=== PATIENT | male | born 1960 | race Caucasian/White ===

== ENCOUNTER → 2017-12-15 07:39 | Outpatient (CLI) | payer OTHER, SELFPAY ==
[2017-12-15 10:27] LABS: Hemoglobin A1c 8.3 % (4.2-6.3)
[2017-12-15 10:28] LABS: Microalbumin,Random Urine 15.4 mg/L (NO RANGE EST.)
[2017-12-15 10:31] LABS: Anion Gap 7 (5-15); BUN 14 mg/dL (7-18); BUN/Creat Ratio 18.7 RATIO (10-20); Calcium,Total 8.8 mg/dL (8.5-10.1); Chloride 103 mmol/L (98-107); Cholesterol 155 mg/dL (200); Creatinine, Serum 0.75 mg/dL (0.70-1.30); EST Glomerular Filtration Rate 114 mL/min (>60); Est Glom Filt Rate - Afr Amer 137 mL/min (>60); Glucose 150 mg/dL (74-106); High Density Lipoprotein 44 mg/dL; PSA,Total - Annual Screen 1.59 ng/mL (0.00-4.00); Potassium 4.3 mmol/L (3.5-5.1); Sodium Level 141 mmol/L (136-145); Triglycerides 145 mg/dL; Very Low Density Lipoprotein 29 mg/dL (5-40)
== END ==
PROVIDERS: Family Provider Family Medicine; PCP Family Medicine; Referring Provider Family Medicine; Visit Provider Family Medicine
DX: I10 Essential (primary) hypertension (principal); E78.00 Pure hypercholesterolemia, unspecified; E11.9 Type 2 diabetes mellitus without complications; Z12.5 Encounter for screening for malignant neoplasm of prostate
CPT/HCPCS: 36415; 80048; 80061; 82043; 82570; 83036; 84153; G0103

== ENCOUNTER → 2018-09-14 | Outpatient (CLI) | payer OTHER, SELFPAY ==
[2018-09-14 10:20] LABS: Hemoglobin A1c 7.9 % (4.2-6.3)
== END | disposition home or self-care (01) ==
LOC: MTLAB 07:26
PROVIDERS: Family Provider Family Medicine; PCP Family Medicine; Referring Provider Family Medicine; Visit Provider Family Medicine
DX: E11.9 Type 2 diabetes mellitus without complications (principal)
CPT/HCPCS: 36415; 83036

== ENCOUNTER → 2018-12-03 08:20 | Outpatient (CLI) | payer OTHER, SELFPAY ==
[2018-12-03 10:56] LABS: Hemoglobin A1c 7.4 % (4.2-6.3)
[2018-12-03 11:15] LABS: Anion Gap 2 (5-15); BUN 14 mg/dL (7-18); Calcium,Total 8.9 mg/dL (8.5-10.1); Chloride 108 mmol/L (98-107); Cholesterol 172 mg/dL (200); Creatinine, Serum 0.78 mg/dL (0.70-1.30); EST Glomerular Filtration Rate 108 mL/min (>60); Est Glom Filt Rate - Afr Amer 131 mL/min (>60); Glucose 163 mg/dL (74-106); High Density Lipoprotein 47 mg/dL; Potassium 4.2 mmol/L (3.5-5.1); Sodium Level 141 mmol/L (136-145); Triglycerides 101 mg/dL; Very Low Density Lipoprotein 20 mg/dL (5-40)
== END ==
PROVIDERS: Family Provider Family Medicine; PCP Family Medicine; Referring Provider Family Medicine; Visit Provider Family Medicine
DX: I10 Essential (primary) hypertension (principal); E78.00 Pure hypercholesterolemia, unspecified; E11.9 Type 2 diabetes mellitus without complications; Z12.5 Encounter for screening for malignant neoplasm of prostate
CPT/HCPCS: 36415; 80048; 80061; 83036

== ENCOUNTER 2019-05-24 09:58 | Observation (INO) | payer OTHER, SELFPAY ==
[2019-05-24] VITALS (12 sets, daily range): BP systolic 124–165; BP diastolic 77–97; PULSE 76–96; RESP 16–19; TEMP 36.2–36.8; O2SAT 5–98; BMI 25.7
--- NOTE | 2019-05-24 10:09 | EKG12_ITS ---
Test Reason : CP Blood Pressure : / mmHG Vent. Rate : 086 BPM Atrial Rate : 086 BPM P-R Int : 148 ms QRS Dur : 090 ms QT Int : 376 ms P-R-T Axes : 051 020 096 degrees QTc Int : 449 ms Normal sinus rhythm Nonspecific ST and T wave abnormality Abnormal ECG Confirmed by PALMA BARAHONA ([id number]), editor producer PK GARIBAY ([id number]) on 05/25/2019 2:30:57 PM Referred By: ES/UG Confirmed By:PALMA BARAHONA
--- NOTE | 2019-05-24 10:10 | RAD_ITS ---
STUDY: X-RAY CHEST REASON FOR EXAM: Male, 59 years old. LEFT CHEST PAIN X1 WEEK INTERMITTENT. LAST COUPLE DAYS PERSISTENT. STATES PAIN WORSE WITH EXERTION TECHNIQUE: Single AP portable view of the chest. COMPARISON: None. FINDINGS: EKG electrodes are seen. Minimal increased markings in the right middle lobe. There is no demonstrated pleural abnormality. Normal size heart. Normal mediastinum and marybeth. Normal visualized pulmonary arteries. Normal visualized aortic arch and descending thoracic aorta. Normal visualized thoracic spine. Normal visualized ribs, clavicles, and shoulders. There is no demonstrated abnormality of the visualized soft tissue structures of the upper abdomen. RAD/Chest 1 View (Portable) IMPRESSION: Minimal increased markings in the right middle lobe. Electronically Signed: Jonatan De Leon, at 10:23 EST , Service support ,
[2019-05-24 10:32] LABS: Absolute Lymphocyte Count 2.54 X10^3/uL (0.83-4.51); Absolute Neutrophil Count 7.3 X10^3/uL (2.0-7.7); Basophil# 0.09 X10^3/uL; Basophil% 0.8 % (0-1); Eosinophil# 0.31 X10^3/uL; Eosinophils% 2.9 % (0-5); Hematocrit 48.6 % (40-54); Hemoglobin 16.5 g/dL (13.0-16.5); Lymphocyte # 2.54 X10^3/ul (4.0); Lymphocyte % 23.4 % (19-41); Mean Corpuscular Hgb 29.4 pg (27.0-32.0); Mean Corpuscular Volume 86.6 fL (80-94); Mean Platelet Vol. 9.9 fl (6.2-12.0); Monocyte% 5.5 % (0-10); NRBC Flagged by Analyzer 0 % (0-5); Neutrophil # 7.26 X10^3/uL (2.7-7.7); Neutrophil % 66.9 % (47-70); Platelet Count 425 K/mm3 (150-450); RBC Distribution Width CV 12.4 % (11.6-14.6); RBC Distribution Width SD 38.7 fl (35.1-43.9); Red Blood Count 5.61 M/mm3 (4.6-6.2); White Blood Count 10.9 K/mm3 (4.4-11.0)
[2019-05-24 10:46] LABS: Anion Gap 3 (5-15); BUN 16 mg/dL (7-18); BUN/Creat Ratio 16.5 RATIO (10-20); Calcium,Total 9.5 mg/dL (8.5-10.1); Chloride 105 mmol/L (98-107); Creatinine, Serum 0.97 mg/dL (0.70-1.30); EST Glomerular Filtration Rate 83 mL/min (>60); Est Glom Filt Rate - Afr Amer 101 mL/min (>60); Estimated Creatinine Clearance 85.18 ml/min; Glucose 320 mg/dL (74-106); Potassium 4.5 mmol/L (3.5-5.1); Sodium Level 137 mmol/L (136-145)
--- NOTE | 2019-05-24 13:52 | HP.PCM_ITS ---
Problem List (1) HTN (hypertension) Status: Chronic (2) Type 2 diabetes mellitus Status: Chronic (3) HLD (hyperlipidemia) Status: Chronic History of Present Illness Date of Admission: 05/24/19 Chief Complaint: Chest pain. The patient is a 59 year old M who presents to the emergency room due to chest pain. Patient reports over the past week he has had chest pain with exertion. Patient reports this has worsened since starting a week ago and this morning had chest pain just while ambulating to the kitchen. He describes the pain as a heavy/pressure which radiates down both arms. He denies shortness of breath, lightheadedness or other associated symptoms. He states if he rests, pain goes away within a few minutes. 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 This resolved with rest. He has no smoking history. He has a history of hypertension, hyperlipidemia and type 2 diabetes mellitus. He reports his mom and dad both had significant heart disease requiring intervention. Past Medical History Past Medical History (Chronic Problems): Chronic Problems HTN (hypertension) (Chronic) Type 2 diabetes mellitus (Chronic) HLD (hyperlipidemia) (Chronic) Allergies No Known Allergies Allergy (Verified 05/24/19 10:05) Home Medications: Ambulatory Orders Medication Instructions Recorded Aspirin 325 mg PO DAILY PRN PRN 05/24/19 Aspirin [Aspirin, Baby] 81 mg PO DAILY@0800 05/24/19 Atorvastatin Calcium [Lipitor] 20 mg PO QODAY 05/24/19 Canagliflozin [Invokana] 300 mg PO DAILY 05/24/19 Liraglutide [Victoza 3-Isaac] 1.8 mg SQ DAILY@1400 05/24/19 Quinapril HCl [Accupril] 10 mg PO BID 05/24/19 Sitagliptin Phos/Metformin HCl 1 tab PO BIDCM 05/24/19 [Janumet 50-1,000 MG Tablet] Surgical History: no surgical history Psychiatric History: No pertinent psych hx Lives: Spouse/ Significant Other Smoking Status: Never smoker Alcohol: Occasional Drugs: None - *Family History Maternal History Items: Heart Disease Paternal History Items: Heart Disease Review of Systems Constitutional: Denies: Chills, Fever, Weight Change HEENT: Denies: Head Aches, Sinus Congestion, Sinus Drainage Cardiovascular: Reports: Chest Pain Respiratory: Denies: Cough, Shortness of breath at rest, Sputum production Gastrointestinal: Denies: Abdominal Pain, Nausea, Vomiting Genitourinary: Denies: Dysuria Musculoskeletal: Denies: Joint Pain, Joint Tenderness Skin: Denies: Rash, Wounds Neurological: Denies: Numbness, Tingling, Focal weakness Psychiatric: Denies: Anxiety, Depression, Homicidal Ideations, Suicidal Ideations Hematologic/ Lymphatic: Denies: Easy Bruising, Easy Bleeding VTE Information - Inpt Only VTE Present on Admission: No VTE Mechan Device Prophylaxis: None VTE Pharm Prophylaxis ordered?: No Reason prophylaxis not ordered:: Treatment Not Indicated - Physical Exam Vitals/I&O's: Vital Signs Temp Pulse Resp BP Pulse Ox 97.1 F L 90 16 130/92 H 94 05/24/19 13:48 05/24/19 13:48 05/24/19 13:48 05/24/19 13:48 05/24/19 13:48 Oxygen Delivery Method Room Air Weight: 184 lb Body Mass Index (BMI) 25.7 General: Alert, Oriented x3, Cooperative HEENT: Atraumatic, PERRLA, EOMI, Normocephalic Neck: Supple, No JVD, Negative Carotid Bruits Lungs: Clear to auscultation, Normal air movement Cardiovascular: Regular rate, Regular Rhythm, Normal S1, Normal S2, No murmurs Abdomen: Bowel Sounds Present, Soft, Non Tender, Non-Distended Extremities: No clubbing, No cyanosis, No edema, Capillary Refill Less than 3 Seconds Skin: No rashes, No breakdown Musculoskeletal: No Tenderness to Palpation of Joints or Extremities Neurological: Cranial nerves II-XII grossly intact, Neuro grossly intact Psych/Mental Status: Normal Affect, Appropriate Laboratory Results 05/24/19 10:05: WBC 10.9, RBC 5.61, Hgb 16.5, Hct 48.6, MCV 86.6, MCH 29.4, MCHC 34.0, RDW Std Deviation 38.7, RDW Coeff of Nicholas 12.4, Plt Count 425, MPV 9.9, Immature Gran % (Auto) 0.500, Neut % (Auto) 66.9, Lymph % (Auto) 23.4, [place] % (Auto) 5.5, Eos % (Auto) 2.9, Baso % (Auto) 0.8, Absolute Neuts (auto) 7.3, Absolute Lymphs (auto) 2.54, Nucleated RBC % 0 05/24/19 10:05: Sodium 137, Potassium 4.5, Chloride 105, Carbon Dioxide 29.0, Anion Gap 3 L, BUN 16, Creatinine 0.97, Estim Creat Clear Calc 85.18, Est GFR (MDRD) Af Amer 101, Est GFR (MDRD) Non-Af 83, BUN/Creatinine Ratio 16.5, Glucose 320 H, Calcium 9.5, Troponin I 0.019 Current Medications Acetaminophen (Tylenol) 650 mg PO Q6H PRN PRN PRN Reason: Pain Score 1-10/Temp > 100.7 F Aspirin (Aspirin, Baby) 81 mg PO DAILY@0800 [facility] Atorvastatin Calcium (Lipitor) 20 mg PO QODAY [facility] Dextrose (D50w Syringe) 0 gm IV X1 PRN; Protocol PRN Reason: Hypoglycemia Glucagon () 1 mg IM .X1 PRN PRN Reason: Hypoglycemia Insulin Human Lispro (Humalog Kwikpen (Bkc)) 0 unit SC ACHS S[facility]; Protocol Non-Formulary Medication (Quinapril Hcl [Accupril]) 10 mg PO BID [facility] Sitagliptin Phosphate/Metformin HCl (Janumet 50-1,000 Mg Tablet) tablet PO BIDCM [facility] Assessment/Plan 1. Chest pain-trend enzymes. EKG without acute ischemia. Obtain stress test in a.m. Patient's story with exertional chest pain concerning for underlying CAD. Patient also has significant family history and risk factors including diabetes, hypertension/hyperlipidemia. 2. Hypertension-stable, continue lisinopril regimen. 3. Hyperlipidemia-fasting lipid panel in a.m. Continue statin regimen. 4. Type 2 diabetes mellitus-hold oral regimen. Accu-Cheks with sliding scale insulin. Check hemoglobin A1c. DVT prophylaxis- not indicated, low risk This patient was seen by DIANA Berman under the supervision of Dr. Munguia.
--- NOTE | 2019-05-24 14:29 | EKG12_ITS ---
Test Reason : CP ADMIT Blood Pressure : / mmHG Vent. Rate : 085 BPM Atrial Rate : 085 BPM P-R Int : 148 ms QRS Dur : 088 ms QT Int : 378 ms P-R-T Axes : 036 006 059 degrees QTc Int : 449 ms Normal sinus rhythm Normal ECG When compared with ECG of 15-JUN-1999 17:56, Nonspecific T wave abnormality, improved in Inferior leads Confirmed by NASEEM CARDENAS, MARY ([id number]), desk editor CLARY REY ([id number]) on 05/30/2019 4:06:50 PM Referred By: MARIELY Confirmed By:MARY GUSMAN MD
--- NOTE | 2019-05-24 14:48 | ECHOD_ITS ---
Reason For Study: CHEST PAIN Procedure This was a 2D Doppler, Color Flow transthoracic echocardiogram. The study was technically difficult. Exam performed portable in patient room. Left Ventricle Normal LV size. Left ventricular systolic function is normal. The estimated ejection fraction is 60 %. Transmitral doppler flow suggestive of impaired relaxation of left ventricle. No regional wall motion abnormalities noted. Right Ventricle Normal RV size. Normal systolic function. Atria Normal left atrium. Normal right atrium. No doppler evidence for ASD. Mitral Valve There is no mitral annular calcification. Anterior leaflet diffuse mitral valve thickening. Mild mitral valve prolapse, anterior leaflet. Trivial mitral valve insufficiency. Tricuspid Valve Normal tricuspid valve. Trivial tricuspid valve insufficiency. Unable to estimate RV systolic pressure/pulmonary artery pressure due to technically difficult study. Aortic Valve Trisinus/trileaflet aortic valve. Moderate focal aortic valve calcification. Pulmonic Valve The pulmonic valve is not well visualized. Great Vessels The aortic root is not well visualized. Pericardium/Pleural No pericardial effusion. MMode/2D Measurements & Calculations LVIDd: 4.2 cm IVSd: 1.0 cm LVOT diam: 2.3 cm LVIDs: 3.0 cm LVPWd: 1.00 cm LVOT area: 4.1 cm2 RVDd: 3.3 cm FS: 28.1 % LAV(MOD-bp): 32.3 ml LVAd ap4: 31.2 cm2 SV(MOD-sp4): 56.1 ml LAV(MOD-bp) Indexed: 16.2 ml/m2 EDV(MOD-sp4): 96.5 ml LAV(MOD-sp2): 37.1 ml EDV(sp4-el): 100.8 ml LAV(MOD-sp4): 27.4 ml LVAs ap4: 17.9 cm2 ESV(MOD-sp4): 40.3 ml ESV(sp4-el): 40.4 ml EF(MOD-sp4): 58.2 % EF(sp4-el): 59.9 % SV(sp4-el): 60.4 ml LA A4 area: 12.5 cm2 LA dimension(2D): 3.6 cm RA A4 area: 9.5 cm2 Time Measurements MV dec time: 0.40 sec Doppler Measurements & Calculations MV E max jerome: 54.5 cm/sec Lat Peak E' Jerome: 5.8 cm/sec Med Peak E' Jerome: 4.0 cm/sec MV A max jerome: 62.3 cm/sec E/E' lat: 9.4 E/E' med: 13.6 MV E/A: 0.87 Ao V2 max: 143.9 cm/sec LV V1 max: 85.4 cm/sec PA V2 max: 89.7 cm/sec Ao max P.3 mmHg LV V1 max P.9 mmHg VALENTINA(V,D): 2.4 cm2 Interpretation Summary The study was technically difficult. Left ventricular systolic function is normal. The estimated ejection fraction is 60 %. Anterior leaflet diffuse mitral valve thickening. Mild mitral valve prolapse, anterior leaflet Trivial mitral valve insufficiency. Trivial tricuspid valve insufficiency. Moderate focal aortic valve calcification. Unable to estimate RV systolic pressure/pulmonary artery pressure due to technically difficult study. Transmitral doppler flow suggestive of impaired relaxation of left ventricle Ordering Physician: Sarah Poole Referring Physician: SHERRI REEVES Performed By: Kelly Mendez RDCS, RVT
[2019-05-24 15:07] LABS: Hemoglobin A1c 9.7 % (4.2-6.3)
--- NOTE | 2019-05-24 15:28 | CASEMGMT ---
According to the [facility] website, the following are in-network tertiary facilities: [facility], [facility], [facility], [facility], [facility], [facility], [facility], [facility], [facility], and . Lexi BATISTA CM
--- NOTE | 2019-05-24 16:38 | ED.DCSUM_ITS ---
- ER Visit Summary Date of Service: 05/24/19 Chief Complaint: Chest pain History of Present Illness: The patient is a 59 M who presents with chest pain that has been waxing and waning over the past week. Patient states his pain is worse with any exertion. Patient states his pain is resolved with rest. Oj dumont states that while he was at work he had to stop and take a break because of the chest pain. Patient describes the pain as burning. Patient states the pain is over the entire chest area. Patient does admit to some shortness of breath and palpitations with the pain. Patient denies any nausea or vomiting. Patient denies any diaphoresis. Physical Examination: Vital signs are stable. Patient is afebrile. Patient is in no acute distress. Oral mucosa is pink and moist. Neck is supple. Trachea is midline. There is no JVD noted. Heart was regular rate and rhythm. Lungs are clear and equal bilaterally. Abdomen is soft. Bowel sounds are normal. There is no tenderness. There is no rebound or guarding noted. Skin is warm dry. Cranial nerves II through XII are intact. There are no focal motor or sensory deficits noted. Extremities are intact. There is no calf tenderness or edema. Test Results: EKG showed normal sinus rhythm with a rate of 86. There are nonspecific ST-T wave changes. CBC and basic metabolic profile were obtained. Glucose was elevated at 320 but was otherwise within normal limits. Troponin was 0.019. Portable chest x-ray was obtained. There is no acute cardiopulmonary process. This was interpreted by myself and the radiologist. Emergency Department Course and Treatment: Patient was given aspirin here. Patient remained pain-free during emergency department stay. Patient has a HEART score of 4. Patient has a KAYCEE risk score of 0. I recommended admission to the hospital for the patient. He is agreeable with this. Case was discussed with the hospitalist. He will admit the patient to his service. Patient understands and is agreeable with the plan. All questions were answered. Disposition: Admit for observation Impression: Chest pain This note was generated with [employer] dictation software. It may contain incorrect words, spelling, and punctuation that were not noted in review of the chart prior to signing ED Disposition - Plan for ED Patient: Disposition: Acute Care [facility]
[2019-05-24 17:01] LABS: Bedside Glucose 225 mg/dL (70-110)
[2019-05-24] MEDS: Insulin Lispro 100 UNIT/ML INSULN.PEN SC ×2 (17:03→21:03)
[2019-05-24] MEDS: Clopidogrel Bisulfate 300 MG Tablet PO (17:04)
[2019-05-24] MEDS: Metoprolol Tartrate 25 MG Tablet PO (17:09)
--- NOTE | 2019-05-24 17:13 | CON.PCM_ITS ---
Problem List (1) NSTEMI (non-ST elevated myocardial infarction) Status: Acute (2) HLD (hyperlipidemia) Status: Chronic (3) HTN (hypertension) Status: Chronic (4) Type 2 diabetes mellitus Status: Chronic Reason for Consult Date of Consultation: 05/24/19 History of Present Illness: The patient is a 59 year oldxpy-oqix-yca white male who presents for evaluation of symptoms concerning for accelerating angina pectoris and objective findings compatible with a non-ST segment elevation WA. He states for the last week he has been having symptoms of chest discomfort and bilateral upper extremity burning as well as feeling more short of breath and dyspneic with activity. He notes this is become more more prominent with even less activity such as walking from one room to the other room. He did have to stop and rest for his symptoms to franc. He denied orthopnea or PND or peripheral pitting edema. He has had no nausea, emesis, or diaphoresis. There is been no near syncope or syncope. Based upon his ongoing symptoms he presented to the emergency department for further evaluation. In the emergency [place] he had a negative troponin I level. He had an ECG that demonstrated sinus rhythm with subtle nonspecific ST/T wave abnormality. Upon repeat his troponin I level was positive and his previous ECG changes were res olving to baseline. He was placed in the PCU for further evaluation and care. He states he does have a history of diabetes mellitus. He believes it is been under reasonably good control. He does not recall any history of cardiovascular disease evaluation or care for himself. He states both parents had CAD requiring PCI and he believes his father underwent CABG. [] Past Medical History Allergies/Adverse Reactions: Allergies No Known Allergies Allergy (Verified 05/24/19 10:05) Home Medications: Ambulatory Orders Medication Instructions Recorded Aspirin 325 mg PO DAILY PRN PRN 05/24/19 Aspirin [Aspirin, Baby] 81 mg PO DAILY@0800 05/24/19 Atorvastatin Calcium [Lipitor] 20 mg PO QODAY 05/24/19 Canagliflozin [Invokana] 300 mg PO DAILY 05/24/19 Liraglutide [Victoza 3-Isaac] 1.8 mg SQ DAILY@1400 05/24/19 Quinapril HCl [Accupril] 10 mg PO BID 05/24/19 Sitagliptin Phos/Metformin HCl 1 tab PO BIDCM 05/24/19 [Janumet 50-1,000 MG Tablet] Past Medical History (Chronic Problems): Chronic Problems HTN (hypertension) (Chronic) Type 2 diabetes mellitus (Chronic) HLD (hyperlipidemia) (Chronic) Surgical History: no surgical history Psychiatric History: No pertinent psych hx - *Family History Maternal History Items: Heart Disease Paternal History Items: Heart Disease Lives: Spouse/ Significant Other Smoking Status: Never smoker Alcohol: Occasional Drugs: None Review of Systems - Review of Systems General: Denies: Fever, Night Sweats, Fatigue Cardiovascular: Reports: Chest Discomfort, Chest Discomfort with Exertion, Shortness of Breath, Shortness of Breath with Exertion. Denies: Orthopnea, PND, Peripheral Edema, Palpitations, Lightheadedness, Dizziness, Near Syncope, Syncope Respiratory: Denies: Cough, Sputum Production, Hemoptysis Gastrointestinal: Denies: Hematemesis, Hematochezia, Melena Genitourinary: Denies: Dysuria, Hematuria Skin: Denies: Rash Subjectve: This is a 59-year-old white male who appears resting comfortably at the moment in no acute distress. Objective: Vital Signs Temp Pulse Resp BP Pulse Ox 97.1 F L 80 16 147/77 H 96 05/24/19 16:24 05/24/19 17:09 05/24/19 16:24 05/24/19 16:24 05/24/19 16:24 Oxygen Delivery Method Room Air Weight: 179 lb 7.3 oz Body Mass Index (BMI) 25.7 General: Awake, Alert, Oriented x 3, Cooperative, No Acute Distress HEENT: Atraumatic, Normocephalic, PERRL, EOMI, Sclera Non Icteric Oral: Moist Mucosa Neck: Supple, Good ROM, No JVD Lungs: Clear to auscultation Cardiovascular: Regular Rhythm, Normal S1, Normal S2 Vascular: No Carotid Bruits, Normal Femoral Pulses, Normal Radial Pulses Abdomen: Bowel Sounds Present, Soft, Non Tender Extremities: No Cyanosis, No Clubbing, No edema Neurological: No Focal Motor or Sensory Deficit Psych/Mental Status: Appropriate 05/24/19 10:05: WBC 10.9, RBC 5.61, Hgb 16.5, Hct 48.6, MCV 86.6, MCH 29.4, MCHC 34.0, Plt Count 425, MPV 9.9, Immature Gran % (Auto) 0.500, Neut % (Auto) 66.9, Lymph % (Auto) 23.4, [place] % (Auto) 5.5, Eos % (Auto) 2.9, Baso % (Auto) 0.8, Absolute Neuts (auto) 7.3, Nucleated RBC % 0 05/24/19 10:05: Sodium 137, Potassium 4.5, Chloride 105, Carbon Dioxide 29.0, Anion Gap 3 L, BUN 16, Creatinine 0.97, Est GFR (MDRD) Af Amer 101, Est GFR (MDRD) Non-Af 83, BUN/Creatinine Ratio 16.5, Glucose 320 H, Calcium 9.5, Troponin I 0.019 05/24/19 14:04: Troponin I 0.656 H* 05/24/19 14:11: Hemoglobin A1c 9.7 H Rhythm: Sinus rhythm EKG: As noted above CXR: Preliminary evaluation: No acute cardiopulmonary disease process appreciated Assessment/Plan 1. Non-ST segment elevation my The patient presents with symptoms compatible with accelerating angina pectoris. He has been found to have abnormal troponin I levels and an abnormal ECG. The present time he appears to be resting comfortably. He will continue to be monitored. He will continue medical therapy with a combination of aspirin, antiplatelets, nitrates as needed, beta-blockers, lipid-lowering agents, and anticoagulants all as deemed appropriate. He will be considered for further evaluation of his left ventricular wall motion systolic function with a transthoracic echocardiogram. He also be considered for further evaluation of his coronary anatomy with a diagnostic cardiac catheterization. The procedure and risks were discussed with him. He was agreeable to this approach. 2. Hyperlipidemia His lipid labs can be evaluated. He should be treated medically as deemed appropriate. 3. Hypertension He does note his systolic blood pressure tends to run approximately 140 mmHg. He may need further adjustment of his medications to help bring his blood pressure under better control. 4. Diabetes mellitus He will continue evaluation care per internal medicine. Comment: The patient's case was discussed and reviewed the patient and Dr. Munguia. This note was generated using a voice recognition system and there may be incorrect words, spelling or punctuation that were not noted when reviewing the office note prior to saving.
[2019-05-24] MEDS: Enoxaparin 100 MG/ML Syringe 80 MG SC (18:03)
--- NOTE | 2019-05-24 19:50 | NURSING ---
Verbal report given to Libertad Li RN
[2019-05-24] MEDS: Lisinopril 10 MG Tablet PO (21:00)
[2019-05-24] MEDS: Atorvastatin Calcium 20 MG Tablet PO (21:00)
[2019-05-24 21:16] LABS: Bedside Glucose 217 mg/dL (70-110)
[2019-05-25] VITALS (16 sets, daily range): BP systolic 105–136; BP diastolic 67–86; PULSE 74–89; RESP 16–18; TEMP 36.6–36.9; O2SAT 93–99
[2019-05-25 05:54] LABS: AST(SGOT) 18 U/L (15-37); Alanine Aminotransfer ALT/SGPT 22 U/L (16-61); Albumin, Serum 3.5 g/dL (3.2-5.0); Alkaline Phosphatase 72 U/L (45-117); Bilirubin, Direct 0.12 mg/dL (0.00-0.30); Cholesterol 153 mg/dL (200); High Density Lipoprotein 37 mg/dL; Protein, Total 7.5 g/dL (6.4-8.2); Triglycerides 137 mg/dL; Very Low Density Lipoprotein 27 mg/dL (5-40)
--- NOTE | 2019-05-25 05:55 | EKG12_ITS ---
Test Reason : AM EKG Blood Pressure : / mmHG Vent. Rate : 080 BPM Atrial Rate : 080 BPM P-R Int : 160 ms QRS Dur : 094 ms QT Int : 404 ms P-R-T Axes : 057 032 065 degrees QTc Int : 465 ms Normal sinus rhythm Normal ECG When compared with ECG of 24-MAY-2019 13:59, MANUAL COMPARISON REQUIRED, DATA IS UNCONFIRMED Confirmed by NASEEM CARDENAS, MARY ([id number]), story editor CLARY REY ([id number]) on 05/30/2019 4:05:17 PM Referred By: BRITNEY Confirmed By:MARY GUSMAN MD
[2019-05-25] MEDS: Clopidogrel Bisulfate 75 MG Tablet PO (06:21)
[2019-05-25] MEDS: Lisinopril 10 MG Tablet PO (06:22)
[2019-05-25] MEDS: Metoprolol Tartrate 25 MG Tablet PO (06:22)
[2019-05-25] MEDS: 0.9% Normal Saline 1,000 ML 15 ML IV ×2 (06:22→15:23)
[2019-05-25] MEDS: Aspirin 81 MG TAB.CHEW PO (06:22)
[2019-05-25 06:46] LABS: Bedside Glucose 179 mg/dL (70-110)
--- NOTE | 2019-05-25 07:49 | PCM.PN.CARD ---
Subjectve: The patient is awake and alert. He states since starting medical therapy in the hospital his symptoms have been calm at rest as well as with minimal ambulation to the bathroom and back. Objective: Vital Signs Temp Pulse Resp BP Pulse Ox 98.0 F 84 16 136/79 H 98 05/25/19 06:22 05/25/19 06:49 05/25/19 06:22 05/25/19 06:22 05/25/19 06:22 Oxygen Delivery Method Room Air Weight: 179 lb 7.3 oz Body Mass Index (BMI) 25.7 Intake and Output for Last 24 Hours 05/23/19 05/24/19 05/25/19 23:59 23:59 23:59 Intake Total 760 / 760 100 / 100 Balance 760 / 760 100 / 100 General: Awake, Alert, Oriented x 3, Cooperative, No Acute Distress HEENT: Atraumatic, Normocephalic, PERRL, EOMI, Sclera Non Icteric Oral: Moist Mucosa Neck: Supple, Good ROM, No JVD Lungs: Clear to auscultation Cardiovascular: Regular Rhythm, Normal S1, Normal S2 Abdomen: Bowel Sounds Present, Soft, Non Tender Extremities: No edema Neurological: No Focal Motor or Sensory Deficit Psych/Mental Status: Appropriate 05/24/19 10:05: WBC 10.9, RBC 5.61, Hgb 16.5, Hct 48.6, MCV 86.6, MCH 29.4, MCHC 34.0, Plt Count 425, MPV 9.9, Immature Gran % (Auto) 0.500, Neut % (Auto) 66.9, Lymph % (Auto) 23.4, [place] % (Auto) 5.5, Eos % (Auto) 2.9, Baso % (Auto) 0.8, Absolute Neuts (auto) 7.3, Nucleated RBC % 0 05/24/19 10:05: Sodium 137, Potassium 4.5, Chloride 105, Carbon Dioxide 29.0, Anion Gap 3 L, BUN 16, Creatinine 0.97, Est GFR (MDRD) Af Amer 101, Est GFR (MDRD) Non-Af 83, BUN/Creatinine Ratio 16.5, Glucose 320 H, Calcium 9.5, Troponin I 0.019 05/24/19 14:04: Troponin I 0.656 H* 03/03/20 14:11: Hemoglobin A1c 9.7 H 05/24/19 16:54: Troponin I 0.593 H 05/24/19 19:30: Troponin I 1.120 H* 05/25/19 04:55: Total Bilirubin 0.70, Direct Bilirubin 0.12, Triglycerides 137, Cholesterol 153, LDL Cholesterol 89, VLDL Cholesterol 27, HDL Cholesterol 37 L Rhythm: Sinus rhythm EKG: Sinus rhythm; no acute ECG changes Medical Necessity - Tobacco Use Smoking Status: Never smoker Assessment/Plan 1. Non-ST segment elevation my The patient presents with symptoms compatible with accelerating angina pectoris. He has been found to have abnormal troponin I levels-which have increased-and an abnormal ECG. The present time he appears to be resting comfortably. He will continue to be monitored. He will continue medical therapy with a combination of aspirin, antiplatelets, nitrates as needed, beta-blockers, lipid-lowering agents, and anticoagulants all as deemed appropriate. He will be considered for further evaluation of his left ventricular wall motion systolic function with a transthoracic echocardiogram. He also be considered for further evaluation of his coronary anatomy with a diagnostic cardiac catheterization. The procedure and risks were discussed with him. He was agreeable to this approach. 2. Hyperlipidemia He should be treated medically as deemed appropriate. 3. Hypertension He does note his systolic blood pressure tends to run approximately 140 mmHg. He may need further adjustment of his medications to help bring his blood pressure under better control. 4. Diabetes mellitus He will continue evaluation care per internal medicine. Comment: The patient's case has been discussed and reviewed the patient and Dr. Munguia. This note was generated using a voice recognition system and there may be incorrect words, spelling or punctuation that were not noted when reviewing the office note prior to saving.
--- NOTE | 2019-05-25 09:20 | CL.D_ITS ---
Patient Name: KATHRIN WISE Study Date: 05/25/2019 Performing: Mayank Allan MD Ht: 70 inches 178 cm : 1960 Wt: 178.8 lbs 81 kg Age: 59 Gender: male BSA: 1.99 PROCEDURE(S) PERFORMED UI97-TET/COR/LV CLINICAL PROFILE AND INDICATIONS Indications: ACS <= 24 hrs, Suspected CAD Heart Failure: None Stress/Imaging Stress/Image Study Performed: No Angina Classification Anginal Classification w/in 2 Weeks: CCS III CAD Presentations: Non-STEMI. CONCLUSIONS Normal Left Ventricular End Diastolic Pressure Normal LV size, wall motion,and systolic function LVEF: by LV gram 55 % [place] Multivessel CAD RECOMMENDATIONS Risk factor modification Medical therapy Surgery consult for coronary revascularization DESCRIPTION OF PROCEDURE The patient arrived to the procedure lab. The risks and benefits of the procedure as well as a full d escription of our services here and current unavailability of surgical backup were fully explained to the patient and/or their significant other prior to the catheterization. The Timeout was completed, verifying the correct patient and procedure. The patient's procedural site was prepped and draped in the usual fashion. Local anesthetic was given subcutaneously to right groin region with Lidocaine 2%. Using a modified Seldinger technique, arterial access was obtained via the right femoral artery, a 4 Fr sheath was inserted Left Coronary Artery selective angiography was performed in multiple views us ing a 4 Fr. JL5 catheter. Right Coronary Artery selective angiography was then performed in multiple views using a 4 Fr. 3DRC catheter. Left Ventriculography was performed in RITTER projection using a 4 Fr . Pigtail catheter. LV to AO pullback pressures were then recorded.The arterial sheath was pulled and manual compression applied until hemostasis is achieved. CORONARY ANGIOGRAPHY DOMINANCE: Right Dominant LEFT HEART ASSESSMENT Left Ventricular Ejection Fraction: by LV Gram 55 % Normal LV wall motion Elevated Left Ventricular End Diastolic Pressure LVEDP: 7 mmHg LEFT MAIN: mid to distal: 75 % Stenosis LEFT ANTERIOR DESCENDING ARTERY: OSTIAL LAD: 75 % Stenosis PROX LAD: Mild calcification, diffuse: 25 % Stenosis MID LAD: 50 % Stenosis DISTAL LAD: diffuse: 25 % Stenosis CIRCUMFLEX ARTERY: Mild luminal irregularities MID CIRC: 50 % Stenosis DISTAL CIRC: 85 % Stenosis OM 1: Proximal - Mild luminal irregularities OM 2: Proximal - 25 - 50 % Stenosis RIGHT CORONARY ARTERY: Mild luminal irregularities MID RCA: diffuse: 50 % Stenosis AORTIC ROOT: Angiographically normal COMPLICATIONS No Complications PROCEDURE MEDICATIONS Versed 1 mg IV Oxygen: 2 L/min via nasal cannula IV Bolus: .9 NaCl 200 ml total 05/25/2019 08:50:06 SUMMARY OF HEMODYNAMIC DATA Time AIR REST ECG 08:25:02 AO 103/68 (83) SA 08:38:07 LV 120/-10, 14 08:43:59 LV 118/-16, 7 08:44:06 LV 124/-14, 10 08:45:03 LVp 125/-13, 10 08:45:07 AOp 117/60 (83) 08:45:13 AO 116/60 (82) 08:45:14 Signed By Mayank Allan MD On 05/25/2019 09:19:50 Mayank Allan MD
[2019-05-25] MEDS: 0.9% Normal Saline 1,000 ML 75 ML IV (10:05)
--- NOTE | 2019-05-25 11:01 | DS.PCM_ITS ---
Discharge Date and Diagnosis Date of Admission: 05/24/19 Date of Discharge: 05/25/19 - Primary Discharge Diagnosis Active and Suspected Problems 1. NSTEMI 2. Multivessel CAD 3. Hypertension 4. Hyperlipidemia 5. Type 2 diabetes mellitus - Secondary Discharge Diagnosis Chronic Problems HTN (hypertension) (Chronic) Type 2 diabetes mellitus (Chronic) HLD (hyperlipidemia) (Chronic) Hospital Course and Treatment Imaging Results: Diagnostic Data Chest X-Ray 05/24/19 10:10 IMPRESSION: Minimal increased markings in the right middle lobe. Electronically Signed: Jonatan De Leon, at 10:23 EST , Service support , Dr. Allan- Cardiology Operations: None Procedures: 2-D Echocardiogram, Cardiac catheterization Summary of Care Provided: The patient is a 59 year old M admitted 05/24/2019 due to chest pain. 1. NSTEMI-initial troponin normal, repeat troponin 0.656, 1.120. Cardiology consulted. On aspirin, statin, beta-bakari, lisinopril. Cardiac cath as noted below. 2. Multivessel CAD-patient underwent heart cath which demonstrated [place] multivessel CAD. LVEF 55%. Left main mid to distal 75% stenosis, ostial LAD 75% stenosis, proximal LAD mid calcification, diffuse 25% stenosis, mid LAD 50% stenosis, distal LAD 25% stenosis, mid circumflex 50% stenosis, distal circumflex 85% stenosis, OM1 proximal mild luminal irregularities, OM 2 proximal 25 to 50% stenosis, mid RCA diffuse 50% stenosis. Patient was referred to tertiary facility for coronary revascularization. Patient chose [facility] and was transferred in stable condition. 3. Hypertension-on lisinopril, metoprolol. 4. Hyperlipidemia-continue statin. 5. Type 2 diabetes mellitus-hemoglobin A1c 9.7%. On Invokana and Victoza as well as Janumet. General: Alert, Oriented x3, Cooperative HEENT: Atraumatic, PERRLA, EOMI, Normocephalic Neck: Supple, No JVD, Negative Carotid Bruits Lungs: Clear to auscultation, Normal air movement Cardiovascular: Regular rate, Regular Rhythm, Normal S1, Normal S2, No murmurs Abdomen: Bowel Sounds Present, Soft, Non Tender, Non-Distended Extremities: No clubbing, No cyanosis, No edema, Capillary Refill Less than 3 Seconds Skin: No rashes, No breakdown Musculoskeletal: No Tenderness to Palpation of Joints or Extremities Neurological: Cranial nerves II-XII grossly intact, Neuro grossly intact Psych/Mental Status: Normal Affect, Appropriate Patient seen and examined prior to discharge. Physical assessment as noted above. Patient is stable for discharge with follow up recommendations as noted above. This patient was seen by DIANA Berman under the supervision of Dr. Munguia. - Physical Exam Vitals/I&O's: Vital Signs Temp Pulse Resp BP Pulse Ox 98.5 F 77 16 119/80 93 05/25/19 09:20 05/25/19 10:50 05/25/19 10:50 05/25/19 10:50 05/25/19 10:50 Oxygen Delivery Method Room Air Weight: 179 lb 7.3 oz Body Mass Index (BMI) 25.7 Intake and Output for Last 24 Hours 05/23/19 05/24/19 05/25/19 23:59 23:59 23:59 Intake Total 760 / 760 155.75 / 155.75 Balance 760 / 760 155.75 / 155.75 Laboratory Results 05/24/19 14:04: Troponin I 0.656 H* 05/24/19 14:11: Hemoglobin A1c 9.7 H 05/24/19 16:54: Troponin I 0.593 H 05/24/19 16:55: POC Glucose 225 H 05/24/19 19:30: Troponin I 1.120 H* 05/24/19 21:02: POC Glucose 217 H 05/25/19 04:55: Total Bilirubin 0.70, Direct Bilirubin 0.12, AST 18, ALT 22, Alkaline Phosphatase 72, Total Protein 7.5, Albumin 3.5, Globulin 4.0, Triglycerides 137, Cholesterol 153, LDL Cholesterol 89, VLDL Cholesterol 27, HDL Cholesterol 37 L 05/25/19 06:25: POC Glucose 179 H Current Medications Acetaminophen (Tylenol) 650 mg PO Q6H PRN PRN PRN Reason: Pain Score 1-10/Temp > 100.7 F Aspirin (Aspirin, Baby) 81 mg PO DAILY@0800 [facility] Last Admin: 05/25/19 06:22 Dose: 81 mg Documented by: Atorvastatin Calcium (Lipitor) 20 mg PO QODAY@2200 [facility] Last Admin: 05/24/19 21:00 Dose: 20 mg Documented by: Glucagon () 1 mg IM .X1 PRN PRN Reason: Hypoglycemia Heparin Sodium (Beef Lung) (Heparin 500 Unit/5 Ml (100/Ml)) 500 unit IV UD PRN PRN Reason: HEPARIN FLUSH Dextrose (Dextrose 10%-Water) 250 mls @ 999 mls/hr IV .Q16M PRN; Protocol PRN Reason: HYPOGLYCEMIA Sodium Chloride () 500 mls @ 15 mls/hr IV PRN PRN PRN Reason: Blood Transfusion Sodium Chloride () 250 mls @ 15 mls/hr IV .[id number] PRN PRN Reason: Saline Flush Sodium Chloride () 250 mls @ 15 mls/hr IV .[id number] PRN PRN Reason: Additional IVPB Infusion Sodium Chloride () 1,000 mls @ 75 mls/hr IV .[id number] [facility] Stop: 05/25/19 12:59 Last Admin: 05/25/19 10:05 Dose: 75 mls/hr Documented by: Sodium Chloride () 1,000 mls @ 15 mls/hr IV .Q48H [facility] Insulin Human Lispro (Humalog Kwikpen (Bkc)) 0 unit SC [facility]; Protocol Last Admin: 05/25/19 06:52 Dose: Not Given Documented by: Labetalol HCl (Trandate) 5 mg IV X1 PRN PRN Reason: SBP > 160 prior to sheath pull Stop: 05/27/19 08:59 Lisinopril (Zestril) 10 mg PO BID [facility] Last Admin: 05/25/19 06:22 Dose: 10 mg Documented by: Metoprolol Tartrate (Lopressor (Beta Bakari)) 25 mg PO BID [facility] Last Admin: 05/25/19 06:22 Dose: 25 mg Documented by: Ondansetron HCl (Zofran) 4 mg IV Q8H PRN PRN PRN Reason: NAUSEA/VOMITING Sodium Chloride () 10 - 40 ml IV UD PRN PRN Reason: SALINE FLUSH Temazepam (Restoril) 15 mg PO QHS PRN PRN PRN Reason: INSOMNIA Home Medications: Medications to take at Discharge Aspirin 325 mg PO DAILY PRN PRN 05/24/19 Aspirin [Aspirin, Baby] 81 mg PO DAILY@0800 05/24/19 Atorvastatin Calcium [Lipitor] 20 mg PO QODAY 05/24/19 Canagliflozin [Invokana] 300 mg PO DAILY 05/24/19 Liraglutide [Victoza 3-Isaac] 1.8 mg SQ DAILY@1400 05/24/19 Quinapril HCl [Accupril] 10 mg PO BID 05/24/19 Sitagliptin Phos/Metformin HCl [Janumet 50-1,000 MG Tablet] 1 tab PO BIDCM 05/24/19 Primary Care Physician: Shane Mckinney MD [Primary Care Provider] - Disposition: Acute care Hospital Minutes spent on discharge:: 35 Patient Condition:: Stable Medical Necessity - Tobacco Use Smoking Status: Never smoker Meaningful Use Info Meaningful Use Diagnoses (Choose all that apply): AMI - AMI/Post PCI/Angioplasty Aspirin given w/in 24hrs of arrival?: Yes ASA at discharge?: Yes Statins at discharge?: Yes [place]o/ARB at discharge?: Yes Beta Bakari at discharge?: Yes Done w/ Acute [place] measure.: Yes
[2019-05-25 11:30] LABS: Bedside Glucose 126 mg/dL (70-110)
--- NOTE | 2019-05-25 13:27 | NURSING ---
Bedrest post R femoral cath complete at 1320. Patient ambulated in hallway without issue. R femoral puncture site, c/d/i.
--- NOTE | 2019-05-25 16:36 | NURSING ---
Report called to LYNNE Zarco at [facility]
[2019-05-25] MEDS: Insulin Lispro 100 UNIT/ML INSULN.PEN SC (16:40)
[2019-05-25 16:46] LABS: Bedside Glucose 156 mg/dL (70-110)
== END 2019-05-25 11:40 | disposition short-term general hospital (02) ==
LOC: ED 11:09 → PCU 12:49
PROVIDERS: Nurse Practitioner Family; Admitting Provider Internal Medicine; Emergency Provider Emergency Medicine; PCP Family Medicine; Visit Provider Internal Medicine
DX: I21.4 Non-ST elevation (NSTEMI) myocardial infarction (principal); I25.10 Atherosclerotic heart disease of native coronary artery without angina pectoris; I10 Essential (primary) hypertension; R94.31 Abnormal electrocardiogram [ECG] [EKG]; I08.3 Combined rheumatic disorders of mitral, aortic and tricuspid valves; E11.9 Type 2 diabetes mellitus without complications; E78.5 Hyperlipidemia, unspecified; Z79.899 Other long term (current) drug therapy; Z79.82 Long term (current) use of aspirin; Z79.84 Long term (current) use of oral hypoglycemic drugs
CPT/HCPCS: 36415; 71045; 80048; 80061; 80076; 82962; 83036; 84484; 85025; 93005; 93306; 93458; 96360; 96361; 96372; 99152; 99153; 99218; 99285; J7030; Q9967; A4216; C1769; C1894; G0378

== ENCOUNTER → 2019-08-03 10:27 | Outpatient (CLI) | payer OTHER, SELFPAY ==
[2019-07-21 15:56] VITALS: BMI 26.4
--- NOTE | 2019-08-03 10:39 | CR.HP_ITS ---
CR - History & Physical - General Arrival date:: 08/03/19 Arrival time:: 10:42 Date of Referral:: 07/21/19 Date of CR Evaluation:: 08/03/19 - Postponed evaluation due to COVID-19 program closure from 06/23/2019 through July 25, 2019. Referring Physician: DR. 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 DEVELOPED NUMBNESS AND TINGLING IN ARMS. Interventions with present event:: WENT TO EMERGENCY ROOM UNDER PCP DIRECTION, SENT TO [facility] FOR HEART CATH. Were there any complications?: NONE - Medications Home Medications: Ambulatory Orders Medication Instructions Recorded Aspirin [Aspirin, Baby] 81 mg PO DAILY@0800 05/24/19 acetaminophen 500 mg tablet 1,000 mg PO Q6H PRN tab 07/20/19 atorvastatin 80 mg tablet 80 mg PO QHS 07/20/19 clopidogrel 75 mg tablet 75 mg PO DAILY 07/20/19 glimepiride 4 mg tablet 4 mg PO DAILY 07/20/19 metformin 1,000 mg tablet 1,000 mg PO BID 07/20/19 metoprolol tartrate 50 mg tablet 50 mg PO BID 07/20/19 sitagliptin 100 mg tablet 100 mg PO DAILY 07/20/19 lisinopril 10 mg tablet 5 mg PO DAILY #90 tab 07/21/19 - Allergies Allergies/Adverse Reactions: Allergies rosuvastatin [From Crestor] Adverse Reaction (Severe, Verified 07/21/19 16:01) Aches simvastatin Adverse Reaction (Severe, Verified 07/21/19 16:01) Stiff Joints - Sleep Disorder Evaluation Hx of Sleep Apnea: No Do you snore loudly (louder than talking or can be heard through closed doors)?: Yes Do you often feel tired/ fatigued/ sleepy during daytime?: Yes Has anyone observed you stop breathing during sleep?: No History of Hypertension (for STOP score): Yes STOP Results: Positive Advanced Directives - Advanced Directives Power of Vice President Investor Relations: No Living Will: No Advance Directives Information Provided: Yes Advance Directives on File: No DNR Order?:: No - MOLST See MOLST form: No Past Medical History - Past Medical Illness Medical History: Past Medical History (Last Updated 07/20/19 @ 17:22 by Roselyn Siddiqui) Lung nodule (Acute) R91.1 Atherosclerotic heart disease of [place] coronary artery without angina pectoris (Chronic) I25.10 Essential hypertension (Chronic) I10 Type 2 diabetes mellitus (Chronic) E11.9 HLD (hyperlipidemia) (Chronic) E78.5 NSTEMI (non-ST elevated myocardial infarction) (Acute) I21.4 HTN (hypertension) (Inactive) I10 - Past Surgical History Surgical History: Past Surgical History (Last Updated 07/20/19 @ 17:22 by Roselyn Siddiqui) History of coronary artery bypass surgery (Chronic) Onset Date: ~06/02/19 Z95.1 CABG x4- FLORES-LAD, SHARYN -OM1; Radial - OM3, SVG -PDA 06/02/19 @ [facility] History of left heart catheterization (LHC) Onset Date: ~05/25/19 Z98.890 LEFT MAIN: mid to distal: 75 % Stenosis; LEFT ANTERIOR DESCENDING ARTERY:OSTIAL LAD: 75 % Stenosis PROX LAD: Mild calcification, diffuse: 25 % Stenosis, MID LAD: 50 % Stenosis, DISTAL LAD: diffuse: 25 % Stenosis;CIRCUMFLEX ARTERY: Mild luminal irregularities, MID CIRC: 50 % Stenosis, DISTAL CIRC: 85 % Stenosis; OM 1: Proximal - Mild luminal irregularities, OM 2: Proximal - 25 - 50 % Stenosis; RIGHT CORONARY ARTERY: Mild luminal irregularities; MID RCA: diffuse: 50 % Stenosis ; Surgery consult for coronary revascularization per Cath 05/25/19 Surgical History: no surgical history - Family History Summary Family History: Family History (Last Updated 07/20/19 @ 17:24 by Roselyn Siddiqui) Mother CAD (coronary artery disease) Father CAD (coronary artery disease) History of coronary artery bypass surgery Social History - Smoking History Smoking Status: Never smoker Hx Tobacco Use: No Hx Smoking Exposure: No - Alcohol Use Alcohol Usage: Yes - CURRENT - Substance Abuse Hx Substance Use: No - Occupation Occupation (List type of work in comments):: Employed Hours worked per day:: 12 - Hobbies, Recreation, Social Activities Hobbies: Exercise - TWICE WEEKLY GO TO GYM, TAKING CARE OF WHO HAS M.S., WORKING OUT IN THE YARD., Other Recreational Activities: I am able to engage in most, but not all activities Social Environment - Status Marital Status: - Current Living Arrangements Living Environment:: Spouse - Children How many children do you have?: 2 - 5 GRANDCHILDREN Do any of your children live nearby?: Yes - Safety Do you feel safe in your surroundings?: Yes - Assistance Do you need any assistance at home?: NO Review of Systems - Review of Systems Hints: Right click = Denies (Slash). Left click = Reports (Chitina) Review of Present Symptoms: Reports: Shortness of Breath with Exertion - JUST SLIGHTLY STILL, STARTED WALKING RIGHT AFTER SURGERY STIL NOTICED SLIGHT SHORTNESS OF BREATH., Wound Healing, Fatigue, Appetite - Normal, Appetite - Special Diet - LOW FAT, NO ADDED SUGAR, Sleep - Normal. Denies: Shortness of Breath at Rest, Angina, Dizziness/Lightheadedness, Heart Arrhythmia/Irregularities, Sexual Changes - Pain Is Patient Pain Free?: No Pain Location: other - THOUGHOUT THE SHOUDERS AND NECK, BELIEVES PAIN TO BE A RESULT OF THE STAITN MEDICATIONS. ENCOURAGED PATIENT TO CALL DR. NICOLAS OFFICE TO REPORT THIS. Pain Level: 05/02 Risk Factor Assessment - Chief Complaint Chief Complaint: THIS IS A 59 YR OLD MALE WHO PRESENTS TO CARDIAC REHAB TODAY FOLLWOING RECENT CABG ADN NSTEMI IN MAY 2019. - Vital Signs Temperature: 97.8 F Respiratory Rate: 16 Pulse Ox: 94 Blood Pressure: 148/82 - Pulse Pulse Rate: 72 Pulse Rhythm: Regular - Hypertension How long have you been treated?: 10 On medication(s)?: YES Blood Pressure Sitting - Left Arm: 148/82 - Stress Stress: Recent - Blood Cholesterol/Lipids Total Cholesterol (mg/dL) Goal = less than 200 mg/dL: 150 HDL Cholesterol (mg/dL) Goal = less than 40 mg/dL: 37 LDL Cholesterol (mg/dL) Goal = less than 70 mg/dL: 89 Triglycerides (mg/dL) Goal = less than 150 mg/dL: 137 - Diabetes Diabetic History: Type II, Medication Dependent Nutrition Referral for Diabetes: Yes - Obesity Height: 5 ft 10 in Weight:: 184 lb 14.4 oz Weight in Pounds: 184.9 lbs Weight Source: Stated by Patient Body Mass Index (BMI): 26.5 Nutritional Referral for Obesity: No - Physical Inactivity Physical Inactivity: None - Risk Stratification Risk Guidelines: Lowest Risk: Risk Factor for Smoking, Risk Factor for Obesity, Risk Factor for Sedentary Lifestyle, Risk Factor for Depression, Moderate Risk: Risk Factor for Dyslipidemia, Risk Factor for Diabetes - gLUCOSE 320, a1c 9.7, Risk Factor for Hypertension - For Smoking Smoking Risk Guidelines: Smoking Low Risk: None or quit greater than 6 months ago. Smoking Moderate Risk: Smoker or quit 6 months or less ago. Smoking High Risk: Smoker - For Dyslipidemia Dyslipidemia Risk Guidelines: Low Risk: Moderate Risk: High Risk: 15-25% fat 25.1-29% fat >/= 30% fat. <7% sat fat 7-9% sat fat >9% sat fat. <150 mg chol 150-299 mg chol >/= 300 mg chol. LDL <100 LDL 100-129 LDL >/= 130. Chol/HDL ratio <5.0 Chol/HDL ratio 5.0-6.0 Chol/HDL ratio >6.0. Triglycerides <100 Triglycerides 100-149 Triglycerides >/= 150 - For Diabetes Mellitus Diabetes Risk Guidelines: Diabetes Low Risk: HgA1c <6.5% and/or FBG <120. Diabetes Moderate Risk: HgA1c 6.6-7.9% and/or FBG 120-180. Diabetes High Risk: HgA1c >/= 8% and/or FBG >180 - For Obesity/Overweight Obesity/Overweight Risk Guidelines: Obesity Low Risk: BMI <25.0. Obesity Moderate Risk: BMI 25-29.9. Obesity High Risk: BMI >/= 30.0 - For Hypertension Hypertension Risk Guidelines: Hypertension Low Risk: Systolic <120 and Diastolic <80. Hypertension Moderate Risk: Systolic 120-139 and Diastolic 80-89. Hypertension High Risk: Systolic >/= 140 and Diastolic >/= 90 - For Sedentary Lifestyle Sedentary Lifestyle Risk Guidelines: Sedentary Lifestyle Low Risk: >/= 1,500 kcal/week. Sedentary Lifestyle Moderate Risk: 700-1,499 kcal/week. Sedentary Lifestyle High Risk: < 700 kcal/week - For Depression Depression Risk Guidelines: Depression Low Risk: Not clinically depressed. Depression Moderate Risk: Mildly depressed. Depression High Risk: Clinically depressed - Family History Family History: Family History (Last Updated 07/20/19 @ 17:24 by Roselyn Siddiqui) Mother CAD (coronary artery disease) Father CAD (coronary artery disease) History of coronary artery bypass surgery Motivation - Motivation to Participate On a scale of 1 to 10, how prepared are you to commit to attending program?: 10 What do you see as barriers to successfully being able to complete the program?: BACK TO WORK THE FIRST OF AUGUST BUT DECLINED. What do you see as the benefits of succesfully completing the program? In other words, what do you hope to get out of participating in the program?: HEALTHIER, BETTER SHAPE Are there issues you are dealing with that will interfere with completing the program?: NONE Do you have a spouse or signficant other, family or friends who will help support you to complete the program?: YES.
--- NOTE | 2019-08-03 10:50 | CR.ITP_ITS ---
Diagnosis - General Information Admitting Diagnosis: S/P CABG Secondary Diagnosis: NSTEMI Personal Learning Style:: Audio/Visual, Written Barriers to Learning: Vision Impairment Gave educational material for:: Treating Heart Disease, Emotions & Heart Disease, Stress Management & Relaxation, Sleep Disorders & Heart Disease, How The Heart Works, What it means to have Heart Disease, How Coronary Artery Disease is Diagnosed, Heart Procedures, What Heart Medications Do, Risk Factors & Modifications, Living an Active Life, Nutrition - Education/Goals Individual Counseling: Initial Assessment: Abnormal Cholesterol Levels, High Blood Pressure, Diabetes Cardiac Rehabilitation Goals: 1. Maintain the individual as the primary focus of care. 2. To improve the patient's quality of life. 3. Identification of cardiac risk factors and provide cardiac risk factor management. 4. Enhance the psychosocial status of the patient. 5. Reconditioning enough to allow the patient to resume customary activities. 6. Control symptoms of cardiac disease Personal Goals: Initial Assessment: Improve management of stress and emotions, Improve energy level, Get back to work, or to resume activities faster, Improve muscle strength and endurance, Control risk factors (learn risk factor modification) Scale for measuring improvement of personal goals: Enter appropriate number in Comments. 2 = Unchanged. 3 = Slightly Better. 4 = Moderate Improvement. 5 = Met my Goal - Diagnosis & Disease Process Outcomes/Goals: Pt IDs own risk factors & lifestyle modifications by Session 10, Verbalizes symptoms of angina & response by session 3., Pt independently manages Plan/Interventions: Assist Pt to ID & engage in lifestyle modification to reduce CVD risk, Instruct on individual risk factors, Review symptoms of angina & emergency actions, Review secondary diagnosis & identify educational needs. - Safety Referral to Physical Therapy: No Referral to [facility] Case Management: No Fall Risk Assessed:: Yes Assistive Devices:: None Exercise - Initial Assessment - Visit Date of Eval: 08/03/19 - SCHEDULED TO START CR AFTER STRESS TEST Session #:: 0 - INITIAL EVALUATION Mets: Pre-: >7 METS for 30 minutes by discharge - Physician Prescribed Exercise Modalities: Treadmill, Airdyne, NuStep Frequency: 3x/week for 12 weeks [36 sessions] Intensity: 60-80% of age predicted maximum heart rate reserve Current METSs:: 3.5 Target Heart Rate:: 103-135 Resting Blood Pressure: 148/82 EKG Type: SINUS RHYTHM - Outcomes & Goals Goals:: Verbalizes understanding of THR, RPE & goal METS by session 6, Documents in home exercise log/reports 30 min aerobic 5 day/wk by DC, Demonstrates accurate pulse taking by DC - Intervention & Plan Exercise Program Goals: Instruct on personal THR & RPE, Instruct on MET level & personal MET goal, Instruct on home exercise - Physical Activity Home Exercise Physical Activity - Home Exercise: Safe Exercise, Warm-up, Self-monitoring, Cool-Down, Home Exercise > 30 min Daily, Sitting Time <3 hours/daily - Outcomes & Goals Outcomes/Goals: Demonstrates correct Warm-up/exercise Cool-Down (S3) if = 2.5 METs, Verbalizes symptoms of exercise intolerance by Session 3 (S3), Demonstrate safe equipment use (S3) & follows exercise prescrition (6) - Intervention & Plan Plan/Intervention: Instruct warm-up & cool-down if exercising at > 2 METs, Instruct on symptoms of exercise intolerance & actions to take, Assess intial functional capacity & safety risk Nutrition - Initial Assessment - Program Goals Nutrition Program Goals: LDL <100 optimal. 100 - 129 Near optimal. 130 - 159 Borderline High. 160 - 189 High. Total Cholesterol <200 desirable. 200 - 239 Borderline High. >/= 240 High. HDL < 40 Low >/=60 High. Triglycerides <150 desirable. <199 optimal. VlDL 5 - 40. HgbA1C <7%. BMI <25 Patient has diagnosis of Hyperlipidemia (ICD E78)?: Yes - Visit Date of Assessment:: 08/03/19 - SCHEDULED TO START CR AFTER HIS STRESS TEST IS DONE Session #:: 0 - INITIAL EVALUATION - Cholesterol/Lipids Triglycerides (mg/dL): 137 Total Cholesterol (mg/dL): 150 LDL Cholesterol (mg/dL): 89 HDL Cholesterol (mg/dL): 37 Determine presence & major risk factors that modify LDL goal: Hypertension or hypertensive medication, Low HDL cholesterol <40 mg/dL*, Age men > 45 years; women >/= 55 years Outcomes/Goals: Pt IDs own risk factors & lifestyle modifications by Session 10, Verbalizes symptoms of angina & response by session 3., Pt independently manages Intervention/Plan: Instruct on personal lipid levels & lipid goals/NCEP guidelines, Instruct on cholesterol Referral to dietitian:: Yes - Diabetes (Other Core Measures) Diabetes Type: Diagnosis Type II ICD-10 E11 Fasting blood glucose:: 320 Hgb A1C (4.2 - 6.3): 9.7 Insulin dependent injection/pump?: No Non-Insulin Dependent?: Yes - METFORMIN Do you monitor your blood sugar at home?: Yes Referral to Diabetic Clinic:: No Outcomes/Goals:: Able to state symptoms of, Able to state, Able to state Intervention/Plan:: Instruct on, Refer to, Instruct on - Weight Mgt (Other Care) Not Applicable: Yes Height: 5 ft 10 in Weight:: 184 lb 14.4 oz BMI: 26.5 Diagnosis Overweight/Obesity BMI> 30% ICD-10 E66: No Diagnosis High BMI/Morbid Obesity BMI> 35% ICD-10 Z68: No Outcomes/Goals: Pt sets, maintains & shows weight loss goal & trend during rehab Intervention/Plan: Instruct on ideal BMI & set weight loss goal w/patient, Assist pt to ID & incorporate diet changes for weight loss by S9, Encourage goal of using 250-300dcal per session for weight loss - Healthy Eating Habits Will attend diet classes:: Yes Outcomes/Goals:: Consume diet rich in vegs,fruits,whole grain/high fiber,fish,lean meat, Limit sat/trans fats,cholesterol & added salts & sugars Intervention/Plan:: Assess current eating habits - Education Gave educational materials for:: Signs & symptoms of hypoglycemia, Signs & symptoms of hyperglycemia, Relate diabetes to coronary artery disease, Healthy eating Medical - Initial Assessment - Visit Date of Eval: 08/03/19 - SCHEDULED TO START CR AFTER HIS STRESS TEST Session #:: 0 - INITIAL EVALUATION - Medication Compliance Preventative Medication(s):: Aspirin, Clopidogrel/P2Y12 inhibit, Statin/lipid, Beta shawn H/O mental health issues: depression, anxiety, or addiction?: No Doesn?t believe in the benefits of treatment?: No Believes medications are unnecessary or harmful?: No Has a concern about medication side effects?: Yes - STATINS AND MUSCLE PAINS; encouraged patient to discuss with his PCP. Expresses concern over the cost of medications?: No Outcomes/Goals: Verbalizes medications,desired effect & common side effects @ DC, Pt self-reports following medication regimen, Keeps card in wallet w/medications listed by DC Interventions/plans: Instruct on medication effects & side effects, Review m edication list w/patient every two weeks, Instruct importance of taking meds as ordered & assist problem solving - Tobacco Use Tobacco Use: Non-smoker - Hypertension Hypertension Diagnosis:: Hypertension ICD-10 I10 Resting Blood Pressure:: 148/82 [place] [employer] Hypertension Guidelines: [place] [employer] Hypertension Guidelines. Normal BP Less than 120/80. Elevated BP 120/80. Hypertension Stage 1: BP 130-139/80-89. Hypertesnion Stage 2: BP 140 or higher/90 or higher. Hypertension Crisis: BP higher than 180/120 Outcomes/Goals: Able to verbalize/achieve optimal blood pressure <130/80, Incorporates diet changes & exercise for blood pressure control by DC Interventions/plan: Instruct on optimal blood pressure, hypertension & medications, Instruct on effects of sodium, alcohol, stress, exercise &hypertension - Tobacco Cessation Referral Smoking Cessation Referral:: No Individual Education/Counseling:: No Education Schedule Given:: Yes Psychosocial - Initial Assess - VIsit Date of Eval: 08/03/19 Session #:: 0 - INITIAL EVALUATION Not Applicable: Yes History of previous Mental disease:: No - Target Goals Target Goals: Assess presence or absence of depression. Using a valid screening tool, maximizes coping skills. Positive support system - Psychosocial Test Tool Used:: [employer] QOL Cardiac, PHQ-9 Questionnaire phq-9 Severity: Severity. 1-4 Minimal Depression. 5-9 Mild Depression. 10-14 Moderate Depression. 15-19 Moderately Sever Depression. 20-27 Severe Depression. Rule: - Referral to Behavioral Health PS - Interventions: Yes Attend Stress Management Classes - Outcomes/Goals: See list Psychosocial Outcomes/Goals:: ID's personal stressors & 2 strategies to manage stress by discharge - Intervention/Plan: See List Interventions/Plan:: Assess stressors,coping strategies & signs of derpression on admission, Instruct/assist pt to develop coping & personal stress Mgt strategies, Instruct patient to recognize signs & symptoms of depression, Instruct patient to recog Patient Health Questionnaire Initial Assessment 1. Little interest or pleasure in doing things: Several days 2. Feeling down, depressed, or hopeless: Not at all 3. Trouble falling or staying asleep, or sleeping too much: Several days 4. Feeling tired or having little energy: Several days 5. Poor appetite or overeating: Not at all 6. Feeling bad about yourself -- or that you are a failure or have let yourself or your family down: Not at all 7. Trouble concentrating on things, such as reading the newspaper or watching television: Several days 8. Moving or speaking so slowly that other people could have noticed. Or the opposite - being so fidgety or restless that you have been moving around a lot more than usual: Not at all 9. Thoughts that you would be better off , or of hurting yourself in some way: Not at all Total Score: 4 KENNY-Q SV Test - Statements CAD is a disease of the arteries in the heart: False Examples of risk factors for heart disease: True Angina is chest pain or discomfort: I Don't Know The benefits of resistance training include: True Eating more meat and dairy products: False Anti-platelet medications such as aspirin are important: I Don't Know The only effective way to manage stress: False An exercise warm-up slowly increases heart rate: I Don't Know Prepared, processed foods usually have high sodium: True Depression is common after a heart attack: True The statin medications lower cholesterol: I Don't Know To control blood pressure, lower the amount of sodium: True If someone gets chest discomfort during walking: I Don't Know Transfats are partially hydrogenated vegetable oils: I Don't Know Sleep apnea that is not treated increases the risk: True To control cholesterol, one should become a vegetarian: False Someone knows if he/she is exercising at the right level: I Don't Know Diabetes cannot be prevented with exercise & health eating: False Stress is a large risk for heart attack: True A diet that can help lower blood pressure is rich in: True - Total Score Total Correct Responses: 12 Self-Efficacy Initial Assessment We would like to know how confident you are in doing certain activities. Please select your confidence level for:: Select your confidence level for the [facility] using the scale 1-10 where 1 is not at all confident and 10 is totally confident. Your score is the average of all 6 responses. Fatigue: How confident are you that you can keep the fatigue caused by your disease from interfering with the things you want to do? Select Number: 10 Physical Discomfort or Pain: How confident are you that you can keep the physical discomfort or pain of your disease from interfering with the things you want to do? Select Number: 10 Emotional Distress: How confident are you that you can keep the emotional distress caused by your disease from interfering with the things you want to do? Select Number: 10 Other Symptoms or Health Problems: How confident are you that you can keep other symptoms or health problems from interfering with the things you want to do? Select Number: 9 Different Tasks and Activities: How confident are you that you can do the different tasks and activities needed to manage your health condition so as to reduce your need to see a doctor? Select Number: 10 Medication: How confident are you that you can do things other than just taking medication to reduce how much your illness affects your everyday life? Select Number: 10 Total Score:: 9 Nutrition Survey - Nutrition Survey Instructions Scoring Instructions: Scoring is as follows: Yes = 1 points. No = 0 point. Patient score that is >/=12 is considered to be at potential nutritional risk and could benefit from a referral to a registered dietitian. - Nutrition Survey Initial Have you lost >10 lbs over the past 2 months without trying?: No Are you following a special diet at home for diabetes, low fat, or low salt?: Yes Are you interested in meeting with a dietitian for help understanding your diet?: No Do you eat less than 3 meals a day?: Yes Do you eat fatty meats (jimenez, sausage, ribs, etc), fried foods, desserts, large amounts of salad dressings, margarine, butter, or cheese most days?: No Do you have food allergies? [Enter types in comment field]: No Do you eat in restaurants more than 3 times a week?: No Do you season food with salt, seasoning salt, or garlic salt?: No Do you used canned, boxed, frozen meals, or soups, seasoning packets?: No Total Score:: 2
[2019-08-03 11:10] VITALS: BP 148/82; PULSE 72; RESP 16; TEMP 36.6; O2SAT 94; BMI 26.5
== END ==
PROVIDERS: PCP Family Medicine; Referring Provider Internal Medicine Cardiovascular Disease; Visit Provider Internal Medicine Cardiovascular Disease
DX: I25.10 Atherosclerotic heart disease of native coronary artery without angina pectoris (principal); Z95.1 Presence of aortocoronary bypass graft; I25.2 Old myocardial infarction; E78.5 Hyperlipidemia, unspecified; I10 Essential (primary) hypertension; E11.9 Type 2 diabetes mellitus without complications; Z79.82 Long term (current) use of aspirin; Z79.02 Long term (current) use of antithrombotics/antiplatelets; Z79.84 Long term (current) use of oral hypoglycemic drugs; Z79.899 Other long term (current) drug therapy

== ENCOUNTER 2019-08-07 02:21 | Inpatient (IN) | payer OTHER, SELFPAY ==
[2019-08-03 11:10] VITALS: BMI 26.5
[2019-08-07] VITALS (40 sets, daily range): BP systolic 97–181; BP diastolic 57–117; PULSE 79–130; RESP 14–97; TEMP 36.2–38.1; O2SAT 24–100; BMI 27.3; BMI 27.0
--- NOTE | 2019-08-07 02:33 | EKG12_ITS ---
Test Reason : CP Blood Pressure : / mmHG Vent. Rate : 102 BPM Atrial Rate : 102 BPM P-R Int : 158 ms QRS Dur : 094 ms QT Int : 372 ms P-R-T Axes : 054 063 086 degrees QTc Int : 484 ms Sinus tachycardia Nonspecific ST and T wave abnormality Abnormal ECG Confirmed by NASEEM CARDENAS, MARY ([id number]), assignment editor CLARY REY ([id number]) on 08/08/2019 12:57:05 PM Referred By: Marsha Mendoza Confirmed By:MARY GUSMAN MD
--- NOTE | 2019-08-07 02:35 | ED.DCSUM_ITS ---
History of Present Illness Chief Complaint: Chest Pain Informant: Patient Onset: Hours - 3 Current Severity: Mild Maximum Severity: Moderate Narrative: Patient presents with chest pain and shortness of breath for the past 3 hours. He has no fever or chills. He has a cough. He has no abdominal pain nausea vomiting or diarrhea. He recently had a quadruple bypass. Denies lower extremity edema or calf pain. Past Medical History - Allergies and Home Meds Allergies/Adverse Reactions: Allergies rosuvastatin [From Crestor] Adverse Reaction (Severe, Verified 07/21/19 16:01) Aches simvastatin Adverse Reaction (Severe, Verified 07/21/19 16:01) Stiff Joints Primary Care Physician: Shane Mckinney MD [Primary Care Provider] - Past Medical History: - - Hypertension, hypercholesterolemia, diabetes, heart disease Surgical History: no surgical history Smoking Status: Never smoker - Family History Maternal Family History: Family History (Last Updated 07/20/19 @ 17:24 by Roselyn Siddiqui) Mother CAD (coronary artery disease) Father CAD (coronary artery disease) History of coronary artery bypass surgery Family History: Reports: Heart Disease Paternal Family History: Family History (Last Updated 07/20/19 @ 17:24 by Roselyn Siddiqui) Mother CAD (coronary artery disease) Father CAD (coronary artery disease) History of coronary artery bypass surgery Family History: Reports: Heart Disease Review of Systems All systems negative except as indicated General: Denies: Chills, Fever Eyes: Denies: Visual changes - bilaterally ENT: Denies: Sore throat Cardiovascular: Reports: Chest pain Respiratory: Reports: Dyspnea, Cough. Denies: Sputum Gastrointestinal: Denies: Abdominal pain, Nausea Musculoskeletal: Denies: Myalgias, Neck pain, Back pain Skin: Denies: Rash Neurological: Denies: Headache, Weakness Endocrine: Denies: Polyuria Hematologic: Denies: Easy bruising Physical Exam Vital Signs/Narrative: Vital Signs Temp Pulse Resp BP Pulse Ox 08/07/19 02:29 97.2 F L 112 H 22 H 158/117 H 98 08/07/19 02:22 97.2 F L 104 H 20 H 158/117 H 98 Inital Vital Signs reviewed: Yes General: Well nourished, Well developed Head: Normocephalic ENT: Moist mucous membranes Cardiovascular: Regular rate, Regular rhythm Respiratory: No distress, - - Coarse bilateral breath sounds. He is speaking in full sentences does not appear in any distress. Abdomen: Soft, Nontender Back: Nontender, Normal Inspection Extremities: Nontender, No edema Skin: Normal color Neurological: Normal Strength, Normal Sensation Diagnostic/Tx/Re-eval Chest X-Ray - ED: 1 View, Read by ED Physician, - - X-ray read by myself, reveals bilateral infiltrates, normal cardiac silhouette. Normal bony structure s. - Rhythm Strip Rhythm Strip: Sinus Rhythm Rate: 102 Ectopy: None - EKG Initial EKG Interpretation: - - Sinus tachycardia with a rate of 102. Normal IA and QTc intervals. Nonspecific ST changes throughout. Otherwise unremarkable EKG Interpreted by emergency doctor - Medical Decision Making Patient is found to have infiltrates, he will be tested for COVID, I will place him on antibiotics in the meantime and I will admit him. His heart rate as well as his respiratory rate significantly improved with oxygen. ED Disposition - Plan for ED Patient: Disposition: Acute Care Hospital [facility] Diagnosis: Respiratory distress, Pneumonia, Suspected 2019 novel coronavirus infection Referrals: Shane Mckinney MD [Primary Care Provider] -
--- NOTE | 2019-08-07 03:10 | RAD_ITS ---
STUDY: X-RAY CHEST REASON FOR EXAM: Male, 59 years old. SOB, COUGH, CHEST PAIN TECHNIQUE: Single AP portable view of the chest. COMPARISON: 05/24/2019. FINDINGS: Midline sternotomy wires noted several diagnoses include diffuse interstitial pneumonitis, new in the interval new in the interval. The lungs are normally expanded with bilateral curly B lines compatible with interstitial pulmonary edema. There is no demonstrated pleural abnormality. Normal size heart. Normal mediastinum and marybeth. Normal visualized pulmonary arteries. Normal visualized aortic arch and descending thoracic aorta. Normal visualized thoracic spine. Normal visualized ribs, clavicles, and shoulders. There is no demonstrated abnormality of the visualized soft tissue structures of the upper abdomen. RAD/Chest 1 View (Portable) IMPRESSION: Sinuses suggestive of diffuse interstitial pulmonary edema as described. Electronically Signed: Oma Elias MD at 4:09 EDT , Service support ,
[2019-08-07 03:37] LABS: International Normalized Ratio 1.1; Prothrombin Time (Protime)PT. 13.4 SECONDS (11.7-14.9)
[2019-08-07 03:38] LABS: Partial Thromboplast Time 26.6 Seconds (24.1-36.2)
[2019-08-07 03:44] LABS: Absolute Lymphocyte Count 2.55 X10^3/uL (0.83-4.51); Absolute Neutrophil Count 11.7 X10^3/uL (2.0-7.7); Basophil% 0.6 % (0-1); Eosinophil# 0.57 X10^3/uL; Eosinophils% 3.6 % (0-5); Hematocrit 38.6 % (40-54); Hemoglobin 11.5 g/dL (13.0-16.5); Lymphocyte # 2.55 X10^3/ul (4.0); Mean Corp Hgb Conc 29.8 g/dL (32-36); Mean Corpuscular Hgb 24.1 pg (27.0-32.0); Mean Corpuscular Volume 80.9 fL (80-94); Mean Platelet Vol. 10.1 fl (6.2-12.0); Monocyte% 6.3 % (0-10); NRBC Flagged by Analyzer 0 % (0-5); Neutrophil % 73.1 % (47-70); Platelet Count 568 K/mm3 (150-450); RBC Distribution Width CV 14.8 % (11.6-14.6); RBC Distribution Width SD 42.8 fl (35.1-43.9); Red Blood Count 4.77 M/mm3 (4.6-6.2)
[2019-08-07 03:53] LABS: ALB/GLOB Ratio 0.7 RATIO (0.9-2.4); AST(SGOT) 10 U/L (15-37); Alanine Aminotransfer ALT/SGPT 18 U/L (16-61); Albumin, Serum 3.3 g/dL (3.2-5.0); Alkaline Phosphatase 91 U/L (45-117); Anion Gap 8 (5-15); BUN 24 mg/dL (7-18); BUN/Creat Ratio 27.2 RATIO (10-20); Calcium,Total 8.5 mg/dL (8.5-10.1); Chloride 106 mmol/L (98-107); Creatinine, Serum 0.88 mg/dL (0.70-1.30); EST Glomerular Filtration Rate 93 mL/min (>60); Est Glom Filt Rate - Afr Amer 113 mL/min (>60); Estimated Creatinine Clearance 91.02 ml/min; Globulin 4.5 g/dL (2.2-4.2); Glucose 187 mg/dL (74-106); Protein, Total 7.8 g/dL (6.4-8.2); Sodium Level 140 mmol/L (136-145)
[2019-08-07 04:05] LABS: BNP,B-Type NATRIURETIC PEPTIDE 159.4 pg/mL (0-100)
[2019-08-07 04:06] LABS: Lactic Acid 2.7 mmol/L (0.4-1.9)
--- NOTE | 2019-08-07 04:17 | HP.PCM_ITS ---
Problem List (1) Severe sepsis Status: Acute (2) Pneumonia Status: Acute Qualifiers: Pneumonia type: due to unspecified organism Laterality: bilateral Lung location: unspecified part of lung Qualified Code(s): J18.9 - Pneumonia, unspecified organism (3) Suspected COVID-19 virus infection Status: Acute (4) CAD (coronary artery disease) Status: Chronic Qualifiers: Coronary Disease-Associated Artery/Lesion type: unspecified vessel or lesion type [place] vs. transplanted heart: unspecified whether [place] or transplanted heart Associated angina: angina presence unspecified Qualified Code(s): I25.10 - Atherosclerotic heart disease of [place] coronary artery without angina pectoris (5) Essential hypertension Status: Chronic (6) Type 2 diabetes mellitus Status: Chronic Qualifiers: Diabetes mellitus shelter insulin use: without shelter use Diabetes mellitus complication status: with other specified complication Qualified Code(s): E11.69 - Type 2 diabetes mellitus with other specified complication (7) HLD (hyperlipidemia) Status: Chronic Qualifiers: Hyperlipidemia type: unspecified Qualified Code(s): E78.5 - Hyperlipidemia, unspecified History of Present Illness Date of Admission: 08/07/19 Chief Complaint: Dyspnea, cough, chest pain. The patient is a 59 y/o M w/ PMHx: HTN, HLD, Diabetes mellitus type II, CAD s/p recent CABG x 4 FLORES-LAD, SHARYN-OM1, Radial-OM3, SVG-PDA [facility] 06/02/[address] [facility] ED on 08/07/19 with history of onset of chest discomfort with dyspnea starting approximately 3 hours prior to ED presentation with recent onset of cough noted to be dry with no recent fever or chills, abdominal pain, nausea, e mesis or diarrhea. Patient describes the chest discomfort is midsternal, nonradiating, pressure-like in sensation, 3-5 out of 10 in severity, felt as though he could not catch his breath prompting the eventual ED presentation. He denies any recent weight gain or significant orthopnea. Work-up in the ED included T 97.6, heart rate 112, BP 158/117, respiratory rate 22, 98% on 4 L nasal cannula, CBC with WBC 16, hemoglobin 11.5, platelet 568 with left shift, unremarkable coags, CMP with BUN/creatinine 24/0.88, glucose 187, troponin 0 0.034, lactic acid 2.7, BNP 159.4, coronavirus testing requested per ED and pending upon admission, blood culture x2 pending per ED, urinalysis pending per ED, urine culture pending per ED, EKG with sinus tachycardia with nonspecific ST changes with no acute evidence of ischemia. In the ED patient administered Rocephin, Azithromycin. Past Medical History Past Medical History (Chronic Problems): Chronic Problems (Last Updated 07/20/19 @ 17:22 by Roselyn Siddiqui) CAD (coronary artery disease) (Chronic) History of coronary artery bypass surgery (Chronic ~06/02/19) CABG x4- FLORES-LAD, SHARYN -OM1; Radial - OM3, SVG -PDA 06/02/19 @ [facility] Atherosclerotic heart disease of [place] coronary artery without angina pectoris (Chronic) Essential hypertension (Chronic) Type 2 diabetes mellitus (Chronic) HLD (hyperlipidemia) (Chronic) Medical History: Medical History (Last Updated 07/20/19 @ 17:22 by Roselyn Siddiqui) Lung nodule (Acute) R91.1 Atherosclerotic heart disease of [place] coronary artery without angina pectoris (Chronic) I25.10 Essential hypertension (Chronic) I10 Type 2 diabetes mellitus (Chronic) E11.9 HLD (hyperlipidemia) (Chronic) E78.5 NSTEMI (non-ST elevated myocardial infarction) (Acute) I21.4 HTN (hypertension) (Inactive) I10 Allergies rosuvastatin [From Crestor] Adverse Reaction (Severe, Verified 07/21/19 16:01) Aches simvastatin Adverse Reaction (Severe, Verified 07/21/19 16:01) Stiff Joints Home Medications: Ambulatory Orders Medication Instructions Recorded Aspirin [Aspirin, Baby] 81 mg PO DAILY@0800 05/24/19 acetaminophen 500 mg tablet 1,000 mg PO Q6H PRN tab 07/20/19 atorvastatin 80 mg tablet 80 mg PO QHS 07/20/19 clopidogrel 75 mg tablet 75 mg PO DAILY 07/20/19 glimepiride 4 mg tablet 4 mg PO DAILY 07/20/19 metformin 1,000 mg tablet 1,000 mg PO BID 07/20/19 metoprolol tartrate 50 mg tablet 50 mg PO BID 07/20/19 sitagliptin 100 mg tablet 100 mg PO DAILY 07/20/19 lisinopril 5 mg tablet 5 mg PO DAILY #90 tab 08/05/19 Surgical History: Surgical History (Last Updated 07/20/19 @ 17:22 by Roselyn Siddiqui) History of coronary artery bypass surgery (Chronic) Onset Date: ~06/02/19 Z95.1 CABG x4- FLORES-LAD, SHARYN -OM1; Radial - OM3, SVG -PDA 06/02/19 @ [facility] History of left heart catheterization (LHC) Onset Date: ~05/25/19 Z98.890 LEFT MAIN: mid to distal: 75 % Stenosis; LEFT ANTERIOR DESCENDING ARTERY:OSTIAL LAD: 75 % Stenosis PROX LAD: Mild calcification, diffuse: 25 % Stenosis, MID LAD: 50 % Stenosis, DISTAL LAD: diffuse: 25 % Stenosis;CIRCUMFLEX ARTERY: Mild luminal irregularities, MID CIRC: 50 % Stenosis, DISTAL CIRC: 85 % Stenosis; OM 1: Proximal - Mild luminal irregularities, OM 2: Proximal - 25 - 50 % Stenosis; RIGHT CORONARY ARTERY: Mild luminal irregularities; MID RCA: diffuse: 50 % Stenosis ; Surgery consult for coronary revascularization per Cath 05/25/19 Surgical History: coronary bypass surgery - Recent CABG x4, - - Left eye surgery. Psychiatric History: No pertinent psych hx Lives: Spouse/ Significant Other Smoking Status: Never smoker Tobacco Use: Non-smoker Alcohol: Occasional Drugs: None - *Family History Maternal Family History: Family History (Last Updated 07/20/19 @ 17:24 by Roselyn Siddiqui) Mother CAD (coronary artery disease) Father CAD (coronary artery disease) History of coronary artery bypass surgery History Items: Heart Disease Paternal Family History: Family History (Last Updated 07/20/19 @ 17:24 by Roselyn Siddiqui) Mother CAD (coronary artery disease) Father CAD (coronary artery disease) History of coronary artery bypass surgery History Items: Heart Disease Review of Systems Constitutional: Reports: Malaise, Weakness, Fatigue. 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 Denies: Head Aches, Nasal Congestion, Sinus Congestion, Sinus Drainage Cardiovascular: Reports: Chest Pressure. Denies: Chest Pain, Chest Tightness, Edema, Light Headedness, Orthopnea, Palpitations, Syncope Respiratory: Reports: Cough, Shortness of Breath, Shortness of breath at rest, Shortness of breath upon exertion. Denies: Sputum production, Wheezing Gastrointestinal: Denies: Abdominal Pain, Nausea, Vomiting Genitourinary: Denies: Dysuria Musculoskeletal: Denies: Joint Pain, Joint Tenderness Skin: Denies: Rash, Wounds Neurological: Denies: Numbness, Tingling, Focal weakness Psychiatric: Denies: Anxiety, Depression, Homicidal Ideations, Suicidal Ideations Hematologic/ Lymphatic: Reports: Easy Bruising, Easy Bleeding VTE Information - Inpt Only VTE Present on Admission: No VTE Mechan Device Prophylaxis: SCD's VTE Pharm Prophylaxis ordered?: Yes Patient Problems: Active and Suspected Problems (Last Updated 07/20/19 @ 17:22 by Roselyn Siddiqui) Severe sepsis (Acute) Pneumonia (Acute) Suspected COVID-19 virus infection (Acute) Subjective: Seated upright in the ED bed, no acute distress, notes feeling improved since initial ED presentation. Objective: Physical Examination: General: awake, alert, oriented x 3 and cooperative, seated upright in the ED bed, no acute distress, improved since initial ED presentation. Skin: normal color, turgor, no icterus, cyanosis. HEENT: AT/NC, EOMI, PERRLA, mildly dry MM, no carotid bruits or JVD noted. Lungs: Diminished breath sounds, greater bases, no obvious rales, coarse primarily upper and middle riggs posteriorly, no wheezing, effort appropriate. Heart: Mildly tachycardic with regular rhythm; no gallop, rub audible. Abdomen: soft, NTTP, ND, mildly hyperactive BS, no HSM. Extremities: no cyanosis, clubbing, or edema. Neurological: patient awake, alert, oriented as noted; cognitive function appears baseline intact; pupils equally reactive to light and accomodation; cranial nerves II-XII grossly normal, moving all 4 extremities, no focal deficits, strength moderately globally decrease secondary to acute presentation. Psychiatric: affect appears fatigued, no acute evidence of depressive or anxiety feelings. - Physical Exam Vitals/I&O's: Vital Signs Temp Pulse Resp BP Pulse Ox 97.6 F L 112 H 26 H 146/86 H 99 08/07/19 02:33 08/07/19 02:29 08/07/19 02:29 08/07/19 04:15 08/07/19 04:15 Oxygen Flow Rate (L/min) 4 Oxygen Delivery Method Nasal Cannula Weight: 190 lb 7.67 oz Body Mass Index (BMI) 27.3 Laboratory Results 08/07/19 02:45: WBC 16.0 H, RBC 4.77, Hgb 11.5 L, Hct 38.6 L, MCV 80.9, MCH 24.1 L, MCHC 29.8 L, RDW Std Deviation 42.8, RDW Coeff of Nicholas 14.8 H, Plt Count 568 H , MPV 10.1, Immature Gran % (Auto) 0.400, Neut % (Auto) 73.1 H, Lymph % (Auto) 16.0 L, [place] % (Auto) 6.3, Eos % (Auto) 3.6, Baso % (Auto) 0.6, Absolute Neuts (auto) 11.7 H, Absolute Lymphs (auto) 2.55, Nucleated RBC % 0 08/07/19 02:45: PT 13.4, INR 1.1, APTT 26.6 08/07/19 02:45: Sodium 140, Potassium 4.0, Chloride 106, Carbon Dioxide 26.0, Anion Gap 8, BUN 24 H, Creatinine 0.88, Estim Creat Clear Calc 91.02, Est GFR (MDRD) Af Amer 113, Est GFR (MDRD) Non-Af 93, BUN/Creatinine Ratio 27.2 H, Glucose 187 H, Calcium 8.5, Total Bilirubin 0.40, AST 10 L, ALT 18, Alkaline Phosphatase 91, Troponin I 0.034, Total Protein 7.8, Albumin 3.3, Globulin 4.5 H , Albumin/Globulin Ratio 0.7 L 08/07/19 02:45: Lactic Acid 2.7 H* 08/07/19 02:45: B-Natriuretic Peptide 159.4 H 08/07/19 03:55: COVID-19 (YANCY) Cancelled Current Medications Azithromycin 500 mg/ Dextrose 255 mls @ 250 mls/hr IV X1 ONE Stop: 08/07/19 05:11 Ceftriaxone Sodium (Rocephin) 1 gm in 50 mls @ 100 mls/hr IV X1 ONE Stop: 08/07/19 04:39 Sodium Chloride () 500 mls @ 500 mls/hr IV .Q1H SENTHIL Stop: 08/07/19 05:14 Assessment/Plan All Active Problems (Last Updated 07/20/19 @ 17:22 by Roselyn Siddiqui) Severe sepsis (Acute) Pneumonia (Acute) Suspected COVID-19 virus infection (Acute) Lung nodule (Acute) NSTEMI (non-ST elevated myocardial infarction) (Acute) The patient is a 59 y/o M w/ PMHx: HTN, HLD, Diabetes mellitus type II, CAD s/p recent CABG x 4 FLORES-LAD, SHARYN-OM1, Radial-OM3, SVG-PDA [facility] 06/02/[address] [facility] ED on 08/07/19 with history of onset of chest discomfort with dyspnea starting approximately 3 hours prior to ED presentation with recent onset of cough noted to be dry with no recent fever or chills. 1. Acute Severe Sepsis secondary to Acute Bilateral Pneumonia (Possible GN/GP given recent prolonged admission for CABG < 90 days prior), Possibly secondary to concurrent Acute Viral Syndrome, COVID-19: Will admit to the COVID unit with pending COVID ED initiated testing upon admission, will maintain on oxygen with wean as tolerated to room air, continue MDI PRN albuterol, maintain on IV Zosyn and Vancomycin w/ pending MRSA screen, HOB, IS parameters w/ pending respiratory viral panel, sputum cultures and urine antigens, will obtain procalcitonin, CRP, Ferritin, LDH, D-dimer, cycle cardiac enzymes, continue supportive care including q 2 hour turning including prone given no prone bed availability and judicious hydration, closely monitor for worsening status for ARDS and multiorgan failure. If patient worsens with need for increasing oxygenation would plan transition with ICU physician consultation. Of note CXR read as diffuse interstitial pulmonary edema however given patient's presentation, history, low BNP, CBC with WBC elevation with left shift as well as lactic acidosis more concerning for infectious presentation. Consider CT chest. Will only judiciously hydrate especially given this concern. Bld cx x 2 obtained in the ED. 2. CAD: Patient s/p recent CABG x 4 FLORES-LAD, SHARYN-OM1, Radial-OM3, SVG-PDA [facility] 06/02/19, will continue patient home aspirin, Plavix, statin therapy although allergy noted in history with myalgias, metoprolol, lisinopril therapy. 3. Diabetes mellitus type II: Hold oral home regimen, ADA diet, accu checks w/ ISS. 4. Hypertension: Continue home regimen including lisinopril, metoprolol, PRN hydralazine. 5. Hyperlipidemia: Continue home statin regimen. 6. DVT prophylaxis: SCDs, Lovenox. 7. CODE status: Patient ALEXIA is his and living will is not currently in place and encouraged him to set this up. Discussed CODE status at length including difference between FULL code, DNR-CCA and DNR-CC status. Following discussions about the differences in these status, requested Full Code status. Advanced Care Planning Face to Face Time: 16 minutes. Inpatient E&M: 38472 Init Hosp L3 Procedures: 84003 Advncd Care Plan 30 Min
[2019-08-07] MEDS: Ceftriaxone 1 GM/50 ML BAG IV (04:29)
[2019-08-07] MEDS: 0.9% Normal Saline 1,000 ML 100 ML IV (05:25)
[2019-08-07 05:49] LABS: Absolute Lymphocyte Count 2.27 X10^3/uL (0.83-4.51); Absolute Neutrophil Count 11.6 X10^3/uL (2.0-7.7); Basophil# 0.08 X10^3/uL; Basophil% 0.5 % (0-1); Eosinophil# 0.23 X10^3/uL; Eosinophils% 1.5 % (0-5); Hematocrit 36.6 % (40-54); Lymphocyte # 2.27 X10^3/ul (4.0); Lymphocyte % 14.9 % (19-41); Mean Corp Hgb Conc 30.1 g/dL (32-36); Mean Corpuscular Hgb 24.2 pg (27.0-32.0); Mean Corpuscular Volume 80.6 fL (80-94); Mean Platelet Vol. 9.4 fl (6.2-12.0); Monocyte# 0.92 X10^3/uL; NRBC Flagged by Analyzer 0 % (0-5); Neutrophil # 11.63 X10^3/uL (2.7-7.7); Neutrophil % 76.6 % (47-70); Platelet Count 489 K/mm3 (150-450); RBC Distribution Width CV 14.8 % (11.6-14.6); RBC Distribution Width SD 42.8 fl (35.1-43.9); Red Blood Count 4.54 M/mm3 (4.6-6.2); White Blood Count 15.2 K/mm3 (4.4-11.0)
[2019-08-07 05:59] LABS: D-Dimer Quantitative (DVT/PE) 0.82 FEU/ug/m (0.27-0.49)
--- NOTE | 2019-08-07 06:23 | ECHOD_ITS ---
Reason For Study: DYSPNEA/SOB Procedure This was a 2D Doppler, Color Flow transthoracic echocardiogram. The study was technically difficult. Exam performed portable in ICU/CCU. Left Ventricle Normal LV size. Apical false tendon noted. Left ventricular systolic function is normal. The estimated ejection fraction is 65 %. Post operative septal motion. Diastolic function is indeterminate. No regional wall motion abnormalities noted. Right Ventricle Normal RV size. Normal systolic function. Atria The left atrium is mildly enlarged. Normal right atrium. No doppler evidence for ASD. Mitral Valve There is no mitral annular calcification. Anterior leaflet diffuse mitral valve thickening. Mild (1+) mitral valve insufficiency. Tricuspid Valve Normal tricuspid valve. Trivial tricuspid valve insufficiency. Unable to estimate RV systolic pressure/pulmonary artery pressure due to technically difficult study. Aortic Valve The aortic valve is not well visualized. Moderate focal aortic valve calcification. Pulmonic Valve The pulmonic valve is not well visualized. Great Vessels Normal sized aortic root. Pericardium/Pleural No pericardial effusion. MMode/2D Measurements & Calculations LVIDd: 4.0 cm IVSd: 1.1 cm Ao root diam: 3.4 cm LVIDs: 2.9 cm LVPWd: 0.99 cm RVDd: 3.4 cm FS: 28.2 % LAV(MOD-bp): 72.9 ml LA A4 area: 22.3 cm2 LA dimension(2D): 4.3 cm LAV(MOD-bp) Indexed: 35.9 ml/m2 LAV(MOD-sp2): 65.3 ml LAV(MOD-sp4): 75.5 ml RA A4 area: 13.7 cm2 Time Measurements MV dec time: 0.22 sec Doppler Measurements & Calculations MV E max jerome: 66.4 cm/sec Lat Peak E' Jerome: 13.4 cm/sec Med Peak E' Jerome: 5.6 cm/sec MV A max jerome: 56.8 cm/sec E/E' lat: 5.0 E/E' med: 12.0 MV E/A: 1.2 Ao V2 max: 164.1 cm/sec LV V1 max: 88.4 cm/sec MR max jeorme: 486.6 cm/sec Ao max P.8 mmHg LV V1 max P.1 mmHg MR max P.7 mmHg PA V2 max: 107.7 cm/sec Interpretation Summary The study was technically difficult. Left ventricular systolic function is normal. The estimated ejection fraction is 65 %. Post operative septal motion. Apical false tendon noted. The left atrium is mildly enlarged. Anterior leaflet diffuse mitral valve thickening. Mild (1+) mitral valve insufficiency. Trivial tricuspid valve insufficiency. Moderate focal aortic valve calcification. Unable to estimate RV systolic pressure/pulmonary artery pressure due to technically difficult study. Diastolic function is indeterminate. Ordering Physician: Marsha Mendoza Referring Physician: Shane Mckinney Performed By: Leila Quinonez, JO ANN, RVT
[2019-08-07] MEDS: Furosemide 40 MG/4 ML Vial IV ×2 (06:25→17:05)
--- NOTE | 2019-08-07 06:33 | CPS ---
increased work of breathing, crackles throughout, SpO2 81%
[2019-08-07 06:35] LABS: ALB/GLOB Ratio 0.8 RATIO (0.9-2.4); AST(SGOT) 10 U/L (15-37); Alanine Aminotransfer ALT/SGPT 15 U/L (16-61); Albumin, Serum 3.1 g/dL (3.2-5.0); Alkaline Phosphatase 78 U/L (45-117); Anion Gap 6 (5-15); BUN 23 mg/dL (7-18); BUN/Creat Ratio 30.5 RATIO (10-20); CRP < 2.90 mg/L (0.0-3.0); Calcium,Total 8.4 mg/dL (8.5-10.1); Chloride 107 mmol/L (98-107); Creatinine, Serum 0.75 mg/dL (0.70-1.30); EST Glomerular Filtration Rate 112 mL/min (>60); Est Glom Filt Rate - Afr Amer 135 mL/min (>60); Ferritin 14 ng/mL (26-388); Globulin 4.1 g/dL (2.2-4.2); Glucose 170 mg/dL (74-106); LDH 117 U/L (87-241); Magnesium 1.9 mg/dL (1.6-2.6); Potassium 4.2 mmol/L (3.5-5.1); Protein, Total 7.2 g/dL (6.4-8.2); Sodium Level 139 mmol/L (136-145)
[2019-08-07] MEDS: Albuterol 2.5 MG/3 ML VIAL.NEB. INHALATION (06:35)
[2019-08-07 06:37] LABS: Procalcitonin < 0.04 ng/mL (0.00-0.09)
--- NOTE | 2019-08-07 06:45 | NURSING ---
This RN went into patient room to re-evaluate after patient was noted to be yelling out I can't breath and am suffocating. This RN had just finished phone conversation with Dr Mendoza and was preparing to give the patient IV lasix. Upon entering the patient room this RN noted audible crackles throughout all lung riggs and pushed IV lasix respiratory was called and patient was placed on BiPAP 16/12 @100% FIO2. Dr Pang was then consulted and did see the patient at this time. Fluids were stopped and Dr. Mendoza was notified of all changes at this time.
[2019-08-07 06:57] LABS: Reflex Lactate? Y
--- NOTE | 2019-08-07 07:38 | PCM.PN.BLA ---
Progress Note Patient was seen and examined. He is on Bipap. He feels improved. He is also diuresing well. Denied chest pain, dizziness, SOB. He had SOB at rest and on exertion with PND as well as leg swelling at home. He lives with his . No sick contacts. Reviewed vitas - have been stable. Bp elevated at admission Reviewed blood work - Noted mildly improved leucocytosis, anemia, thrombocytosis. Elevated lactic acid is likely from hypoxia. D-dimer is elevated, on Lovenox BID Troponins are also elevated with mild inferior ST segment elevation - cardiology consulted, started on coreg, increased lisinopril BNP is 159.4 Recent 2D-echo shows EF 65% Urine legionella and streptococcal antigen negative. Blood cultures are pending COVID-19 negative CXR - shows pulmonary edema Low suspicion for COVID - DC isolation precautions Will continue management for likely acute CHF/accelerated hypertension/NSTEMI/respiratory failure Will continue Lasix, Bipap, wean off oxygen as needed, continue with IV antibiotics for now pending blood cultures STROKE Vital Signs/Narrative: Vital Signs Temp Pulse Resp BP BP Pulse Ox 08/07/19 07:15 98.9 F 106 H 24 H 137/87 H 93 08/07/19 07:00 98.9 F 107 H 27 H 142/95 H 92 08/07/19 06:46 114 H 29 H 96 08/07/19 06:45 98.5 F 111 H 27 H 172/108 H 99 08/07/19 06:41 114 H 24 H 100 08/07/19 06:36 120 H 28 H 181/101 H 100 08/07/19 06:20 130 H 38 H 97 08/07/19 05:30 97.1 F L 104 H 15 162/96 H 94 08/07/19 05:20 105 H 08/07/19 04:30 98.7 F 95 19 H 146/86 H 99 08/07/19 04:15 146/86 H 99
[2019-08-07 08:11] LABS: Bedside Glucose 257 mg/dL (70-110)
[2019-08-07] MEDS: Enoxaparin 100 MG/ML Syringe 90 MG SC ×2 (08:13→21:04)
[2019-08-07] MEDS: Insulin Lispro 100 UNIT/ML INSULN.PEN SC ×4 (08:16→21:03)
--- NOTE | 2019-08-07 08:21 | PCM.CON.CC ---
Problem List (1) Acute respiratory failure with hypoxia Status: Acute (2) CAD (coronary artery disease) Status: Chronic Qualifiers: Coronary Disease-Associated Artery/Lesion type: unspecified vessel or lesion type [place] vs. transplanted heart: unspecified whether [place]om[place] or transplanted heart Associated angina: angina presence unspecified Qualified Code(s): I25.10 - Atherosclerotic heart disease of menominee coronary artery without angina pectoris (3) History of coronary artery bypass surgery Status: Chronic Comment: CABG x4- FLORES-LAD, SHARYN -OM1; Radial - OM3, SVG -PDA 06/02/19 @ [facility] (4) Lung nodule Status: Acute (5) Atherosclerotic heart disease of menominee coronary artery without angina pectoris Status: Chronic Qualifiers: [place] vs. transplanted heart: menominee heart Qualified Code(s): I25.10 - Atherosclerotic heart disease of men[place] coronary artery without angina pectoris (6) Essential hypertension Status: Chronic (7) Type 2 diabetes mellitus Status: Chronic Qualifiers: Diabetes mellitus custodial insulin use: without terminal gauger use Diabetes mellitus complication status: with other specified complication Qualified Code(s): E11.69 - Type 2 diabetes mellitus with other specified complication (8) HLD (hyperlipidemia) Status: Chronic Qualifiers: Hyperlipidemia type: unspecified Qualified Code(s): E78.5 - Hyperlipidemia, unspecified Reason for Consult Date of Consultation: 08/07/19 Reason for Consultation: Respiratory failure History of Present Illness: The patient is a 59 year old M, with past medical history listed below, who presented was [facility] on 08/07/2019 secondary to acute onset of shortness of breath and chest pain. Patient reportedly has had a cough, but denied any fevers or chills. Patient has not had any nausea, vomiting or diarrhea. Patient states that he recently had a quadruple bypass and started to have difficulty with breathing, especially with lying flat. Patient had reported a chest heaviness, so came to the emergency room for evaluation. Patient described his pain as a pressure-like sensation that was approximately 3-5 out of 10 in severity. In the ER, patient was saturating well initially, but did require 4 L nasal cannula to maintain saturations. Patient was hypertensive at 158/117. Patient's EKG showed tachycardia at 102, but nonspecific ST changes. Chest x-ray was reported to have infiltrates, so COVID test was sent. Patient was placed on antibiotics and admitted to the cohort floor. BNP was only 159.4, but there was significant concern for sepsis, so patient was admitted to the floor with IV fluids. At approximately 6 AM, the patient developed acute shortness of breath. Patient was yelling that he was suffocating and was in significant respiratory distress. Patient was noted to have cyanosis around his lips and I was called by nursing to evaluate the patient. Patient was noted to be using accessory muscle use, but no paradoxical movement. IV fluids were stopped. Patient was given 40 mg of IV Lasix with good response and placed on BiPAP therapy. Initial BiPAP settings were 16/12 centimeters of water. After 5 to 10 minutes, patient reported significant improvement in overall condition. After 2 hours, patient felt like he was back to his baseline. Patient also reported some improvement in his chest pain. Patient does not report any significant exposures recently. Patient is a non-smoker and has never been told he has COPD. Patient does not report any sick contacts at home and has been staying isolated with his family. Review of systems otherwise negative from a constitutional, HEENT, respiratory, cardiovascular, GI, genitourinary, musculoskeletal, skin, neurologic, psychiatric and hematologic system unless stated above. Past Medical History Past Medical History (Chronic Problems): Chronic Problems (Last Updated 07/20/19 @ 17:22 by Roselyn Siddiqui) CAD (coronary artery disease) (Chronic) History of coronary artery bypass surgery (Chronic ~06/02/19) CABG x4- FLORES-LAD, SHARYN -OM1; Radial - OM3, SVG -PDA 06/02/19 @ [facility] Atherosclerotic heart disease of menominee coronary artery without angina pectoris (Chronic) Essential hypertension (Chronic) Type 2 diabetes mellitus (Chronic) HLD (hyperlipidemia) (Chronic) Medical History: Medical History (Last Updated 07/20/19 @ 17:22 by Roselyn Siddiqui) Lung nodule (Acute) R91.1 Atherosclerotic heart disease of menominee coronary artery without angina pectoris (Chronic) I25.10 Essential hypertension (Chronic) I10 Type 2 diabetes mellitus (Chronic) E11.9 HLD (hyperlipidemia) (Chronic) E78.5 NSTEMI (non-ST elevated myocardial infarction) (Acute) I21.4 HTN (hypertension) (Inactive) I10 Allergies rosuvastatin [From [facility]] Adverse Reaction (Severe, Verified 07/21/19 16:01) Aches simvastatin Adverse Reaction (Severe, Verified 07/21/19 16:01) Stiff Joints Home Medications: Ambulatory Orders Medication Instructions Recorded Aspirin [Aspirin, Baby] 81 mg PO DAILY@0800 05/24/19 acetaminophen 500 mg tablet 1,000 mg PO Q6H PRN tab 07/20/19 atorvastatin 80 mg tablet 80 mg PO QHS 07/20/19 clopidogrel 75 mg tablet 75 mg PO DAILY 07/20/19 glimepiride 4 mg tablet 4 mg PO DAILY 07/20/19 metformin 1,000 mg tablet 1,000 mg PO BID 07/20/19 metoprolol tartrate 50 mg tablet 50 mg PO BID 07/20/19 sitagliptin 100 mg tablet 100 mg PO DAILY 07/20/19 lisinopril 5 mg tablet 5 mg PO DAILY #90 tab 08/05/19 Surgical History: Surgical History (Last Updated 07/20/19 @ 17:22 by Roselyn Siddiqui) History of coronary artery bypass surgery (Chronic) Onset Date: ~06/02/19 Z95.1 CABG x4- FLORES-LAD, SAHRYN -OM1; Radial - OM3, SVG -PDA 06/02/19 @ [facility] History of left heart catheterization (LHC) Onset Date: ~05/25/19 Z98.890 LEFT MAIN: mid to distal: 75 % Stenosis; LEFT ANTERIOR DESCENDING ARTERY:OSTIAL LAD: 75 % Stenosis PROX LAD: Mild calcification, diffuse: 25 % Stenosis, MID LAD: 50 % Stenosis, DISTAL LAD: diffuse: 25 % Stenosis;CIRCUMFLEX ARTERY: Mild luminal irregularities, MID CIRC: 50 % Stenosis, DISTAL CIRC: 85 % Stenosis; OM 1: Proximal - Mild luminal irregularities, OM 2: Proximal - 25 - 50 % Stenosis; RIGHT CORONARY ARTERY: Mild luminal irregularities; MID RCA: diffuse: 50 % Stenosis ; Surgery consult for coronary revascularization per Cath 05/25/19 Surgical History: coronary bypass surgery - Recent CABG x4, - - Left eye surgery. Psychiatric History: No pertinent psych hx Lives: Spouse/ Significant Other Smoking Status: Never smoker Tobacco Use: Non-smoker Alcohol: Occasional Drugs: None - *Family History Maternal Family History: Family History (Last Updated 07/20/19 @ 17:24 by Roselyn Siddiqui) Mother CAD (coronary artery disease) Father CAD (coronary artery disease) History of coronary artery bypass surgery History Items: Heart Disease Paternal Family History: Family History (Last Updated 07/20/19 @ 17:24 by Roselyn Siddiqui) Mother CAD (coronary artery disease) Father CAD (coronary artery disease) History of coronary artery bypass surgery History Items: Heart Disease Review of Systems Comment: See HPI Patient Problems: Active and Suspected Problems (Last Updated 07/20/19 @ 17:22 by Roselyn Siddiqui) Severe sepsis (Acute) Pneumonia (Acute) Suspected COVID-19 virus infection (Acute) Respiratory distress (Acute) Pneumonia (Acute) Suspected 2019 novel coronavirus infection (Acute) Acute respiratory failure with hypoxia (Acute) Objective: Chest x-ray was personally reviewed and showed cephalization with pulmonary edema. Sternal wires and braces appear to be in appropriate position. Patient has had a recent heart catheterization and echocardiogram showing preserved ejection fraction of 60% with no significant pulmonary artery hypertension. Patient has had some calcification, but no significant valvular abnormalities appreciated. Patient has never had a pulmonary function test at this institution. - Physical Exam Vitals/I&O's: Vital Signs Temp Pulse Resp BP Pulse Ox 37.2 C 106 H 24 H 137/87 H 93 08/07/19 07:15 08/07/19 07:15 08/07/19 07:15 08/07/19 07:15 08/07/19 07:15 Oxygen Flow Rate (L/min) 2 Oxygen Delivery Method Bi-pap Weight: 85.5 kg Body Mass Index (BMI) 27.0 Intake and Output for Last 24 Hours 08/05/19 08/06/19 08/07/19 23:59 23:59 23:59 Intake Total 1146.67 / 1146.67 Output Total 500 / 500 Balance 646.67 / 646.67 General: Alert, Oriented x3, Cooperative, No apparent distress - Following BiPAP therapy HEENT: Atraumatic, PERRLA, EOMI, Normocephalic, - - No scleral icterus or injection noted Oral: No Gingival or Mucosal Lesions/ Ulcerations, Dry Mucosa Neck: Supple, No Nodes, Trachea Midline, JVD, Right Lungs: - - Patient with rales initially on presentation. After BiPAP therapy, patient is now diminished without rales, rhonchi or wheezing. Symmetric expansion with no dullness to percussion. Cardiovascular: Normal S1, Normal S2, No murmurs, No rub noted, No Gallop, Tachycardic Abdomen: Bowel Sounds Present, Soft, Non Tender, Non-Distended Extremities: No clubbing, No cyanosis, No edema, Capillary Refill Less than 3 Seconds Skin: No rashes, No breakdown Musculoskeletal: No Tenderness to Palpation of Joints or Extremities Lymphatic: No Cervical, Supraclavicular, or Inguinal Adenopathy Neurological: Cranial nerves II-XII grossly intact, Neuro grossly intact, Motor Exam 5/5 strength throughout Psych/Mental Status: Alert and oriented to time, place, person, mood and affect Microbiology Past 72 Hours 08/07/19 03:55 Mucosa - Nasopharyngeal Coronavirus COVID-19 PCR - Final Laboratory Results 08/07/19 02:45: WBC 16.0 H, RBC 4.77, Hgb 11.5 L, Hct 38.6 L, MCV 80.9, MCH 24.1 L, MCHC 29.8 L, RDW Std Deviation 42.8, RDW Coeff of Nicholas 14.8 H, Plt Count 568 H, MPV 10.1, Immature Gran % (Auto) 0.400, Neut % (Auto) 73.1 H, Lymph % (Auto) 16.0 L, Coleman % (Auto) 6.3, Eos % (Auto) 3.6, Baso % (Auto) 0.6, Absolute Neuts (auto) 11.7 H, Absolute Lymphs (auto) 2.55, Nucleated RBC % 0 08/07/19 02:45: PT 13.4, INR 1.1, APTT 26.6 08/07/19 02:45: Sodium 140, Potassium 4.0, Chloride 106, Carbon Dioxide 26.0, Anion Gap 8, BUN 24 H, Creatinine 0.88, Estim Creat Clear Calc 91.02, Est GFR (MDRD) Af Amer 113, Est GFR (MDRD) Non-Af 93, BUN/Creatinine Ratio 27.2 H, Glucose 187 H, Calcium 8.5, Total Bilirubin 0.40, AST 10 L, ALT 18, Alkaline Phosphatase 91, Troponin I 0.034, Total Protein 7.8, Albumin 3.3, Globulin 4.5 H, Albumin/Globulin Ratio 0.7 L 08/07/19 02:45: Lactic Acid 2.7 H* 08/07/19 02:45: B-Natriuretic Peptide 159.4 H 08/07/19 02:45: D-Dimer Quant (PE/DVT) 0.82 H* 08/07/19 02:45: Procalcitonin < 0.04 08/07/19 03:55: COVID-19 (YANCY) Cancelled 08/07/19 05:20: WBC 15.2 H, RBC 4.54 L, Hgb 11.0 L, Hct 36.6 L, MCV 80.6, MCH 24.2 L, MCHC 30.1 L, RDW Std Deviation 42.8, RDW Coeff of Nicholas 14.8 H, Plt Count 489 H, MPV 9.4, Immature Gran % (Auto) 0.500, Neut % (Auto) 76.6 H, Lymph % (Auto) 14.9 L, Coleman % (Auto) 6.0, Eos % (Auto) 1.5, Baso % (Auto) 0.5, Absolute Neuts (auto) 11.6 H, Absolute Lymphs (auto) 2.27, Nucleated RBC % 0 08/07/19 05:45: Sodium 139, Potassium 4.2, Chloride 107, Carbon Dioxide 26.0, Anion Gap 6, BUN 23 H, Creatinine 0.75, Estim Creat Clear Calc 106.80, Est GFR (MDRD) Af Amer 135, Est GFR (MDRD) Non-Af 112, BUN/Creatinine Ratio 30.5 H, Glucose 170 H, Calcium 8.4 L, Magnesium 1.9, Ferritin 14 L, Total Bilirubin 0.30, AST 10 L, ALT 15 L, Alkaline Phosphatase 78, Lactate Dehydrogenase 117, Troponin I 0.185 H, C-React Prot Ext Range < 2.90, Total Protein 7.2, Albumin 3.1 L, Globulin 4.1, Albumin/Globulin Ratio 0.8 L 08/07/19 06:12: MRSA (PCR) Pending 08/07/19 07:55: POC Glucose 257 H 08/07/19 08:00: Lactic Acid Pending Current Medications Acetaminophen (Tylenol) 650 mg PO Q6H PRN PRN PRN Reason: Pain Score 1-10/Temp > 100.7 F Al Hydroxide/Mg Hydroxide (Mylanta Ii) 30 ml PO Q6H PRN PRN PRN Reason: Gastric Burning Albuterol Sulfate (Ventolin Aerosols) 2.5 mg INHALATION Q2H PRN PRN PRN Reason: Dyspnea, wheezing Last Admin: 08/07/19 06:35 Dose: 2.5 mg Documented by: Aspirin (Aspirin, Baby) 81 mg PO DAILY@0800 [facility] Atorvastatin Calcium (Lipitor) 80 mg PO QHS [facility] Clopidogrel Bisulfate (Plavix) 75 mg PO DAILY [facility] Dextrose (D50w Syringe) 0 gm IV X1 PRN; Protocol PRN Reason: Hypoglycemia Enoxaparin Sodium (Lovenox) 90 mg SC Q12 [facility] Famotidine (Pepcid) 20 mg PO BID [facility] Furosemide (Lasix) 40 mg IV BID@1000,1700 [facility] Glucagon () 1 mg IM .X1 PRN PRN Reason: Hypoglycemia Guaifenesin (Robitussin) 20 ml PO Q4H PRN PRN PRN Reason: COUGH Hydralazine HCl (Apresoline Iv) 10 mg IV Q4H PRN PRN PRN Reason: SBP > 160 Vancomycin IV Pharmacy to Dose (1 ea/ Sodium Chloride) 500 mls @ 250 mls/hr IV PRN PRN; Protocol PRN Reason: Rx to Dose Piperacillin Sod/Tazobactam (Sod 3.375 gm/ Sodium Chloride) 50 mls @ 12.5 mls/hr IV Q8@0200,1000,1800 [facility] Sodium Chloride () 250 mls @ 15 mls/hr IV .[id number] PRN PRN Reason: Saline Flush Sodium Chloride () 250 mls @ 15 mls/hr IV .[id number] PRN PRN Reason: Additional IVPB Infusion Insulin Human Lispro (Humalog Kwikpen (Bkc)) [facility]; Protocol Lisinopril (Zestril) 5 mg PO DAILY [facility] Magnesium Hydroxide (Milk Of Magnesia) 30 ml PO DAILY PRN PRN PRN Reason: Constipation Melatonin (Melatonin) 3 mg PO QHS PRN PRN PRN Reason: INSOMNIA Metoprolol Tartrate (Lopressor (Beta Bakari)) 50 mg PO BID [facility] Morphine Sulfate () 2 mg IV Q3H PRN PRN PRN Reason: Pain Score 6-10/10 Nitroglycerin (Nitrostat) 0.4 mg SUBLINGUAL Q5M PRN PRN Reason: CARDIAC/CHEST PAIN Ondansetron HCl (Zofran) 4 mg IV Q8H PRN PRN PRN Reason: NAUSEA/VOMITING Oxycodone HCl (Oxyir) 5 mg PO Q4H PRN PRN PRN Reason: Pain Score 4-5/10 Prochlorperazine Edisylate (Compazine Iv) 5 mg IV Q4H PRN PRN PRN Reason: Breakthrough Nausea/Vomiting Psyllium Hydrophilic Mucilloid (Metamucil) 1 packet PO DAILY PRN PRN PRN Reason: Constipation Senna/Docusate Sodium (Senokot-S, Preeti-Colace) 2 tablet PO BID PRN PRN PRN Reason: Constipation Sodium Chloride () 10 - 40 ml IV UD PRN PRN Reason: SALINE FLUSH Throat Lozenges (Cepacol Sore Throat Lozenge) 1 lozenge MUCOUS MEM Q2H PRN PRN PRN Reason: SORE THROAT Clinical Impression(s) from Imaging Studies Chest X-Ray 08/07/19 03:10 IMPRESSION: Sinuses suggestive of diffuse interstitial pulmonary edema as described. Electronically Signed: Oma Elias MD at 4:09 EDT , Service support , Assessment/Plan Active and Suspected Problems (Last Updated 07/20/19 @ 17:22 by Roselyn Siddiqui) Severe sepsis (Acute) Pneumonia (Acute) Suspected COVID-19 virus infection (Acute) Respiratory distress (Acute) Pneumonia (Acute) Suspected 2019 novel coronavirus infection (Acute) Acute respiratory failure with hypoxia (Acute) RECOMMENDATIONS: 1. Discontinue IV fluids 2. Initiate diuretics with goal of -500 to 1000 mL's by tomorrow 3. Decrease BiPAP to 16/8 centimeters of water 4. BiPAP breaks as tolerated. Potential p.o. intake if able to stay off of BiPAP for an hour. 5. Wean oxygen as tolerated 6. Reasonable to continue antibiotics for 48 hours until cultures negative 7. Limit albuterol as this may exacerbate tachycardia and pulmonary edema IMPRESSIONS: 1. Acute hypoxic respiratory failure secondary to probable acute diastolic CHF following quadruple bypass Clinical suspicion for acute congestive heart failure leading to bilateral infiltrates and hypoxic respiratory failure. Patient has responded well to initial Lasix and BiPAP therapy. Goal will be to be -500 to 1000 mL's by tomorrow. Patient will have IV fluids stopped. Patient can have BiPAP breaks as tolerated, but would continue with sleep. Aggressive control of heart rate and blood pressure will also be helpful. Patient is on lisinopril for afterload reduction. Renal function appears to be doing well at this time. Would continue with Lopressor. Caution with albuterol as this could lead to tachycardia with worsening of condition. 2. Possible sepsis Patient did have tachypnea, leukocytosis and infiltrates on chest x-ray with presentation. Clinical suspicion for fluid overload leading to current findings. Leukocytosis can be explained by stress response. Reasonable to continue antibiotics for 48 hours pending pena culture results. Would not give fluid boluses given patient's respiratory status. 3. CAD/diabetes mellitus type 2/hypertension/hyperlipidemia Complicates care, management, recovery and prognosis. Okay to continue with baseline medications. Patient is not on insulin, so intermittent p.o. intake should not be a problem. Okay to give BiPAP breaks for medications, but would keep off BiPAP for an hour before starting p.o. food intake. Did confirm the patient is a full CODE STATUS. TIME: 32 minutes critical care time spent addressing patient's acute hypoxic respiratory failure, possible sepsis, CHF, review of all data and collaboration with care team (6 AM to 8:40 AM) [id number]: [id number] Critical care first hour
[2019-08-07 08:34] LABS: Bacteria 0 SEEN /hpf (None Seen); Mucous, Urine 0 SEEN /hpf (<or=2+); Squamous Epithelial Cells - UA 0 SEEN /hpf (0-5); White Blood Cells 0 SEEN /hpf (0-5)
[2019-08-07 08:40] LABS: Lactic Acid 2.6 mmol/L (0.4-1.9)
[2019-08-07 09:05] LABS: Color, Urine Yellow (Yellow); Glucose, Dipstick 250 mg/dl (Normal); Ketone-Dipstick Negative (Negative); Leukocyte Esterase-Dipstick Negative /ul (Negative); Nitrite-Dipstick Negative (Negative); Occult Blood-Urine 250 /ul (Negative); Protein-Dipstick Negative (Negative); Specific Gravity, Urine 1.015 (1.002-1.030); Urine Bilirubin Dipstick Negative (Negative); Urine Clarity Clear (Clear); Urine Urobilinogen Normal (Normal)
[2019-08-07 09:11] LABS: Red Blood Cells-Urine 10-25 SEEN /hpf (0-5)
[2019-08-07 09:15] LABS: M R Staph aureus DNA By PCR Negative (Negative); Probe Check PASS; Specimen Processing Control PASS
[2019-08-07] MEDS: Furosemide 20 MG/2 ML VIAL IV (10:36)
--- NOTE | 2019-08-07 11:12 | CON.PCM_ITS ---
Problem List (1) Acute respiratory failure with hypoxia Status: Acute (2) CAD (coronary artery disease) Status: Acute Qualifiers: Coronary Disease-Associated Artery/Lesion type: unspecified vessel or lesion type [place] vs. transplanted heart: unspecified whether [place] or transplanted heart Associated angina: angina presence unspecified Qualified Code(s): I25.10 - Atherosclerotic heart disease of [place] coronary artery without angina pectoris Reason for Consult Date of Consultation: 08/07/19 Reason for Consultation: Recurrence of congestive heart failure, hypertension and chest pain History of Present Illness: The patient is a 59 year old M [] Was admitted for shortness of breath with chest pain. Last night patient was laying in bed and developed sudden onset of shortness of breath and orthopnea with PND associated with substernal chest tightness with radiation to the right shoulder area and neck. This was similar to the chest discomfort before the bypass in May. At the same time he measured his own blood pressure it was over 200 systolic. His blood pressure has been elevated for the last 3 nights. He is known to have hypertension, diabetes and hyperlipidemia. He is a non- smoker and drinks occasionally. His cardiac history dates back to May 2019. Patient suffered 2 small myocardial infarct followed by CABG with FLORES graft to the left anterior descending, saphenous venous graft to the posterior descending, radial graft to the second obtuse marginal branch, SHARYN to the first obtuse marginal branch. Preop echocardiogram showed preserved left ventricular systolic wall motion. Cardiac catheterization done before surgery showed left ventricular end-diastolic pressure was 7. For the last couple weeks patient has been getting more tired than usual compared to after the CABG. Chest tightness has been recurring on exertion. After admission patient developed shortness of breath and responded to IV Lasix. He has been on BiPAP. He soon went back to his baseline. EKG on admission showed minimal ST elevation in the inferior leads. Troponin was elevated. At the moment he denies any chest pain. Blood pressure is much better controlled. Past Medical History Allergies/Adverse Reactions: Allergies rosuvastatin [From Crestor] Adverse Reaction (Severe, Verified 07/21/19 16:01) Aches simvastatin Adverse Reaction (Severe, Verified 07/21/19 16:01) Stiff Joints Home Medications: Ambulatory Orders Medication Instructions Recorded Aspirin [Aspirin, Baby] 81 mg PO DAILY@0800 05/24/19 acetaminophen 500 mg tablet 1,000 mg PO Q6H PRN tab 07/20/19 atorvastatin 80 mg tablet 80 mg PO QHS 07/20/19 clopidogrel 75 mg tablet 75 mg PO DAILY 07/20/19 glimepiride 4 mg tablet 4 mg PO DAILY 07/20/19 metformin 1,000 mg tablet 1,000 mg PO BID 07/20/19 metoprolol tartrate 50 mg tablet 50 mg PO BID 07/20/19 sitagliptin 100 mg tablet 100 mg PO DAILY 07/20/19 lisinopril 5 mg tablet 5 mg PO DAILY #90 tab 08/05/19 Past Medical History (Chronic Problems): Chronic Problems (Last Updated 07/20/19 @ 17:22 by Roselyn Siddiqui) History of coronary artery bypass surgery (Chronic ~06/02/19) CABG x4- FLORES-LAD, SHARYN -OM1; Radial - OM3, SVG -PDA 06/02/19 @ [facility] Atherosclerotic heart disease of [place] coronary artery without angina pectoris (Chronic) Essential hypertension (Chronic) Type 2 diabetes mellitus (Chronic) HLD (hyperlipidemia) (Chronic) Surgical History: coronary bypass surgery - Recent CABG x4, - - Left eye surgery. Psychiatric History: No pertinent psych hx - *Family History Maternal Family History: Family History (Last Updated 07/20/19 @ 17:24 by Roselyn Siddiqui) Mother CAD (coronary artery disease) Father CAD (coronary artery disease) History of coronary artery bypass surgery History Items: Heart Disease Paternal Family History: Family History (Last Updated 07/20/19 @ 17:24 by Roselyn Siddiqui) Mother CAD (coronary artery disease) Father CAD (coronary artery disease) History of coronary artery bypass surgery History Items: Heart Disease Lives: Spouse/ Significant Other Smoking Status: Never smoker Tobacco Use: Non-smoker Alcohol: Occasional Drugs: None Review of Systems - Review of Systems Cardiovascular: Reports: Chest Discomfort, Chest Discomfort at Rest, Shortness of Breath, PND Gastrointestinal: Denies: Hematemesis, Hematochezia, Melena Objective: Vital Signs Temp Pulse Resp BP Pulse Ox 98.6 F 102 H 16 138/92 H 97 08/07/19 08:00 08/07/19 11:00 08/07/19 11:00 08/07/19 11:00 08/07/19 11:00 Oxygen Flow Rate (L/min) 2 Oxygen Delivery Method Bi-pap Weight: 188 lb 7.924 oz Body Mass Index (BMI) 27.0 Intake and Output for Last 24 Hours 08/05/19 08/06/19 08/07/19 23:59 23:59 23:59 Intake Total 1146.67 / 1146.67 Output Total 500 / 500 Balance 646.67 / 646.67 General: Cooperative, - - On BiPAP and slightly tachypneic Neck: Supple Lungs: Clear to auscultation Cardiovascular: Regular Rhythm - Sinus tachycardia, No Murmurs Vascular: No Carotid Bruits Abdomen: Bowel Sounds Present, Soft, Non Tender Extremities: No edema Neurological: No Focal Motor or Sensory Deficit Psych/Mental Status: Appropriate, Normal Affect 08/07/19 02:45: WBC 16.0 H, RBC 4.77, Hgb 11.5 L, Hct 38.6 L, MCV 80.9, MCH 24.1 L, MCHC 29.8 L, Plt Count 568 H, MPV 10.1, Immature Gran % (Auto) 0.400, Neut % (Auto) 73.1 H, Lymph % (Auto) 16.0 L, [place] % (Auto) 6.3, Eos % (Auto) 3.6, Baso % (Auto) 0.6, Absolute Neuts (auto) 11.7 H, Nucleated RBC % 0 08/07/19 02:45: PT 13.4, INR 1.1, APTT 26.6 08/07/19 02:45: Sodium 140, Potassium 4.0, Chloride 106, Carbon Dioxide 26.0, Anion Gap 8, BUN 24 H, Creatinine 0.88, Est GFR (MDRD) Af Amer 113, Est GFR (MDRD) Non-Af 93, BUN/Creatinine Ratio 27.2 H, Glucose 187 H, Calcium 8.5, Total Bilirubin 0.40, Troponin I 0.034 08/07/19 02:45: Lactic Acid 2.7 H* 08/07/19 02:45: B-Natriuretic Peptide 159.4 H 08/07/19 02:45: D-Dimer Quant (PE/DVT) 0.82 H* 08/07/19 05:20: WBC 15.2 H, RBC 4.54 L, Hgb 11.0 L, Hct 36.6 L, MCV 80.6, MCH 24.2 L, MCHC 30.1 L, Plt Count 489 H, MPV 9.4, Immature Gran % (Auto) 0.500, Neut % (Auto) 76.6 H, Lymph % (Auto) 14.9 L, [place] % (Auto) 6.0, Eos % (Auto) 1.5, Baso % (Auto) 0.5, Absolute Neuts (auto) 11.6 H, Nucleated RBC % 0 08/07/19 05:45: Sodium 139, Potassium 4.2, Chloride 107, Carbon Dioxide 26.0, Anion Gap 6, BUN 23 H, Creatinine 0.75, Est GFR (MDRD) Af Amer 135, Est GFR (MDRD) Non-Af 112, BUN/Creatinine Ratio 30.5 H, Glucose 170 H, Calcium 8.4 L, Magnesium 1.9, Ferritin 14 L, Total Bilirubin 0.30, Troponin I 0.185 H 08/07/19 08:00: Urine Color Yellow, Urine Clarity Clear, Urine pH 5.0, Ur Specific [place] 1.015, Urine Protein Negative, Urine Glucose (UA) 250 H, Urine Ketones Negative, Urine Occult Blood 250 H, Urine Nitrite Negative, Urine Bilirubin Negative, Urine Urobilinogen Normal, Ur Leukocyte Esterase Negative, Urine RBC 10-25 SEEN, Urine WBC 0 SEEN 08/07/19 08:00: Troponin I 0.415 H 08/07/19 08:00: Lactic Acid 2.6 H* 08/07/19 10:40: Troponin I 0.618 H* Rhythm: EKG: EKG showed minimal ST elevation in inferior leads. EKG will be repeated ECHO: Repeat echo is pending Stress Test: Cardiac Cath: PCI: CT Surgery: Holter monitor: EPS: PPM: CXR: Chest CT Scan: Assessment/Plan Patient is recurrence of shortness of breath probably a combinations of accelerated hypertension and possibly bypass occlusion. I would recommend aggressively control the blood pressure and continue diuresis. Lisinopril will be increased to 20 mg daily, low-dose carvedilol will be initiated tomorrow. The recurrence of fatigue and chest tightness is of concern, I would recommend ischemic work-up possible a repeat cardiac catheterization when hemodynamically stable.
--- NOTE | 2019-08-07 11:34 | EKG12_ITS ---
Test Reason : POST CO Blood Pressure : / mmHG Vent. Rate : 104 BPM Atrial Rate : 104 BPM P-R Int : 136 ms QRS Dur : 084 ms QT Int : 376 ms P-R-T Axes : 031 041 107 degrees QTc Int : 494 ms Sinus tachycardia Nonspecific T wave abnormality Abnormal ECG When compared with ECG of 07-AUG-2019 02:48, MANUAL COMPARISON REQUIRED, DATA IS UNCONFIRMED Confirmed by NASEEM CARDENAS, MARY ([id number]), material expeditor CLARY REY ([id number] on 08/09/2019 3:50:04 PM Referred By: Marsha Mendoza Confirmed By:MARY GUSMAN MD
[2019-08-07] MEDS: Aspirin 81 MG TAB.CHEW PO (13:07)
[2019-08-07] MEDS: Metoprolol Tartrate 50 MG Tablet PO ×2 (13:07→21:05)
[2019-08-07] MEDS: Famotidine 20 MG Tablet PO ×2 (13:08→21:05)
[2019-08-07] MEDS: Nitroglycerin Oint 1 INCH PACKET 0.5 INCH TRANSDERM. ×2 (13:08→18:09)
[2019-08-07] MEDS: Clopidogrel Bisulfate 75 MG Tablet PO (13:09)
[2019-08-07 13:20] LABS: Bedside Glucose 164 mg/dL (70-110)
[2019-08-07] MEDS: Lisinopril 10 MG Tablet PO ×2 (14:13→21:06)
[2019-08-07 17:15] LABS: Bedside Glucose 187 mg/dL (70-110)
[2019-08-07] MEDS: Carvedilol 3.125 MG TABLET PO (21:04)
[2019-08-07] MEDS: Atorvastatin Calcium 80 MG Tablet PO (21:05)
[2019-08-07 21:16] LABS: Bedside Glucose 152 mg/dL (70-110)
--- NOTE | 2019-08-07 23:40 | CPS ---
pt refused bipap tonight, says he doesn't wear CPAP/BIPAP at home. Feels good right now on 3 lpm
[2019-08-08] VITALS (24 sets, daily range): BP systolic 95–125; BP diastolic 53–86; PULSE 72–104; RESP 14–23; TEMP 36.8–37.7; O2SAT 94–99
[2019-08-08] MEDS: Acetaminophen 325 MG Tablet 650 MG PO ×2 (00:25→21:14)
[2019-08-08 03:47] LABS: Absolute Lymphocyte Count 3.25 X10^3/uL (0.83-4.51); Absolute Neutrophil Count 6.1 X10^3/uL (2.0-7.7); Basophil# 0.08 X10^3/uL; Basophil% 0.7 % (0-1); Eosinophil# 0.31 X10^3/uL; Eosinophils% 2.9 % (0-5); Hematocrit 33.4 % (40-54); Hemoglobin 10.2 g/dL (13.0-16.5); Lymphocyte # 3.25 X10^3/ul (4.0); Lymphocyte % 30.4 % (19-41); Mean Corp Hgb Conc 30.5 g/dL (32-36); Mean Corpuscular Hgb 24.1 pg (27.0-32.0); Mean Corpuscular Volume 78.8 fL (80-94); Mean Platelet Vol. 9.4 fl (6.2-12.0); Monocyte# 0.88 X10^3/uL; Monocyte% 8.2 % (0-10); NRBC Flagged by Analyzer 0 % (0-5); Neutrophil # 6.14 X10^3/uL (2.7-7.7); Neutrophil % 57.5 % (47-70); Platelet Count 491 K/mm3 (150-450); RBC Distribution Width CV 15.2 % (11.6-14.6); Red Blood Count 4.24 M/mm3 (4.6-6.2); White Blood Count 10.7 K/mm3 (4.4-11.0)
[2019-08-08 04:01] LABS: ALB/GLOB Ratio 0.8 RATIO (0.9-2.4); AST(SGOT) 15 U/L (15-37); Alanine Aminotransfer ALT/SGPT 15 U/L (16-61); Albumin, Serum 3.1 g/dL (3.2-5.0); Alkaline Phosphatase 62 U/L (45-117); Anion Gap 6 (5-15); BUN 20 mg/dL (7-18); BUN/Creat Ratio 25.3 RATIO (10-20); Calcium,Total 8.4 mg/dL (8.5-10.1); Chloride 103 mmol/L (98-107); Creatinine, Serum 0.79 mg/dL (0.70-1.30); EST Glomerular Filtration Rate 106 mL/min (>60); Est Glom Filt Rate - Afr Amer 128 mL/min (>60); Estimated Creatinine Clearance 101.39 ml/min; Glucose 157 mg/dL (74-106); Potassium 3.6 mmol/L (3.5-5.1); Protein, Total 7.1 g/dL (6.4-8.2); Sodium Level 138 mmol/L (136-145)
--- NOTE | 2019-08-08 04:03 | RAD_ITS ---
STUDY: X-RAY CHEST REASON FOR EXAM: Male, 59 years old. HYPOXIA TECHNIQUE: Single AP portable view of the chest. COMPARISON: 08/07/2019. 05/24/2019 FINDINGS: There are superimposed monitor leads. Improved aeration with residual opacification in the lung bases. There is no demonstrated pleural abnormality. Sternal cerclage wires are present from a prior sternotomy. Right paratracheal surgical changes. Normal visualized pulmonary arteries. Normal visualized aortic arch and descending thoracic aorta. Normal visualized thoracic spine. Normal visualized ribs, clavicles, and shoulders. There is no demonstrated abnormality of the visualized soft tissue structures of the upper abdomen. RAD/Chest 1 View (Portable) IMPRESSION: Improved aeration, decreased off pulmonary edema. Residual opacification in the lung bases, an underlying inflammatory/infectious process is not entirely excluded. Follow-up examination to resolution recommended. Electronically Signed: Maliha Lee MD at 5:05 EDT , Service support ,
--- NOTE | 2019-08-08 06:12 | PN_ITS ---
Subjective: The patient was seen and examined at the bedside this morning. Events from the last 24 hours have been reviewed. The patient is currently afebrile, hemodynamically stable and maintaining appropriate oxygen saturations on 3 L/min via nasal cannula. The patient is currently documented to be overall net -3.1 L for the hospital admission. Creatinine is stable. The patient refused to utilize BiPAP overnight. Objective: The patient's most recent lab work, culture data and imaging studies have all been personally reviewed. Strep and urine Legionella antigens were negative. Respiratory viral panel was negative. Coronavirus PCR was negative. Blood and urine cultures are pending. General: Alert, No apparent distress HEENT: Atraumatic, PERRLA, Normocephalic Oral: No Gingival or Mucosal Lesions/ Ulcerations Neck: Supple, No Nodes, Trachea Midline Cardiovascular: Regular rate, Regular Rhythm, Normal S1, Normal S2, No murmurs Abdomen: Bowel Sounds Present, Soft, Non Tender Extremities: No clubbing, No cyanosis Skin: No breakdown Musculoskeletal: No Tenderness to Palpation of Joints or Extremities Lymphatic: No Cervical, Supraclavicular, or Inguinal Adenopathy Neurological: Neuro grossly intact Psych/Mental Status: Normal Affect, Appropriate Vital Signs Temp Pulse Resp BP Pulse Ox 98.7 F 72 15 104/59 L 99 08/08/19 06:00 08/08/19 06:00 08/08/19 06:00 08/08/19 06:00 08/08/19 06:00 Oxygen Flow Rate (L/min) 3 Oxygen Delivery Method Nasal Cannula Weight: 189 lb 13.088 oz Body Mass Index (BMI) 27.0 Intake and Output for Last 24 Hours 08/06/19 08/07/19 08/08/19 23:59 23:59 23:59 Intake Total 1940.67 / 2240.67 600 / 600 Output Total 4650 / 5375 1025 / 1025 Balance -2709.33 / -3134.33 -425 / -425 Labs (Last 48 Hours) 08/07/19 08/07/19 08/07/19 02:45 02:45 02:45 WBC 16.0 H RBC 4.77 Hgb 11.5 L Hct 38.6 L MCV 80.9 MCH 24.1 L MCHC 29.8 L RDW Std Deviation 42.8 RDW Coeff of [place] 14.8 H Plt Count 568 H MPV 10.1 Immature Gran % (Auto) 0.400 Neut % (Auto) 73.1 H Lymph % (Auto) 16.0 L [place] % (Auto) 6.3 Eos % (Auto) 3.6 Baso % (Auto) 0.6 Absolute Neuts (auto) 11.7 H Absolute Lymphs (auto) 2.55 Nucleated RBC % 0 PT 13.4 INR 1.1 APTT 26.6 D-Dimer Quant (PE/DVT) Sodium 140 Potassium 4.0 Chloride 106 Carbon Dioxide 26.0 Anion Gap 8 BUN 24 H Creatinine 0.88 Estim Creat Clear Calc 91.02 Est GFR (MDRD) Af Amer 113 Est GFR (MDRD) Non-Af 93 BUN/Creatinine Ratio 27.2 H Glucose 187 H Lactic Acid Calcium 8.5 Magnesium Ferritin Total Bilirubin 0.40 AST 10 L ALT 18 Alkaline Phosphatase 91 Lactate Dehydrogenase Troponin I 0.034 C-React Prot Ext Range B-Natriuretic Peptide Total Protein 7.8 Albumin 3.3 Globulin 4.5 H Albumin/Globulin Ratio 0.7 L Procalcitonin Urine Color Urine Clarity Urine pH Ur Specific [place] Urine Protein Urine Glucose (UA) Urine Ketones Urine Occult Blood Urine Nitrite Urine Bilirubin Urine Urobilinogen Ur Leukocyte Esterase Urine RBC Urine WBC Ur Squamous Epith Cells Urine Bacteria Urine Mucus COVID-19 (YANCY) MRSA (PCR) POC Glucose 08/07/19 08/07/19 08/07/19 02:45 02:45 02:45 WBC RBC Hgb Hct MCV MCH MCHC RDW Std Deviation RDW Coeff of [place] Plt Count MPV Immature Gran % (Auto) Neut % (Auto) Lymph % (Auto) [place] % (Auto) Eos % (Auto) Baso % (Auto) Absolute Neuts (auto) Absolute Lymphs (auto) Nucleated RBC % PT INR APTT D-Dimer Quant (PE/DVT) 0.82 H* Sodium Potassium Chloride Carbon Dioxide Anion Gap BUN Creatinine Estim Creat Clear Calc Est GFR (MDRD) Af Amer Est GFR (MDRD) Non-Af BUN/Creatinine Ratio Glucose Lactic Acid 2.7 H* Calcium Magnesium Ferritin Total Bilirubin AST ALT Alkaline Phosphatase Lactate Dehydrogenase Troponin I C-React Prot Ext Range B-Natriuretic Peptide 159.4 H Total Protein Albumin Globulin Albumin/Globulin Ratio Procalcitonin Urine Color Urine Clarity Urine pH Ur Specific [place] Urine Protein Urine Glucose (UA) Urine Ketones Urine Occult Blood Urine Nitrite Urine Bilirubin Urine Urobilinogen Ur Leukocyte Esterase Urine RBC Urine WBC Ur Squamous Epith Cells Urine Bacteria Urine Mucus COVID-19 (YANCY) MRSA (PCR) POC Glucose 08/07/19 08/07/19 08/07/19 02:45 03:55 05:20 WBC 15.2 H RBC 4.54 L Hgb 11.0 L Hct 36.6 L MCV 80.6 MCH 24.2 L MCHC 30.1 L RDW Std Deviation 42.8 RDW Coeff of [place] 14.8 H Plt Count 489 H MPV 9.4 Immature Gran % (Auto) 0.500 Neut % (Auto) 76.6 H Lymph % (Auto) 14.9 L [place] % (Auto) 6.0 Eos % (Auto) 1.5 Baso % (Auto) 0.5 Absolute Neuts (auto) 11.6 H Absolute Lymphs (auto) 2.27 Nucleated RBC % 0 PT INR APTT D-Dimer Quant (PE/DVT) Sodium Potassium Chloride Carbon Dioxide Anion Gap BUN Creatinine Estim Creat Clear Calc Est GFR (MDRD) Af Amer Est GFR (MDRD) Non-Af BUN/Creatinine Ratio Glucose Lactic Acid Calcium Magnesium Ferritin Total Bilirubin AST ALT Alkaline Phosphatase Lactate Dehydrogenase Troponin I C-React Prot Ext Range B-Natriuretic Peptide Total Protein Albumin Globulin Albumin/Globulin Ratio Procalcitonin < 0.04 Urine Color Urine Clarity Urine pH Ur Specific [place] Urine Protein Urine Glucose (UA) Urine Ketones Urine Occult Blood Urine Nitrite Urine Bilirubin Urine Urobilinogen Ur Leukocyte Esterase Urine RBC Urine WBC Ur Squamous Epith Cells Urine Bacteria Urine Mucus COVID-19 (YANCY) Cancelled MRSA (PCR) POC Glucose 08/07/19 08/07/19 08/07/19 05:45 06:12 07:55 WBC RBC Hgb Hct MCV MCH MCHC RDW Std Deviation RDW Coeff of [place] Plt Count MPV Immature Gran % (Auto) Neut % (Auto) Lymph % (Auto) [place] % (Auto) Eos % (Auto) Baso % (Auto) Absolute Neuts (auto) Absolute Lymphs (auto) Nucleated RBC % PT INR APTT D-Dimer Quant (PE/DVT) Sodium 139 Potassium 4.2 Chloride 107 Carbon Dioxide 26.0 Anion Gap 6 BUN 23 H Creatinine 0.75 Estim Creat Clear Calc 106.80 Est GFR (MDRD) Af Amer 135 Est GFR (MDRD) Non-Af 112 BUN/Creatinine Ratio 30.5 H Glucose 170 H Lactic Acid Calcium 8.4 L Magnesium 1.9 Ferritin 14 L Total Bilirubin 0.30 AST 10 L ALT 15 L Alkaline Phosphatase 78 Lactate Dehydrogenase 117 Troponin I 0.185 H C-React Prot Ext Range < 2.90 B-Natriuretic Peptide Total Protein 7.2 Albumin 3.1 L Globulin 4.1 Albumin/Globulin Ratio 0.8 L Procalcitonin Urine Color Urine Clarity Urine pH Ur Specific [place] Urine Protein Urine Glucose (UA) Urine Ketones Urine Occult Blood Urine Nitrite Urine Bilirubin Urine Urobilinogen Ur Leukocyte Esterase Urine RBC Urine WBC Ur Squamous Epith Cells Urine Bacteria Urine Mucus COVID-19 (YANCY) MRSA (PCR) Negative POC Glucose 257 H 08/07/19 08/07/19 08/07/19 08:00 08:00 08:00 WBC RBC Hgb Hct MCV MCH MCHC RDW Std Deviation RDW Coeff of Nicholas Plt Count MPV Immature Gran % (Auto) Neut % (Auto) Lymph % (Auto) [place] % (Auto) Eos % (Auto) Baso % (Auto) Absolute Neuts (auto) Absolute Lymphs (auto) Nucleated RBC % PT INR APTT D-Dimer Quant (PE/DVT) Sodium Potassium Chloride Carbon Dioxide Anion Gap BUN Creatinine Estim Creat Clear Calc Est GFR (MDRD) Af Amer Est GFR (MDRD) Non-Af BUN/Creatinine Ratio Glucose Lactic Acid 2.6 H* Calcium Magnesium Ferritin Total Bilirubin AST ALT Alkaline Phosphatase Lactate Dehydrogenase Troponin I 0.415 H C-React Prot Ext Range B-Natriuretic Peptide Total Protein Albumin Globulin Albumin/Globulin Ratio Procalcitonin Urine Color Yellow Urine Clarity Clear Urine pH 5.0 Ur Specific [place] 1.015 Urine Protein Negative Urine Glucose (UA) 250 H Urine Ketones Negative Urine Occult Blood 250 H Urine Nitrite Negative Urine Bilirubin Negative Urine Urobilinogen Normal Ur Leukocyte Esterase Negative Urine RBC 10-25 SEEN Urine WBC 0 SEEN Ur Squamous Epith Cells 0 SEEN Urine Bacteria 0 SEEN Urine Mucus 0 SEEN COVID-19 (YANCY) MRSA (PCR) POC Glucose 08/07/19 08/07/19 08/07/19 10:40 13:02 17:04 WBC RBC Hgb Hct MCV MCH MCHC RDW Std Deviation RDW Coeff of Nicholas Plt Count MPV Immature Gran % (Auto) Neut % (Auto) Lymph % (Auto) [place] % (Auto) Eos % (Auto) Baso % (Auto) Absolute Neuts (auto) Absolute Lymphs (auto) Nucleated RBC % PT INR APTT D-Dimer Quant (PE/DVT) Sodium Potassium Chloride Carbon Dioxide Anion Gap BUN Creatinine Estim Creat Clear Calc Est GFR (MDRD) Af Amer Est GFR (MDRD) Non-Af BUN/Creatinine Ratio Glucose Lactic Acid Calcium Magnesium Ferritin Total Bilirubin AST ALT Alkaline Phosphatase Lactate Dehydrogenase Troponin I 0.618 H* C-React Prot Ext Range B-Natriuretic Peptide Total Protein Albumin Globulin Albumin/Globulin Ratio Procalcitonin Urine Color Urine Clarity Urine pH Ur Specific [place] Urine Protein Urine Glucose (UA) Urine Ketones Urine Occult Blood Urine Nitrite Urine Bilirubin Urine Urobilinogen Ur Leukocyte Esterase Urine RBC Urine WBC Ur Squamous Epith Cells Urine Bacteria Urine Mucus COVID-19 (YANCY) MRSA (PCR) POC Glucose 164 H 187 H 08/07/19 08/08/19 08/08/19 21:02 03:35 03:35 WBC 10.7 RBC 4.24 L Hgb 10.2 L Hct 33.4 L MCV 78.8 L MCH 24.1 L MCHC 30.5 L RDW Std Deviation 43.0 RDW Coeff of [place] 15.2 H Plt Count 491 H MPV 9.4 Immature Gran % (Auto) 0.300 Neut % (Auto) 57.5 Lymph % (Auto) 30.4 [place] % (Auto) 8.2 Eos % (Auto) 2.9 Baso % (Auto) 0.7 Absolute Neuts (auto) 6.1 Absolute Lymphs (auto) 3.25 Nucleated RBC % 0 PT INR APTT D-Dimer Quant (PE/DVT) Sodium 138 Potassium 3.6 Chloride 103 Carbon Dioxide 29.0 Anion Gap 6 BUN 20 H Creatinine 0.79 Estim Creat Clear Calc 101.39 Est GFR (MDRD) Af Amer 128 Est GFR (MDRD) Non-Af 106 BUN/Creatinine Ratio 25.3 H Glucose 157 H Lactic Acid Calcium 8.4 L Magnesium Ferritin Total Bilirubin 0.80 AST 15 ALT 15 L Alkaline Phosphatase 62 Lactate Dehydrogenase Troponin I C-React Prot Ext Range B-Natriuretic Peptide Total Protein 7.1 Albumin 3.1 L Globulin 4.0 Albumin/Globulin Ratio 0.8 L Procalcitonin Urine Color Urine Clarity Urine pH Ur Specific [place] Urine Protein Urine Glucose (UA) Urine Ketones Urine Occult Blood Urine Nitrite Urine Bilirubin Urine Urobilinogen Ur Leukocyte Esterase Urine RBC Urine WBC Ur Squamous Epith Cells Urine Bacteria Urine Mucus COVID-19 (YANCY) MRSA (PCR) POC Glucose 152 H Microbiology 08/07/19 06:43 Interface Orders Respiratory Panel (PCR) - Final 08/07/19 08:00 Urine Catheter - Catheter Streptococcus pneumoniae Antigen (M - Final 08/07/19 08:00 Urine Catheter - Catheter Legionella Antigen - Final 08/07/19 03:55 Mucosa - Nasopharyngeal Coronavirus COVID-19 PCR - Final Clinical Impression(s) from Imaging Studies Chest X-Ray 08/07/19 03:10 IMPRESSION: Sinuses suggestive of diffuse interstitial pulmonary edema as described. Electronically Signed: Oma Elias MD at 4:09 EDT , Service support , Chest X-Ray 08/08/19 04:03 IMPRESSION: Improved aeration, decreased off pulmonary edema. Residual opacification in the lung bases, an underlying inflammatory/infectious process is not entirely excluded. Follow-up examination to resolution recommended. Electronically Signed: Maliha Lee MD at 5:05 EDT , Service support , Medical Necessity - Tobacco Use Smoking Status: Never smoker Tobacco Use: Non-smoker Assessment/Plan All Active Problems (Last Updated 07/20/19 @ 17:22 by Roselyn Siddiqui) Severe sepsis (Acute) Pneumonia (Acute) Suspected COVID-19 virus infection (Acute) CAD (coronary artery disease) (Acute) Respiratory distress (Acute) Pneumonia (Acute) Suspected 2019 novel coronavirus infection (Acute) Acute respiratory failure with hypoxia (Acute) Lung nodule (Acute) NSTEMI (non-ST elevated myocardial infarction) (Acute) RECOMMENDATIONS: 1. Continue diuresis as tolerated by renal function and hemodynamic status. 2. Continue empiric antimicrobials. Will consider de-escalation to Levaquin to complete treatment course tomorrow. 3. Wean supplemental oxygen to maintain saturations at or above 90%. 4. Encourage incentive spirometer use and mobilize patient as tolerated. 5. Await cardiology input regarding possible catheterization. IMPRESSIONS: 1. Acute hypoxic respiratory failure secondary to probable acute diastolic CHF following quadruple bypass I do suspect that the etiology for the patient's respiratory failure was secondary to hypervolemia and decompensated heart failure, given his rapid improvement with the use of noninvasive positive pressure ventilatory support and IV diuretic therapy. Nevertheless, given that he did have some fevers documented during his hospitalization along with residual changes on x-ray, we will plan to continue empiric antimicrobials for now. Continue diuresis. Cardiology is currently following to assist with medical management. Tentative plans for cardiac catheterization, possibly tomorrow. 2. Possible sepsis Given that an underlying pulmonary infiltrate cannot be entirely excluded on repeat chest imaging, we will plan to continue empiric antimicrobials for now. 3. CAD/diabetes mellitus type 2/hypertension/hyperlipidemia Complicates care, management, recovery and prognosis. Okay to continue with baseline medications. This note was generated with [employer] ([employer] dictation software. It may contain incorrect words, spelling, and punctuation that were not noted in checking the note before signing. Inpatient E&M: [id number] [facility]osp L3
[2019-08-08 07:06] LABS: Bedside Glucose 155 mg/dL (70-110)
--- NOTE | 2019-08-08 07:38 | PN_ITS ---
Patient Problems: Active and Suspected Problems (Last Updated 07/20/19 @ 17:22 by Roselyn Siddiqui) Severe sepsis (Acute) Pneumonia (Acute) Suspected COVID-19 virus infection (Acute) CAD (coronary artery disease) (Acute) Respiratory distress (Acute) Pneumonia (Acute) Suspected 2019 novel coronavirus infection (Acute) Acute respiratory failure with hypoxia (Acute) Vitals/I&O's: Vital Signs Temp Pulse Resp BP Pulse Ox 98.7 F 78 14 104/63 95 08/08/19 06:00 08/08/19 07:00 08/08/19 07:00 08/08/19 07:00 08/08/19 07:00 Oxygen Flow Rate (L/min) 3 Oxygen Delivery Method Nasal Cannula Weight: 86.1 kg Body Mass Index (BMI) 27.0 Intake and Output for Last 24 Hours 08/06/19 08/07/19 08/08/19 23:59 23:59 23:59 Intake Total 1940.67 / 2240.67 600 / 600 Output Total 4650 / 5375 1025 / 1025 Balance -2709.33 / -3134.33 -425 / -425 Microbiology Past 72 Hours 08/07/19 06:43 Interface Orders Respiratory Panel (PCR) - Final 08/07/19 08:00 Urine Catheter - Catheter Streptococcus pneumoniae Antigen (M - Final 08/07/19 08:00 Urine Catheter - Catheter Legionella Antigen - Final 08/07/19 03:55 Mucosa - Nasopharyngeal Coronavirus COVID-19 PCR - Final Laboratory Results 08/07/19 06:12: MRSA (PCR) Negative 08/07/19 07:55: POC Glucose 257 H 08/07/19 08:00: Urine Color Yellow, Urine Clarity Clear, Urine pH 5.0, Ur Specific [place] 1.015, Urine Protein Negative, Urine Glucose (UA) 250 H, Urine Ketones Negative, Urine Occult Blood 250 H, Urine Nitrite Negative, Urine Bilirubin Negative, Urine Urobilinogen Normal, Ur Leukocyte Esterase Negative, Urine RBC 10-25 SEEN, Urine WBC 0 SEEN, Ur Squamous Epith Cells 0 SEEN, Urine Bacteria 0 SEEN, Urine Mucus 0 SEEN 08/07/19 08:00: Troponin I 0.415 H 08/07/19 08:00: Lactic Acid 2.6 H* 08/07/19 10:40: Troponin I 0.618 H* 08/07/19 13:02: POC Glucose 164 H 08/07/19 17:04: POC Glucose 187 H 08/07/19 21:02: POC Glucose 152 H 08/08/19 03:35: WBC 10.7, RBC 4.24 L, Hgb 10.2 L, Hct 33.4 L, MCV 78.8 L, MCH 24.1 L, MCHC 30.5 L, RDW Std Deviation 43.0, RDW Coeff of Nicholas 15.2 H, Plt Count 491 H, MPV 9.4, Immature Gran % (Auto) 0.300, Neut % (Auto) 57.5, Lymph % (Auto) 30.4, [place] % (Auto) 8.2, Eos % (Auto) 2.9, Baso % (Auto) 0.7, Absolute Neuts (auto) 6.1, Absolute Lymphs (auto) 3.25, Nucleated RBC % 0 08/08/19 03:35: Sodium 138, Potassium 3.6, Chloride 103, Carbon Dioxide 29.0, Anion Gap 6, BUN 20 H, Creatinine 0.79, Estim Creat Clear Calc 101.39, Est GFR (MDRD) Af Amer 128, Est GFR (MDRD) Non-Af 106, BUN/Creatinine Ratio 25.3 H, Glucose 157 H, Calcium 8.4 L, Total Bilirubin 0.80, AST 15, ALT 15 L, Alkaline Phosphatase 62, Total Protein 7.1, Albumin 3.1 L, Globulin 4.0, Albumin/Globulin Ratio 0.8 L 08/08/19 06:57: POC Glucose 155 H Current Medications Acetaminophen (Tylenol) 650 mg PO Q6H PRN PRN PRN Reason: Pain Score 1-10/Temp > 100.7 F Last Admin: 08/08/19 00:25 Dose: 650 mg Documented by: Al Hydroxide/Mg Hydroxide (Mylanta Ii) 30 ml PO Q6H PRN PRN PRN Reason: Gastric Burning Albuterol Sulfate (Ventolin Aerosols) 2.5 mg INHALATION Q2H PRN PRN PRN Reason: Dyspnea, wheezing Last Admin: 08/07/19 06:35 Dose: 2.5 mg Documented by: Aspirin (Aspirin, Baby) 81 mg PO DAILY@0800 [facility] Last Admin: 08/07/19 13:07 Dose: 81 mg Documented by: Atorvastatin Calcium (Lipitor) 80 mg PO QHS [facility] Last Admin: 08/07/19 21:05 Dose: 80 mg Documented by: Carvedilol (Coreg) 3.125 mg PO BID [facility] Last Admin: 08/07/19 21:04 Dose: 3.125 mg Documented by: Clopidogrel Bisulfate (Plavix) 75 mg PO DAILY [facility] Last Admin: 08/07/19 13:09 Dose: 75 mg Documented by: Dextrose (D50w Syringe) 0 gm IV X1 PRN; Protocol PRN Reason: Hypoglycemia Enoxaparin Sodium (Lovenox) 90 mg SC Q12 [facility] Last Admin: 08/07/19 21:04 Dose: 90 mg Documented by: Famotidine (Pepcid) 20 mg PO BID [facility] Last Admin: 08/07/19 21:05 Dose: 20 mg Documented by: Furosemide (Lasix) 40 mg IV BID@1000,1700 [facility] Last Admin: 08/07/19 17:05 Dose: 40 mg Documented by: Glucagon () 1 mg IM .X1 PRN PRN Reason: Hypoglycemia Guaifenesin (Robitussin) 20 ml PO Q4H PRN PRN PRN Reason: COUGH Hydralazine HCl (Apresoline Iv) 10 mg IV Q4H PRN PRN PRN Reason: SBP > 160 Piperacillin Sod/Tazobactam (Sod 3.375 gm/ Sodium Chloride) 50 mls @ 12.5 mls/hr IV Q8@0200,1000,1800 [facility] Last Infusion: 08/08/19 05:14 Dose: Infused Documented by: Sodium Chloride () 250 mls @ 15 mls/hr IV .[id number] PRN PRN Reason: Saline Flush Sodium Chloride () 250 mls @ 15 mls/hr IV .[id number] PRN PRN Reason: Additional IVPB Infusion Insulin Human Lispro (Humalog Kwikpen (Bkc)) 0 unit SC 4X/DAYCM [facility]; Protocol Last Admin: 08/07/19 21:03 Dose: 2 u Documented by: Lisinopril (Zestril) 10 mg PO BID [facility] Last Admin: 08/07/19 21:06 Dose: 10 mg Documented by: Magnesium Hydroxide (Milk Of Magnesia) 30 ml PO DAILY PRN PRN PRN Reason: Constipation Melatonin (Melatonin) 3 mg PO QHS PRN PRN PRN Reason: INSOMNIA Metoprolol Tartrate (Lopressor (Beta Bakari)) 50 mg PO BID [facility] Last Admin: 08/07/19 21:05 Dose: 50 mg Documented by: Morphine Sulfate () 2 mg IV Q3H PRN PRN PRN Reason: Pain Score 6-10/10 Nitroglycerin (Nitrostat) 0.4 mg SUBLINGUAL Q5M PRN PRN Reason: CARDIAC/CHEST PAIN Nitroglycerin (Nitrobid) 0.5 inch TRANSDERM. Q6H [facility] Last Admin: 08/08/19 04:45 Dose: Not Given Documented by: Ondansetron HCl (Zofran) 4 mg IV Q8H PRN PRN PRN Reason: NAUSEA/VOMITING Oxycodone HCl (Oxyir) 5 mg PO Q4H PRN PRN PRN Reason: Pain Score 4-5/10 Prochlorperazine Edisylate (Compazine Iv) 5 mg IV Q4H PRN PRN PRN Reason: Breakthrough Nausea/Vomiting Psyllium Hydrophilic Mucilloid (Metamucil) 1 packet PO DAILY PRN PRN PRN Reason: Constipation Senna/Docusate Sodium (Senokot-S, Preeti-Colace) 2 tablet PO BID PRN PRN PRN Reason: Constipation Sodium Chloride () 10 - 40 ml IV UD PRN PRN Reason: SALINE FLUSH Throat Lozenges (Cepacol Sore Throat Lozenge) 1 lozenge MUCOUS MEM Q2H PRN PRN PRN Reason: SORE THROAT STROKE Vital Signs/Narrative: Vital Signs Temp Pulse Resp BP BP Pulse Ox 08/08/19 07:00 78 14 104/63 95 08/08/19 06:00 98.7 F 72 15 104/59 L 99 08/08/19 05:00 98.5 F 75 14 108/61 96 08/08/19 04:45 77 97/61 08/08/19 04:00 98.5 F 78 17 97/61 97 Medical Necessity - Tobacco Use Smoking Status: Never smoker Tobacco Use: Non-smoker Assessment/Plan All Active Problems (Last Updated 07/20/19 @ 17:22 by Roselyn Siddiqui) Severe sepsis (Acute) Pneumonia (Acute) Suspected COVID-19 virus infection (Acute) CAD (coronary artery disease) (Acute) Respiratory distress (Acute) Pneumonia (Acute) Suspected 2019 novel coronavirus infection (Acute) Acute respiratory failure with hypoxia (Acute) Lung nodule (Acute) NSTEMI (non-ST elevated myocardial infarction) (Acute)
[2019-08-08] MEDS: Insulin Lispro 100 UNIT/ML INSULN.PEN SC ×3 (08:48→21:11)
[2019-08-08] MEDS: Aspirin 81 MG TAB.CHEW PO (08:48)
--- NOTE | 2019-08-08 09:48 | PCM.PN.HOSP ---
Patient Problems: Active and Suspected Problems (Last Updated 07/20/19 @ 17:22 by Roselyn Siddiqui) Severe sepsis (Acute) Pneumonia (Acute) Suspected COVID-19 virus infection (Acute) CAD (coronary artery disease) (Acute) Respiratory distress (Acute) Pneumonia (Acute) Suspected 2019 novel coronavirus infection (Acute) Acute respiratory failure with hypoxia (Acute) Reason for Visit: Follow-up acute hypoxic respiratory failure Subjective: Patient is a 59-year-old gentleman with past medical history single for coronary artery disease status post CABG who presented with shortness of breath. An assessment of acute hypoxic respiratory failure secondary to CHF made placed on BiPAP admitted to the intensive care unit Objective: GENERAL: cooperative HEENT: Atraumatic; EYES; Anicteric, Normal Conjunctiva NECK; supple, normal thyroid, RESPIRATORY: Diminished to auscultation CARDIOVASCULAR: Regular S1 S2, GI: soft, normoactive bowel sounds, : No Renal angle tenderness; EXTREMITIES: No edema, no clubbing, MUSCULOSKELETAL: no muscle waisting NEURO: Awake; no lateralizing signs. SKIN: No Rash PSYCH; Flat affect Vitals/I&O's: Vital Signs Temp Pulse Resp BP Pulse Ox 98.9 F 99 19 H 110/67 98 08/08/19 08:00 08/08/19 08:00 08/08/19 08:00 08/08/19 08:00 08/08/19 08:00 Oxygen Flow Rate (L/min) 2 Oxygen Delivery Method Nasal Cannula Weight: 86.1 kg Body Mass Index (BMI) 27.0 Intake and Output for Last 24 Hours 08/06/19 08/07/19 08/08/19 23:59 23:59 23:59 Intake Total 1940.67 / 2240.67 600 / 600 Output Total 4650 / 5375 1025 / 1025 Balance -2709.33 / -3134.33 -425 / -425 Microbiology Past 72 Hours 08/07/19 06:43 Interface Orders Respiratory Panel (PCR) - Final 08/07/19 08:00 Urine Catheter - Catheter Streptococcus pneumoniae Antigen (M - Final 08/07/19 08:00 Urine Catheter - Catheter Legionella Antigen - Final 08/07/19 03:55 Mucosa - Nasopharyngeal Coronavirus COVID-19 PCR - Final Laboratory Results 08/07/19 10:40: Troponin I 0.618 H* 08/07/19 13:02: POC Glucose 164 H 08/07/19 17:04: POC Glucose 187 H 08/07/19 21:02: POC Glucose 152 H 08/08/19 03:35: WBC 10.7, RBC 4.24 L, Hgb 10.2 L, Hct 33.4 L, MCV 78.8 L, MCH 24.1 L, MCHC 30.5 L, RDW Std Deviation 43.0, RDW Coeff of Nicholas 15.2 H, Plt Count 491 H, MPV 9.4, Immature Gran % (Auto) 0.300, Neut % (Auto) 57.5, Lymph % (Auto) 30.4, [place] % (Auto) 8.2, Eos % (Auto) 2.9, Baso % (Auto) 0.7, Absolute Neuts (auto) 6.1, Absolute Lymphs (auto) 3.25, Nucleated RBC % 0 08/08/19 03:35: Sodium 138, Potassium 3.6, Chloride 103, Carbon Dioxide 29.0, Anion Gap 6, BUN 20 H, Creatinine 0.79, Estim Creat Clear Calc 101.39, Est GFR (MDRD) Af Amer 128, Est GFR (MDRD) Non-Af 106, BUN/Creatinine Ratio 25.3 H, Glucose 157 H, Calcium 8.4 L, Total Bilirubin 0.80, AST 15, ALT 15 L, Alkaline Phosphatase 62, Total Protein 7.1, Albumin 3.1 L, Globulin 4.0, Albumin/Globulin Ratio 0.8 L 08/08/19 06:57: POC Glucose 155 H Current Medications Acetaminophen (Tylenol) 650 mg PO Q6H PRN PRN PRN Reason: Pain Score 1-10/Temp > 100.7 F Last Admin: 08/08/19 00:25 Dose: 650 mg Documented by: Al Hydroxide/Mg Hydroxide (Mylanta Ii) 30 ml PO Q6H PRN PRN PRN Reason: Gastric Burning Albuterol Sulfate (Ventolin Aerosols) 2.5 mg INHALATION Q2H PRN PRN PRN Reason: Dyspnea, wheezing Last Admin: 08/07/19 06:35 Dose: 2.5 mg Documented by: Aspirin (Aspirin, Baby) 81 mg PO DAILY@0800 [facility] Last Admin: 08/08/19 08:48 Dose: 81 mg Documented by: Atorvastatin Calcium (Lipitor) 80 mg PO QHS [facility] Last Admin: 08/07/19 21:05 Dose: 80 mg Documented by: Clopidogrel Bisulfate (Plavix) 75 mg PO DAILY [facility] Last Admin: 08/07/19 13:09 Dose: 75 mg Documented by: Dextrose (D50w Syringe) 0 gm IV X1 PRN; Protocol PRN Reason: Hypoglycemia Enoxaparin Sodium (Lovenox) 90 mg SC Q12 [facility] Last Admin: 08/07/19 21:04 Dose: 90 mg Documented by: Famotidine (Pepcid) 20 mg PO BID [facility] Last Admin: 08/07/19 21:05 Dose: 20 mg Documented by: Furosemide (Lasix) 40 mg IV BID@1000,1700 [facility] Last Admin: 08/07/19 17:05 Dose: 40 mg Documented by: Glucagon () 1 mg IM .X1 PRN PRN Reason: Hypoglycemia Guaifenesin (Robitussin) 20 ml PO Q4H PRN PRN PRN Reason: COUGH Hydralazine HCl (Apresoline Iv) 10 mg IV Q4H PRN PRN PRN Reason: SBP > 160 Piperacillin Sod/Tazobactam (Sod 3.375 gm/ Sodium Chloride) 50 mls @ 12.5 mls/hr IV Q8@0200,1000,1800 [facility] Last Infusion: 08/08/19 05:14 Dose: Infused Documented by: Sodium Chloride () 250 mls @ 15 mls/hr IV .[id number] PRN PRN Reason: Saline Flush Sodium Chloride () 250 mls @ 15 mls/hr IV .[id number] PRN PRN Reason: Additional IVPB Infusion Sodium Chloride () 1,000 mls @ 0 mls/hr IV .Q0M [facility] Insulin Human Lispro (Humalog Kwikpen (Bkc)) 0 unit SC 4X/DAYCM [facility]; Protocol Last Admin: 08/08/19 08:48 Dose: 2 u Documented by: Lisinopril (Zestril) 10 mg PO BID [facility] Last Admin: 08/07/19 21:06 Dose: 10 mg Documented by: Magnesium Hydroxide (Milk Of Magnesia) 30 ml PO DAILY PRN PRN PRN Reason: Constipation Melatonin (Melatonin) 3 mg PO QHS PRN PRN PRN Reason: INSOMNIA Metoprolol Tartrate (Lopressor (Beta Bakari)) 50 mg PO BID [facility] Last Admin: 08/07/19 21:05 Dose: 50 mg Documented by: Morphine Sulfate () 2 mg IV Q3H PRN PRN PRN Reason: Pain Score 6-10/10 Nitroglycerin (Nitrostat) 0.4 mg SUBLINGUAL Q5M PRN PRN Reason: CARDIAC/CHEST PAIN Nitroglycerin (Nitrobid) 0.5 inch TRANSDERM. Q6H [facility] Last Admin: 08/08/19 04:45 Dose: Not Given Documented by: Ondansetron HCl (Zofran) 4 mg IV Q8H PRN PRN PRN Reason: NAUSEA/VOMITING Oxycodone HCl (Oxyir) 5 mg PO Q4H PRN PRN PRN Reason: Pain Score 4-5/10 Prochlorperazine Edisylate (Compazine Iv) 5 mg IV Q4H PRN PRN PRN Reason: Breakthrough Nausea/Vomiting Psyllium Hydrophilic Mucilloid (Metamucil) 1 packet PO DAILY PRN PRN PRN Reason: Constipation Senna/Docusate Sodium (Senokot-S, Preeti-Colace) 2 tablet PO BID PRN PRN PRN Reason: Constipation Sodium Chloride () 10 - 40 ml IV UD PRN PRN Reason: SALINE FLUSH Throat Lozenges (Cepacol Sore Throat Lozenge) 1 lozenge MUCOUS MEM Q2H PRN PRN PRN Reason: SORE THROAT STROKE Vital Signs/Narrative: Vital Signs Temp Pulse Resp BP Pulse Ox 08/08/19 08:00 98.9 F 99 19 H 110/67 98 08/08/19 07:16 79 08/08/19 07:00 78 14 104/63 95 08/08/19 06:00 98.7 F 72 15 104/59 L 99 Medical Necessity - Tobacco Use Smoking Status: Never smoker Tobacco Use: Non-smoker Assessment/Plan All Active Problems (Last Updated 07/20/19 @ 17:22 by Roselyn Siddiqui) Severe sepsis (Acute) Pneumonia (Acute) Suspected COVID-19 virus infection (Acute) CAD (coronary artery disease) (Acute) Respiratory distress (Acute) Pneumonia (Acute) Suspected 2019 novel coronavirus infection (Acute) Acute respiratory failure with hypoxia (Acute) Lung nodule (Acute) NSTEMI (non-ST elevated myocardial infarction) (Acute) Patient is a 59-year-old gentleman with past medical history single for coronary artery disease status post CABG who presented with shortness of breath. An assessment of acute hypoxic respiratory failure secondary to CHF made placed on BiPAP admitted to the intensive care unit 1. Acute hypoxic respiratory failure ?Secondary to acute congestive heart failure. Admitted to the intensive care unit managed with noninvasive ventilation BiPAP initially 2. Acute congestive heart failure ?With preserved ejection fraction. Patient presented with exacerbation of his CHF. Admitted to the intensive care unit patient managed with noninvasive ventilation IV Lasix with consultation placed to both pulmonary medicine as well as cardiology. Plan is for patient undergo possible left heart catheterization for evaluation of his graft 3. Acute non-STEMI ?Admitted to the intensive care unit where patient is being managed per protocol currently on beta-blockers BRITANY inhibitors Plavix and aspirin bolus atorvastatin 4. Accelerated hypertension ?Patient blood pressure was markedly elevated on admission blood pressure has since stabilized 5. Coronary artery disease -s/p recent CABG x 4 FLORES-LAD, SHARYN-OM1, Radial-OM3, SVG-PDA [facility] 06/02/19 6. Dyslipidemia ~patient is on statin therapy, continued at home dose 7. Diabetes mellitus type II ~Controlled on Accu-Cheks a.c. and at bedtime and covered with sliding scale insulin 8. DVT prophylaxis ~ on enoxaparin Active Medications Acetaminophen (Tylenol) 650 mg PO Q6H PRN PRN PRN Reason: Pain Score 1-10/Temp > 100.7 F Last Admin: 08/08/19 00:25 Dose: 650 mg Documented by: Al Hydroxide/Mg Hydroxide (Mylanta Ii) 30 ml PO Q6H PRN PRN PRN Reason: Gastric Burning Albuterol Sulfate (Ventolin Aerosols) 2.5 mg INHALATION Q2H PRN PRN PRN Reason: Dyspnea, wheezing Last Admin: 08/07/19 06:35 Dose: 2.5 mg Documented by: Aspirin (Aspirin, Baby) 81 mg PO DAILY@0800 [facility] Last Admin: 08/08/19 08:48 Dose: 81 mg Documented by: Atorvastatin Calcium (Lipitor) 80 mg PO QHS [facility] Last Admin: 08/07/19 21:05 Dose: 80 mg Documented by: Clopidogrel Bisulfate (Plavix) 75 mg PO DAILY [facility] Last Admin: 08/07/19 13:09 Dose: 75 mg Documented by: Dextrose (D50w Syringe) 0 gm IV X1 PRN; Protocol PRN Reason: Hypoglycemia Enoxaparin Sodium (Lovenox) 90 mg SC Q12 [facility] Last Admin: 08/07/19 21:04 Dose: 90 mg Documented by: Famotidine (Pepcid) 20 mg PO BID [facility] Last Admin: 08/07/19 21:05 Dose: 20 mg Documented by: Furosemide (Lasix) 40 mg IV BID@1000,1700 [facility] Last Admin: 08/07/19 17:05 Dose: 40 mg Documented by: Glucagon () 1 mg IM .X1 PRN PRN Reason: Hypoglycemia Guaifenesin (Robitussin) 20 ml PO Q4H PRN PRN PRN Reason: COUGH Hydralazine HCl (Apresoline Iv) 10 mg IV Q4H PRN PRN PRN Reason: SBP > 160 Piperacillin Sod/Tazobactam (Sod 3.375 gm/ Sodium Chloride) 50 mls @ 12.5 mls/hr IV Q8@0200,1000,1800 [facility] Last Infusion: 08/08/19 05:14 Dose: Infused Documented by: Sodium Chloride () 250 mls @ 15 mls/hr IV .[id number] PRN PRN Reason: Saline Flush Sodium Chloride () 250 mls @ 15 mls/hr IV .[id number] PRN PRN Reason: Additional IVPB Infusion Sodium Chloride () 1,000 mls @ 0 mls/hr IV .Q0M [facility] Insulin Human Lispro (Humalog Kwikpen (Bkc)) 0 unit SC 4X/DAYCM [facility]; Protocol Last Admin: 08/08/19 08:48 Dose: 2 u Documented by: Lisinopril (Zestril) 10 mg PO BID [facility] Last Admin: 08/07/19 21:06 Dose: 10 mg Documented by: Magnesium Hydroxide (Milk Of Magnesia) 30 ml PO DAILY PRN PRN PRN Reason: Constipation Melatonin (Melatonin) 3 mg PO QHS PRN PRN PRN Reason: INSOMNIA Metoprolol Tartrate (Lopressor (Beta Bakari)) 50 mg PO BID [facility] Last Admin: 08/07/19 21:05 Dose: 50 mg Documented by: Morphine Sulfate () 2 mg IV Q3H PRN PRN PRN Reason: Pain Score 6-10/10 Nitroglycerin (Nitrostat) 0.4 mg SUBLINGUAL Q5M PRN PRN Reason: CARDIAC/CHEST PAIN Nitroglycerin (Nitrobid) 0.5 inch TRANSDERM. Q6H [facility] Last Admin: 08/08/19 04:45 Dose: Not Given Documented by: Ondansetron HCl (Zofran) 4 mg IV Q8H PRN PRN PRN Reason: NAUSEA/VOMITING Oxycodone HCl (Oxyir) 5 mg PO Q4H PRN PRN PRN Reason: Pain Score 4-5/10 Prochlorperazine Edisylate (Compazine Iv) 5 mg IV Q4H PRN PRN PRN Reason: Breakthrough Nausea/Vomiting Psyllium Hydrophilic Mucilloid (Metamucil) 1 packet PO DAILY PRN PRN PRN Reason: Constipation Senna/Docusate Sodium (Senokot-S, Preeti-Colace) 2 tablet PO BID PRN PRN PRN Reason: Constipation Sodium Chloride () 10 - 40 ml IV UD PRN PRN Reason: SALINE FLUSH Throat Lozenges (Cepacol Sore Throat Lozenge) 1 lozenge MUCOUS MEM Q2H PRN PRN PRN Reason: SORE THROAT
--- NOTE | 2019-08-08 10:33 | CASEMGMT ---
RN CM Assessment Note Presentation: Resp Failure, CHF, non-STEMI Intro role of CM and purpose of RN CM assessment to patient via phone. Demographics, PCP and Pharmacy verified. Pt is awake, alert and able to participate. States he is very independent, no care needs prior to admission. Possible heart cath tomorrow. Insurance review entered. PCP: Dr. Mckinney Specialists: Cardiology in hospital Preferred Pharmacy: [facility], pt would like medications brought to unit on dc. Insurance: [facility] ([facility] choice plus) Prescription Benefit: yes LNOK : [place] Living Arrangements: Lives independently with . Denies needs Transportation: drives DME: none HHC: none Patient DC goals: Home DC PLAN: Home on discharge. RN CM advised to contact cm for any concerns/needs that may arise. Alana MULLENN RN ACM
--- NOTE | 2019-08-08 10:49 | CASEMGMT ---
Insurance Review for [facility] providers: CC, , [facility], [facility], JETT Patel. Alana MULLENN RN ACM.
[2019-08-08] MEDS: 0.9% Saline Lock 10 ML Syringe IV (10:53)
[2019-08-08] MEDS: Furosemide 40 MG/4 ML Vial IV ×2 (10:53→16:31)
[2019-08-08] MEDS: Clopidogrel Bisulfate 75 MG Tablet PO (10:54)
[2019-08-08] MEDS: Famotidine 20 MG Tablet PO ×2 (10:54→21:13)
[2019-08-08] MEDS: Metoprolol Tartrate 50 MG Tablet PO ×2 (10:54→21:12)
[2019-08-08] MEDS: Enoxaparin 100 MG/ML Syringe 90 MG SC ×2 (10:55→21:12)
[2019-08-08] MEDS: Lisinopril 10 MG Tablet PO ×2 (10:59→21:13)
--- NOTE | 2019-08-08 12:05 | PCM.PN.CARD ---
Subjectve: The patient was evaluated earlier this day. He was awake and alert and on O2 nasal cannula. He denied any ongoing symptoms of classic angina pectoris. His main concern was his shortness of breath and dyspnea. He states that is improved now since his hospitalization and diuresis. He has not had any near-syncope or syncope. Objective: Vital Signs Temp Pulse Resp BP Pulse Ox 99.3 F H 81 16 108/65 99 08/08/19 10:00 08/08/19 11:39 08/08/19 10:00 08/08/19 10:00 08/08/19 10:00 Oxygen Flow Rate (L/min) 2 Oxygen Delivery Method Nasal Cannula Weight: 189 lb 13.088 oz Body Mass Index (BMI) 27.0 Intake and Output for Last 24 Hours 08/06/19 08/07/19 08/08/19 23:59 23:59 23:59 Intake Total 1940.67 / 2240.67 600 / 600 Output Total 4650 / 5375 1025 / 1025 Balance -2709.33 / -3134.33 -425 / -425 General: Awake, Alert, Oriented x 3, Cooperative, No Acute Distress HEENT: Atraumatic, Normocephalic, PERRL, EOMI, Sclera Non Icteric Oral: Moist Mucosa Neck: Supple, Good ROM, No JVD Chest Wall: Midline Sternotomy Incision, - - Left forearm incision Lungs: Diminished Right Base Cardiovascular: Regular Rhythm, Normal S1, Normal S2 Vascular: No Carotid Bruits Abdomen: Bowel Sounds Present, Soft, Non Tender Extremities: No edema Neurological: No Focal Motor or Sensory Deficit Psych/Mental Status: Appropriate 08/08/19 03:35: WBC 10.7, RBC 4.24 L, Hgb 10.2 L, Hct 33.4 L, MCV 78.8 L, MCH 24.1 L, MCHC 30.5 L, Plt Count 491 H, MPV 9.4, Immature Gran % (Auto) 0.300, Neut % (Auto) 57.5, Lymph % (Auto) 30.4, [place] % (Auto) 8.2, Eos % (Auto) 2.9, Baso % (Auto) 0.7, Absolute Neuts (auto) 6.1, Nucleated RBC % 0 08/08/19 03:35: Sodium 138, Potassium 3.6, Chloride 103, Carbon Dioxide 29.0, Anion Gap 6, BUN 20 H, Creatinine 0.79, Est GFR (MDRD) Af Amer 128, Est GFR (MDRD) Non-Af 106, BUN/Creatinine Ratio 25.3 H, Glucose 157 H, Calcium 8.4 L, Total Bilirubin 0.80 Rhythm: Sinus rhythm Medical Necessity - Tobacco Use Smoking Status: Never smoker Tobacco Use: Non-smoker Assessment/Plan 1. CAD status post CABG The patient has a history of CAD status post CABG-recent. He has presented with concerns of shortness of breath/dyspnea. There were concerns of volume overload with CHF. He has been treated medically. He has had symptomatic improvement as well as radiologic improvement. During this time he has had troponin I levels performed. They have elevated. This raises concerns as to whether or not he may have had a type II event versus a primary acute coronary syndrome event. From a cardiac standpoint he will continue medical management. He will be considered for further evaluation both noninvasively and invasively. From a noninvasive standpoint this would include an echocardiogram to reassess his left ventricular wall motion and systolic function. From an invasive standpoint this would include diagnostic cardiac catheterization to reassess his [place] vessels as well as his graft vessels for any significant change/progression of disease that warrants not only medical therapy but additional revascularization therapy. 2. CHF There is concern about his volume overload state. Unclear whether this is related to a change with his coronary/graft status. The same time he was noted to be markedly hypertensive. Thus there is potentially a component to his hypertension related to his cardiovascular findings, etc. At the moment he has had improvement with diuretic therapy. He will continue diuretic therapy and follow-up. His left ventricular systolic function will be reassessed with an echocardiogram. 3. Non-ST segment elevation RI The patient does have abnormal troponin I levels. Again there is concern whether this is a type II event versus a type I event. He appears to be symptomatically improving. He will continue medical therapy. He will be scheduled for future noninvasive study with echocardiogram and future invasive study with diagnostic cardiac catheterization-barring a change in his clinical course to further assess his coronary/graft status. 4. Hyperlipidemia He will continue medical management as deemed appropriate. 5. Hypertension He will continue medical therapy with adjustment as deemed appropriate to keep his blood pressure under better control. 6. Acute respiratory distress Initially he was reported with an acute respiratory distress. He has undergone evaluation. They are concerned this may have been related to volume overload. He is improved with diuretic therapy. 7. Fever The patient was noted to have a fever. He is undergone evaluation from an infectious disease standpoint. His COVID-19 test has been reported as nondetectable/negative. According to Dr. Moffett his clinical course thus far has not been compatible with COVID-19. There is concerned that he may have another type of underlying viral or bacterial infection/pulmonary disease process. He has been placed on antibiotic therapy. His temperature has come down and he is clinically improving at this time. 8. Diabetes mellitus He will continue evaluation care per internal medicine. Comment: The patient's case was discussed and reviewed with the patient and Dr. Moffett. This note was generated using a voice recognition system and there may be incorrect words, spelling or punctuation that were not noted when reviewing the office note prior to saving.
[2019-08-08 12:41] LABS: Bedside Glucose 214 mg/dL (70-110)
[2019-08-08] MEDS: Nitroglycerin Oint 1 INCH PACKET 0.5 INCH TRANSDERM. ×2 (12:44→18:48)
--- NOTE | 2019-08-08 13:05 | NURSING ---
Elliott catheter removed at this time, pt tolerated well.
[2019-08-08 18:11] LABS: Bedside Glucose 138 mg/dL (70-110)
[2019-08-08] MEDS: Atorvastatin Calcium 80 MG Tablet PO (21:11)
[2019-08-08] MEDS: MELATONIN 3 MG TABLET PO (21:13)
[2019-08-08 22:55] LABS: Bedside Glucose 194 mg/dL (70-110)
[2019-08-09] VITALS (21 sets, daily range): BP systolic 107–139; BP diastolic 66–82; PULSE 72–96; RESP 17–18; TEMP 36.3–36.8; O2SAT 90–95
[2019-08-09] MEDS: Nitroglycerin Oint 1 INCH PACKET 0.5 INCH TRANSDERM. ×3 (00:48→16:25)
--- NOTE | 2019-08-09 05:20 | RAD_ITS ---
STUDY: X-RAY CHEST REASON FOR EXAM: Male, 59 years old. CAD,CABG,CHF,PNEUMONIA TECHNIQUE: Frontal view COMPARISON: 08/08/2019 FINDINGS: The lungs are clear and expanded. There is no demonstrated pleural abnormality. Normal size heart. Normal mediastinum and marybeth. Normal visualized pulmonary arteries. Normal visualized aortic arch and descending thoracic aorta. Normal visualized thoracic spine. Normal visualized ribs, clavicles, and shoulders. There is no demonstrated abnormality of the visualized soft tissue structures of the upper abdomen. RAD/Chest 1 View (Portable) IMPRESSION: Normal x-ray examination of the chest. Electronically Signed: Jarod Kohli MD at 5:53 EDT , Service support ,
--- NOTE | 2019-08-09 05:55 | EKG12_ITS ---
Test Reason : AM EKG Blood Pressure : / mmHG Vent. Rate : 080 BPM Atrial Rate : 080 BPM P-R Int : 148 ms QRS Dur : 090 ms QT Int : 452 ms P-R-T Axes : 037 028 100 degrees QTc Int : 521 ms Normal sinus rhythm ST elevation consider inferior injury-age undetermine-possibly recent Prolonged QT Nonspecific T wave abnormality Consider right ventricular involvement in acute inferior infarct Abnormal ECG Confirmed by MARIA ISABEL CARDENAS, SHAWN ([id number]), marketing editor CLARY REY ([id number]) on 08/11/2019 4:14:29 PM Referred By: Marsha Mendoza Confirmed By:SHAWN NICOLAS MD
--- NOTE | 2019-08-09 06:25 | NURSING ---
Mita from respiratory therapy notified this RN that AM EKG showed ACUTE AZ / STEMI. This RN sent the EKG to Dr. Mendoza the hospitalist. The hospitalist recommended sending to cardiology. This RN sent the previous EKG and the most current EKG to Dr. Alejandra who was invoice control clerk for cardiology. Dr. Alejandra called PCU and recommended sending EKG to Dr. Allan. This RN sent EKGs to Dr. Allan who was notified that pt not c/o CP. Most recent VS sent to Dr. Allan as well. Dr. Allan responded via [employer] and states he plans to take pt for a heart cath possibly around 07:30 this AM.
[2019-08-09] MEDS: Aspirin 81 MG TAB.CHEW PO (07:01)
[2019-08-09] MEDS: Lisinopril 10 MG Tablet PO (07:01)
[2019-08-09] MEDS: Clopidogrel Bisulfate 75 MG Tablet PO (07:01)
[2019-08-09] MEDS: Metoprolol Tartrate 50 MG Tablet PO (07:01)
[2019-08-09 07:15] LABS: Bedside Glucose 181 mg/dL (70-110)
--- NOTE | 2019-08-09 09:18 | CPS ---
bipap never set up. pt refused
--- NOTE | 2019-08-09 09:32 | CL.D_ITS ---
Patient Name: KATHRIN WISE Study Date: 08/09/2019 Performing: Mayank Allan MD Ht: 70 inches 178 cm : 1960 Wt: 176.6 lbs 80 kg Age: 59 Gender: male BSA: 1.98 PROCEDURE(S) PERFORMED TP14-ZJK/COR/LV/CABG CLINICAL PROFILE AND INDICATIONS Indications: ACS > 24 hrs, Suspected CAD Heart Failure: NYHA Class: 3, Newly Diagnosed: Yes, Heart Failure Type: Diastolic Stress/Imaging Stress/Image Study Performed: No Angina Classification Anginal Classification w/in 2 Weeks: Anginal Equivalent Dyspnea CAD Presentations: Non-STEMI. CONCLUSIONS Elevated Left Ventricular End Diastolic Pressure Segmented LV systolic dysfunction- Mild LVEF: by LV gram 55 % [place] Multivessel CAD FLORES to LAD: patent SHARYN to OM1: occluded Radial artery graft to OM3: proximal 85% stenosis (small caliber vessel) SVG to RPDA: patent RECOMMENDATIONS Risk factor modification Medical therapy Transfer to tertiary care center for consideration for high risk PCI DESCRIPTION OF PROCEDURE The patient arrived to the procedure lab. The risks and benefits of the procedure as well as a full d escription of our services here and current unavailability of surgical backup were fully explained to the patient and/or their significant other prior to the catheterization. The Timeout was completed, verifying the correct patient and procedure. The patient's procedural site was prepped and draped in the usual fashion. Local anesthetic was given subcutaneously to right groin region with Lidocaine 2%. Using a modified Seldinger technique, arterial access was obtained via the right femoral artery, a 4 Fr sheath was inserted Left Coronary Artery selective angiography was performed in multiple views us ing a 4 Fr. JL5 catheter. Right Coronary Artery selective angiography was then performed in multiple views using a 4 Fr. 3DRC catheter. Radial graft to the OM 3 selective angiography was performed in mu ltiple views using a 4 Fr. JR4 catheter. Right internal mammary artery graft to the OM 1 selective angiography was performed in multiple views using a 4 Fr. IM catheter. Left internal mammar y artery graft to the LAD selective angiography was performed in multiple views using a 4 Fr. IM cath eter. Saphenous Vein graft to the RPDA selective angiography was performed in multiple views using a 4 Fr. RCB catheter. Left Ventriculography was performed in RITTER projection using a [address] LV to AO pullback pressures were then recorded.The arterial sheath was pulled and manual carol basilio applied until hemostasis is achieved. CORONARY ANGIOGRAPHY DOMINANCE: Right Dominant LEFT HEART ASSESSMENT Left Ventricular Ejection Fraction: by LV Gram 55 % Inferior Basal Hypokinesis. Inferior Mid Hypokinesis. Inferior Apical Hypokinesis Elevated Left Ventricular End Diastolic Pressure LEFT MAIN: 95 % Stenosis LEFT ANTERIOR DESCENDING ARTERY: OSTIAL LAD: is occluded MID LAD: fills from the FLORES graft with mid 50 % stenosis DISTAL LAD: 50 % Stenosis CIRCUMFLEX ARTERY: PROX CIRC: eccentric: 25 - 50 % Stenosis MID CIRC: 50 - 75 % Stenosis DISTAL CIRC: 85 % Stenosis OM 1: Mid - small vessel: mid: occluded OM 2: Proximal - 50 % Stenosis OM 3: Proximal - 50 % Stenosis, Mid - 50 % Stenosis, Mid - also receives radial artery graft flow RIGHT CORONARY ARTERY: Mild luminal irregularities MID RCA: diffuse: eccentric: 50 % Stenosis RT PDA: Mid - fills from the SVG graft GRAFTS: FLORES graft to the Mid LAD is patent Radial graft to the 3rd OM has a proximal lesion of 85 % (small caliber vessel) Saphenous Vein graft to the RPDA is patent SHARYN graft to the 100 % to OM1: mid occluded COMPLICATIONS No Complications PROCEDURE MEDICATIONS Versed 1 mg IV Oxygen: 2 L/min via nasal cannula SUMMARY OF HEMODYNAMIC DATA Time AIR REST ECG 07:40:26 AO 111/66 (85) SA 07:56:01 LV 126/-8, 24 08:33:32 LV 125/-7, 24 08:33:38 LV 130/-6, 26 08:34:23 LVp 135/-4, 24 08:34:28 AOp 138/63 (94) 08:34:34 Signed By Mayank Allan MD On 08/09/2019 9:31:40 AM Mayank Allan MD
[2019-08-09 09:49] LABS: Hematocrit 33.6 % (40-54); Hemoglobin 10.2 g/dL (13.0-16.5); Mean Corp Hgb Conc 30.4 g/dL (32-36); Mean Corpuscular Volume 79.1 fL (80-94); Mean Platelet Vol. 9.6 fl (6.2-12.0); Platelet Count 485 K/mm3 (150-450); RBC Distribution Width SD 43.3 fl (35.1-43.9); Red Blood Count 4.25 M/mm3 (4.6-6.2); White Blood Count 8.5 K/mm3 (4.4-11.0)
[2019-08-09 10:08] LABS: Anion Gap 8 (5-15); BUN 21 mg/dL (7-18); BUN/Creat Ratio 26.4 RATIO (10-20); Calcium,Total 8.2 mg/dL (8.5-10.1); Chloride 101 mmol/L (98-107); EST Glomerular Filtration Rate 105 mL/min (>60); Est Glom Filt Rate - Afr Amer 127 mL/min (>60); Estimated Creatinine Clearance 100.12 ml/min; Glucose 178 mg/dL (74-106); Magnesium 2.2 mg/dL (1.6-2.6); Sodium Level 137 mmol/L (136-145)
[2019-08-09] MEDS: Famotidine 20 MG Tablet PO (11:03)
--- NOTE | 2019-08-09 12:03 | PCM.PN.PUL ---
Subjective: The patient was seen and examined at the bedside this morning. Events from the last 24 hours have been reviewed. The patient is currently afebrile, hemodynamically stable and maintaining appropriate oxygen saturations on room air. Cardiac catheterization this morning revealed an elevated LVEDP along with [place] multivessel coronary disease. Repeat plain film chest x-ray from this morning was grossly clear. Objective: The patient's most recent lab work, culture data and imaging studies have all been personally reviewed. Strep and urine Legionella antigens were negative. Respiratory viral panel was negative. Coronavirus PCR was negative. Blood and urine cultures have shown no growth to date. - Physical Exam Vitals/I&O's: Vital Signs Temp Pulse Resp BP Pulse Ox 97.8 F 74 18 107/69 95 08/09/19 09:15 08/09/19 11:04 08/09/19 11:00 08/09/19 11:04 08/09/19 11:00 Oxygen Flow Rate (L/min) 2 Oxygen Delivery Method Room Air Weight: 177 lb 4.026 oz Body Mass Index (BMI) 27.0 Intake and Output for Last 24 Hours 08/07/19 08/08/19 08/09/19 23:59 23:59 23:59 Intake Total 1940.67 / 2240.67 1420 / 1420 50 / 50 Output Total 4650 / 5375 3825 / 3825 400 / 400 Balance -2709.33 / -3134.33 -2405 / -2405 -350 / -350 General: Alert, No apparent distress HEENT: Atraumatic, Normocephalic Oral: No Gingival or Mucosal Lesions/ Ulcerations Neck: Supple, No Nodes, Trachea Midline Lungs: Normal air movement Cardiovascular: Regular rate, Regular Rhythm, Normal S1, Normal S2 Abdomen: Bowel Sounds Present, Soft, Non Tender Extremities: No clubbing, No cyanosis Skin: No breakdown Musculoskeletal: No Muscle Wasting Lymphatic: No Cervical, Supraclavicular, or Inguinal Adenopathy Neurological: Neuro grossly intact Psych/Mental Status: Normal Affect, Appropriate Labs (Last 48 Hours) 08/07/19 08/07/19 08/07/19 13:02 17:04 21:02 WBC RBC Hgb Hct MCV MCH MCHC RDW Std Deviation RDW Coeff of Nicholas Plt Count MPV Immature Gran % (Auto) Neut % (Auto) Lymph % (Auto) [place] % (Auto) Eos % (Auto) Baso % (Auto) Absolute Neuts (auto) Absolute Lymphs (auto) Nucleated RBC % Sodium Potassium Chloride Carbon Dioxide Anion Gap BUN Creatinine Estim Creat Clear Calc Est GFR (MDRD) Af Amer Est GFR (MDRD) Non-Af BUN/Creatinine Ratio Glucose Calcium Magnesium Total Bilirubin AST ALT Alkaline Phosphatase Total Protein Albumin Globulin Albumin/Globulin Ratio POC Glucose 164 H 187 H 152 H 08/08/19 08/08/19 08/08/19 03:35 03:35 06:57 WBC 10.7 RBC 4.24 L Hgb 10.2 L Hct 33.4 L MCV 78.8 L MCH 24.1 L MCHC 30.5 L RDW Std Deviation 43.0 RDW Coeff of Nicholas 15.2 H Plt Count 491 H MPV 9.4 Immature Gran % (Auto) 0.300 Neut % (Auto) 57.5 Lymph % (Auto) 30.4 [place] % (Auto) 8.2 Eos % (Auto) 2.9 Baso % (Auto) 0.7 Absolute Neuts (auto) 6.1 Absolute Lymphs (auto) 3.25 Nucleated RBC % 0 Sodium 138 Potassium 3.6 Chloride 103 Carbon Dioxide 29.0 Anion Gap 6 BUN 20 H Creatinine 0.79 Estim Creat Clear Calc 101.39 Est GFR (MDRD) Af Amer 128 Est GFR (MDRD) Non-Af 106 BUN/Creatinine Ratio 25.3 H Glucose 157 H Calcium 8.4 L Magnesium Total Bilirubin 0.80 AST 15 ALT 15 L Alkaline Phosphatase 62 Total Protein 7.1 Albumin 3.1 L Globulin 4.0 Albumin/Globulin Ratio 0.8 L POC Glucose 155 H 08/08/19 08/08/19 08/08/19 12:14 16:28 21:10 WBC RBC Hgb Hct MCV MCH MCHC RDW Std Deviation RDW Coeff of Nicholas Plt Count MPV Immature Gran % (Auto) Neut % (Auto) Lymph % (Auto) [place] % (Auto) Eos % (Auto) Baso % (Auto) Absolute Neuts (auto) Absolute Lymphs (auto) Nucleated RBC % Sodium Potassium Chloride Carbon Dioxide Anion Gap BUN Creatinine Estim Creat Clear Calc Est GFR (MDRD) Af Amer Est GFR (MDRD) Non-Af BUN/Creatinine Ratio Glucose Calcium Magnesium Total Bilirubin AST ALT Alkaline Phosphatase Total Protein Albumin Globulin Albumin/Globulin Ratio POC Glucose 214 H 138 H 194 H 08/09/19 08/09/19 08/09/19 06:52 09:40 09:40 WBC 8.5 RBC 4.25 L Hgb 10.2 L Hct 33.6 L MCV 79.1 L MCH 24.0 L MCHC 30.4 L RDW Std Deviation 43.3 RDW Coeff of Nicholas 15.0 H Plt Count 485 H MPV 9.6 Immature Gran % (Auto) Neut % (Auto) Lymph % (Auto) [place] % (Auto) Eos % (Auto) Baso % (Auto) Absolute Neuts (auto) Absolute Lymphs (auto) Nucleated RBC % Sodium 137 Potassium 4.0 Chloride 101 Carbon Dioxide 28.0 Anion Gap 8 BUN 21 H Creatinine 0.80 Estim Creat Clear Calc 100.12 Est GFR (MDRD) Af Amer 127 Est GFR (MDRD) Non-Af 105 BUN/Creatinine Ratio 26.4 H Glucose 178 H Calcium 8.2 L Magnesium 2.2 Total Bilirubin AST ALT Alkaline Phosphatase Total Protein Albumin Globulin Albumin/Globulin Ratio POC Glucose 181 H Microbiology 08/07/19 08:00 Urine, Clean Catch Urine Culture - Final Culture exhibits no growth. 08/07/19 06:43 Interface Orders Respiratory Panel (PCR) - Final 08/07/19 08:00 Urine Catheter - Catheter Streptococcus pneumoniae Antigen (M - Final 08/07/19 08:00 Urine Catheter - Catheter Legionella Antigen - Final Clinical Impression(s) from Imaging Studies Chest X-Ray 08/07/19 03:10 IMPRESSION: Sinuses suggestive of diffuse interstitial pulmonary edema as described. Electronically Signed: Oma Elias MD at 4:09 EDT , Service support , Chest X-Ray 08/08/19 04:03 IMPRESSION: Improved aeration, decreased off pulmonary edema. Residual opacification in the lung bases, an underlying inflammatory/infectious process is not entirely excluded. Follow-up examination to resolution recommended. Electronically Signed: Maliha Lee MD at 5:05 EDT , Service support , Chest X-Ray 08/09/19 05:20 IMPRESSION: Normal x-ray examination of the chest. Electronically Signed: Jarod Kohli MD at 5:53 EDT , Service support , Current Medications Acetaminophen (Tylenol) 650 mg PO Q6H PRN PRN PRN Reason: Pain Score 1-10/Temp > 100.7 F Last Admin: 08/08/19 21:14 Dose: 650 mg Documented by: Al Hydroxide/Mg Hydroxide (Mylanta Ii) 30 ml PO Q6H PRN PRN PRN Reason: Gastric Burning Albuterol Sulfate (Ventolin Aerosols) 2.5 mg INHALATION Q2H PRN PRN PRN Reason: Dyspnea, wheezing Last Admin: 08/07/19 06:35 Dose: 2.5 mg Documented by: Aspirin (Aspirin, Baby) 81 mg PO DAILY@0800 [facility] Last Admin: 08/09/19 07:01 Dose: 81 mg Documented by: Atorvastatin Calcium (Lipitor) 80 mg PO QHS [facility] Last Admin: 08/08/19 21:11 Dose: 80 mg Documented by: Clopidogrel Bisulfate (Plavix) 75 mg PO DAILY [facility] Last Admin: 08/09/19 07:01 Dose: 75 mg Documented by: Dextrose (D50w Syringe) 0 gm IV X1 PRN; Protocol PRN Reason: Hypoglycemia Enoxaparin Sodium (Lovenox) 90 mg SC Q12 [facility] Last Admin: 08/08/19 21:12 Dose: 90 mg Documented by: Famotidine (Pepcid) 20 mg PO BID [facility] Last Admin: 08/09/19 11:03 Dose: 20 mg Documented by: Furosemide (Lasix) 40 mg IV BID@1000,1700 [facility] Last Admin: 08/08/19 16:31 Dose: 40 mg Documented by: Glucagon () 1 mg IM .X1 PRN PRN Reason: Hypoglycemia Guaifenesin (Robitussin) 20 ml PO Q4H PRN PRN PRN Reason: COUGH Heparin Sodium (Beef Lung) (Heparin 500 Unit/5 Ml (100/Ml)) 500 unit IV UD PRN PRN Reason: HEPARIN FLUSH Hydralazine HCl (Apresoline Iv) 10 mg IV Q4H PRN PRN PRN Reason: SBP > 160 Piperacillin Sod/Tazobactam (Sod 3.375 gm/ Sodium Chloride) 50 mls @ 12.5 mls/hr IV Q8@0200,1000,1800 [facility] Last Admin: 08/09/19 10:35 Dose: 12.5 mls/hr Documented by: Sodium Chloride () 250 mls @ 15 mls/hr IV .[id number] PRN PRN Reason: Saline Flush Sodium Chloride () 250 mls @ 15 mls/hr IV .[id number] PRN PRN Reason: Additional IVPB Infusion Sodium Chloride () 1,000 mls @ 0 mls/hr IV .Q0M [facility] Insulin Human Lispro (Humalog Kwikpen (Bkc)) 0 unit SC 4X/DAYCM [facility]; Protocol Last Admin: 08/09/19 08:04 Dose: Not Given Documented by: Labetalol HCl (Trandate) 5 mg IV X1 PRN PRN Reason: SBP > 160 prior to sheath pull Stop: 08/11/19 09:35 Lisinopril (Zestril) 10 mg PO BID [facility] Last Admin: 08/09/19 07:01 Dose: 10 mg Documented by: Magnesium Hydroxide (Milk Of Magnesia) 30 ml PO DAILY PRN PRN PRN Reason: Constipation Melatonin (Melatonin) 3 mg PO QHS PRN PRN PRN Reason: INSOMNIA Last Admin: 08/08/19 21:13 Dose: 3 mg Documented by: Metoprolol Tartrate (Lopressor (Beta Bakari)) 50 mg PO BID [facility] Last Admin: 08/09/19 07:01 Dose: 50 mg Documented by: Morphine Sulfate () 2 mg IV Q3H PRN PRN PRN Reason: Pain Score 6-10/10 Nitroglycerin (Nitrostat) 0.4 mg SUBLINGUAL Q5M PRN PRN Reason: CARDIAC/CHEST PAIN Nitroglycerin (Nitrobid) 0.5 inch TRANSDERM. Q6H [facility] Last Admin: 08/09/19 11:04 Dose: Not Given Documented by: Ondansetron HCl (Zofran) 4 mg IV Q8H PRN PRN PRN Reason: NAUSEA/VOMITING Oxycodone HCl (Oxyir) 5 mg PO Q4H PRN PRN PRN Reason: Pain Score 4-5/10 Prochlorperazine Edisylate (Compazine Iv) 5 mg IV Q4H PRN PRN PRN Reason: Breakthrough Nausea/Vomiting Psyllium Hydrophilic Mucilloid (Metamucil) 1 packet PO DAILY PRN PRN PRN Reason: Constipation Senna/Docusate Sodium (Senokot-S, Preeti-Colace) 2 tablet PO BID PRN PRN PRN Reason: Constipation Sodium Chloride () 10 - 40 ml IV UD PRN PRN Reason: SALINE FLUSH Last Admin: 08/08/19 10:53 Dose: 10 ml Documented by: Throat Lozenges (Cepacol Sore Throat Lozenge) 1 lozenge MUCOUS MEM Q2H PRN PRN PRN Reason: SORE THROAT Medical Necessity - Tobacco Use Smoking Status: Never smoker Tobacco Use: Non-smoker Assessment/Plan All Active Problems (Last Updated 07/20/19 @ 17:22 by Roselyn Siddiqui) Severe sepsis (Acute) Pneumonia (Acute) Suspected COVID-19 virus infection (Acute) CAD (coronary artery disease) (Acute) Respiratory distress (Acute) Pneumonia (Acute) Suspected 2019 novel coronavirus infection (Acute) Acute respiratory failure with hypoxia (Acute) Lung nodule (Acute) NSTEMI (non-ST elevated myocardial infarction) (Acute) RECOMMENDATIONS: 1. Continue diuresis as tolerated by renal function and hemodynamic status. 2. Given negative infectious work-up, antimicrobials can be discontinued from my perspective. 3. Encourage incentive spirometer use and mobilize patient as tolerated. 4. Given the lack of further ICU or pulmonary needs, will sign off. Please call with any additional questions. IMPRESSIONS: 1. Acute hypoxic respiratory failure secondary to probable acute diastolic CHF following quadruple bypass I do suspect that the etiology for the patient's respiratory failure was secondary to hypervolemia and decompensated heart failure, given his rapid improvement with the use of noninvasive positive pressure ventilatory support and IV diuretic therapy. Given his negative infectious work-up to date and clear x-ray from this morning, antimicrobials can be discontinued from my perspective. Cardiology is currently following to assist with medical management. T 2. CAD/diabetes mellitus type 2/hypertension/hyperlipidemia Complicates care, management, recovery and prognosis. Okay to continue with baseline medications. This note was generated with [employer] software. It may contain incorrect words, spelling, and punctuation that were not noted in checking the note before signing. Inpatient E&M: 46038 Subs Hosp L2
--- NOTE | 2019-08-09 12:31 | PN.CARD_ITS ---
Subjectve: The patient was evaluated earlier this day prior to his diagnostic cardiac catheterization. At that time he remained symptomatically stable with no o ngoing chest discomfort. He noted he had overall improvement in his respiratory status. He had no new acute complaints. Objective: Vital Signs Temp Pulse Resp BP Pulse Ox 97.8 F 74 18 107/69 95 08/09/19 09:15 08/09/19 11:04 08/09/19 11:00 08/09/19 11:04 08/09/19 11:00 Oxygen Flow Rate (L/min) 2 Oxygen Delivery Method Room Air Weight: 177 lb 4.026 oz Body Mass Index (BMI) 27.0 Intake and Output for Last 24 Hours 08/07/19 08/08/19 08/09/19 23:59 23:59 23:59 Intake Total 1940.67 / 2240.67 1420 / 1420 50 / 50 Output Total 4650 / 5375 3825 / 3825 400 / 400 Balance -2709.33 / -3134.33 -2405 / -2405 -350 / -350 General: Awake, Alert, Oriented x 3, Cooperative, No Acute Distress HEENT: Atraumatic, Normocephalic, PERRL, EOMI, Sclera Non Icteric Oral: Moist Mucosa Neck: Supple, Good ROM, No JVD Lungs: Clear to auscultation Cardiovascular: Regular Rhythm, Normal S1, Normal S2 Vascular: No Carotid Bruits Abdomen: Bowel Sounds Present, Soft, Non Tender Extremities: No edema Neurological: No Focal Motor or Sensory Deficit Psych/Mental Status: Appropriate 08/09/19 09:40: WBC 8.5, RBC 4.25 L, Hgb 10.2 L, Hct 33.6 L, MCV 79.1 L, MCH 24.0 L, MCHC 30.4 L, Plt Count 485 H, MPV 9.6 08/09/19 09:40: Sodium 137, Potassium 4.0, Chloride 101, Carbon Dioxide 28.0, Anion Gap 8, BUN 21 H, Creatinine 0.80, Est GFR (MDRD) Af Amer 127, Est GFR (MDRD) Non-Af 105, BUN/Creatinine Ratio 26.4 H, Glucose 178 H, Calcium 8.2 L, Magnesium 2.2 Rhythm: Sinus rhythm EKG: Sinus rhythm; inferior NC-age undetermined-cannot be excluded ECHO: Interpretation Summary The study was technically difficult. Left ventricular systolic function is normal. The estimated ejection fraction is 65 %. Post operative septal motion. Apical false tendon noted. The left atrium is mildly enlarged. Anterior leaflet diffuse mitral valve thickening. Mild (1+) mitral valve insufficiency. Trivial tricuspid valve insufficiency. Moderate focal aortic valve calcification. Unable to estimate RV systolic pressure/pulmonary artery pressure due to technically difficult study. Diastolic function is indeterminate. Cardiac Cath: CORONARY ANGIOGRAPHY DOMINANCE: Right Dominant LEFT HEART ASSESSMENT Left Ventricular Ejection Fraction: by LV Gram 55 % Inferior Basal Hypokinesis. Inferior Mid Hypokinesis. Inferior Apical Hypokinesis Elevated Left Ventricular End Diastolic Pressure LEFT MAIN: 95 % Stenosis LEFT ANTERIOR DESCENDING ARTERY: OSTIAL LAD: is occluded MID LAD: fills from the FLORES graft with mid 50 % stenosis DISTAL LAD: 50 % Stenosis CIRCUMFLEX ARTERY: PROX CIRC: eccentric: 25 - 50 % Stenosis MID CIRC: 50 - 75 % Stenosis DISTAL CIRC: 85 % Stenosis OM 1: Mid - small vessel: mid: occluded OM 2: Proximal - 50 % Stenosis OM 3: Proximal - 50 % Stenosis, Mid - 50 % Stenosis, Mid - also receives radial artery graft flow RIGHT CORONARY ARTERY: Mild luminal irregularities MID RCA: diffuse: eccentric: 50 % Stenosis RT PDA: Mid - fills from the SVG graft GRAFTS: FLORES graft to the Mid LAD is patent Radial graft to the 3rd OM has a proximal lesion of 85 % (small caliber vessel) Saphenous Vein graft to the RPDA is patent SHARYN graft to the 100 % to OM1: mid occluded CXR: Preliminary review: Compared to the previous chest x-ray there appears to be improved aeration: Please see official report Medical Necessity - Tobacco Use Smoking Status: Never smoker Tobacco Use: Non-smoker Assessment/Plan 1. CAD status post CABG The patient has a history of CAD status post CABG-recent. He has presented with concerns of shortness of breath/dyspnea. There were concerns of volume overload with CHF. He has been treated medically. He has had symptomatic improvement as well as radiologic improvement. During this time he has had troponin I levels performed. They have elevated. This raises concerns as to whether or not he may have had a type II event versus a primary acute coronary syndrome event. He has now undergone further evaluation both noninvasively and invasively. Based upon his studies his overall LV systolic function appears to remain preserved. However he has had progression of [place] vessel/graft vessel disease as noted in his diagnostic cardiac catheterization report. 2. CHF There is concern about his volume overload state. Unclear whether this is related to a change with his coronary/graft status. The same time he was noted to be markedly hypertensive. Thus there is potentially a component to his hypertension related to his cardiovascular findings, etc. At the moment he has had improvement with diuretic therapy. He will continue diuretic therapy and follow-up. 3. Non-ST segment elevation NC The patient does have abnormal troponin I levels. Again there is concern whether this is a type II event versus a type I event. He appears to be symptomatically improving. He will continue medical therapy. He has undergone further evaluation with diagnostic cardiac catheterization as noted. 4. Hyperlipidemia He will continue medical management as deemed appropriate. 5. Hypertension He will continue medical therapy with adjustment as deemed appropriate to keep his blood pressure under better control. 6. Acute respiratory distress Initially he was reported with an acute respiratory distress. He has undergone evaluation. They are concerned this may have been related to volume overload. He is improved with diuretic therapy. 7. Fever He remains afebrile at this time. 8. Diabetes mellitus He will continue evaluation care per internal medicine. Overall, the concern is that the patient has had progression of [place] vessel/graft vessel disease. He will continue medical therapy. His case was discussed with Dr. Solomon of [facility] who performed his previous CT surgery/CABG. He accepted the patient in transfer for further evaluation by CT surgery and interventional cardiology for options for additional revascularization therapy. Comment: The patient's case was discussed and reviewed with the patient and the information conveyed to Dr. Ferguson. This note was generated using a voice recognition system and there may be incorrect words, spelling or punctuation that were not noted when reviewing the office note prior to saving.
[2019-08-09] MEDS: Insulin Lispro 100 UNIT/ML INSULN.PEN SC ×2 (13:30→16:19)
--- NOTE | 2019-08-09 13:53 | DCINST_ITS ---
- Discharge Diagnoses Current Active Problems: Current Active and Chronic Problems (Last Updated 07/20/19 @ 17:22 by Roselyn Siddiqui) Severe sepsis (Acute) Pneumonia (Acute) Suspected COVID-19 virus infection (Acute) CAD (coronary artery disease) (Acute) Respiratory distress (Acute) Pneumonia (Acute) Suspected 2019 novel coronavirus infection (Acute) Acute respiratory failure with hypoxia (Acute) You will use the following diet at home:: Cardiac Allergies/Adverse Reactions: Allergies rosuvastatin [From Crestor] Adverse Reaction (Severe, Verified 07/21/19 16:01) Aches simvastatin Adverse Reaction (Severe, Verified 07/21/19 16:01) Stiff Joints Medications to take at Discharge Aspirin [Aspirin, Baby] 81 mg PO DAILY@0800 05/24/19 acetaminophen 500 mg tablet 1,000 mg PO Q6H PRN tab 07/20/19 atorvastatin 80 mg tablet 80 mg PO QHS 07/20/19 clopidogrel 75 mg tablet 75 mg PO DAILY 07/20/19 glimepiride 4 mg tablet 4 mg PO DAILY 07/20/19 metformin 1,000 mg tablet 1,000 mg PO BID 07/20/19 metoprolol tartrate 50 mg tablet 50 mg PO BID 07/20/19 sitagliptin 100 mg tablet 100 mg PO DAILY 07/20/19 lisinopril 5 mg tablet 5 mg PO DAILY #90 tab 08/05/19 Primary Care Physician: Shane Mckinney MD [Primary Care Provider] - Please follow up with your Primary Care Physician in: call for appointment Test Results: Test results from this visit will be discussed in further detail at your follow- up appointment, if applicable. Please Follow Up With: Mayank Allan MD When: call for appointment Proposed Discharge Date: 08/09/19
--- NOTE | 2019-08-09 13:55 | DS.PCM_ITS ---
Discharge Date and Diagnosis - Problem List Patient Problems: Active and Suspected Problems (Last Updated 07/20/19 @ 17:22 by Roselyn Siddiqui) Severe sepsis (Acute) Pneumonia (Acute) Suspected COVID-19 virus infection (Acute) CAD (coronary artery disease) (Acute) Respiratory distress (Acute) Pneumonia (Acute) Suspected 2019 novel coronavirus infection (Acute) Acute respiratory failure with hypoxia (Acute) Date of Admission: 08/07/19 Date of Discharge: 08/09/19 - Primary Discharge Diagnosis Active and Suspected Problems (Last Updated 07/20/19 @ 17:22 by Roselyn Siddiqui) Severe sepsis (Acute) Pneumonia (Acute) Suspected COVID-19 virus infection (Acute) CAD (coronary artery disease) (Acute) Respiratory distress (Acute) Pneumonia (Acute) Suspected 2019 novel coronavirus infection (Acute) Acute respiratory failure with hypoxia (Acute) - Secondary Discharge Diagnosis Chronic Problems (Last Updated 07/20/19 @ 17:22 by Roselyn Siddiqui) History of coronary artery bypass surgery (Chronic ~06/02/19) CABG x4- FLORES-LAD, SHARYN -OM1; Radial - OM3, SVG -PDA 06/02/19 @ [facility] Atherosclerotic heart disease of [place] coronary artery without angina pectoris (Chronic) Essential hypertension (Chronic) Type 2 diabetes mellitus (Chronic) HLD (hyperlipidemia) (Chronic) Hospital Course and Treatment Imaging Results: 08/09/19 05:20 CXR [Chest 1 View (Portable)] [RAD] AM (NON MEDS) Operations: None Summary of Care Provided: Patient is a 59-year-old gentleman with past medical history single for coronary artery disease status post CABG who presented with shortness of breath. An assessment of acute hypoxic respiratory failure secondary to CHF made placed on BiPAP admitted to the intensive care unit 1. Acute hypoxic respiratory failure ?Secondary to acute congestive heart failure. Admitted to the intensive care unit managed with noninvasive ventilation BiPAP initially. This was subsequently weaned off. 2. Acute congestive heart failure ?With preserved ejection fraction. Patient presented with exacerbation of his CHF. Admitted to the intensive care unit patient managed with noninvasive ventilation IV Lasix with consultation placed to both pulmonary medicine as well as cardiology. Plan is for patient undergo possible left heart catheterization for evaluation of his graft ?Patient underwent left heart catheterization on 08/09/2019 which demonstrated FLORES graft to the Mid LAD is patent Radial graft to the 3rd OM has a proximal lesion of 85 % (small caliber vessel) Saphenous Vein graft to the RPDA is patent SHARYN graft to the 100 % to OM1: mid occluded Based on above findings cardiology arrange for patient to be transferred to [facility] for subsequent management 3. Acute non-STEMI ?Admitted to the intensive care unit where patient is being managed per protocol currently on beta-blockers BRITANY inhibitors Plavix and aspirin bolus atorvastatin 4. Hypertensive emergency ?Patient blood pressure was markedly elevated on admission blood pressure has since stabilized 5. Coronary artery disease -s/p recent CABG x 4 FLORES-LAD, SHARYN-OM1, Radial-OM3, SVG-PDA [facility] 06/02/19 6. Dyslipidemia ~patient is on statin therapy, continued at home dose 7. Diabetes mellitus type II ~Controlled on Accu-Cheks a.c. and at bedtime and covered with sliding scale insulin 8. DVT prophylaxis ~ on enoxaparin 9.?Sepsis ruled out Patient Problems: Active and Suspected Problems (Last Updated 07/20/19 @ 17:22 by Roselyn Siddiqui) Severe sepsis (Acute) Pneumonia (Acute) Suspected COVID-19 virus infection (Acute) CAD (coronary artery disease) (Acute) Respiratory distress (Acute) Pneumonia (Acute) Suspected 2019 novel coronavirus infection (Acute) Acute respiratory failure with hypoxia (Acute) - Physical Exam Vitals/I&O's: Vital Signs Temp Pulse Resp BP Pulse Ox 97.3 F L 78 18 137/82 H 94 08/09/19 12:55 08/09/19 13:00 08/09/19 13:00 08/09/19 13:00 08/09/19 13:00 Oxygen Flow Rate (L/min) 2 Oxygen Delivery Method Room Air Weight: 80.4 kg Body Mass Index (BMI) 27.0 Intake and Output for Last 24 Hours 08/07/19 08/08/19 08/09/19 23:59 23:59 23:59 Intake Total 1940.67 / 2240.67 1420 / 1420 290 / 290 Output Total 4650 / 5375 3825 / 3825 400 / 400 Balance -2709.33 / -3134.33 -2405 / -2405 -110 / -110 General: Alert HEENT: Atraumatic Neck: Supple Lungs: Diminished Cardiovascular: Regular rate, Regular Rhythm Neurological: Neuro grossly intact Psych/Mental Status: Normal Affect Microbiology Past 72 Hours 08/07/19 08:00 Urine, Clean Catch Urine Culture - Final Culture exhibits no growth. 08/07/19 06:43 Interface Orders Respiratory Panel (PCR) - Final 08/07/19 08:00 Urine Catheter - Catheter Streptococcus pneumoniae Antigen (M - Final 08/07/19 08:00 Urine Catheter - Catheter Legionella Antigen - Final 08/07/19 03:55 Mucosa - Nasopharyngeal Coronavirus COVID-19 PCR - Final Laboratory Results 08/08/19 16:28: POC Glucose 138 H 08/08/19 21:10: POC Glucose 194 H 08/09/19 06:52: POC Glucose 181 H 08/09/19 09:40: WBC 8.5, RBC 4.25 L, Hgb 10.2 L, Hct 33.6 L, MCV 79.1 L, MCH 24.0 L, MCHC 30.4 L, RDW Std Deviation 43.3, RDW Coeff of Nicholas 15.0 H, Plt Count 485 H, MPV 9.6 08/09/19 09:40: Sodium 137, Potassium 4.0, Chloride 101, Carbon Dioxide 28.0, Anion Gap 8, BUN 21 H, Creatinine 0.80, Estim Creat Clear Calc 100.12, Est GFR (MDRD) Af Amer 127, Est GFR (MDRD) Non-Af 105, BUN/Creatinine Ratio 26.4 H, Glucose 178 H, Calcium 8.2 L, Magnesium 2.2 Current Medications Acetaminophen (Tylenol) 650 mg PO Q6H PRN PRN PRN Reason: Pain Score 1-10/Temp > 100.7 F Last Admin: 08/08/19 21:14 Dose: 650 mg Documented by: Al Hydroxide/Mg Hydroxide (Mylanta Ii) 30 ml PO Q6H PRN PRN PRN Reason: Gastric Burning Albuterol Sulfate (Ventolin Aerosols) 2.5 mg INHALATION Q2H PRN PRN PRN Reason: Dyspnea, wheezing Last Admin: 08/07/19 06:35 Dose: 2.5 mg Documented by: Aspirin (Aspirin, Baby) 81 mg PO DAILY@0800 [facility] Last Admin: 08/09/19 07:01 Dose: 81 mg Documented by: Atorvastatin Calcium (Lipitor) 80 mg PO QHS [facility] Last Admin: 08/08/19 21:11 Dose: 80 mg Documented by: Clopidogrel Bisulfate (Plavix) 75 mg PO DAILY [facility] Last Admin: 08/09/19 07:01 Dose: 75 mg Documented by: Dextrose (D50w Syringe) 0 gm IV X1 PRN; Protocol PRN Reason: Hypoglycemia Enoxaparin Sodium (Lovenox) 90 mg SC Q12 [facility] Last Admin: 08/09/19 13:31 Dose: Not Given Documented by: Famotidine (Pepcid) 20 mg PO BID [facility] Last Admin: 08/09/19 11:03 Dose: 20 mg Documented by: Furosemide (Lasix) 40 mg IV BID@1000,1700 [facility] Last Admin: 08/09/19 13:29 Dose: Not Given Documented by: Glucagon () 1 mg IM .X1 PRN PRN Reason: Hypoglycemia Guaifenesin (Robitussin) 20 ml PO Q4H PRN PRN PRN Reason: COUGH Heparin Sodium (Beef Lung) (Heparin 500 Unit/5 Ml (100/Ml)) 500 unit IV UD PRN PRN Reason: HEPARIN FLUSH Hydralazine HCl (Apresoline Iv) 10 mg IV Q4H PRN PRN PRN Reason: SBP > 160 Piperacillin Sod/Tazobactam (Sod 3.375 gm/ Sodium Chloride) 50 mls @ 12.5 mls/hr IV Q8@0200,1000,1800 [facility] Last Admin: 08/09/19 10:35 Dose: 12.5 mls/hr Documented by: Sodium Chloride () 250 mls @ 15 mls/hr IV .[id number] PRN PRN Reason: Saline Flush Sodium Chloride () 250 mls @ 15 mls/hr IV .[id number] PRN PRN Reason: Additional IVPB Infusion Sodium Chloride () 1,000 mls @ 0 mls/hr IV .Q0M [facility] Insulin Human Lispro (Humalog Kwikpen (Bkc)) 0 unit SC 4X/DAYCM [facility]; Protocol Last Admin: 08/09/19 13:30 Dose: 2 u Documented by: Labetalol HCl (Trandate) 5 mg IV X1 PRN PRN Reason: SBP > 160 prior to sheath pull Stop: 08/11/19 09:35 Lisinopril (Zestril) 10 mg PO BID [facility] Last Admin: 08/09/19 07:01 Dose: 10 mg Documented by: Magnesium Hydroxide (Milk Of Magnesia) 30 ml PO DAILY PRN PRN PRN Reason: Constipation Melatonin (Melatonin) 3 mg PO QHS PRN PRN PRN Reason: INSOMNIA Last Admin: 08/08/19 21:13 Dose: 3 mg Documented by: Metoprolol Tartrate (Lopressor (Beta Bakari)) 50 mg PO BID [facility] Last Admin: 08/09/19 07:01 Dose: 50 mg Documented by: Morphine Sulfate () 2 mg IV Q3H PRN PRN PRN Reason: Pain Score 6-10/10 Nitroglycerin (Nitrostat) 0.4 mg SUBLINGUAL Q5M PRN PRN Reason: CARDIAC/CHEST PAIN Nitroglycerin (Nitrobid) 0.5 inch TRANSDERM. Q6H [facility] Last Admin: 08/09/19 11:04 Dose: Not Given Documented by: Ondansetron HCl (Zofran) 4 mg IV Q8H PRN PRN PRN Reason: NAUSEA/VOMITING Oxycodone HCl (Oxyir) 5 mg PO Q4H PRN PRN PRN Reason: Pain Score 4-5/10 Prochlorperazine Edisylate (Compazine Iv) 5 mg IV Q4H PRN PRN PRN Reason: Breakthrough Nausea/Vomiting Psyllium Hydrophilic Mucilloid (Metamucil) 1 packet PO DAILY PRN PRN PRN Reason: Constipation Senna/Docusate Sodium (Senokot-S, Preeti-Colace) 2 tablet PO BID PRN PRN PRN Reason: Constipation Sodium Chloride () 10 - 40 ml IV UD PRN PRN Reason: SALINE FLUSH Last Admin: 08/08/19 10:53 Dose: 10 ml Documented by: Throat Lozenges (Cepacol Sore Throat Lozenge) 1 lozenge MUCOUS MEM Q2H PRN PRN PRN Reason: SORE THROAT Home Medications: Medications to take at Discharge Aspirin [Aspirin, Baby] 81 mg PO DAILY@0800 05/24/19 acetaminophen 500 mg tablet 1,000 mg PO Q6H PRN tab 07/20/19 atorvastatin 80 mg tablet 80 mg PO QHS 07/20/19 clopidogrel 75 mg tablet 75 mg PO DAILY 07/20/19 glimepiride 4 mg tablet 4 mg PO DAILY 07/20/19 metformin 1,000 mg tablet 1,000 mg PO BID 07/20/19 metoprolol tartrate 50 mg tablet 50 mg PO BID 07/20/19 sitagliptin 100 mg tablet 100 mg PO DAILY 07/20/19 lisinopril 5 mg tablet 5 mg PO DAILY #90 tab 08/05/19 Primary Care Physician: Shane Mckinney MD [Primary Care Provider] - Please follow up with your Primary Care Physician in: call for appointment Please Follow Up With: Mayank Allan MD When: call for appointment Medical Necessity - Tobacco Use Smoking Status: Never smoker Tobacco Use: Non-smoker Meaningful Use Info Meaningful Use Diagnoses (Choose all that apply): None applicable, CHF - CHF BRITANY/ARB ordered at discharge?: Yes Documented LVEF (%): 65 Inpatient E&M: 30618 Disch Hosp
[2019-08-09 14:10] LABS: Bedside Glucose 180 mg/dL (70-110)
[2019-08-09] MEDS: Furosemide 40 MG/4 ML Vial IV (16:20)
[2019-08-09] MEDS: Acetaminophen 325 MG Tablet 650 MG PO (16:24)
[2019-08-09 17:35] LABS: Bedside Glucose 242 mg/dL (70-110)
--- NOTE | 2019-08-10 14:36 | CASEMGMT ---
LYNNE CM DC PHONE CALL DC DATE: 08.09.2019 DC DISPOSITION: Home DC DIAGNOSIS: Sepsis, covid testing neg LACE/STRATA: 12/23 F/U APPTS MADE PRIOR TO DC: no Attempted call, no answer and no message machine with name identifier. lAana MULLENN RN AC
== END 2019-08-09 18:00 | disposition short-term general hospital (02) | DRG 280 ==
LOC: ED 04:20 → ICU 05:04 → PCU 08-08 11:21
PROVIDERS: Internal Medicine; Internal Medicine Critical Care Medicine; Admitting Provider Family Medicine; Emergency Provider Emergency Medicine; PCP Family Medicine; Referring Provider Family Medicine; Visit Provider Internal Medicine
DX: I25.810 Atherosclerosis of coronary artery bypass graft(s) without angina pectoris (principal); I21.4 Non-ST elevation (NSTEMI) myocardial infarction; J96.01 Acute respiratory failure with hypoxia; I50.31 Acute diastolic (congestive) heart failure; J18.9 Pneumonia, unspecified organism; I16.1 Hypertensive emergency; I11.0 Hypertensive heart disease with heart failure; I25.10 Atherosclerotic heart disease of native coronary artery without angina pectoris; Z95.1 Presence of aortocoronary bypass graft; E78.5 Hyperlipidemia, unspecified; E11.9 Type 2 diabetes mellitus without complications; Z79.82 Long term (current) use of aspirin; Z79.84 Long term (current) use of oral hypoglycemic drugs; Z79.899 Other long term (current) drug therapy; Z79.02 Long term (current) use of antithrombotics/antiplatelets; R91.1 Solitary pulmonary nodule; I25.2 Old myocardial infarction
CPT/HCPCS: 71045; 80048; 80053; 81001; 82728; 82962; 83605; 83615; 83735; 83880; 84145; 84484; 85025; 85027; 85379; 85610; 85730; 86140; 87040; 87086; 87449; 87633; 87635; 87641; 93005; 93306; 93459; 94002; 94640; 99152; 99153; 99251; 99285; G2023; J7030; A4216; C1769; C1894; G0463; J1940; Q9967; U0002

== ENCOUNTER 2019-08-10 06:20 | Outpatient (RCR) | payer OTHER, SELFPAY ==
[2019-08-03 11:10] VITALS: BMI 26.5
[2019-08-07 05:20] VITALS: BMI 27.0
== END 2019-08-21 23:59 ==
LOC: CR 06:20
PROVIDERS: PCP Family Medicine; Referring Provider Internal Medicine Cardiovascular Disease; Visit Provider Internal Medicine Cardiovascular Disease
DX: I25.10 Atherosclerotic heart disease of native coronary artery without angina pectoris (principal); Z95.1 Presence of aortocoronary bypass graft; I25.2 Old myocardial infarction; E78.5 Hyperlipidemia, unspecified; I10 Essential (primary) hypertension
CPT/HCPCS: 93798

== ENCOUNTER → 2019-09-13 10:54 | Outpatient (CLI) | payer OTHER, SELFPAY ==
[2019-08-03 11:10] VITALS: BMI 26.5
[2019-09-02 10:55] VITALS: BMI 26.4
--- NOTE | 2019-09-13 10:54 | ART_ITS ---
Reason For Study: claudication Procedure A bilateral lower extremity continuous wave Doppler with analog waveform analysis,segmental pressures,and ankle brachial indexes with exercise. Left Segmental Pressures Left brachial= 143mmHg. Left posterior tibial artery = 159mmHg. Left dorsalis pedis artery = 139mmHg. Left digit = 94 mmHg. The left dorsalis pedis waveforms are triphasic. The left posterior tibial artery waveforms are triphasic. Right Segmental Pressures Right brachial= 145mmHg. Right posterior tibial artery = 180mmHg. Right dorsalis pedis artery = 203mmHg. Right digit = 121 mmHg. The right dorsalis pedis waveforms are triphasic. The right posterior tibial artery waveforms are triphasic. Indices The right ankle brachial index by the posterior tibial artery is 1.24. The right ankle brachial index by the dorsalis pedis is 1.4. The right digital-brachial index is .83. The right ankle brachial index by the dorsalis pedis post exercise is 1.47. The left ankle brachial index by the dorsalis pedis is .96. The left ankle brachial index by the posterior tibial artery is 1.1. The left digital-brachial index is .65. The left posterior tibial artery index post exercise is .86. Interpretation Summary bilateral triphasic and MICHELLE 1.4 and 1.1. DBI 0.83 and 0.65. Ordering Physician: Roselyn Yen Performed By: HERACLIO FLOWER RVT
== END ==
PROVIDERS: PCP Family Medicine; Referring Provider Physician Assistant Medical; Visit Provider Physician Assistant Medical
DX: I73.9 Peripheral vascular disease, unspecified (principal); I25.10 Atherosclerotic heart disease of native coronary artery without angina pectoris
CPT/HCPCS: 93924

== ENCOUNTER 2019-09-19 10:15 | Outpatient (RCR) | payer OTHER, SELFPAY ==
[2019-08-03 11:10] VITALS: BMI 26.5
[2019-08-07 05:20] VITALS: BMI 27.0
[2019-09-02 10:55] VITALS: BMI 26.4
== END 2019-09-20 23:59 ==
LOC: CR 10:15
PROVIDERS: PCP Family Medicine; Referring Provider Internal Medicine Cardiovascular Disease; Visit Provider Internal Medicine Cardiovascular Disease
DX: I25.10 Atherosclerotic heart disease of native coronary artery without angina pectoris (principal); Z95.1 Presence of aortocoronary bypass graft; I25.2 Old myocardial infarction; E78.5 Hyperlipidemia, unspecified; I10 Essential (primary) hypertension
CPT/HCPCS: 93798

== ENCOUNTER 2019-10-21 10:15 | Outpatient (RCR) | payer OTHER, SELFPAY ==
[2019-08-03 11:10] VITALS: BMI 26.5
[2019-09-02 10:55] VITALS: BMI 26.4
== END 2019-10-21 23:59 ==
LOC: CR 10:15
PROVIDERS: PCP Family Medicine; Referring Provider Internal Medicine Cardiovascular Disease; Visit Provider Internal Medicine Cardiovascular Disease
DX: I25.10 Atherosclerotic heart disease of native coronary artery without angina pectoris (principal); E78.5 Hyperlipidemia, unspecified; I10 Essential (primary) hypertension; I21.4 Non-ST elevation (NSTEMI) myocardial infarction; Z95.1 Presence of aortocoronary bypass graft
CPT/HCPCS: 93798

== ENCOUNTER → 2019-10-28 10:15 | Outpatient (RCR) | payer OTHER, SELFPAY ==
[2019-08-03 11:10] VITALS: BMI 26.5
[2019-09-02 10:55] VITALS: BMI 26.4
== END | disposition home or self-care (01) ==
LOC: CR 10-24 07:03
PROVIDERS: PCP Family Medicine; Referring Provider Internal Medicine Cardiovascular Disease; Visit Provider Internal Medicine Cardiovascular Disease
DX: I25.10 Atherosclerotic heart disease of native coronary artery without angina pectoris (principal); I25.2 Old myocardial infarction; I10 Essential (primary) hypertension; E78.5 Hyperlipidemia, unspecified; Z95.1 Presence of aortocoronary bypass graft
CPT/HCPCS: 93798

== ENCOUNTER → 2019-11-04 14:37 | Outpatient (CLI) | payer OTHER, SELFPAY ==
[2019-08-03 11:10] VITALS: BMI 26.5
[2019-09-02 10:55] VITALS: BMI 26.4
[2019-11-04 17:51] LABS: ALB/GLOB Ratio 0.9 RATIO (0.9-2.4); AST(SGOT) 7 U/L (15-37); Alanine Aminotransfer ALT/SGPT 16 U/L (16-61); Albumin, Serum 3.7 g/dL (3.2-5.0); Alkaline Phosphatase 69 U/L (45-117); Anion Gap 5 (5-15); BUN 17 mg/dL (7-18); BUN/Creat Ratio 24.9 RATIO (10-20); Calcium,Total 8.7 mg/dL (8.5-10.1); Chloride 107 mmol/L (98-107); Creatinine, Serum 0.68 mg/dL (0.70-1.30); EST Glomerular Filtration Rate 125 mL/min (>60); Est Glom Filt Rate - Afr Amer 151 mL/min (>60); Globulin 4.2 g/dL (2.2-4.2); Glucose 95 mg/dL (74-106); Potassium 4.3 mmol/L (3.5-5.1); Protein, Total 7.9 g/dL (6.4-8.2); Sodium Level 138 mmol/L (136-145)
[2019-11-04 17:56] LABS: Hemoglobin A1c 6.4 % (3.8-5.6)
== END ==
PROVIDERS: PCP Family Medicine; Referring Provider Family Medicine; Visit Provider Family Medicine
DX: E11.9 Type 2 diabetes mellitus without complications (principal)
CPT/HCPCS: 36415; 80053; 82043; 82570; 83036

== ENCOUNTER → 2020-01-06 13:02 | Outpatient (CLI) | payer OTHER, SELFPAY ==
[2019-08-03 11:10] VITALS: BMI 26.5
[2019-12-05 16:21] VITALS: BMI 26.5
[2020-01-02 13:31] LABS: Anion Gap 7 (5-15); BUN 28 mg/dL (7-18); BUN/Creat Ratio 27.5 RATIO (10-20); Chloride 102 mmol/L (98-107); Creatinine, Serum 1.02 mg/dL (0.70-1.30); EST Glomerular Filtration Rate 79 mL/min (>60); Est Glom Filt Rate - Afr Amer 95 mL/min (>60); Glucose 142 mg/dL (74-106); Potassium 4.4 mmol/L (3.5-5.1); Sodium Level 135 mmol/L (136-145)
--- NOTE | 2020-01-06 13:02 | ECHOCS_ITS ---
Reason For Study: Dyspnea/SOB Procedure This was a 2D Doppler, Color Flow transthoracic echocardiogram. The study was technically difficult. Contrast injection was performed. Exam performed in department. Left Ventricle Normal LV size. Segmental dysfunction with preserved ejection fraction (see wall motion). The estimated ejection fraction is 60 %. Post operative septal motion. Diastolic function is indeterminate. No regional wall motion abnormalities noted. Right Ventricle Normal RV size. Normal systolic function. Atria The left atrium is mildly enlarged. Normal right atrium. No doppler evidence for ASD. Bubble contrast study negative for right to left interatrial shunt. Mitral Valve There is no mitral annular calcification. Anterior leaflet diffuse mitral valve thickening. Mild (1+) mitral valve insufficiency. Tricuspid Valve Normal tricuspid valve. Trivial tricuspid valve insufficiency. Unable to estimate RV systolic pressure/pulmonary artery pressure due to technically difficult study. Aortic Valve Trisinus/trileaflet aortic valve. Moderate focal aortic valve calcification. Pulmonic Valve The pulmonic valve is not well visualized. Trivial pulmonic valve insufficiency. Great Vessels Normal sized aortic root. Pericardium/Pleural No pericardial effusion. Medication 22 gauge I.V. with prn adaptor inserted into right arm. Diluted definity 3ml given slow IV push to enhance endocardial definition. Performed a rapid injection of agitated mix of 9 cc saline and 1cc air to assess for atrial septal defect. MMode/2D Measurements & Calculations LVIDd: 3.8 cm IVSd: 1.7 cm Ao root diam: 3.5 cm LVIDs: 3.2 cm LVPWd: 1.3 cm LA dimension: 4.4 cm RVDd: 3.6 cm FS: 15.0 % LAV(MOD-bp): 55.2 ml LVAd ap4: 42.1 cm2 SV(MOD-sp4): 82.7 ml LAV(MOD-sp2): 62.4 ml EDV(MOD-sp4): 160.8 ml LAV(MOD-sp4): 48.2 ml EDV(sp4-el): 170.4 ml LVAs ap4: 27.4 cm2 ESV(MOD-sp4): 78.1 ml ESV(sp4-el): 77.9 ml EF(MOD-sp4): 51.4 % EF(sp4-el): 54.3 % SV(sp4-el): 92.5 ml LA A4 area: 18.1 cm2 RA A4 area: 12.9 cm2 Time Measurements MV dec time: 0.18 sec Doppler Measurements & Calculations MV E max jerome: 94.7 cm/sec Lat Peak E' Jerome: 10.5 cm/sec Med Peak E' Jerome: 6.8 cm/sec MV A max jerome: 80.0 cm/sec E/E' lat: 9.1 E/E' med: 13.8 MV E/A: 1.2 MV V2 max: 108.7 cm/sec MV P1/2t max jerome: 110.0 cm/sec Ao V2 max: 162.1 cm/sec MV max P.7 mmHg MV P1/2t: 96.2 msec Ao max P.5 mmHg MV V2 mean: 64.8 cm/sec Ao V2 mean: 105.4 cm/sec MV mean P.0 mmHg MV dec slope: 335.0 cm/sec2 Ao mean P.2 mmHg MV V2 VTI: 27.9 cm MVA(P1/2t): 2.3 cm2 Ao V2 VTI: 29.7 cm LV V1 max: 97.2 cm/sec PA V2 max: 108.8 cm/sec LV V1 max P.8 mmHg LV V1 mean P.1 mmHg LV V1 mean: 67.7 cm/sec LV V1 VTI: 21.6 cm Interpretation Summary The study was technically difficult. Contrast injection was performed. Segmental dysfunction with preserved ejection fraction (see wall motion). The estimated ejection fraction is 60 %. Post operative septal motion. The left atrium is mildly enlarged. Anterior leaflet diffuse mitral valve thickening. Mild (1+) mitral valve insufficiency. Trivial tricuspid valve insufficiency. Moderate focal aortic valve calcification. Trivial pulmonic valve insufficiency. Unable to estimate RV systolic pressure/pulmonary artery pressure due to technically difficult study. Diastolic function is indeterminate. Bubble contrast study negative for right to left interatrial shunt. Ordering Physician: Mayank Allan Referring Physician: Shane Mckinney Performed By: Zohaib Jones RCS
== END ==
PROVIDERS: PCP Family Medicine; Referring Provider Internal Medicine Cardiovascular Disease; Visit Provider Internal Medicine Cardiovascular Disease
DX: I25.10 Atherosclerotic heart disease of native coronary artery without angina pectoris (principal); Z95.1 Presence of aortocoronary bypass graft; R06.00 Dyspnea, unspecified; R53.83 Other fatigue
CPT/HCPCS: 36415; 80048; 93306; Q9957; A4216; C8929

== ENCOUNTER → 2020-01-09 10:33 | Outpatient (CLI) | payer OTHER, SELFPAY ==
[2019-12-05 16:21] VITALS: BMI 26.5
[2020-01-09 11:14] LABS: Hematocrit 22.3 % (40-54); Mean Corpuscular Hgb 18.4 pg (27.0-32.0); Mean Corpuscular Volume 70.8 fL (80-94); Mean Platelet Vol. 9.2 fl (6.2-12.0); POSITIVE COUNT YES; RBC Distribution Width CV 17.3 % (11.6-14.6); RBC Distribution Width SD 44.3 fl (35.1-43.9); Red Blood Count 3.15 M/mm3 (4.6-6.2); White Blood Count 11.7 K/mm3 (4.4-11.0)
[2020-01-09 11:20] LABS: Hemoglobin 5.8 g/dL (13.0-16.5); Platelet Count 855 K/mm3 (150-450); Scan Indicated on CBC? Y/N YES- FLAGS NOTED
[2020-01-09 11:54] LABS: BNP,B-Type NATRIURETIC PEPTIDE 118.5 pg/mL (0-100)
[2020-01-09 12:05] LABS: Anion Gap 11 (5-15); BUN 24 mg/dL (7-18); BUN/Creat Ratio 21.8 RATIO (10-20); Calcium,Total 8.5 mg/dL (8.5-10.1); Chloride 96 mmol/L (98-107); EST Glomerular Filtration Rate 72 mL/min (>60); Est Glom Filt Rate - Afr Amer 87 mL/min (>60); Glucose 337 mg/dL (74-106); Potassium 4.2 mmol/L (3.5-5.1); Sodium Level 130 mmol/L (136-145); Thyroid Stim Hormone (TSH) 1.43 uIU/mL (0.358-3.74)
[2020-01-09 14:33] LABS: Pathologist Review Reviewed
== END ==
PROVIDERS: PCP Family Medicine; Referring Provider Physician Assistant Medical; Visit Provider Physician Assistant Medical
DX: I25.10 Atherosclerotic heart disease of native coronary artery without angina pectoris (principal); E11.9 Type 2 diabetes mellitus without complications; I10 Essential (primary) hypertension; R42 Dizziness and giddiness; R53.1 Weakness; R53.83 Other fatigue; Z95.1 Presence of aortocoronary bypass graft
CPT/HCPCS: 36415; 80048; 83880; 84443; 85027

== ENCOUNTER 2020-01-09 11:36 | Inpatient (IN) | payer OTHER, SELFPAY ==
[2019-08-03 11:10] VITALS: BMI 26.5
[2020-01-09] VITALS (19 sets, daily range): BP systolic 102–128; BP diastolic 52–70; PULSE 60–95; RESP 15–24; TEMP 36.7–37.7; O2SAT 98–100; BMI 25.7; BMI 25.0; BMI 25.1
--- NOTE | 2020-01-09 12:09 | RAD_ITS ---
STUDY: X-RAY CHEST REASON FOR EXAM: Male, 59 years old. SOB TECHNIQUE: Single AP portable view of the chest. COMPARISON: Comparison is made with prior study dated 08/09/2019. FINDINGS: EKG electrodes are seen. Surgical clips are seen in the left axillary region. The lungs are clear and expanded. There is no demonstrated pleural abnormality. Sternal cerclage wires and vascular clips are present from a prior sternotomy and coronary artery bypass graft procedure (CABG). Normal mediastinum and marybeth. Normal visualized pulmonary arteries. Normal visualized aortic arch and descending thoracic aorta. Normal visualized thoracic spine. Normal visualized ribs, clavicles, and shoulders. There is no demonstrated abnormality of the visualized soft tissue structures of the upper abdomen. RAD/Chest 1 View (Portable) IMPRESSION: No acute abnormality is seen. Electronically Signed: Jonatan De Leon, at 13:02 EDT , Service support ,
--- NOTE | 2020-01-09 12:09 | EKG12_ITS ---
Test Reason : Blood Pressure : / mmHG Vent. Rate : 075 BPM Atrial Rate : 075 BPM P-R Int : 138 ms QRS Dur : 086 ms QT Int : 412 ms P-R-T Axes : 033 025 090 degrees QTc Int : 460 ms Normal sinus rhythm Nonspecific ST and T wave abnormality Confirmed by MARIA ISABEL CARDENAS, SHAWN ([id number]), slot editor AMBREEN DASH ([id number]) on 01/10/2020 8:24:51 AM Referred By: SOPHIE Confirmed By:SHAWN NICOLAS MD
[2020-01-09 12:25] LABS: Basophil# 0.09 X10^3/uL; Basophil% 0.6 % (0-1); Eosinophil# 0.07 X10^3/uL; Eosinophils% 0.5 % (0-5); Hematocrit 20.7 % (40-54); Hemoglobin 5.4 g/dL (13.0-16.5); Lymphocyte % 5.7 % (19-41); Mean Corp Hgb Conc 26.1 g/dL (32-36); Mean Corpuscular Hgb 18.2 pg (27.0-32.0); Mean Corpuscular Volume 69.9 fL (80-94); Mean Platelet Vol. 9.3 fl (6.2-12.0); Monocyte# 0.98 X10^3/uL; NRBC Flagged by Analyzer 0.6 % (0-5); Neutrophil # 11.98 X10^3/uL (2.7-7.7); Neutrophil % 85.5 % (47-70); POSITIVE COUNT YES; Platelet Count 831 K/mm3 (150-450); RBC Distribution Width CV 17.2 % (11.6-14.6); RBC Distribution Width SD 43.7 fl (35.1-43.9); Red Blood Count 2.96 M/mm3 (4.6-6.2)
[2020-01-09 12:27] LABS: Differential Indicated SCAN CRITERIA MET
[2020-01-09 12:35] LABS: Partial Thromboplast Time 25.4 Seconds (24.1-36.2)
[2020-01-09 12:36] LABS: International Normalized Ratio 1.1; Prothrombin Time (Protime)PT. 13.3 SECONDS (11.7-14.9)
--- NOTE | 2020-01-09 12:41 | ED.VIS.GEN ---
History of Present Illness Chief Complaint: GI Bleed Informant: Patient, Family Narrative: Patient presents to the emergency department for the evaluation of abnormal hemoglobin level. Patient has been having fatigue and dyspnea for 1 week duration. He was noted to be pale. He had an outpatient hemoglobin level that returned at 5.8. He is on Plavix and aspirin due to recent CABG and post CABG stents. He states he has occasionally seen some dark stool but mostly it has been brown and semiformed. He notes no abdominal pain. He does state that he has had the occasional acid reflux. No pain with eating. No prior history of ulcers or H. pylori. No prior history of diverticulosis. Patient had blood work done in July that showed hemoglobin around 10 platelets around 485. No known hematologic disorders. He recently had echocardiogram through cardiology. - Past Medical History (1) CAD (coronary artery disease) Status: Chronic (2) NSTEMI (non-ST elevated myocardial infarction) Status: Chronic (3) Essential hypertension Status: Chronic (4) HLD (hyperlipidemia) Status: Chronic (5) History of coronary artery bypass surgery Status: Chronic Comment: CABG x4- FLORES-LAD, SHARYN -OM1; Radial - OM3, SVG -PDA 06/02/19 @ [facility] (6) Melanoma Status: Chronic (7) Type 2 diabetes mellitus Status: Chronic Past Medical History - Allergies and Home Meds Allergies/Adverse Reactions: Allergies rosuvastatin [From Crestor] Adverse Reaction (Severe, Verified 01/09/20 11:37) Aches simvastatin Adverse Reaction (Severe, Verified 01/09/20 11:37) Stiff Joints Primary Care Physician: Shane Mckinney MD [Primary Care Provider] - Prior records reviewed: Yes Surgical History: coronary bypass surgery - Recent CABG x4, - - Left eye surgery. Lives: Spouse/ Significant Other Smoking Status: Never smoker Alcohol: None Drugs: None - Family History Maternal Family History: Family History (Last Reviewed 12/05/19 @ 16:22 by Roselyn Siddiqui) Mother CAD (coronary artery disease) Father CAD (coronary artery disease) History of coronary artery bypass surgery Family History: Reports: Heart Disease Paternal Family History: Family History (Last Reviewed 12/05/19 @ 16:22 by Roselyn Siddiqui) Mother CAD (coronary artery disease) Father CAD (coronary artery disease) History of coronary artery bypass surgery Family History: Reports: Heart Disease Review of Systems General: Reports: Malaise. Denies: Chills, Fever, Sweats Eyes: Denies: Visual changes - bilaterally, Diplopia ENT: Denies: Rhinorrhea, Sore throat Cardiovascular: Denies: Chest pain, Palpitations Respiratory: Reports: Dyspnea. Denies: Cough, Dyspnea on exertion Gastrointestinal: Denies: Abdominal pain, Nausea, Vomiting, Diarrhea, Melena, Hematochezia Genitourinary: Denies: Dysuria, Hematuria, Frequency Musculoskeletal: Denies: Back pain, Extremity Pain Skin: Reports: - - Pale. Denies: Rash, Wounds Neurological: Denies: Headache, Weakness, Numbness Physical Exam Vital Signs/Narrative: Vital Signs Temp Pulse Resp BP Pulse Ox 01/09/20 11:51 76 16 128/61 H 100 01/09/20 11:37 98.0 F 60 17 102/52 L 98 Inital Vital Signs reviewed: Yes General: Well nourished, Well developed, No Acute Distress Head: Normocephalic, Atraumatic Eyes: Perrl, EOMI, Pale conjunctiva ENT: Moist mucous membranes, No rhinorrhea Neck: Supple, Nontender Cardiovascular: Regular rate, Regular rhythm, No murmurs Respiratory: No distress, CTA bilaterally, Chest nontender Abdomen: Soft, Nontender, Nondistended, Normal bowel sounds Rectal: - - Soft dark brown stool Back: Nontender, Normal Inspection Extremities: Nontender, No edema Skin: No rash, Pallor Neurological: Alert, Oriented x3, Cranial nerves II-XII grossly intact, Normal Strength, Normal Sensation Psychological: Normal affect, Normal Mood Diagnostic/Tx/Re-eval Clinical Impression(s) from Imaging Studies Chest X-Ray 01/09/20 12:09 IMPRESSION: No acute abnormality is seen. Electronically Signed: Jonatan De Leon, at 13:02 EDT , Service support , Laboratory Last Values WBC 14.0 K/mm3 (4.4-11.0) H 01/09/20 12:05 RBC 2.96 M/mm3 (4.6-6.2) L 01/09/20 12:05 Hgb 5.4 g/dL (13.0-16.5) L* 01/09/20 12:05 Hct 20.7 % (40-54) L 01/09/20 12:05 MCV 69.9 fL (80-94) L 01/09/20 12:05 MCH 18.2 pg (27.0-32.0) L 01/09/20 12:05 MCHC 26.1 g/dL (32-36) L 01/09/20 12:05 RDW Std Deviation 43.7 fl (35.1-43.9) 01/09/20 12:05 RDW Coeff of Nicholas 17.2 % (11.6-14.6) H 01/09/20 12:05 Plt Count 831 K/mm3 (150-450) H* 01/09/20 12:05 MPV 9.3 fl (6.2-12.0) 01/09/20 12:05 Immature Gran % (Auto) 0.700 % (0.0-0.9) 01/09/20 12:05 Neut % (Auto) 85.5 % (47-70) H 01/09/20 12:05 Lymph % (Auto) 5.7 % (19-41) L 01/09/20 12:05 [place] % (Auto) 7.0 % (0-10) 01/09/20 12:05 Eos % (Auto) 0.5 % (0-5) 01/09/20 12:05 Baso % (Auto) 0.6 % (0-1) 01/09/20 12:05 Absolute Neuts (auto) 12.0 X10^3/uL (2.0-7.7) H 01/09/20 12:05 Absolute Lymphs (auto) 0.80 X10^3/uL (0.83-4.51) L 01/09/20 12:05 Nucleated RBC % 0.6 % (0-5) 01/09/20 12:05 Diff Path Review July01/09/20 12:05 Platelet Estimate MKD INC (ADEQ) 01/09/20 12:05 Hypochromasia 2+ 01/09/20 12:05 Anisocytosis 2+ 01/09/20 12:05 Ovalocytes 2+ 01/09/20 12:05 PT 13.3 SECONDS (11.7-14.9) 01/09/20 12:05 INR 1.1 01/09/20 12:05 APTT 25.4 Seconds (24.1-36.2) 01/09/20 12:05 Sodium 132 mmol/L (136-145) L 01/09/20 12:05 Potassium 5.0 mmol/L (3.5-5.1) 01/09/20 12:05 Chloride 97 mmol/L (98-107) L 01/09/20 12:05 Carbon Dioxide 23.0 mmol/L (21.0-32.0) 01/09/20 12:05 Anion Gap 12 (5-15) 01/09/20 12:05 BUN 25 mg/dL (7-18) H 01/09/20 12:05 Creatinine 1.09 mg/dL (0.70-1.30) 01/09/20 12:05 Estim Creat Clear Calc 73.48 ml/min 01/09/20 12:05 Est GFR (MDRD) Af Amer 88 mL/min (>60) 01/09/20 12:05 Est GFR (MDRD) Non-Af 73 mL/min (>60) 01/09/20 12:05 BUN/Creatinine Ratio 22.9 RATIO (-20) H 01/09/20 12:05 Glucose 320 mg/dL (74-106) H 01/09/20 12:05 Calcium 8.5 mg/dL (8.5-10.1) 01/09/20 12:05 Total Bilirubin 0.40 mg/dL (0.20-1.00) 01/09/20 12:05 AST 10 U/L (15-37) L 01/09/20 12:05 ALT 16 U/L (16-61) 01/09/20 12:05 Alkaline Phosphatase 65 U/L (45-117) 01/09/20 12:05 Troponin I 1.840 ng/mL (<0.045) H* 01/09/20 12:05 Total Protein 8.0 g/dL (6.4-8.2) 01/09/20 12:05 Albumin 3.3 g/dL (3.2-5.0) 01/09/20 12:05 Globulin 4.7 g/dL (2.2-4.2) H 01/09/20 12:05 Albumin/Globulin Ratio 0.7 RATIO (0.9-2.4) L 01/09/20 12:05 Blood Type O POSITIVE 01/09/20 12:05 Antibody Screen NEGATIVE 01/09/20 12:05 - EKG Initial EKG Interpretation: Sinus Rhythm - EKG demonstrates a normal sinus rhythm at a rate of 75. No ectopy noted. - Medical Decision Making I spoke with on-call surgery Dr. Issa, on-call cardiology Dr. Allan, and hospitalist Dr. Mendoza. Plan is admission for further evaluation. ED Disposition - Plan for ED Patient: Diagnosis: GI bleed, Anemia requiring transfusions, NSTEMI (non-ST elevated myocardial infarction), Thrombocytosis Referrals: Shane Mckinney MD [Primary Care Provider] -
[2020-01-09 13:18] LABS: Anisocytosis 2+; Hypochromasia 2+; Ovalocyte 2+; Platelet Estimate MKD INC (ADEQ)
[2020-01-09 13:19] LABS: ALB/GLOB Ratio 0.7 RATIO (0.9-2.4); AST(SGOT) 10 U/L (15-37); Alanine Aminotransfer ALT/SGPT 16 U/L (16-61); Albumin, Serum 3.3 g/dL (3.2-5.0); Alkaline Phosphatase 65 U/L (45-117); Anion Gap 12 (5-15); BUN 25 mg/dL (7-18); BUN/Creat Ratio 22.9 RATIO (10-20); Calcium,Total 8.5 mg/dL (8.5-10.1); Chloride 97 mmol/L (98-107); Creatinine, Serum 1.09 mg/dL (0.70-1.30); EST Glomerular Filtration Rate 73 mL/min (>60); Est Glom Filt Rate - Afr Amer 88 mL/min (>60); Estimated Creatinine Clearance 73.48 ml/min; Globulin 4.7 g/dL (2.2-4.2); Glucose 320 mg/dL (74-106); Sodium Level 132 mmol/L (136-145)
--- NOTE | 2020-01-09 13:35 | HP.PCM_ITS ---
Problem List (1) Acute blood loss anemia Status: Acute (2) GI bleed Status: Acute Qualifiers: GI bleed type/associated pathology: unspecified gastrointestinal hemorrhage type Qualified Code(s): K92.2 - Gastrointestinal hemorrhage, unspecified (3) Thrombocytosis Status: Acute (4) History of coronary artery bypass surgery Status: Chronic Comment: CABG x4- FLORES-LAD, SHARYN -OM1; Radial - OM3, SVG -PDA 06/02/19 @ [facility] (5) Atherosclerotic heart disease of [place] coronary artery without angina pectoris Status: Chronic Qualifiers: [place] vs. transplanted heart: [place] heart Qualified Code(s): I25.10 - Atherosclerotic heart disease of [place] coronary artery without angina pectoris (6) Essential hypertension Status: Chronic (7) Type 2 diabetes mellitus Status: Chronic Qualifiers: Diabetes mellitus custodial insulin use: without custodial use Diabetes mellitus complication status: with other specified complication Qualified Code(s): E11.69 - Type 2 diabetes mellitus with other specified complication (8) HLD (hyperlipidemia) Status: Chronic Qualifiers: Hyperlipidemia type: unspecified Qualified Code(s): E78.5 - Hyperlipidemia, unspecified (9) NSTEMI (non-ST elevated myocardial infarction) Status: Chronic (10) Diastolic CHF Status: Chronic Qualifiers: Heart failure chronicity: chronic Qualified Code(s): I50.32 - Chronic diastolic (congestive) heart failure History of Present Illness Date of Admission: 01/09/20 Chief Complaint: Decreased Hgb, Black stools, Fatigue, Weakness, SOB The patient is a 59 y/o M w/ PMHx: HTN, HLD, CAD w/ Hx NSTEMI s/p CABG x 4 (FLORES-LAD, SHARYN-OM1, Radial-OM3, SVG-PDA) failed 06/02/19 with follow-up PCI x 2, Hx lung nodule, Hx Melanoma, Diabetes mellitus type II who presents to the [facility] ED on 01/09/20 referred per his Cardiology office secondary to history of fatigue, malaise, weakness, darker appearing stools more noticeable over the last ~ 1 weeks with most recent Hgb trending 05/24/19 16.5-->08/07/19 11.5-->08/09/19 Hgb 10.2. He does admit to recent associated lightheadedness, dizziness and occasional falls. He did have recent melanoma resection to the left chest with flap and lymph node dissection which was unremarkable at [facility] approximately 1 month prior but unclear what his hemoglobin was at that time. Work-up in the ED included T 98, heart rate 60, BP 102/52, respiratory rate 17, 98% on room air, CBC with WC 14, hemoglobin 5.4 (recent day of presentation earlier at Cardiology office direction 5.8 and prior to this 08/09/19 10.2), platelet 831 with left shift and concurrent lymphopenia, unremarkable coags, CMP with sodium 132, chloride 97, BUN/creatinine 25/1.09, glucose 320, total bilirubin 0.4, AST/ALT 01/05, troponin 1.840 with most recently noted prior 08/07/2019 0.618, stool occult blood positive, chest x-ray with no acute cardiopulmonary findings, EKG with SR without acute evidence of ischemia. Dr. Issa, General surgery consulted per ED. Dr. Allan consulted per ED. ED noted planned 3 U PRBC. Past Medical History Past Medical History (Chronic Problems): Chronic Problems (Last Updated 12/05/19 @ 16:23 by Roselyn Siddiqui) Diastolic CHF (Chronic) Melanoma (Chronic) CAD (coronary artery disease) (Chronic) History of coronary artery bypass surgery (Chronic ~06/02/19) CABG x4- FLORES-LAD, SHARYN -OM1; Radial - OM3, SVG -PDA 06/02/19 @ [facility] Atherosclerotic heart disease of [place] coronary artery without angina pectoris (Chronic) Essential hypertension (Chronic) Type 2 diabetes mellitus (Chronic) HLD (hyperlipidemia) (Chronic) NSTEMI (non-ST elevated myocardial infarction) (Chronic) Medical History: Medical History (Last Updated 12/05/19 @ 16:23 by Roselyn Siddiqui) Melanoma (Chronic) C43.9 Lung nodule (Acute) R91.1 Atherosclerotic heart disease of [place] coronary artery without angina pectoris (Chronic) I25.10 Essential hypertension (Chronic) I10 Type 2 diabetes mellitus (Chronic) E11.9 HLD (hyperlipidemia) (Chronic) E78.5 NSTEMI (non-ST elevated myocardial infarction) (Chronic) I21.4 HTN (hypertension) (Inactive) I10 Allergies rosuvastatin [From Crestor] Adverse Reaction (Severe, Verified 01/09/20 11:37) Aches simvastatin Adverse Reaction (Severe, Verified 01/09/20 11:37) Stiff Joints Home Medications: Ambulatory Orders Medication Instructions Recorded Aspirin [Aspirin, Baby] 81 mg PO DAILY@0800 05/24/19 acetaminophen 500 mg tablet 1,000 mg PO Q6H PRN tab 07/20/19 clopidogrel 75 mg tablet 75 mg PO DAILY 07/20/19 glimepiride 4 mg tablet 4 mg PO DAILY 07/20/19 metformin 1,000 mg tablet 1,000 mg PO BID 07/20/19 metoprolol tartrate 50 mg tablet 50 mg PO BID 07/20/19 sitagliptin 100 mg tablet 100 mg PO DAILY 07/20/19 lisinopril 10 mg tablet 10 mg PO DAILY tab 09/02/19 atorvastatin 80 mg tablet 40 mg PO QHS tab 12/05/19 Furosemide 40 mg PO DAILY 01/09/20 Ibuprofen 200 mg PO DAILY PRN PRN 01/09/20 Potassium Chloride [K-Tab ER] 20 meq PO DAILY 01/09/20 Surgical History: Surgical History (Last Reviewed 12/05/19 @ 16:22 by Roselyn Siddiqui) History of coronary artery bypass surgery (Chronic) Onset Date: ~06/02/19 Z95.1 CABG x4- FLORES-LAD, SHARYN -OM1; Radial - OM3, SVG -PDA 06/02/19 @ [facility] History of left heart catheterization (LHC) Onset Date: ~05/25/19 Z98.890 [place] Multivessel CAD: FLORES to LAD: patent, SHARYN to OM1: occluded; Radial artery graft to OM3: proximal 85% stenosis (small caliber vessel); SVG to RPDA: patent; RECOMMENDATIONS: Transfer to tertiary care center for consideration for high risk PCI per cath 08/09/19; LEFT MAIN: mid to distal: 75 % Stenosis; LEFT ANTERIOR DESCENDING ARTERY:OSTIAL LAD: 75 % Stenosis, PROX LAD: Mild calcification, diffuse: 25 % Stenosis, MID LAD: 50 % Stenosis, DISTAL LAD: diffuse: 25 % Stenosis;CIRCUMFLEX ARTERY: Mild luminal irregul arities, MID CIRC: 50 % Stenosis, DISTAL CIRC: 85 % Stenosis; OM 1: Proximal - Mild luminal irregularities, OM 2: Proximal - 25 - 50 % Stenosis; RIGHT CORONARY ARTERY: Mild luminal irregularities; MID RCA: diffuse: 50 % Stenosis ; Surgery consult for coronary revascularization per Cath 05/25/19 Surgical History: coronary bypass surgery - Recent CABG x4, - - Left eye surgery, CABG x4, PCI x2, recent left chest melanoma resection with flap and lymph node dissection. Psychiatric History: No pertinent psych hx Lives: Spouse/ Significant Other Smoking Status: Never smoker Alcohol: None Drugs: None - *Family History Maternal Family History: Family History (Last Reviewed 12/05/19 @ 16:22 by Roselyn Siddiqui) Mother CAD (coronary artery disease) Father CAD (coronary artery disease) History of coronary artery bypass surgery History Items: Heart Disease Paternal Family History: Family History (Last Reviewed 12/05/19 @ 16:22 by Roselyn Siddiqui) Mother CAD (coronary artery disease) Father CAD (coronary artery disease) History of coronary artery bypass surgery History Items: Heart Disease Review of Systems Constitutional: Reports: Malaise, Weakness, Fatigue. Denies: Anorexia, Chills, Fever, Weight Change HEENT: Denies: Head Aches, Sinus Congestion, Sinus Drainage Cardiovascular: Reports: Light Headedness. Denies: Chest Pain, Chest Pressure, Chest Tightness, Heaviness, Orthopnea, Palpitations, Syncope Respiratory: Reports: Shortness of Breath, Shortness of breath at rest, Shortness of breath upon exertion. Denies: Cough, Sputum production, Wheezing Gastrointestinal: Denies: Abdominal Pain, Nausea, Vomiting Genitourinary: Denies: Dysuria Musculoskeletal: Reports: Back Pain, Joint Pain. Denies: Joint Tenderness Skin: Denies: Rash, Wounds Neurological: Denies: Numbness, Tingling, Focal weakness Psychiatric: Denies: Anxiety, Depression, Homicidal Ideations, Suicidal Ideations Hematologic/ Lymphatic: Reports: Anemia, Easy Bruising, Easy Bleeding VTE Information - Inpt Only VTE Present on Admission: No VTE Mechan Device Prophylaxis: SCD's VTE Pharm Prophylaxis ordered?: No Reason prophylaxis not ordered:: Medical Contraindication Patient Problems: Active and Suspected Problems (Last Updated 12/05/19 @ 16:23 by Roselyn Siddiqui) GI bleed (Acute) Anemia requiring transfusions (Acute) Thrombocytosis (Acute) Subjective: Patient seated upright in ED bed, fatigued appearance, pale appearance. Objective: Physical Examination: General: awake, alert, oriented x 3 and cooperative, seated upright in the ED bed, fatigued appearance, no obvious distress, pale. Skin: Pale color, turgor, no icterus, cyanosis, healed midline sternotomy incision, recent left chest skin flap incision healing well. HEENT: AT/NC, EOMI, PERRLA, moderately dry MM, no carotid bruits or JVD noted. Lungs: CTA bilaterally, moderate effort, moderate decrease BL bases, no rales, ronchi or wheezing. Heart: Regular rate and rhythm despite significant anemia; no gallop, rub audible. Abdomen: soft, NTTP, ND, mildly hyperactive BS, no HSM. Extremities: no cyanosis, clubbing, or edema. Neurological: patient awake, alert, oriented as noted; cognitive function intact; pupils equally reactive to light and accomodation; cranial nerves II-XII grossly normal, moving all 4 extremities, no focal deficits, strength moderately to severely globally decreased secondary to acute presentation. Psychiatric: affect appears fatigued otherwise normal, no acute evidence of depressive or anxiety feelings. - Physical Exam Vitals/I&O's: Vital Signs Temp Pulse Resp BP Pulse Ox 98.0 F 76 16 128/61 H 100 01/09/20 11:37 01/09/20 11:51 01/09/20 11:51 01/09/20 11:51 01/09/20 11:51 Oxygen Delivery Method Room Air Weight: 179 lb Body Mass Index (BMI) 25.7 Microbiology Past 72 Hours 01/09/20 12:05 Stool Stool Occult Blood (MAYTE) - Final Occult Blood Positive Laboratory Results 01/09/20 12:05: WBC 14.0 H, RBC 2.96 L, Hgb 5.4 L*, Hct 20.7 L, MCV 69.9 L, MCH 18.2 L, MCHC 26.1 L, RDW Std Deviation 43.7, RDW Coeff of Nicholas 17.2 H, Plt Count 831 H*, MPV 9.3, Immature Gran % (Auto) 0.700, Neut % (Auto) 85.5 H, Lymph % (Auto) 5.7 L, [place] % (Auto) 7.0, Eos % (Auto) 0.5, Baso % (Auto) 0.6, Absolute Neuts (auto) 12.0 H, Absolute Lymphs (auto) 0.80 L, Nucleated RBC % 0.6, Diff Path Review July, Platelet Estimate MKD INC, Hypochromasia 2+, Anisocytosis 2+, Ovalocytes 2+ 01/09/20 12:05: PT 13.3, INR 1.1, APTT 25.4 01/09/20 12:05: Sodium 132 L, Potassium 5.0, Chloride 97 L, Carbon Dioxide 23.0, Anion Gap 12, BUN 25 H, Creatinine 1.09, Estim Creat Clear Calc 73.48, Est GFR (MDRD) Af Amer 88, Est GFR (MDRD) Non-Af 73, BUN/Creatinine Ratio 22.9 H, Glucose 320 H, Calcium 8.5, Total Bilirubin 0.40, AST 10 L, ALT 16, Alkaline Phosphatase 65, Troponin I 1.840 H*, Total Protein 8.0, Albumin 3.3, Globulin 4.7 H, Albumin/Globulin Ratio 0.7 L 01/09/20 12:05: Blood Type O POSITIVE, Antibody Screen NEGATIVE Assessment/Plan All Active Problems (Last Updated 12/05/19 @ 16:23 by Roselyn Siddiqui) GI bleed (Acute) Anemia requiring transfusions (Acute) Thrombocytosis (Acute) Acute blood loss anemia (Acute) Severe sepsis (Acute) Pneumonia (Acute) Suspected COVID-19 virus infection (Acute) Respiratory distress (Acute) Pneumonia (Acute) Suspected 2019 novel coronavirus infection (Acute) Acute respiratory failure with hypoxia (Acute) Lung nodule (Acute) The patient is a 59 y/o M w/ PMHx: HTN, HLD, CAD w/ Hx NSTEMI s/p CABG x 4 failed 06/02/19 with follow-up PCI x 2, Hx lung nodule, Hx Melanoma, Diabetes mellitus type II who presents to the [facility] ED on 01/09/20 referred per his Cardiology office secondary to history of fatigue, malaise, weakness, darker appearing stools more noticeable over the last ~ 2 weeks. 1. Acute GI Bleed w/ resultant Acute Blood Loss Anemia on Chronic (Recently noted trend since after CABG, microcytic), noted concurrent Elevated Plts, Elevated WBC, possible reactive and heme-concentrated given presentation: Admission Hgb 5.4, 5.8 at 10 am at. Cardiology direction, will admit to PCU as stepdown given concurrent NSTEMI and significant cardiac history, maintain on IVFs, obtain serial H+H q 4 hours, continue with planned 3 u PRBC administration with lasix in between units if needed, maintain NPO status, maintain on IV PPI. Dr. Issa consulted per ED. 2. Elevated Troponin, NSTEMI likely in part secondary to Demand Ischemia given acute presentation #1: EKG in ED w/ sinus rhythm without acute evidence of ischemia, CXR w/ no acute cardiopulmonary findings, Trop elevated 1.840. Will maintain on a monitored bed, continue serial cardiac enzymes and EKGs. Obtain magnesium level upon admission. Defer any anticoagulation given #1, holding asa, plavix, statin, holding HTN regimen including metoprolol and lisinopril given low BPs secondary to #1, add back as able. 01/06/20 ECHO w/ segmental dysfunction with preserved EF, EF 60%, postoperative septal motion, mildly enlarged LA, anterior leaflet diffuse mitral valve thickening, mild MVI, trivial TBI, moderate focal AV calcification, trivial pulmonic valve insufficiency, diastolic function indeterminate, bubble contrast study negative for right to left interatrial shunt. Cardiology consulted, pending. NG, morphine. 3. CAD: History of NSTEMI, recent CABG x 4 06/02/2019 [facility] which per report failed with follow-up PCI x2 required 06/09 with FLORES to LAD, SHARYN to OM1, radial to OM 3, SVG to PDA, given acute presentation holding aspirin, Plavix, hypertensive regimen, continued statin therapy. Complicated presentation given significant GI bleed, suspect has been slowly progressing over the last several months given trending hemoglobin. 4. ? Chronic Diastolic CHF: Recent admission 07/2019 with volume overload at that time, initially septic appearance with concern for pneumonia with low BNP however further evaluation with concern for volume overload, possibly associated with significant hypertension, diuresed with improvement. Recent echocardiogram as noted, holding aspirin as noted, holding hypertensive regimen given hypotension as noted, continue statin therapy. Planned Lasix IV between PRBC units as noted. Resume regimen once appropriate. 5. Diabetes mellitus type II: Hold oral home regimen, NPO diet currently, accu checks every 6 hours while n.p.o. w/ ISS. 6. Hypertension: Low BP in the ED likely related to #1, will hold patient lisinopril, metoprolol regimen, add back once appropriate. 7. Hyperlipidemia: Continue statin therapy, FLP in AM. 8. History of pulmonary nodule: Noted history in his chart, chest x-ray with evidence of recent CABG however no evident nodules, encourage continued outpatient follow-up. 9. History of melanoma: Status post intervention with recent approximate 1 month prior left chest melanoma resection with flap and lymph node dissection at the [facility], encourage continued follow-up outpatient as previously arranged. 10. DVT prophylaxis: SCDs, defer chemoprophylaxis given acute presentation as noted #1. 11. CODE status: Patient ALEXIA is his and living will not in place which has been the case previously, again encouraged him to discuss this with case management/social work for assistance to set up. Discussed CODE status at length including difference between FULL code, DNR-CCA and DNR-CC status. Following discussions about the differences in these status, requested Full Code status. Advanced Care Planning Face to Face Time: 16 minutes. Inpatient E&M: 61298 Init Hosp L3 Procedures: 46455 Advncd Care Plan 30 Min
--- NOTE | 2020-01-09 15:03 | EKG12_ITS ---
Test Reason : ADMISSION Blood Pressure : / mmHG Vent. Rate : 083 BPM Atrial Rate : 083 BPM P-R Int : 144 ms QRS Dur : 084 ms QT Int : 400 ms P-R-T Axes : 035 024 091 degrees QTc Int : 470 ms Normal sinus rhythm Nonspecific ST-Segment Abnormality Confirmed by MARIA ISABEL CARDENAS, SHAWN ([id number]), editorial project manager AMBREEN DASH ([id number]) on 01/11/2020 7:31:20 AM Referred By: [email or web address] Confirmed By:SHAWN NICOLAS MD
[2020-01-09] MEDS: 0.9% Normal Saline 1,000 ML 125 ML IV (15:42)
[2020-01-09] MEDS: 0.9% Saline Lock 10 ML Syringe IV ×2 (15:42→18:38)
--- NOTE | 2020-01-09 16:38 | PCM.CONS.GEN ---
Problem List (1) GI bleed Status: Acute Qualifiers: GI bleed type/associated pathology: unspecified gastrointestinal hemorrhage type Qualified Code(s): K92.2 - Gastrointestinal hemorrhage, unspecified Reason for Consult Date of Consultation: 01/09/20 History of Present Illness: The patient is a 59 year old M who presents with suspected gastrointestinal bleeding. I been asked to see the patient by Dr. Marsha Mendoza and Cain, my surgical consult recommendations will present in the charting. The patient's history and well documented. He had coronary artery bypass grafting May 2019. 4 grafts performed including a left radial artery. Approximately 5 weeks subsequent he had acute need for acute placement of stents x2. He has been managed on medications including aspirin and clopidogrel. Apparently approximate month ago because of a melanoma he had a wide excision of the left chest melanoma followed by a flap in left axillary sentinel node biopsy. He states his anticoagulation was not ceased for that procedure. He is not aware of how much blood loss he might have had. He states that he was not instructed that there was any excessive problem. It is of note that May 24, 2019 his hemoglobin was 16.5 and then on August 07, 2019 it was 11.5 and then on August 09, 2019 it was 10.2. On this presentation now laboratory is abnormal with a white count of 14,000 and hemoglobin 5.4 hematocrit 20.7 platelet count 831,000 with 85% neutrophils. His BUN is 25 and creatinine 1.09. He denies history of peptic ulcer disease. He has had some very minimal indigestion but has only taken to an acid tablets. He has not on any routine acid suppressive medication and he has been pronated to take ibuprofen as needed. He denies ever having a previous colonoscopy. There is no family history of colon cancer. He has not had any previous abdominal surgery. He is denying any abdominal pain. He has noted intermittent episodes of darker stools followed by more normal brown stools. Currently he states his stool is darker. He was noted to be Hemoccult positive. There is been no evidence of bright red rectal bleeding. Additional laboratories notable for a PT of 13.3 with an INR of 1.1 and a PTT of 25.4. Troponin elevated at 1.73. Initial impression is that this is a anemic demand issue. Cardiology consultation with Dr. Allan pending. My understanding is that the patient is to receive blood transfusion tonight Past Medical History Past Medical History (Chronic Problems): Chronic Problems (Last Updated 12/05/19 @ 16:23 by Roselyn Siddiqui) Diastolic CHF (Chronic) Melanoma (Chronic) CAD (coronary artery disease) (Chronic) History of coronary artery bypass surgery (Chronic ~06/02/19) CABG x4- FLORES-LAD, SHARYN -OM1; Radial - OM3, SVG -PDA 06/02/19 @ [facility] Atherosclerotic heart disease of [place] coronary artery without angina pectoris (Chronic) Essential hypertension (Chronic) Type 2 diabetes mellitus (Chronic) HLD (hyperlipidemia) (Chronic) NSTEMI (non-ST elevated myocardial infarction) (Chronic) Medical History: Medical History (Last Updated 12/05/19 @ 16:23 by Roselyn Siddiqui) Melanoma (Chronic) C43.9 Lung nodule (Acute) R91.1 Atherosclerotic heart disease of [place] coronary artery without angina pectoris (Chronic) I25.10 Essential hypertension (Chronic) I10 Type 2 diabetes mellitus (Chronic) E11.9 HLD (hyperlipidemia) (Chronic) E78.5 NSTEMI (non-ST elevated myocardial infarction) (Chronic) I21.4 HTN (hypertension) (Inactive) I10 Allergies rosuvastatin [From Crestor] Adverse Reaction (Severe, Verified 01/09/20 11:37) Aches simvastatin Adverse Reaction (Severe, Verified 01/09/20 11:37) Stiff Joints Home Medications: Ambulatory Orders Medication Instructions Recorded Aspirin [Aspirin, Baby] 81 mg PO DAILY@0800 05/24/19 acetaminophen 500 mg tablet 1,000 mg PO Q6H PRN tab 07/20/19 clopidogrel 75 mg tablet 75 mg PO DAILY 07/20/19 glimepiride 4 mg tablet 4 mg PO DAILY 07/20/19 metformin 1,000 mg tablet 1,000 mg PO BID 07/20/19 metoprolol tartrate 50 mg tablet 50 mg PO BID 07/20/19 sitagliptin 100 mg tablet 100 mg PO DAILY 07/20/19 lisinopril 10 mg tablet 10 mg PO DAILY tab 09/02/19 atorvastatin 80 mg tablet 40 mg PO QHS tab 12/05/19 Furosemide 40 mg PO DAILY 01/09/20 Ibuprofen 200 mg PO DAILY PRN PRN 01/09/20 Potassium Chloride [K-Tab ER] 20 meq PO DAILY 01/09/20 Surgical History: Surgical History (Last Reviewed 12/05/19 @ 16:22 by Roselyn Siddiqui) History of coronary artery bypass surgery (Chronic) Onset Date: ~06/02/19 Z95.1 CABG x4- FLORES-LAD, SHARYN -OM1; Radial - OM3, SVG -PDA 06/02/19 @ [facility] History of left heart catheterization (LHC) Onset Date: ~05/25/19 Z98.890 [place] Multivessel CAD: FLORES to LAD: patent, SHARYN to OM1: occluded; Radial artery graft to OM3: proximal 85% stenosis (small caliber vessel); SVG to RPDA: patent; RECOMMENDATIONS: Transfer to tertiary care center for consideration for high risk PCI per cath 08/09/19; LEFT MAIN: mid to distal: 75 % Stenosis; LEFT ANTERIOR DESCENDING ARTERY:OSTIAL LAD: 75 % Stenosis, PROX LAD: Mild calcification, diffuse: 25 % Stenosis, MID LAD: 50 % Stenosis, DISTAL LAD: diffuse: 25 % Stenosis;CIRCUMFLEX ARTERY: Mild luminal irregularities, MID CIRC: 50 % Stenosis, DISTAL CIRC: 85 % Stenosis; OM 1: Proximal - Mild luminal irregularities, OM 2: Proximal - 25 - 50 % Stenosis; RIGHT CORONARY ARTERY: Mild luminal irregularities; MID RCA: diffuse: 50 % Stenosis ; Surgery consult for coronary revascularization per Cath 05/25/19 Surgical History: coronary bypass surgery - Recent CABG x4, - - Left eye surgery, CABG x4, PCI x2, recent left chest melanoma resection with flap and lymph node dissection. Psychiatric History: No pertinent psych hx Lives: Spouse/ Significant Other Smoking Status: Never smoker Tobacco Use: Non-smoker Alcohol: None Drugs: None - *Family History Maternal Family History: Family History (Last Reviewed 12/05/19 @ 16:22 by Roselyn Siddiqui) Mother CAD (coronary artery disease) Father CAD (coronary artery disease) History of coronary artery bypass surgery History Items: Heart Disease Paternal Family History: Family History (Last Reviewed 12/05/19 @ 16:22 by Roselyn Siddiqui) Mother CAD (coronary artery disease) Father CAD (coronary artery disease) History of coronary artery bypass surgery History Items: Heart Disease Review of Systems Constitutional: Reports: Malaise, Weakness. Denies: Chills, Fever, Night Sweats HEENT: Denies: Difficulty Swallowing Cardiovascular: Reports: Claudication, - - Patient has been evaluated by Dr. Wilfrido De La Torre for left lower extremity claudication and has been encouraged to utilize exercise. I do not have copies of testing. Denies: Chest Pain Respiratory: Reports: Shortness of breath upon exertion. Denies: Cough Gastrointestinal: Reports: Melena. Denies: Abdominal Pain, Hematemesis, Hematochezia Genitourinary: Denies: Dysuria Musculoskeletal: Denies: Joint Tenderness Neurological: Denies: Balance problems Endocrine: Denies: Change in Body Habitus Patient Problems: Active and Suspected Problems (Last Updated 12/05/19 @ 16:23 by Roselyn Siddiqui) GI bleed (Acute) Anemia requiring transfusions (Acute) Thrombocytosis (Acute) Acute blood loss anemia (Acute) - Physical Exam Vitals/I&O's: Vital Signs Temp Pulse Resp BP Pulse Ox 98.3 F 84 16 108/68 99 01/09/20 15:08 01/09/20 15:08 01/09/20 15:08 01/09/20 15:08 01/09/20 15:50 Oxygen Delivery Method Room Air Weight: 174 lb 9.698 oz Body Mass Index (BMI) 25.0 General: Alert, Oriented x3, Cooperative, No apparent distress HEENT: Atraumatic Oral: Moist Mucosa Neck: Supple Lungs: Clear to auscultation, Normal air movement, - - Nicely healing left chest melanoma resection flap Cardiovascular: Regular rate, Regular Rhythm, - - Nicely healing midline sternotomy Abdomen: Bowel Sounds Present, Soft, Non Tender, Non-Distended Extremities: No Calf Tenderness Skin: No rashes Musculoskeletal: No Tenderness to Palpation of Joints or Extremities Neurological: - - Normal cognition Psych/Mental Status: Normal Affect Microbiology Past 72 Hours 01/09/20 12:05 Stool Stool Occult Blood (MAYTE) - Final Occult Blood Positive Laboratory Results 01/09/20 12:05: WBC 14.0 H, RBC 2.96 L, Hgb 5.4 L*, Hct 20.7 L, MCV 69.9 L, MCH 18.2 L, MCHC 26.1 L, RDW Std Deviation 43.7, RDW Coeff of Nicholas 17.2 H, Plt Count 831 H*, MPV 9.3, Immature Gran % (Auto) 0.700, Neut % (Auto) 85.5 H, Lymph % (Auto) 5.7 L, [place] % (Auto) 7.0, Eos % (Auto) 0.5, Baso % (Auto) 0.6, Absolute Neuts (auto) 12.0 H, Absolute Lymphs (auto) 0.80 L, Nucleated RBC % 0.6, Diff Path Review May foll, Platelet Estimate MKD INC, Hypochromasia 2+, Anisocytosis 2+, Ovalocytes 2+ 01/09/20 12:05: PT 13.3, INR 1.1, APTT 25.4 01/09/20 12:05: Sodium 132 L, Potassium 5.0, Chloride 97 L, Carbon Dioxide 23.0, Anion Gap 12, BUN 25 H, Creatinine 1.09, Estim Creat Clear Calc 73.48, Est GFR (MDRD) Af Amer 88, Est GFR (MDRD) Non-Af 73, BUN/Creatinine Ratio 22.9 H, Glucose 320 H, Calcium 8.5, Total Bilirubin 0.40, AST 10 L, ALT 16, Alkaline Phosphatase 65, Troponin I 1.840 H*, Total Protein 8.0, Albumin 3.3, Globulin 4.7 H, Albumin/Globulin Ratio 0.7 L 01/09/20 12:05: Blood Type O POSITIVE, Antibody Screen NEGATIVE 01/09/20 12:05: Magnesium 2.0 01/09/20 15:33: Troponin I 1.730 H* Current Medications Acetaminophen (Acetaminophen 325 Mg Tablet) 650 mg PO Q6H PRN PRN PRN Reason: Pain Score 1-10/Temp > 100.7 F Albuterol Sulfate (Albuterol 2.5 Mg/3 Ml Vial.Neb.) 2.5 mg INHALATION Q2H PRN PRN PRN Reason: Dyspnea, wheezing Atorvastatin Calcium (Atorvastatin Calcium 40 Mg Tablet) 40 mg PO QHS SENTHIL Furosemide (Furosemide 40 Mg/4 Ml Vial) 40 mg IV X1 [facility] Stop: 01/09/20 23:59 Guaifenesin (Guaifenesin 10 Ml Udc (200mg/10ml)) 20 ml PO Q4H PRN PRN PRN Reason: COUGH Sodium Chloride () 1,000 mls @ 125 mls/hr IV .Q8H [facility] Last Admin: 10/19/20 15:42 Dose: 125 mls/hr Documented by: Pantoprazole Sodium 40 mg/ (Sodium Chloride) 110 mls @ 330 mls/hr IV Q12 [facility] Insulin Human Lispro (Insulin Lispro 100 Unit/Ml Insuln.Pen) 0 unit SC Q6 [facility]; Protocol Melatonin (Melatonin 3 Mg Tablet) 3 mg PO QHS PRN PRN PRN Reason: INSOMNIA Morphine Sulfate (Morphine 2 Mg/Ml Syringe) 2 mg IV Q3H PRN PRN PRN Reason: Pain Score 6-10 Nitroglycerin (Nitroglycerin (Inpatient Use) 0.4 Mg Tab.Subl) 0.4 mg SUBLINGUAL Q5M PRN PRN Reason: CARDIAC/CHEST PAIN Ondansetron HCl (Ondansetron 4 Mg/2 Ml Vial) 4 mg IV Q8H PRN PRN PRN Reason: NAUSEA/VOMITING Oxycodone HCl (Oxycodone 5 Mg Tablet) 5 mg PO Q4H PRN PRN PRN Reason: Pain Score 4-5 Prochlorperazine Edisylate (Prochlorperazine 10 Mg/2 Ml Vial) 5 mg IV Q4H PRN PRN PRN Reason: Breakthrough Nausea/Vomiting Sodium Chloride (0.9% Saline Lock 10 Ml Syringe) 10 - 40 ml IV UD PRN PRN Reason: SALINE FLUSH Last Admin: 01/09/20 15:42 Dose: 10 ml Documented by: Throat Lozenges (Benzocaine/Menthol 1 Lozenge) 1 lozenge MUCOUS MEM Q2H PRN PRN PRN Reason: SORE THROAT Assessment/Plan All Active Problems (Last Updated 12/05/19 @ 16:23 by Roselyn Siddiqui) GI bleed (Acute) Anemia requiring transfusions (Acute) Thrombocytosis (Acute) Acute blood loss anemia (Acute) Severe sepsis (Acute) Pneumonia (Acute) Suspected COVID-19 virus infection (Acute) Respiratory distress (Acute) Pneumonia (Acute) Suspected 2019 novel coronavirus infection (Acute) Acute respiratory failure with hypoxia (Acute) Lung nodule (Acute) 59-year-old gentleman with findings suspicious for an upper GI source of blood loss. This appears to be over an extended period of time. I do not have access to the laboratory that he might of had obtained at [facility] a month ago for his melanoma resection. He does not describe excessive blood loss at that occasion. The patient is yet to receive his blood transfusion. I propose for him a esophagogastroduodenoscopy with possible biopsy looking for possible upper GI source or H. pylori. Will proceed later tomorrow morning pending medical progress and cardiology review. He is aware of the technique, benefit, risk, alternatives. Pending those results can then likely consider a future outpatient colonoscopy when he is better stabilized. He has had an opportunity to ask and have questions answered. I appreciate the opportunity of assisting with her surgical care. We will schedule and proceed as noted. David Issa M.D., F.A.C.S.
--- NOTE | 2020-01-09 17:24 | PCM.CONS.C ---
Problem List (1) Abnormal cardiac enzyme level Status: Acute (2) Atherosclerotic heart disease of [place] coronary artery without angina pectoris Status: Chronic Qualifiers: [place] vs. transplanted heart: [place] heart Qualified Code(s): I25.10 - Atherosclerotic heart disease of [place] coronary artery without angina pectoris (3) S/P PTCA (percutaneous transluminal coronary angioplasty) Status: Chronic (4) S/P CABG (coronary artery bypass graft) Status: Chronic (5) Syncope Status: Acute (6) HLD (hyperlipidemia) Status: Chronic Qualifiers: Hyperlipidemia type: unspecified Qualified Code(s): E78.5 - Hyperlipidemia, unspecified (7) Essential hypertension Status: Chronic (8) Type 2 diabetes mellitus Status: Chronic Qualifiers: Diabetes mellitus fdc insulin use: without assistant terminal manager use Diabetes mellitus complication status: with other specified complication Qualified Code(s): E11.69 - Type 2 diabetes mellitus with other specified complication (9) Acute blood loss anemia Status: Acute (10) Thrombocytosis Status: Acute Reason for Consult Date of Consultation: 01/09/20 History of Present Illness: The patient is a 59 year [id number] white male with a history of underlying CAD, non-ST segment elevation DC, CABG, post CABG PCI, hyperlipidemia, hypertension, diabetes mellitus, melanoma, who has currently been undergoing evaluation for concerns of this of breath/dyspnea, fatigue, and bilateral lower extremity discomfort. This evaluation has included adjustment of medications as well as from a cardiovascular standpoint a follow-up transthoracic echocardiogram (noted below) and pending peripheral vascular surgery consult with Dr. De La Torre for concerns of lower extremity PAD who has now been found to have a follow-up examination demonstrating a drop in his hemoglobin level from approximately 10.2-5.4, elevation of his platelet count, as well as an increase in his troponin I level. Thus he was taken from the office to state to the [facility] emergency department for further evaluation. He was subsequently placed in the PCU for further evaluation and care. At the present time he is pending PRBC transfusion and tentative EGD in the a.m. The patient states he has had no ongoing concerning chest discomfort. He notes his main concern has been his shortness of breath as well as his fatigue and his lower extremity discomforts. He has not had any acute orthopnea or PND or worsening peripheral pitting edema. He states approximately a week ago after getting out of bed and heading to the bathroom he had an episode where he transiently lost consciousness. He states he was very diaphoretic during that time. He notes shortly thereafter he felt back to his baseline. He does describe the recent onset of intermittent melena. He does not describe any hematochezia or hematuria. He has undergone a melanoma evaluation and states that he was not found to have any metastatic disease. He states he takes his medications every day as prescribed. Today he was also found to have an elevation of his troponin I level. His ECG demonstrated normal sinus rhythm. He had no acute ECG changes. [] Past Medical History Allergies/Adverse Reactions: Allergies rosuvastatin [From Crestor] Adverse Reaction (Severe, Verified 01/09/20 11:37) Aches simvastatin Adverse Reaction (Severe, Verified 01/09/20 11:37) Stiff Joints Home Medications: Ambulatory Orders Medication Instructions Recorded Aspirin [Aspirin, Baby] 81 mg PO DAILY@0800 05/24/19 acetaminophen 500 mg tablet 1,000 mg PO Q6H PRN tab 07/20/19 clopidogrel 75 mg tablet 75 mg PO DAILY 07/20/19 glimepiride 4 mg tablet 4 mg PO DAILY 07/20/19 metformin 1,000 mg tablet 1,000 mg PO BID 07/20/19 metoprolol tartrate 50 mg tablet 50 mg PO BID 07/20/19 sitagliptin 100 mg tablet 100 mg PO DAILY 07/20/19 lisinopril 10 mg tablet 10 mg PO DAILY tab 09/02/19 atorvastatin 80 mg tablet 40 mg PO QHS tab 12/05/19 Furosemide 40 mg PO DAILY 01/09/20 Ibuprofen 200 mg PO DAILY PRN PRN 01/09/20 Potassium Chloride [K-Tab ER] 20 meq PO DAILY 01/09/20 Past Medical History (Chronic Problems): Chronic Problems (Last Updated 12/05/19 @ 16:23 by Roselyn Siddiqui) Diastolic CHF (Chronic) S/P PTCA (percutaneous transluminal coronary angioplasty) (Chronic) S/P CABG (coronary artery bypass graft) (Chronic) Melanoma (Chronic) CAD (coronary artery disease) (Chronic) History of coronary artery bypass surgery (Chronic ~06/02/19) CABG x4- FLORES-LAD, SHARYN -OM1; Radial - OM3, SVG -PDA 06/02/19 @ [facility] Atherosclerotic heart disease of [place] coronary artery without angina pectoris (Chronic) Essential hypertension (Chronic) Type 2 diabetes mellitus (Chronic) HLD (hyperlipidemia) (Chronic) NSTEMI (non-ST elevated myocardial infarction) (Chronic) Surgical History: coronary bypass surgery - Recent CABG x4, - - Left eye surgery, CABG x4, PCI x2, recent left chest melanoma resection with flap and lymph node dissection. Psychiatric History: No pertinent psych hx - *Family History Maternal Family History: Family History (Last Reviewed 12/05/19 @ 16:22 by Roselyn Siddiqui) Mother CAD (coronary artery disease) Father CAD (coronary artery disease) History of coronary artery bypass surgery History Items: Heart Disease Paternal Family History: Family History (Last Reviewed 12/05/19 @ 16:22 by Roselyn Siddiqui) Mother CAD (coronary artery disease) Father CAD (coronary artery disease) History of coronary artery bypass surgery History Items: Heart Disease Lives: Spouse/ Significant Other Smoking Status: Never smoker Tobacco Use: Non-smoker Alcohol: None Drugs: None Review of Systems - Review of Systems General: Reports: Fatigue. Denies: Fever, Night Sweats Cardiovascular: Reports: Shortness of Breath with Exertion, Syncope. Denies: Chest Discomfort, Shortness of Breath, Orthopnea, PND, Peripheral Edema, Palpitations, Lightheadedness, Dizziness, Near Syncope Respiratory: Reports: Shortness of Breath. Denies: Cough, Sputum Production, Hemoptysis Gastrointestinal: Denies: Hematemesis, Hematochezia, Melena Genitourinary: Denies: Dysuria, Hematuria Skin: Denies: Rash Subjectve: This is a 59-year-old white male who appears to be somewhat pale appearing at this time and resting comfortably in no acute distress. Objective: Vital Signs Temp Pulse Resp BP Pulse Ox 98.3 F 84 16 108/68 99 01/09/20 15:08 01/09/20 15:08 01/09/20 15:08 01/09/20 15:08 01/09/20 15:50 Oxygen Delivery Method Room Air Weight: 174 lb 9.698 oz Body Mass Index (BMI) 25.0 General: Awake, Alert, Oriented x 3, Cooperative, No Acute Distress HEENT: Atraumatic, Normocephalic, PERRL, EOMI, Sclera Non Icteric, Pallor Neck: Supple, Good ROM, No JVD Lungs: Clear to auscultation Cardiovascular: Regular Rhythm, Normal S1, Normal S2 Abdomen: Bowel Sounds Present, Soft, Non Tender Extremities: No edema Neurological: No Focal Motor or Sensory Deficit Psych/Mental Status: Appropriate 01/09/20 12:05: WBC 14.0 H, RBC 2.96 L, Hgb 5.4 L*, Hct 20.7 L, MCV 69.9 L, MCH 18.2 L, MCHC 26.1 L, Plt Count 831 H*, MPV 9.3, Immature Gran % (Auto) 0.700, Neut % (Auto) 85.5 H, Lymph % (Auto) 5.7 L, [place] % (Auto) 7.0, Eos % (Auto) 0.5, Baso % (Auto) 0.6, Absolute Neuts (auto) 12.0 H, Nucleated RBC % 0.6 01/09/20 12:05: PT 13.3, INR 1.1, APTT 25.4 01/09/20 12:05: Sodium 132 L, Potassium 5.0, Chloride 97 L, Carbon Dioxide 23.0, Anion Gap 12, BUN 25 H, Creatinine 1.09, Est GFR (MDRD) Af Amer 88, Est GFR (MDRD) Non-Af 73, BUN/Creatinine Ratio 22.9 H, Glucose 320 H, Calcium 8.5, Total Bilirubin 0.40, Troponin I 1.840 H* 01/09/20 12:05: Magnesium 2.0 01/09/20 15:33: Troponin I 1.730 H* Rhythm: Sinus rhythm EKG: Sinus rhythm ECHO: ?2019 Interpretation Summary The study was technically difficult. Contrast injection was performed. Segmental dysfunction with preserved ejection fraction (see wall motion). The estimated ejection fraction is 60 %. Post operative septal motion. The left atrium is mildly enlarged. Anterior leaflet diffuse mitral valve thickening. Mild (1+) mitral valve insufficiency. Trivial tricuspid valve insufficiency. Moderate focal aortic valve calcification. Trivial pulmonic valve insufficiency. Unable to estimate RV systolic pressure/pulmonary artery pressure due to technically difficult study. Diastolic function is indeterminate. Bubble contrast study negative for right to left interatrial shunt. Stress Test: Cardiac Cath: 08-09-2019 CONCLUSIONS Elevated Left Ventricular End Diastolic Pressure Segmented LV systolic dysfunction- Mild LVEF: by LV gram 55 % [place] Multivessel CAD FLORES to LAD: patent SHARYN to OM1: occluded Radial artery graft to OM3: proximal 85% stenosis (small caliber vessel) SVG to RPDA: patent RECOMMENDATIONS Risk factor modification Medical therapy Transfer to tertiary [facility] for consideration for high risk PCI DESCRIPTION OF PROCEDURE The patient arrived to the procedure lab. The risks and benefits of the procedure as well as a full description of our services here and current unavailability of surgical backup were fully explained to the patient and/or their significant other prior to the catheterization. The Timeout was completed, verifying the correct patient and procedure. The patient's procedural site was prepped and draped in the usual fashion. Local anesthetic was given subcutaneously to right groin region with Lidocaine 2%. Using a modified Seldinger technique, arterial access was obtained via the right femoral artery, a 4Fr sheath was inserted Left Coronary Artery selective angiography was performed in multiple views using a 4 Fr. JL5 catheter. Right Coronary Artery selective angiography was then performed in multiple views using a 4 Fr. 3DRC catheter. Radial graft to the OM 3 selective angiography was performed in multiple views using a 4 Fr. JR4 catheter. Right internal mammary artery graft to the OM 1 selective angiography was performed in multiple views using a 4 Fr. IM catheter. Left internal mammary artery graft to the LAD selective angiography was performed in multiple views using a 4 Fr. IM catheter. Saphenous Vein graft to the RPDA selective angiography was performed in multiple views using a 4 Fr. RCB catheter. Left Ventriculography was performed in RITTER projection using a 4 Fr. Pigtail catheter. LV to AO pullback pressures were then recorded.The arterial sheath was pulled and manual compression applied until hemostasis is achieved. CORONARY ANGIOGRAPHY DOMINANCE: Right Dominant LEFT HEART ASSESSMENT Left Ventricular Ejection Fraction: by LV Gram 55 % Inferior Basal Hypokinesis. Inferior Mid Hypokinesis. Inferior Apical Hypokinesis Elevated Left Ventricular End Diastolic Pressure LEFT MAIN: 95 % Stenosis LEFT ANTERIOR DESCENDING ARTERY: OSTIAL LAD: is occluded MID LAD: fills from the FLORES graft with mid 50 % stenosis DISTAL LAD: 50 % Stenosis CIRCUMFLEX ARTERY: PROX CIRC: eccentric: 25 - 50 % Stenosis MID CIRC: 50 - 75 % Stenosis DISTAL CIRC: 85 % Stenosis OM 1: Mid - small vessel: mid: occluded OM 2: Proximal - 50 % Stenosis OM 3: Proximal - 50 % Stenosis, Mid - 50 % Stenosis, Mid - also receives radial artery graft flow RIGHT CORONARY ARTERY: Mild luminal irregularities MID RCA: diffuse: eccentric: 50 % Stenosis RT PDA: Mid - fills from the SVG graft GRAFTS: FLORES graft to the Mid LAD is patent Radial graft to the 3rd OM has a proximal lesion of 85 % (small caliber vessel) Saphenous Vein graft to the RPDA is patent SHARYN graft to the 100 % to OM1: mid occluded (Per [facility] review: The free FLORES to the OM appeared to be patent and the radial artery graft to the OM was occluded) PCI: Jul, 2019: [facility] Post CABG PCI of the [place] LCx system CT Surgery: May,: [facility] FLORES to the LAD, SHARYN to the OM, radial artery graft to OM 3, SVG to the PDA CXR: Post open heart surgery changes: No acute disease process appreciated: Please see official report Assessment/Plan 1. Abnormal cardiac enzymes He does have abnormal cardiac enzymes/troponin I levels. The present time he has no acute symptoms with respect to ongoing chest discomfort. He has no acute ECG changes. At the moment but concerned that his abnormal cardiac enzymes are related to a type II event related to supply demand mismatch related to his marked anemia. From a cardiac standpoint he will continue to be monitored. He will continue medical therapy as able based upon his other medical conditions. His recent echocardiogram has been reviewed. It was not felt he required additional cardiac diagnostic studies/intervention at this time. 2. CAD status post CABG followed by post CABG PCI At the moment he is without any acute symptoms of ongoing angina pectoris. Again his cardiac enzymes would appear to be compatible with a type II event secondary to his marked anemia. He will continue to be monitored and continue medical therapy as he is able. 3. Syncope He appears to have had a syncopal event approximately a week ago. Based upon the situation he describes this appears to be a situational event most likely vasovagal mediated brought out by his marked anemia. He will continue to be monitored for any obvious cardiac dysrhythmias or conduction system events that require further evaluation and care. Otherwise he will continue his general cardiology evaluation and is noncardiac evaluation of his marked anemia. 4. Hyperlipidemia He will continue medical management. 5. Hypertension His medications will be adjusted based upon his blood pressure recordings. 6. Diabetes mellitus We will continue evaluation care per internal medicine. 7. Anemia thought secondary to gastrointestinal bleeding He is markedly anemic. The concern is this may be related to GI bleeding secondary to his concerns of intermittent melena. He is being monitored. He is going to receive PRBCs. He is proceeding with further evaluation with EGD when able. From a medication standpoint, at the moment, his aspirin therapy on antiplatelet therapy with epidural/Plavix are on temporary hold based upon his marked anemia requiring PRBC transfusion and need for further gastrointestinal evaluation. Hopefully 1 or both of them can be restarted in the future for the benefit of his cardiovascular disease. 8. Thrombocytosis He does have marked elevation of his platelet counts. It is unclear whether this is an acute phase reactant. Depending upon his clinical course he may need further input from hematology. Comment: The patient's case was discussed and reviewed with the patient as well as the [facility] emergency department staff. This note was generated using a voice recognition system and there may be incorrect words, spelling or punctuation that were not noted when reviewing the office note prior to saving.
[2020-01-09 17:41] LABS: Hematocrit 19.3 % (40-54); POSITIVE COUNT YES
[2020-01-09 17:47] LABS: Hemoglobin 5.1 g/dL (13.0-16.5)
[2020-01-09 18:50] LABS: Bedside Glucose 121 mg/dL (70-110)
[2020-01-09] MEDS: Metoprolol Tartrate 25 MG Tablet PO (21:48)
[2020-01-09] MEDS: Atorvastatin Calcium 40 MG Tablet PO (21:48)
[2020-01-09 22:24] LABS: Hematocrit 21.2 % (40-54)
[2020-01-09] MEDS: Acetaminophen 325 MG Tablet 650 MG PO (23:21)
[2020-01-10] VITALS (22 sets, daily range): BP systolic 103–122; BP diastolic 56–76; PULSE 69–84; RESP 14–22; TEMP 36.2–37.6; O2SAT 93–100; BMI 25.4
[2020-01-10 00:11] LABS: Bedside Glucose 126 mg/dL (70-110)
[2020-01-10] MEDS: Furosemide 40 MG/4 ML Vial IV (01:21)
[2020-01-10] MEDS: 0.9% Saline Lock 10 ML Syringe IV ×3 (01:21→21:07)
[2020-01-10] MEDS: 0.9% Normal Saline 1,000 ML 125 ML IV ×2 (04:06→10:16)
--- NOTE | 2020-01-10 05:55 | EKG12_ITS ---
Test Reason : AM Blood Pressure : / mmHG Vent. Rate : 074 BPM Atrial Rate : 074 BPM P-R Int : 148 ms QRS Dur : 086 ms QT Int : 416 ms P-R-T Axes : 043 026 094 degrees QTc Int : 461 ms Normal sinus rhythm Nonspecific ST Segment Abnormality Confirmed by MARIA ISABEL CARDENAS, SHAWN ([id number]), makeup editor AMBREEN DASH ([id number]) on 01/11/2020 7:27:48 AM Referred By: [email or web address] Confirmed By:SHAWN NICOLAS MD
[2020-01-10 06:20] LABS: Bedside Glucose 126 mg/dL (70-110)
[2020-01-10 06:48] LABS: Absolute Lymphocyte Count 1.89 X10^3/uL (0.83-4.51); Absolute Neutrophil Count 5.2 X10^3/uL (2.0-7.7); Basophil# 0.08 X10^3/uL; Basophil% 0.9 % (0-1); Eosinophil# 0.25 X10^3/uL; Eosinophils% 2.9 % (0-5); Hematocrit 27.4 % (40-54); Hemoglobin 8.4 g/dL (13.0-16.5); Lymphocyte # 1.89 X10^3/ul (4.0); Lymphocyte % 22.2 % (19-41); Mean Corp Hgb Conc 30.7 g/dL (32-36); Mean Corpuscular Hgb 23.1 pg (27.0-32.0); Mean Corpuscular Volume 75.3 fL (80-94); Monocyte# 1.02 X10^3/uL; NRBC Flagged by Analyzer 0.2 % (0-5); Neutrophil # 5.23 X10^3/uL (2.7-7.7); Neutrophil % 61.5 % (47-70); POSITIVE MORPHOLOGY YES; Platelet Count 602 K/mm3 (150-450); RBC Distribution Width CV 20.9 % (11.6-14.6); RBC Distribution Width SD 56.1 fl (35.1-43.9); Red Blood Count 3.64 M/mm3 (4.6-6.2); White Blood Count 8.5 K/mm3 (4.4-11.0)
[2020-01-10 06:54] LABS: Differential Indicated SCAN CRITERIA MET
[2020-01-10 07:01] LABS: Partial Thromboplast Time 26.9 Seconds (24.1-36.2)
[2020-01-10 07:09] LABS: International Normalized Ratio 1.1; Prothrombin Time (Protime)PT. 13.6 SECONDS (11.7-14.9)
[2020-01-10 07:12] LABS: Differential Comment SCANNED; Hypochromasia 1+; Microcytosis RARE; Ovalocyte 1+
[2020-01-10 07:24] LABS: ALB/GLOB Ratio 0.8 RATIO (0.9-2.4); AST(SGOT) 11 U/L (15-37); Alanine Aminotransfer ALT/SGPT 11 U/L (16-61); Alkaline Phosphatase 63 U/L (45-117); Anion Gap 7 (5-15); BUN 20 mg/dL (7-18); BUN/Creat Ratio 27.5 RATIO (10-20); Calcium,Total 8.2 mg/dL (8.5-10.1); Chloride 103 mmol/L (98-107); Cholesterol 90 mg/dL (200); Creatinine, Serum 0.73 mg/dL (0.70-1.30); EST Glomerular Filtration Rate 117 mL/min (>60); Est Glom Filt Rate - Afr Amer 141 mL/min (>60); Estimated Creatinine Clearance 109.72 ml/min; Glucose 115 mg/dL (74-106); High Density Lipoprotein 30 mg/dL; Potassium 3.8 mmol/L (3.5-5.1); Sodium Level 136 mmol/L (136-145); Triglycerides 121 mg/dL; Very Low Density Lipoprotein 24 mg/dL (5-40)
[2020-01-10 07:57] LABS: Hemoglobin A1c 6.2 % (3.8-5.6)
--- NOTE | 2020-01-10 08:29 | OP.CCLET_ITS ---
01/10/2020 Shane Mckinney Md Re : Upper GI endoscopy procedure for Papi Cordova Dear Hank This procedure was performed on Friday, January 10, 2020. My impressions and recommendations are as follows: Impressions : - Esophageal mucosal changes consistent with long-segment Licona's esophagus. Biopsied. 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 Biopsied. - Large hiatal hernia. - Erythematous mucosa in the antrum. Biopsied. - Normal examined duodenum. Biopsied. Recommendations : - [facility]. - Resume previous diet. - Continue present medications. - Return to my office in 1 week. My findings are described in the full procedure note, which is enclosed. If I can be of further assistance, please feel free to contact me at Doctor phone number(s): Work: . Sincerely, David Issa MD 01/10/2020 8:29:03 AM This report has been signed electronically.
--- NOTE | 2020-01-10 08:29 | OP.EGD_ITS ---
Patient Name: Papi Cordova Procedure Date: 01/10/2020 7:59 AM Date of : 1960 Age: 59 Procedure: Upper GI endoscopy Indications: Acute post hemorrhagic anemia Providers: David Issa MD Medicines: See the Anesthesia note for documentation of the administered medications Complications: No immediate complications. Procedure: Pre-Anesthesia Assessment: - Prior to the procedure, a History and Physical was performed, and patient medications and allergies were reviewed. The patient's tolerance of previous anesthesia was also reviewed. The risks and benefits of the procedure and the sedation options and risks were discussed with the patient. All questions were answered, and informed consent was obtained. Prior Anticoagulants: The patient has taken Plavix (clopidogrel), last dose was 1 day prior to procedure. ASA Grade Assessment: III - A patient with severe systemic disease. After reviewing the risks and benefits, the patient was deemed in satisfactory condition to undergo the procedure. After obtaining informed consent, the endoscope was passed under direct vision. Throughout the procedure, the patient's blood pressure, pulse, and oxygen saturations were monitored continuously. The gastroscope was introduced through the mouth, and advanced to the second part of duodenum. The upper GI endoscopy was accomplished without difficulty. The patient tolerated the procedure well. Scope In: 8:05:12 AM Scope Out: 8:12:53 AM Total Procedure Duration Time 0 hours 7 minutes 41 seconds Findings: There were esophageal mucosal changes consistent with long-segment Licona's esophagus present in the lower third of the esophagus. The maximum longitudinal extent of these mucosal changes was 7 cm in length. Mucosa was biopsied with a cold forceps for histology of just the very proximal extent. A bleeding mass was identified within the long segment Licona's A medium-sized, fungating mass with bleeding and stigmata of recent bleeding was found in the lower third of the esophagus, 32 cm from the incisors. The mass was non-obstructing and not circumferential. Biopsies were taken with a cold forceps for histology. A large hiatal hernia was present. Diffuse mildly erythematous mucosa without bleeding was found in the gastric antrum. Biopsies were taken with a cold forceps for histology. The examined duodenum was normal. Biopsies were taken with a cold forceps for histology. Impression: - Esophageal mucosal changes consistent with long-segment Licona's esophagus. Biopsied. 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 Biopsied. - Large hiatal hernia. - Erythematous mucosa in the antrum. Biopsied. - Normal examined duodenum. Biopsied. Recommendation: - [facility] to [facility] care. - Resume previous diet. - Continue present medications. - Return to my office in 1 week. Procedure Code(s): --- Professional --- 88575, Esophagogastroduodenoscopy, flexible, transoral; with biopsy, single or multiple Diagnosis Code(s): --- Professional --- K22.8, Other specified diseases of esophagus C15.5, Malignant neoplasm of lower third of esophagus K44.9, Diaphragmatic hernia without obstruction or gangrene K31.89, Other diseases of stomach and duodenum D62, Acute posthemorrhagic anemia CPT copyright 2017 [employer]. All rights reserved. The codes documented in this report are preliminary and upon vegetable farm worker review may be revised to meet current compliance requirements. David Issa MD 01/10/2020 8:29:03 AM This report has been signed electronically. Number of Addenda: 0 Note Initiated On: 01/10/2020 7:59 AM
[2020-01-10 09:26] LABS: Iron 30 ug/dL (65-175); Iron Binding Capacity,Total 441 ug/dL (250-450); PERCENT IRON SATURATION 6.8 % (15.0-55.0)
--- NOTE | 2020-01-10 09:45 | IMM_PTH ---
PATIENT: KATHRIN WISE LOC: U U#:[id number] AGE/SX: 59/M ROOM: [facility] RE01/09/[address]: Dr. Cornelio Ferguson MD : 1960 BED: 1 DIS: 01/12/2020 SPEC #: [id number] RECD: 01/10/20 15:22 STATUS: DEBBY REQ #: [id number] JATINDER: 01/10/20 09:[address]: David Issa DEPT: IMMUNOHISTOCHEMISTRY RECD BY: Filomena Lowry ENTERED: 01/10/20 15:23 SP TYPE: IMMUNO OTHR DR: MD Dr. Cornelio Quiroz MD Dr. Joseph Prah, MD Dr. John Prokop, MD Dr. Paul Moodispaw, MD Tissues: A - Stomach, NOS B - Esophagus, NOS C - Esophagus, NOS Procedures: H Pylori (initial) MSH2 (add) MLH-1 (add) MSH6 (add) Anti-PMS2 (add) CK20 (add) CK7 (add) CK8 (add) MCDONNELL-2 (add) P53 (add) Pankeratin (add) P40 (add) HER-2-EVERETT (initial) KI-67 (initial) PHYSICIAN & [place] [id number] SPECIMEN INFORMATION: Tissue Source: A - Antrum biopsy, B - Distal esophagus biopsy, C - Distal esophagus biopsy Clinical Info: GI bleed Specimen Number: [id number] A-C CPT code: 02548 x3, 11284 x12 METHODOLOGY: Deparaffinized sections of prefer/formalin-fixed tissue or PAP/DQ stained slides are incubated with monoclonal/polyclonal antibodies/oligonucleotide probes. Localization is made via biotin free immunoperoxidase method. Appropriate controls are performed and reacted as expected. Results on target cell population are indicated in the following table: RESULTS: ANTIBODY / CLONE RESULT Block A H Pylori (polyclonal) negative Block B Her-2neu (CB11) negative (0) CK7 (OV-TL12/30) positive CK8 (89pbthQ42) positive CK20 (KS20.8) negative MCDONNELL-2 (SP21) positive P40 (BC28) negative MLH-1 (M1) positive MSH2 (25D12) positive MSH6 (44) positive PMS2 (RDS4367) positive P53 (DO-7) negative AE1-3 (AE1/AE3/PCK26) positive Block C P53 (DO-7) negative Ki-67 (30-9) positive, low These tests were developed and their performance characteristics determined by [facility]. They may not have been cleared or approved by the U.[place]. Food and Drug Administration. The FDA has determined that such clearance or approval is not necessary. The above immunohistochemical/dualISH markers are ordered by Dr. Jones and reviewed by the pathologist, . INTERPRETATION: A. Antrum biopsy: Negative for Helicobacter pylori organisms. B. 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 Result of Microsatellite Instability Study: Negative (no loss of mismatch protein; no microsatellite instability detected). C. Distal esophagus, biopsy: Negative for dysplasia. SJ:chato 01/12/20
--- NOTE | 2020-01-10 09:45 | EGD_PTH ---
PATIENT: KATHRIN WISE LOC: [facility] U#:[id number] AGE/SX: 59/M ROOM: [facility] RE01/09/[address]: Dr. Cornelio Ferguson MD : 1960 BED: 1 DIS: 01/12/2020 SPEC #: [id number] RECD: 01/10/20 12:01 STATUS: DEBBY RE #: [id number] JATINDER: 01/10/20 09:[address]: David Issa DEPT: SURGICAL PATHOLOGY RECD BY: Deya Bean ENTERED: 01/10/20 13:20 SP TYPE: EGD BIOPSY OTHR DR: MD Dr. Cornelio Quiroz MD Dr. Joseph Prah, MD Dr. John Prokop, MD Dr. Paul Moodispaw, MD Tissues: A - Gastric mucous membrane B - Esophagus, NOS C - Esophagus, NOS Procedures: Special Stain Group II Surgery Specimen Level IV Alcian Blue/PAS (control) HEADER OPERATION: EGD (MAC) PRE-OP DIAGNOSIS: GI bleed TISSUE SUBMITTED: A - Antrum biopsy for histo and H. pylori, B - Mass distal esophagus biopsy, C - Licona's biopsy distal esophagus MICROSCOPIC DIAGNOSIS A. Gastric antrum, biopsy: Mild chronic gastritis. See comment. B. 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 See comment. C. Distal esophagus, biopsy: Junctional mucosa with focal intestinal metaplasia. Acute and chronic inflammation. No evidence of dysplasia. See comment. AM:chato 01/11/20 COMMENT A. The results of immunohistochemistry for Helicobacter pylori will be reported separately ([id number]). B. Immunohistochemistry ([id number]) supports the above diagnosis. Please refer to IHC report for results of MSI studies. Mucin stain (with matched control) is positive focally in the tumor cells. C. Alcian blue/PAS stain with matched control supports the above diagnosis. Immunohistochemistry ([id number]) supports the above diagnosis. This case was reviewed and diagnosis discussed with Dr. Issa's office on 01/12/20. Case has been reviewed in consultation with Dr. Gonzalez who concurs with the above diagnosis. IDC:SJ MICROSCOPIC DESCRIPTION Slides are reviewed. GROSS DESCRIPTION A - Received in fixative is one container labeled with the patient's name and designated antrum biopsy. The specimen consists of one irregular fragment of light barragan soft tissue that measures 0.3 x 0.2 x 0.1 cm. The specimen is totally submitted in one cassette. B - Received in fixative is one container labeled with the patient's name and designated mass distal esophagus biopsy. The specimen consists of multiple irregular fragments of light barragan soft tissue that in aggregate measure 1.5 x 0.5 x 0.1 cm. The specimen is totally submitted in one cassette. C - Received in fixative is one container labeled with the patient's name and designated Licona's biopsy. The specimen consists of multiple irregular fragments of light barragan soft tissue that in aggregate measure 0.8 x 0.2 x 0.1 cm. The specimen is totally submitted in one cassette. / TODD:chato 01/10/20 TC:0 CPT: 15086 x3, 01914 x2
[2020-01-10] MEDS: Metoprolol Tartrate 25 MG Tablet PO ×2 (10:10→21:08)
[2020-01-10] MEDS: Sodium Ferric Gluconat 250 MG in 0.9% Normal Saline 250 ML 135 MG IV (11:32)
--- NOTE | 2020-01-10 11:46 | CASEMGMT ---
LYNNE KEANE assessment: Face to Face with patient for initial transition planning/care coordination assessment. LYNNE KEANE introduced self and role at [facility], pt voices understanding and consents to assessment at this time. Pt is sitting up in bed in no distress at this time. Pt is A/Ox4 at this time and answers all questions appropriately at this time. Pt's daughter, Christine Shahid, is at bedside. Care providers, pharmacy, and demographics verified at this time. Presentation: Pt sent over by [facility], decreased HGB, dark stools x1 week, increase in fatigue, weakness, SOB Admitting dx: GI bleed, Acute blood loss anemia, NSTEMI PCP: Hank Specialists: Jerrell, cardio Preferred Pharmacy: [facility] retail pharm Insurance: [employer] Prescription Benefit: [employer] Living Will/HPOA: Pt states does not have LW/HPOA at this time but would like to complete AD's at this time. Pt provided with AD info at this time per request to look over. Arben grant, voices understanding. LNOK: Odilia Cordova, ; Christine Shahid, daughter Living Arrangements: Pt states lives with bedridden who has multiple sclerosis in a 1 story home and states no concerns at home at this time. Pt states is independent with ADL's. Transportation: Pt states drives self and states no transportation concerns at this time. DME/HHC: Pt states states no current DME or need for any at this time. Pt states that his does have multiple pieces of DME, including a xavi lift. Pt states no hx of HHC or SNF in the past. Pt states no concerns with going home at time of discharge. Pt works night time babysitter. Pt states does not smoke cigarettes or drink ETOH. Pt states no further concerns/needs at this time. CM to follow for any further discharge planning/needs. Advised pt to ask for CM if any further questions/concerns/needs arise, voices understanding. Pt Goal: Home Plan: [place] LYNNE KEANE
--- NOTE | 2020-01-10 12:15 | PCM.PN.HOSP ---
<Mir Mccall - Last Filed: 01/10/20 12:15> Patient Problems: Active and Suspected Problems (Last Updated 12/05/19 @ 16:23 by Roselyn Siddiqui) GI bleed (Acute) Anemia requiring transfusions (Acute) Thrombocytosis (Acute) Acute blood loss anemia (Acute) Abnormal cardiac enzyme level (Acute) Syncope (Acute) Reason for Visit: GI bleed Subjective: Pt resting comfortably in bed NAD. Had EGD this AM - bleeding mass in the esophagus was discovered as well as barretts esophagus. Pt tolerating clears no issues. No heartburn, chest or abdominal pain, no nausea or vomiting. No BM today. Vitals/I&O's: Vital Signs Temp Pulse Resp BP Pulse Ox 98.1 F 81 16 117/66 97 01/10/20 08:58 01/10/20 10:10 01/10/20 08:58 01/10/20 08:58 01/10/20 08:58 Oxygen Delivery Method Room Air Weight: 177 lb 4.026 oz Body Mass Index (BMI) 25.4 Intake and Output for Last 24 Hours 01/08/20 01/09/20 01/10/20 23:59 23:59 23:59 Intake Total 1149.58 / 1149.58 1849.58 / 1849.58 Output Total 580 / 580 1240 / 1240 Balance 569.58 / 569.58 609.58 / 609.58 General: Alert, Oriented x3, Cooperative HEENT: Atraumatic, PERRLA, EOMI, Normocephalic Neck: Supple, No JVD, Negative Carotid Bruits Lungs: Clear to auscultation, Normal air movement Cardiovascular: Regular rate, No murmurs Abdomen: Bowel Sounds Present, Soft, Non Tender Extremities: No edema, Capillary Refill Less than 3 Seconds Skin: No rashes, No breakdown Musculoskeletal: No Tenderness to Palpation of Joints or Extremities Neurological: Cranial nerves II-XII grossly intact Psych/Mental Status: Normal Affect, Appropriate, Alert and oriented to time, place, person, mood and affect Microbiology Past 72 Hours 01/09/20 12:05 Stool Stool Occult Blood (MAYTE) - Final Occult Blood Positive Laboratory Results 01/09/20 12:05: WBC 14.0 H, RBC 2.96 L, Hgb 5.4 L*, Hct 20.7 L, MCV 69.9 L, MCH 18.2 L, MCHC 26.1 L, RDW Std Deviation 43.7, RDW Coeff of Nicholas 17.2 H, Plt Count 831 H*, MPV 9.3, Immature Gran % (Auto) 0.700, Neut % (Auto) 85.5 H, Lymph % (Auto) 5.7 L, Jackson % (Auto) 7.0, Eos % (Auto) 0.5, Baso % (Auto) 0.6, Absolute Neuts (auto) 12.0 H, Absolute Lymphs (auto) 0.80 L, Nucleated RBC % 0.6, Diff Path Review July, Platelet Estimate MKD INC, Hypochromasia 2+, Anisocytosis 2+, Ovalocytes 2+ 01/09/20 12:05: PT 13.3, INR 1.1, APTT 25.4 01/09/20 12:05: Sodium 132 L, Potassium 5.0, Chloride 97 L, Carbon Dioxide 23.0, Anion Gap 12, BUN 25 H, Creatinine 1.09, Estim Creat Clear Calc 73.48, Est GFR (MDRD) Af Amer 88, Est GFR (MDRD) Non-Af 73, BUN/Creatinine Ratio 22.9 H, Glucose 320 H, Calcium 8.5, Total Bilirubin 0.40, AST 10 L, ALT 16, Alkaline Phosphatase 65, Troponin I 1.840 H*, Total Protein 8.0, Albumin 3.3, Globulin 4.7 H, Albumin/Globulin Ratio 0.7 L 01/09/20 12:05: Blood Type O POSITIVE, Antibody Screen NEGATIVE 01/09/20 12:05: Magnesium 2.0 01/09/20 12:05: Crossmatch See Detail 01/09/20 15:33: Troponin I 1.730 H* 01/09/20 17:18: Hgb 5.1 L*, Hct 19.3 L 01/09/20 18:15: POC Glucose 121 H 01/09/20 18:29: Troponin I 1.850 H* 01/09/20 22:16: Hgb 6.0 L*, Hct 21.2 L 01/09/20 23:24: POC Glucose 126 H 01/10/20 05:50: WBC 8.5, RBC 3.64 L, Hgb 8.4 L, Hct 27.4 L, MCV 75.3 L D, MCH 23.1 L, MCHC 30.7 L D, RDW Std Deviation 56.1 H, RDW Coeff of Nicholas 20.9 H, Plt Count 602 H, MPV 9.0, Immature Gran % (Auto) 0.500, Neut % (Auto) 61.5, Lymph % (Auto) 22.2, Jackson % (Auto) 12.0 H, Eos % (Auto) 2.9, Baso % (Auto) 0.9, Absolute Neuts (auto) 5.2, Absolute Lymphs (auto) 1.89, Nucleated RBC % 0.2, Differential Comment SCANNED, Hypochromasia 1+, Microcytosis RARE, Ovalocytes 1+ 01/10/20 05:50: Sodium 136, Potassium 3.8, Chloride 103, Carbon Dioxide 26.0, Anion Gap 7, BUN 20 H, Creatinine 0.73, Estim Creat Clear Calc 109.72, Est GFR (MDRD) Af Amer 141, Est GFR (MDRD) Non-Af 117, BUN/Creatinine Ratio 27.5 H, Glucose 115 H, Calcium 8.2 L, Total Bilirubin 1.30 H, AST 11 L, ALT 11 L, Alkaline Phosphatase 63, Total Protein 7.0, Albumin 3.0 L, Globulin 4.0, Albumin/Globulin Ratio 0.8 L, Triglycerides 121, Cholesterol 90, LDL Cholesterol 36, VLDL Cholesterol 24, HDL Cholesterol 30 L 01/10/20 05:50: PT 13.6, INR 1.1, APTT 26.9 01/10/20 05:50: Hemoglobin A1c 6.2 H 01/10/20 05:50: Iron 30 L, TIBC 441, Iron Saturation 6.8 L 01/10/20 06:05: POC Glucose 126 H 01/10/20 12:07: Hgb Pending, Hct Pending Current Medications Acetaminophen (Acetaminophen 325 Mg Tablet) 650 mg PO Q6H PRN PRN PRN Reason: Pain Score 1-10/Temp > 100.7 F Last Admin: 01/09/20 23:21 Dose: 650 mg Documented by: Albuterol Sulfate (Albuterol 2.5 Mg/3 Ml Vial.Neb.) 2.5 mg INHALATION Q2H PRN PRN PRN Reason: Dyspnea, wheezing Atorvastatin Calcium (Atorvastatin Calcium 40 Mg Tablet) 40 mg PO QHS [facility] Last Admin: 01/09/20 21:48 Dose: 40 mg Documented by: Guaifenesin (Guaifenesin 10 Ml Udc (200mg/10ml)) 20 ml PO Q4H PRN PRN PRN Reason: COUGH Pantoprazole Sodium 40 mg/ (Sodium Chloride) 110 mls @ 330 mls/hr IV Q12 [facility] Last Infusion: 01/10/20 11:03 Dose: Infused Documented by: Ferric Sodium Gluconate Complex 250 mg/ Sodium Chloride 270 mls @ 135 mls/hr IV DAILY [facility] Stop: 01/12/20 11:59 Last Admin: 01/10/20 11:32 Dose: 135 mls/hr Documented by: Insulin Human Lispro (Insulin Lispro 100 Unit/Ml Insuln.Pen) 0 unit SC Q6 [facility]; Protocol Last Admin: 01/10/20 11:36 Dose: Not Given Documented by: Melatonin (Melatonin 3 Mg Tablet) 3 mg PO QHS PRN PRN PRN Reason: INSOMNIA Metoprolol Tartrate (Metoprolol Tartrate 25 Mg Tablet) 25 mg PO BID [facility] Last Admin: 01/10/20 10:10 Dose: 25 mg Documented by: Morphine Sulfate (Morphine 2 Mg/Ml Syringe) 2 mg IV Q3H PRN PRN PRN Reason: Pain Score 6-10 Nitroglycerin (Nitroglycerin (Inpatient Use) 0.4 Mg Tab.Subl) 0.4 mg SUBLINGUAL Q5M PRN PRN Reason: CARDIAC/CHEST PAIN Ondansetron HCl (Ondansetron 4 Mg/2 Ml Vial) 4 mg IV Q8H PRN PRN PRN Reason: NAUSEA/VOMITING Oxycodone HCl (Oxycodone 5 Mg Tablet) 5 mg PO Q4H PRN PRN PRN Reason: Pain Score 4-5 Polysaccharide Iron Complex (Iron Polysaccharide Complex 150 Mg Capsule) [facility] Prochlorperazine Edisylate (Prochlorperazine 10 Mg/2 Ml Vial) 5 mg IV Q4H PRN PRN PRN Reason: Breakthrough Nausea/Vomiting Sodium Chloride (0.9% Saline Lock 10 Ml Syringe) 10 - 40 ml IV UD PRN PRN Reason: SALINE FLUSH Last Admin: 01/10/20 04:06 Dose: 10 ml Documented by: Throat Lozenges (Benzocaine/Menthol 1 Lozenge) 1 lozenge MUCOUS MEM Q2H PRN PRN PRN Reason: SORE THROAT STROKE Vital Signs/Narrative: Vital Signs Temp Pulse Resp BP Pulse Ox 01/10/20 10:10 81 01/10/20 08:58 98.1 F 81 16 117/66 97 01/10/20 08:35 97.1 F L 78 16 109/64 97 01/10/20 08:30 79 16 110/66 98 01/10/20 08:24 79 16 110/71 98 01/10/20 08:20 82 16 112/69 99 01/10/20 08:17 98.0 F 79 16 112/71 98 Medical Necessity - Tobacco Use Smoking Status: Never smoker Tobacco Use: Non-smoker Assessment/Plan All Active Problems (Last Updated 12/05/19 @ 16:23 by Roselyn Siddiqui) GI bleed (Acute) Anemia requiring transfusions (Acute) Thrombocytosis (Acute) Acute blood loss anemia (Acute) Abnormal cardiac enzyme level (Acute) Syncope (Acute) Severe sepsis (Acute) Pneumonia (Acute) Suspected COVID-19 virus infection (Acute) Respiratory distress (Acute) Pneumonia (Acute) Suspected 2019 novel coronavirus infection (Acute) Acute respiratory failure with hypoxia (Acute) Lung nodule (Acute) 1. Acute blood loss anemia 2/2 upper GI bleed 2/2 bleeding esophageal mass - oncology consulted. s/p 3 units PRBC so far. iron deficient - start venofer/po iron. EGD this AM per Dr. Issa. Oncology consulted awaiting further plan. Cycle H/H. Continue IV PPI. 2. Elevated troponin - likely demand ischemia due to #1. Cardiology following no further workup at this time. No CP, no EKG changes at this time. 3. CAD - had CABG x4 this year. Unfortunately for the time being he will need to remain off aspirin and plavix. 4. Hx melanoma - s/p surgical resection, reportedly in remission. 5. DMT2 - continue SSI only while diet remains clears only. 6. Hx chronic diastolic CHF - no exacerbation at this time DVT ppx: SCDs This patient was seen by Mir Mccall PA-C under the supervision of Doctor Ferguson. <Cornelio Ferguson - Last Filed: 01/10/20 14:15> Vitals/I&O's: Vital Signs Temp Pulse Resp BP Pulse Ox 98.1 F 81 16 117/66 97 01/10/20 08:58 01/10/20 10:10 01/10/20 08:58 01/10/20 08:58 01/10/20 08:58 Oxygen Delivery Method Room Air Weight: 80.4 kg Body Mass Index (BMI) 25.4 Intake and Output for Last 24 Hours 01/08/20 01/09/20 01/10/20 23:59 23:59 23:59 Intake Total 1149.58 / 1149.58 2119.58 / 2119.58 Output Total 580 / 580 1240 / 1240 Balance 569.58 / 569.58 879.58 / 879.58 Microbiology Past 72 Hours 01/09/20 12:05 Stool Stool Occult Blood (MAYTE) - Final Occult Blood Positive Laboratory Results 01/09/20 12:05: Diff Path Review Reviewed 01/09/20 12:05: Magnesium 2.0 01/09/20 12:05: Crossmatch See Detail 01/09/20 15:33: Troponin I 1.730 H* 01/09/20 17:18: Hgb 5.1 L*, Hct 19.3 L 01/09/20 18:15: POC Glucose 121 H 01/09/20 18:29: Troponin I 1.850 H* 01/09/20 22:16: Hgb 6.0 L*, Hct 21.2 L 01/09/20 23:24: POC Glucose 126 H 01/10/20 05:50: WBC 8.5, RBC 3.64 L, Hgb 8.4 L, Hct 27.4 L, MCV 75.3 L D, MCH 23.1 L, MCHC 30.7 L D, RDW Std Deviation 56.1 H, RDW Coeff of Nicholas 20.9 H, Plt Count 602 H, MPV 9.0, Immature Gran % (Auto) 0.500, Neut % (Auto) 61.5, Lymph % (Auto) 22.2, Jackson % (Auto) 12.0 H, Eos % (Auto) 2.9, Baso % (Auto) 0.9, Absolute Neuts (auto) 5.2, Absolute Lymphs (auto) 1.89, Nucleated RBC % 0.2, Differential Comment SCANNED, Hypochromasia 1+, Microcytosis RARE, Ovalocytes 1+ 01/10/20 05:50: Sodium 136, Potassium 3.8, Chloride 103, Carbon Dioxide 26.0, Anion Gap 7, BUN 20 H, Creatinine 0.73, Estim Creat Clear Calc 109.72, Est GFR (MDRD) Af Amer 141, Est GFR (MDRD) Non-Af 117, BUN/Creatinine Ratio 27.5 H, Glucose 115 H, Calcium 8.2 L, Total Bilirubin 1.30 H, AST 11 L, ALT 11 L, Alkaline Phosphatase 63, Total Protein 7.0, Albumin 3.0 L, Globulin 4.0, Albumin/Globulin Ratio 0.8 L, Triglycerides 121, Cholesterol 90, LDL Cholesterol 36, VLDL Cholesterol 24, HDL Cholesterol 30 L 01/10/20 05:50: PT 13.6, INR 1.1, APTT 26.9 01/10/20 05:50: Hemoglobin A1c 6.2 H 01/10/20 05:50: Iron 30 L, TIBC 441, Iron Saturation 6.8 L 01/10/20 06:05: POC Glucose 126 H 01/10/20 11:36: POC Glucose 186 H 01/10/20 12:07: Hgb 7.9 L, Hct 27.0 L Current Medications Acetaminophen (Acetaminophen 325 Mg Tablet) 650 mg PO Q6H PRN PRN PRN Reason: Pain Score 1-10/Temp > 100.7 F Last Admin: 01/09/20 23:21 Dose: 650 mg Documented by: Albuterol Sulfate (Albuterol 2.5 Mg/3 Ml Vial.Neb.) 2.5 mg INHALATION Q2H PRN PRN PRN Reason: Dyspnea, wheezing Atorvastatin Calcium (Atorvastatin Calcium 40 Mg Tablet) 40 mg PO QHS [facility] Last Admin: 01/09/20 21:48 Dose: 40 mg Documented by: Guaifenesin (Guaifenesin 10 Ml Udc (200mg/10ml)) 20 ml PO Q4H PRN PRN PRN Reason: COUGH Pantoprazole Sodium 40 mg/ (Sodium Chloride) 110 mls @ 330 mls/hr IV Q12 [facility] Last Infusion: 01/10/20 11:03 Dose: Infused Documented by: Ferric Sodium Gluconate Complex 250 mg/ Sodium Chloride 270 mls @ 135 mls/hr IV DAILY [facility] Stop: 01/12/20 11:59 Last Infusion: 01/10/20 13:55 Dose: Infused Documented by: Insulin Human Lispro (Insulin Lispro 100 Unit/Ml Insuln.Pen) 0 unit SC Q6 [facility]; Protocol Last Admin: 01/10/20 11:36 Dose: Not Given Documented by: Melatonin (Melatonin 3 Mg Tablet) 3 mg PO QHS PRN PRN PRN Reason: INSOMNIA Metoprolol Tartrate (Metoprolol Tartrate 25 Mg Tablet) 25 mg PO BID [facility] Last Admin: 01/10/20 10:10 Dose: 25 mg Documented by: Morphine Sulfate (Morphine 2 Mg/Ml Syringe) 2 mg IV Q3H PRN PRN PRN Reason: Pain Score 6-10 Nitroglycerin (Nitroglycerin (Inpatient Use) 0.4 Mg Tab.Subl) 0.4 mg SUBLINGUAL Q5M PRN PRN Reason: CARDIAC/CHEST PAIN Ondansetron HCl (Ondansetron 4 Mg/2 Ml Vial) 4 mg IV Q8H PRN PRN PRN Reason: NAUSEA/VOMITING Oxycodone HCl (Oxycodone 5 Mg Tablet) 5 mg PO Q4H PRN PRN PRN Reason: Pain Score 4-5 Polysaccharide Iron Complex (Iron Polysaccharide Complex 150 Mg Capsule) [facility] Prochlorperazine Edisylate (Prochlorperazine 10 Mg/2 Ml Vial) 5 mg IV Q4H PRN PRN PRN Reason: Breakthrough Nausea/Vomiting Sodium Chloride (0.9% Saline Lock 10 Ml Syringe) 10 - 40 ml IV UD PRN PRN Reason: SALINE FLUSH Last Admin: 01/10/20 04:06 Dose: 10 ml Documented by: Throat Lozenges (Benzocaine/Menthol 1 Lozenge) 1 lozenge MUCOUS MEM Q2H PRN PRN PRN Reason: SORE THROAT Assessment/Plan This patient was seen in conjunction with Mir Mccall PA-C . I have independently interviewed and examined the patient and reviewed pertinent historical, laboratory, and other data. Please refer to Mir Mccall PA-C note for details of this patient's presentation, findings, and recommendations. I have reviewed Mir Cal PA-C note and concur with documented findings. In brief, patient 59-year-old male admitted with GI bleed Physical Examination: GENERAL: No distress HEENT: Atraumatic; EYES; Anicteric, Normal Conjunctiva NECK; supple, normal thyroid, RESPIRATORY: Diminished to auscultation PSYCH; Flat affect Assessment 1. GI Bleed 2. Esophageal Mass 3. CAD s/p CABG x4 4. History Of melanoma s/p Excision 5. Essential Hypertension 6. Diabetes mellitus type 2 7. Anemia secondary to acute on chronic blood loss anemia 8. Elevated Troponin 9. Chronic CHF with preserved EF Recommendations: 1. I have discussed the results of my overview and impressions with the patient 2. Options for management were reviewed Inpatient E&M: 82460 Subs Hosp L3
[2020-01-10 12:20] LABS: Bedside Glucose 186 mg/dL (70-110)
[2020-01-10 12:34] LABS: Hemoglobin 7.9 g/dL (13.0-16.5)
--- NOTE | 2020-01-10 12:41 | PN.CARD_ITS ---
Subjectve: The patient is awake and alert. He denies any ongoing chest discomfort or difficulty breathing at rest. Objective: Vital Signs Temp Pulse Resp BP Pulse Ox 98.1 F 81 16 117/66 97 01/10/20 08:58 01/10/20 10:10 01/10/20 08:58 01/10/20 08:58 01/10/20 08:58 Oxygen Delivery Method Room Air Weight: 177 lb 4.026 oz Body Mass Index (BMI) 25.4 Intake and Output for Last 24 Hours 01/08/20 01/09/20 01/10/20 23:59 23:59 23:59 Intake Total 1149.58 / 1149.58 1849.58 / 1849.58 Output Total 580 / 580 1240 / 1240 Balance 569.58 / 569.58 609.58 / 609.58 General: Awake, Alert, Oriented x 3, Cooperative, No Acute Distress HEENT: Atraumatic, Normocephalic, PERRL, EOMI, Sclera Non Icteric Neck: Supple, Good ROM, No JVD Lungs: Clear to auscultation Cardiovascular: Regular Rhythm, Normal S1, Normal S2 Abdomen: Bowel Sounds Present, Soft Extremities: No edema Neurological: No Focal Motor or Sensory Deficit Psych/Mental Status: Depressed 01/09/20 12:05: Sodium 132 L, Potassium 5.0, Chloride 97 L, Carbon Dioxide 23.0, Anion Gap 12, BUN 25 H, Creatinine 1.09, Est GFR (MDRD) Af Amer 88, Est GFR (MDRD) Non-Af 73, BUN/Creatinine Ratio 22.9 H, Glucose 320 H, Calcium 8.5, Total Bilirubin 0.40, Troponin I 1.840 H* 01/09/20 12:05: Magnesium 2.0 01/09/20 15:33: Troponin I 1.730 H* 01/09/20 17:18: Hgb 5.1 L*, Hct 19.3 L 01/09/20 18:29: Troponin I 1.850 H* 01/09/20 22:16: Hgb 6.0 L*, Hct 21.2 L 01/10/20 05:50: WBC 8.5, RBC 3.64 L, Hgb 8.4 L, Hct 27.4 L, MCV 75.3 L D, MCH 23.1 L, MCHC 30.7 L D, Plt Count 602 H, MPV 9.0, Immature Gran % (Auto) 0.500, Neut % (Auto) 61.5, Lymph % (Auto) 22.2, [facility] % (Auto) 12.0 H, Eos % (Auto) 2.9, Baso % (Auto) 0.9, Absolute Neuts (auto) 5.2, Nucleated RBC % 0.2 01/10/20 05:50: Sodium 136, Potassium 3.8, Chloride 103, Carbon Dioxide 26.0, Anion Gap 7, BUN 20 H, Creatinine 0.73, Est GFR (MDRD) Af Amer 141, Est GFR (MDRD) Non-Af 117, BUN/Creatinine Ratio 27.5 H, Glucose 115 H, Calcium 8.2 L, Total Bilirubin 1.30 H, Triglycerides 121, Cholesterol 90, LDL Cholesterol 36, VLDL Cholesterol 24, HDL Cholesterol 30 L 01/10/20 05:50: PT 13.6, INR 1.1, APTT 26.9 01/10/20 05:50: Hemoglobin A1c 6.2 H 01/10/20 05:50: Iron 30 L, TIBC 441, Iron Saturation 6.8 L 01/10/20 12:07: Hgb 7.9 L, Hct 27.0 L Rhythm: Sinus rhythm Medical Necessity - Tobacco Use Smoking Status: Never smoker Tobacco Use: Non-smoker Assessment/Plan 1. Abnormal cardiac enzymes He does have abnormal cardiac enzymes/troponin I levels. The present time he has no acute symptoms with respect to ongoing chest discomfort. He has no acute ECG changes. At the moment but concerned that his abnormal cardiac enzymes are related to a type II event related to supply demand mismatch related to his marked anemia. From a cardiac standpoint he will continue to be monitored. He will continue medical therapy as able based upon his other medical conditions. His recent e chocardiogram has been reviewed. It was not felt he required additional cardiac diagnostic studies/intervention at this time. 2. CAD status post CABG followed by post CABG PCI At the moment he is without any acute symptoms of ongoing angina pectoris. Again his cardiac enzymes would appear to be compatible with a type II event secondary to his marked anemia. He will continue to be monitored and continue medical therapy as he is able. He remains without his ASA and clopidogrel / plavix at this time. 3. Syncope He appears to have had a syncopal event approximately a week ago. Based upon the situation he describes this appears to be a situational event most likely vasovagal mediated brought out by his marked anemia. He will continue to be monitored for any obvious cardiac dysrhythmias or conduction system events that require further evaluation and care. Otherwise he will continue his general cardiology evaluation and is noncardiac evaluation of his marked anemia. 4. Hyperlipidemia He will continue medical management. 5. Hypertension His medications will be adjusted based upon his blood pressure recordings. 6. Diabetes mellitus We will continue evaluation care per internal medicine. 7. Anemia thought secondary to gastrointestinal bleeding He is markedly anemic. The concern is this may be related to GI bleeding secondary to his concerns of intermittent melena. He is being monitored. He has received PRBCs. His H/H has improved. He has undergone evaluation with an EGD. He was found to have an esophageal mass. He is now pending additional oncology evaluation. 8. Thrombocytosis He does have marked elevation of his platelet counts. It is unclear whether this is an acute phase reactant. He is going to be evaluated by heme/onc. This note was generated using a voice recognition system and there may be incorrect words, spelling or punctuation that were not noted when reviewing the office note prior to saving.
--- NOTE | 2020-01-10 12:48 | CT_ITS ---
STUDY: CT CHEST WITH CONTRAST REASON FOR EXAM: Male, 59 years old. Anemia from acute blood loss. GI bleed. Fatigue. Shortness of breath. Weakness. Lower esophageal mass seen during endoscopy today. History of melanoma with excision, diabetes and coronary artery disease and four-vessel CABG. RADIATION DOSAGE (If Supplied By Facility): CTDIvol = ( 16.99 ) mGy, DLP = ( 1570.76 ) mGycm TECHNIQUE: Transaxial imaging was performed following intravenous administration of Oral and amp; IV Gastrografin and amp; 100mL Isovue-300. Individualized dose optimization techniques were used for this CT. COMPARISON: Chest, 01/09/2020. CT of the abdomen and pelvis, 01/10/2020. FINDINGS: The lungs are normal. There is no demonstrated pleural abnormality. The heart is normal in size. Normal pericardium. There is evidence of prior CABG procedure. Normal mediastinum. Normal hilar regions. Normal enhanced pulmonary arteries. There is atherosclerotic changes of the thoracic aorta without aneurysm or dissection. There is thickening of the wall of the distal esophagus with luminal narrowing and enlarged diameter. The possibility of a mass in this portion of the esophagus would coincide with the endoscopic findings. There are mild degenerative changes of the shoulders. There are degenerative changes of the thoracic spine. There is no acute fracture. There is evidence of median sternotomy. With exophytic cyst off the upper pole of the right kidney. A smaller cyst seen in the upper pole the left kidney. The upper abdomen is otherwise grossly normal. CT/Chest WITH Contrast IMPRESSION: 1. No acute pulmonary disease. 2. Thick-walled distal esophagus with increased diameter. This would be consistent with the esophageal mass seen during endoscopy earlier today. 3. Evidence of prior CABG procedure. 4. Degenerative changes of the shoulders and thoracic spine. Electronically Signed: Fortino Robledo DO at 16:17 EDT Tel [phone], Service support ,
--- NOTE | 2020-01-10 12:48 | CT_ITS ---
STUDY: CT ABDOMEN AND PELVIS WITH CONTRAST REASON FOR EXAM: Male, 59 years old. Anemia from acute blood loss, GI bleed, increased fatigue, SOB, weakness, lower esophageal mass seen during EGD today. Hx melanoma with excision, diabetes, CAD, 4 vessel CABG. RADIATION DOSAGE (If Supplied By Facility): CTDIvol = ( 16.99 ) mGy, DLP = ( 1570.76 ) mGycm TECHNIQUE: Transaxial images were obtained from the dome of the diaphragm to the symphysis pubis with oral contrast. 100mL Isovue-300 was administered. Sagittal and coronal images were reconstructed. Individualized dose optimization techniques were used for this CT. COMPARISON: None. FINDINGS: The visualized lung bases are unremarkable. There are sternotomy wires. There is hepatomegaly with diffuse hepatic enlargement. Normal gallbladder and extrahepatic biliary system. Normal spleen. Normal pancreas. Normal bilateral adrenal glands. There is 2.1 cm cyst of the right kidney. There is 1.6 cm stone in the mid aspect of the right kidney. There is no hydronephrosis. Normal left kidney. There is wall thickening consistent with mass of the distal esophagus. Normal visualized stomach. Normal small intestine. There are multiple colonic diverticula consistent with diverticulosis. The appendix is visualized and appears upper limits normal. There is diffuse atherosclerotic calcification of the abdominal aorta, without a demonstrated aneurysm. Normal inferior vena cava. Normal retroperitoneum. Normal urinary bladder. There is enlargement of the prostate gland. There is no free fluid in the abdomen or pelvis. Normal abdominal wall. There are diffuse degenerative changes of the visualized lumbar spine. CT/Abdomen/Pelvis WITH Contrast IMPRESSION: Colonic diverticulosis. No obstruction or abscess. Right renal stone. No hydronephrosis. Wall thickening consistent with mass of the distal esophagus. Electronically Signed: Papi Sarah MD at 16:24 EDT , Service support ,
[2020-01-10 13:03] LABS: Pathologist Review Reviewed
--- NOTE | 2020-01-10 14:25 | ONC.OV1 ---
Subjective - Date of Service Date of Service:: 01/10/20 - Chief Complaint Found to have Lower Esophageal tumor. - Past Medical/Social History Social History Smoking Status Never smoker Review of Systems Constitutional:: Denies: Fever, Sweats, Weight loss, Appetite change, Chills Cardiovascular:: Denies: Chest pain, Palpitations, Dyspnea on exertion, Orthopnea, PND, Shortness of breath Respiratory: Denies: Cough, Hemoptysis, Shortness of Breath, Wheezing Gastrointestinal:: Denies: Abdominal pain, Nausea, Vomiting, Diarrhea, Constipation, Hematochezia Genitourinary: Denies: Dysuria, Hematuria, 15, Flank pain Musculoskeletal:: Denies: Back pain, Myalgia, Arthralgia Skin: Denies: Rash, Skin Changes, Wounds Neurological:: Denies: Headache, Dizziness, Visual changes, Tinnitus, Hearing loss Psychiatric: Denies: Anxiety, Depression, Homicidal Ideations, Suicidal Ideations Vital Signs Temperature 98.1 F 01/10/20 08:58 Temperature Source Temporal 01/10/20 08:58 Pulse Rate 81 01/10/20 10:10 Respiratory Rate 16 01/10/20 08:58 Respiratory Effort Non-Labored 01/10/20 11:12 Respiratory Depth Normal 01/10/20 11:12 Respiratory Pattern Normal 01/10/20 11:12 Blood Pressure 117/66 01/10/20 08:58 Blood Pressure Mean 83 01/10/20 08:58 Blood Pressure Source Monitor 01/10/20 08:35 Blood Pressure Position Semi-Fowlers 01/10/20 08:35 Blood Pressure Location Left Arm 01/10/20 08:35 Baseline BP 110/76 01/10/20 08:35 Pulse Ox 97 01/10/20 08:58 Oxygen Delivery Method Room Air 01/10/20 11:12 - Physical Exam General: Alert, Oriented x3, No apparent distress HEENT: Atraumatic, PERRLA, EOMI, Normocephalic Oropharynx:: Dry mucosa Neck:: Supple, Trachea midline. Negative for: JVD, bilateral Cardiac:: Regular rate, Regular rhythm, Normal S1, Normal S2, - - sternal scar.. Negative for: Murmur Lungs: Clear to auscultation, Excusion symmetrical. Negative for: Rhonchi, Wheezes Abdomen:: Bowel sounds x 4, Soft, Non-tender, Non-distended. Negative for: Hepatosplenomegaly Extremities:: Negative for: Cyanosis, Edema Neurological: Neuro grossly intact Skin:: Negative for: Lesions, Rash, Petechiae, Ecchymosis Psychiatric:: Appropriate affect, Euthymic Lymphatics:: Negative for: Cervical lymphadenopathy, Supraclavicular lymphadenopathy, Axillary lymphadenopathy Laboratory Data: Microbiology 01/09/20 12:05 Stool Occult Blood (MAYTE) - Final Stool Occult Blood Positive Laboratory Tests 01/10/20 01/10/20 01/10/20 Range/Units 12:07 11:36 06:05 WBC (4.4-11.0) K/mm3 RBC (4.6-6.2) M/mm3 Hgb 7.9 L (13.0-16.5) g/dL Hct 27.0 L (40-54) % MCV (80-94) fL MCH (27.0-32.0) pg MCHC (32-36) g/dL RDW Std Deviation (35.1-43.9) fl RDW Coeff of Nicholas (11.6-14.6) % Plt Count (150-450) K/mm3 MPV (6.2-12.0) fl Immature Gran % (Auto) (0.0-0.9) % Neut % (Auto) (47-70) % Lymph % (Auto) (19-41) % [place] % (Auto) (0-10) % Eos % (Auto) (0-5) % Baso % (Auto) (0-1) % Absolute Neuts (auto) (2.0-7.7) X10^3/uL Absolute Lymphs (auto) (0.83-4.51) X10^3/uL Nucleated RBC % (0-5) % Differential Comment Diff Path Review Hypochromasia Microcytosis Ovalocytes PT (11.7-14.9) SECONDS INR APTT (24.1-36.2) Seconds Sodium (136-145) mmol/L Potassium (3.5-5.1) mmol/L Chloride (98-107) mmol/L Carbon Dioxide (21.0-32.0) mmol/L Anion Gap (5-15) BUN (7-18) mg/dL Creatinine (0.70-1.30) mg/dL Estim Creat Clear Calc ml/min Est GFR (MDRD) Af Amer (>60) mL/min Est GFR (MDRD) Non-Af (>60) mL/min BUN/Creatinine Ratio (10-20) RATIO Glucose (74-106) mg/dL Hemoglobin A1c (3.8-5.6) % Calcium (8.5-10.1) mg/dL Magnesium (1.6-2.6) mg/dL Iron (65-175) ug/dL TIBC (250-450) ug/dL Iron Saturation (15.0-55.0) % Total Bilirubin (0.20-1.00) mg/dL AST (15-37) U/L ALT (16-61) U/L Alkaline Phosphatase (45-117) U/L Troponin I (<0.045) ng/mL Total Protein (6.4-8.2) g/dL Albumin (3.2-5.0) g/dL Globulin (2.2-4.2) g/dL Albumin/Globulin Ratio (0.9-2.4) RATIO Triglycerides ( - 199) mg/dL Cholesterol (200) mg/dL LDL Cholesterol (0-130) mg/dL VLDL Cholesterol (5-40) mg/dL HDL Cholesterol (40 - ) mg/dL POC Glucose 186 H 126 H (70-110) mg/dL Crossmatch 01/10/20 01/10/20 01/10/20 Range/Units 05:50 05:50 05:50 WBC (4.4-11.0) K/mm3 RBC (4.6-6.2) M/mm3 Hgb (13.0-16.5) g/dL Hct (40-54) % MCV (80-94) fL MCH (27.0-32.0) pg MCHC (32-36) g/dL RDW Std Deviation (35.1-43.9) fl RDW Coeff of Nicholas (11.6-14.6) % Plt Count (150-450) K/mm3 MPV (6.2-12.0) fl Immature Gran % (Auto) (0.0-0.9) % Neut % (Auto) (47-70) % Lymph % (Auto) (19-41) % [place] % (Auto) (0-10) % Eos % (Auto) (0-5) % Baso % (Auto) (0-1) % Absolute Neuts (auto) (2.0-7.7) X10^3/uL Absolute Lymphs (auto) (0.83-4.51) X10^3/uL Nucleated RBC % (0-5) % Differential Comment Diff Path Review Hypochromasia Microcytosis Ovalocytes PT 13.6 (11.7-14.9) SECONDS INR 1.1 APTT 26.9 (24.1-36.2) Seconds Sodium (136-145) mmol/L Potassium (3.5-5.1) mmol/L Chloride (98-107) mmol/L Carbon Dioxide (21.0-32.0) mmol/L Anion Gap (5-15) BUN (7-18) mg/dL Creatinine (0.70-1.30) mg/dL Estim Creat Clear Calc ml/min Est GFR (MDRD) Af Amer (>60) mL/min Est GFR (MDRD) Non-Af (>60) mL/min BUN/Creatinine Ratio (10-20) RATIO Glucose (74-106) mg/dL Hemoglobin A1c 6.2 H (3.8-5.6) % Calcium (8.5-10.1) mg/dL Magnesium (1.6-2.6) mg/dL Iron 30 L (65-175) ug/dL TIBC 441 (250-450) ug/dL Iron Saturation 6.8 L (15.0-55.0) % Total Bilirubin (0.20-1.00) mg/dL AST (15-37) U/L ALT (16-61) U/L Alkaline Phosphatase (45-117) U/L Troponin I (<0.045) ng/mL Total Protein (6.4-8.2) g/dL Albumin (3.2-5.0) g/dL Globulin (2.2-4.2) g/dL Albumin/Globulin Ratio (0.9-2.4) RATIO Triglycerides ( - 199) mg/dL Cholesterol (200) mg/dL LDL Cholesterol (0-130) mg/dL VLDL Cholesterol (5-40) mg/dL HDL Cholesterol (40 - ) mg/dL POC Glucose (70-110) mg/dL Crossmatch 01/10/20 01/10/20 01/09/20 Range/Units 05:50 05:50 23:24 WBC 8.5 (4.4-11.0) K/mm3 RBC 3.64 L (4.6-6.2) M/mm3 Hgb 8.4 L (13.0-16.5) g/dL Hct 27.4 L (40-54) % MCV 75.3 L D (80-94) fL MCH 23.1 L (27.0-32.0) pg MCHC 30.7 L D (32-36) g/dL RDW Std Deviation 56.1 H (35.1-43.9) fl RDW Coeff of Nicholas 20.9 H (11.6-14.6) % Plt Count 602 H (150-450) K/mm3 MPV 9.0 (6.2-12.0) fl Immature Gran % (Auto) 0.500 (0.0-0.9) % Neut % (Auto) 61.5 (47-70) % Lymph % (Auto) 22.2 (19-41) % [place] % (Auto) 12.0 H (0-10) % Eos % (Auto) 2.9 (0-5) % Baso % (Auto) 0.9 (0-1) % Absolute Neuts (auto) 5.2 (2.0-7.7) X10^3/uL Absolute Lymphs (auto) 1.89 (0.83-4.51) X10^3/uL Nucleated RBC % 0.2 (0-5) % Differential Comment SCANNED Diff Path Review Hypochromasia 1+ Microcytosis RARE Ovalocytes 1+ PT (11.7-14.9) SECONDS INR APTT (24.1-36.2) Seconds Sodium 136 (136-145) mmol/L Potassium 3.8 (3.5-5.1) mmol/L Chloride 103 (98-107) mmol/L Carbon Dioxide 26.0 (21.0-32.0) mmol/L Anion Gap 7 (5-15) BUN 20 H (7-18) mg/dL Creatinine 0.73 (0.70-1.30) mg/dL Estim Creat Clear Calc 109.72 ml/min Est GFR (MDRD) Af Amer 141 (>60) mL/min Est GFR (MDRD) Non-Af 117 (>60) mL/min BUN/Creatinine Ratio 27.5 H (10-20) RATIO Glucose 115 H (74-106) mg/dL Hemoglobin A1c (3.8-5.6) % Calcium 8.2 L (8.5-10.1) mg/dL Magnesium (1.6-2.6) mg/dL Iron (65-175) ug/dL TIBC (250-450) ug/dL Iron Saturation (15.0-55.0) % Total Bilirubin 1.30 H (0.20-1.00) mg/dL AST 11 L (15-37) U/L ALT 11 L (16-61) U/L Alkaline Phosphatase 63 (45-117) U/L Troponin I (<0.045) ng/mL Total Protein 7.0 (6.4-8.2) g/dL Albumin 3.0 L (3.2-5.0) g/dL Globulin 4.0 (2.2-4.2) g/dL Albumin/Globulin Ratio 0.8 L (0.9-2.4) RATIO Triglycerides 121 ( - 199) mg/dL Cholesterol 90 (200) mg/dL LDL Cholesterol 36 (0-130) mg/dL VLDL Cholesterol 24 (5-40) mg/dL HDL Cholesterol 30 L (40 - ) mg/dL POC Glucose 126 H (70-110) mg/dL Crossmatch 01/09/20 01/09/20 01/09/20 Range/Units 22:16 18:29 18:15 WBC (4.4-11.0) K/mm3 RBC (4.6-6.2) M/mm3 Hgb 6.0 L* (13.0-16.5) g/dL Hct 21.2 L (40-54) % MCV (80-94) fL MCH (27.0-32.0) pg MCHC (32-36) g/dL RDW Std Deviation (35.1-43.9) fl RDW Coeff of Nicholas (11.6-14.6) % Plt Count (150-450) K/mm3 MPV (6.2-12.0) fl Immature Gran % (Auto) (0.0-0.9) % Neut % (Auto) (47-70) % Lymph % (Auto) (19-41) % [place] % (Auto) (0-10) % Eos % (Auto) (0-5) % Baso % (Auto) (0-1) % Absolute Neuts (auto) (2.0-7.7) X10^3/uL Absolute Lymphs (auto) (0.83-4.51) X10^3/uL Nucleated RBC % (0-5) % Differential Comment Diff Path Review Hypochromasia Microcytosis Ovalocytes PT (11.7-14.9) SECONDS INR APTT (24.1-36.2) Seconds Sodium (136-145) mmol/L Potassium (3.5-5.1) mmol/L Chloride (98-107) mmol/L Carbon Dioxide (21.0-32.0) mmol/L Anion Gap (5-15) BUN (7-18) mg/dL Creatinine (0.70-1.30) mg/dL Estim Creat Clear Calc ml/min Est GFR (MDRD) Af Amer (>60) mL/min Est GFR (MDRD) Non-Af (>60) mL/min BUN/Creatinine Ratio (10-20) RATIO Glucose (74-106) mg/dL Hemoglobin A1c (3.8-5.6) % Calcium (8.5-10.1) mg/dL Magnesium (1.6-2.6) mg/dL Iron (65-175) ug/dL TIBC (250-450) ug/dL Iron Saturation (15.0-55.0) % Total Bilirubin (0.20-1.00) mg/dL AST (15-37) U/L ALT (16-61) U/L Alkaline Phosphatase (45-117) U/L Troponin I 1.850 H* (<0.045) ng/mL Total Protein (6.4-8.2) g/dL Albumin (3.2-5.0) g/dL Globulin (2.2-4.2) g/dL Albumin/Globulin Ratio (0.9-2.4) RATIO Triglycerides ( - 199) mg/dL Cholesterol (200) mg/dL LDL Cholesterol (0-130) mg/dL VLDL Cholesterol (5-40) mg/dL HDL Cholesterol (40 - ) mg/dL POC Glucose 121 H (70-110) mg/dL Crossmatch 01/09/20 01/09/20 01/09/20 Range/Units 17:18 15:33 12:05 WBC (4.4-11.0) K/mm3 RBC (4.6-6.2) M/mm3 Hgb 5.1 L* (13.0-16.5) g/dL Hct 19.3 L (40-54) % MCV (80-94) fL MCH (27.0-32.0) pg MCHC (32-36) g/dL RDW Std Deviation (35.1-43.9) fl RDW Coeff of Nicholas (11.6-14.6) % Plt Count (150-450) K/mm3 MPV (6.2-12.0) fl Immature Gran % (Auto) (0.0-0.9) % Neut % (Auto) (47-70) % Lymph % (Auto) (19-41) % [place] % (Auto) (0-10) % Eos % (Auto) (0-5) % Baso % (Auto) (0-1) % Absolute Neuts (auto) (2.0-7.7) X10^3/uL Absolute Lymphs (auto) (0.83-4.51) X10^3/uL Nucleated RBC % (0-5) % Differential Comment Diff Path Review Hypochromasia Microcytosis Ovalocytes PT (11.7-14.9) SECONDS INR APTT (24.1-36.2) Seconds Sodium (136-145) mmol/L Potassium (3.5-5.1) mmol/L Chloride (98-107) mmol/L Carbon Dioxide (21.0-32.0) mmol/L Anion Gap (5-15) BUN (7-18) mg/dL Creatinine (0.70-1.30) mg/dL Estim Creat Clear Calc ml/min Est GFR (MDRD) Af Amer (>60) mL/min Est GFR (MDRD) Non-Af (>60) mL/min BUN/Creatinine Ratio (10-20) RATIO Glucose (74-106) mg/dL Hemoglobin A1c (3.8-5.6) % Calcium (8.5-10.1) mg/dL Magnesium (1.6-2.6) mg/dL Iron (65-175) ug/dL TIBC (250-450) ug/dL Iron Saturation (15.0-55.0) % Total Bilirubin (0.20-1.00) mg/dL AST (15-37) U/L ALT (16-61) U/L Alkaline Phosphatase (45-117) U/L Troponin I 1.730 H* (<0.045) ng/mL Total Protein (6.4-8.2) g/dL Albumin (3.2-5.0) g/dL Globulin (2.2-4.2) g/dL Albumin/Globulin Ratio (0.9-2.4) RATIO Triglycerides ( - 199) mg/dL Cholesterol (200) mg/dL LDL Cholesterol (0-130) mg/dL VLDL Cholesterol (5-40) mg/dL HDL Cholesterol (40 - ) mg/dL POC Glucose (70-110) mg/dL Crossmatch See Detail 01/09/20 01/09/20 Range/Units 12:05 12:05 WBC (4.4-11.0) K/mm3 RBC (4.6-6.2) M/mm3 Hgb (13.0-16.5) g/dL Hct (40-54) % MCV (80-94) fL MCH (27.0-32.0) pg MCHC (32-36) g/dL RDW Std Deviation (35.1-43.9) fl RDW Coeff of Nicholas (11.6-14.6) % Plt Count (150-450) K/mm3 MPV (6.2-12.0) fl Immature Gran % (Auto) (0.0-0.9) % Neut % (Auto) (47-70) % Lymph % (Auto) (19-41) % [place] % (Auto) (0-10) % Eos % (Auto) (0-5) % Baso % (Auto) (0-1) % Absolute Neuts (auto) (2.0-7.7) X10^3/uL Absolute Lymphs (auto) (0.83-4.51) X10^3/uL Nucleated RBC % (0-5) % Differential Comment Diff Path Review Reviewed Hypochromasia Microcytosis Ovalocytes PT (11.7-14.9) SECONDS INR APTT (24.1-36.2) Seconds Sodium (136-145) mmol/L Potassium (3.5-5.1) mmol/L Chloride (98-107) mmol/L Carbon Dioxide (21.0-32.0) mmol/L Anion Gap (5-15) BUN (7-18) mg/dL Creatinine (0.70-1.30) mg/dL Estim Creat Clear Calc ml/min Est GFR (MDRD) Af Amer (>60) mL/min Est GFR (MDRD) Non-Af (>60) mL/min BUN/Creatinine Ratio (10-20) RATIO Glucose (74-106) mg/dL Hemoglobin A1c (3.8-5.6) % Calcium (8.5-10.1) mg/dL Magnesium 2.0 (1.6-2.6) mg/dL Iron (65-175) ug/dL TIBC (250-450) ug/dL Iron Saturation (15.0-55.0) % Total Bilirubin (0.20-1.00) mg/dL AST (15-37) U/L ALT (16-61) U/L Alkaline Phosphatase (45-117) U/L Troponin I (<0.045) ng/mL Total Protein (6.4-8.2) g/dL Albumin (3.2-5.0) g/dL Globulin (2.2-4.2) g/dL Albumin/Globulin Ratio (0.9-2.4) RATIO Triglycerides ( - 199) mg/dL Cholesterol (200) mg/dL LDL Cholesterol (0-130) mg/dL VLDL Cholesterol (5-40) mg/dL HDL Cholesterol (40 - ) mg/dL POC Glucose (70-110) mg/dL Crossmatch Diagnostic Data: Diagnostic Data Chest X-Ray 01/09/20 12:09 IMPRESSION: No acute abnormality is seen. Electronically Signed: Jonatan De Leon, at 13:02 EDT , Service support , Assessment and Plan Medications: Prescriptions This Visit Medication Instructions Recorded Furosemide 40 mg PO DAILY 01/09/20 Ibuprofen 200 mg PO DAILY PRN PRN 01/09/20 Potassium Chloride [K-Tab ER] 20 meq PO DAILY 01/09/20 Medications Added to Medication List This Visit Category Date Time Status Iron Polysaccharide Complex [Ferrex 150] Med 01/11/20 08:00 Active 150 mg PO DAILYCM Sodium Ferric Gluconat/Sucrose [Ferrlecit (GEQ)] 250 mg Med 01/10/20 11:00 Active 0.9% Normal Saline 250 ml IV DAILY Primary Care Provider: Dr. Shane Mckinney MD Referring Provider:
--- NOTE | 2020-01-10 16:08 | CON.PCM_ITS ---
Consult Referring Physician: Dr. Jaun Issa Consult Results: Lower esophageal mass and UGI bleeding, biopsy pending. Subjective Date of Service:: 01/10/20 Chief Complaint: Lower esophageal mass. History of Present Illness: 59-year-old man with history of coronary artery disease presented with sudden drop in hematocrit. He had upper GI endoscopy done this morning by Dr. Issa. He was found to have bleeding, in the lower esophagus. Asked to see patient for management of esophageal mass by Dr. Issa. Past Medical History: Chronic Problems (Last Updated 12/05/19 @ 16:23 by Roselyn Siddiqui) Diastolic CHF (Chronic) S/P PTCA (percutaneous transluminal coronary angioplasty) (Chronic) S/P CABG (coronary artery bypass graft) (Chronic) Melanoma (Chronic) CAD (coronary artery disease) (Chronic) History of coronary artery bypass surgery (Chronic ~06/02/19) CABG x4- FLORES-LAD, SHARYN -OM1; Radial - OM3, SVG -PDA 06/02/19 @ [facility] Atherosclerotic heart disease of [place] coronary artery without angina pectoris (Chronic) Essential hypertension (Chronic) Type 2 diabetes mellitus (Chronic) HLD (hyperlipidemia) (Chronic) NSTEMI (non-ST elevated myocardial infarction) (Chronic) Past Medical/Surgical History: Past Medical History - Most Recent Inpatient Visit Past Medical History Start: 01/09/20 14:37 Text: Status: Complete Freq: ONCE Protocol: Document 01/09/20 15:18 [facility] [place] (Rec: 01/09/20 15:21 [facility] [place] [id number]) BMI Required to complete PMH What is Patient's BMI 25.1 Past Medical History Unable History Recalled No Query Text:Pt Unable/Family Not Present Neurologic Medical History Hx Stroke/TIA No Hx Dementia/Alzheimer's No Hx Parkinson's Disease No Hx Seizures No Hx Multiple Sclerosis No Hx Migraines No Cardiac Medical History VTE Present on Admission No Hx of Deep Vein Thrombosis/VTE/PE No Hx Hypertension Yes Hx Chest Pain/Angina Yes Hx Heart Attack Yes: mi x3 Hx Cardiac Surgery/Stents/Etc. Yes: CABGx4 May 2019 and stents x2 July 2019 Hx Heart Failure Yes Hx Pacemaker/AICD No Hx Irregular Heartbeat and/or Afib No Hx Anticoagulant Therapy Yes: aspirin and plavix Query Text:(Coumadin, Aspirin, Plavix, Xarelto, etc.) Hx Pain in Legs when Walking/Leg Cramps Yes Respiratory Medical History Hx COPD No Hx Emphysema No Hx Smoking No Smoking Status Never smoker Tobacco Use Non-smoker Hx Smoking Exposure No Hx Tobacco Use in last 12 months No Hx of Pipe Smoking No Hx Sleep Apnea No Do you snore loudly (louder than talking Yes or can be heard through closed doors)? Do you often feel tired/ fatigued/ Yes sleepy during daytime? Has anyone observed you stop breathing No during sleep? STOP Results Positive GI Medical History Hx Ulcer No Hx Hepatitis No Hx Cirrhosis No Hx GI Bleed Yes Hx Unplanned Weight Loss Yes Genitourinary Medical History Indwelling Catheter in Place on Arrival/ No Admission Hx Renal Disease No Hx Dialysis No Musculoskeletal History Hx Arthritis Yes: B/L Hands Hx Rheumatoid Arthritis No Endocrine Medical History Hx Diabetes Yes: TYPE 2 Hx Thyroid Disease No Hematologic Medical History Hx of Blood Transfusion No Hx of Transfusion in last 3 Months No Ever experience any problems with No transfusion(s)? Hx of Preganancy in last 3 Months N/A Nurse Filling Out Transfusion & SGESSEL Questions: Date: 01/09/20 Time: 15:20 Psycho/Social Medical History Hx Depression No Hx Anxiety No Hx Behavior Disorder No Hx Alcohol Use Yes: rarely Hx Substance Use No Other Medical History Hx Blood Disorders No Hx Anemia Yes Hx Cancer Yes: melanoma-removed Hx Drug Resistant Organism No Wound/Pressure Injury Present on Arrival No: to be assessed per primary /Admission rn Query Text:If yes, chart assessment in Shift/Clinical Findings Central Line/PICC/VAD Present on Arrival No /Admission Antibiotics within last 7 days? No Risk for Readmission Number of Risk Factors 8 At Risk for Readmission Patient is At Risk For Readmission Patient is eligible for Call Back Y Past Medical History (Last Updated 12/05/19 @ 16:23 by Roselyn Siddiqui) Melanoma (Chronic) Lung nodule (Acute) Atherosclerotic heart disease of [place] coronary artery without angina pectoris (Chronic) Essential hypertension (Chronic) Type 2 diabetes mellitus (Chronic) HLD (hyperlipidemia) (Chronic) NSTEMI (non-ST elevated myocardial infarction) (Chronic) HTN (hypertension) (Inactive) Past Surgical History (Last Reviewed 12/05/19 @ 16:22 by Roselyn Siddiqui) History of coronary artery bypass surgery (Chronic ~06/02/19) History of left heart catheterization (LHC) (Resolved ~05/25/19) Maternal Family History: Family History (Last Reviewed 12/05/19 @ 16:22 by Roselyn Siddiqui) Mother CAD (coronary artery disease) Father CAD (coronary artery disease) History of coronary artery bypass surgery Family History: Heart Disease Paternal Family History: Family History (Last Reviewed 12/05/19 @ 16:22 by Roselyn Siddiqui) Mother CAD (coronary artery disease) Father CAD (coronary artery disease) History of coronary artery bypass surgery Family History: Heart Disease - Social History Lives: Spouse/ Significant Other Smoking Status: Never smoker Tobacco Use: Non-smoker Alcohol: None Drugs: None Allergies/Adverse Reactions: Allergy/AdvReac Type Severity Reaction Status Date / Time rosuvastatin [From Crestor] AdvReac Severe Aches Verified 01/09/20 11:37 simvastatin AdvReac Severe Stiff Verified 01/09/20 11:37 Joints Review of Systems Constitutional:: Reports: Fatigue Cardiovascular:: Denies: Chest pain, Palpitations, Dyspnea on exertion, Orthopnea, PND, Shortness of breath Respiratory: Denies: Cough, Hemoptysis, Shortness of Breath, Wheezing Gastrointestinal:: Denies: Abdominal pain, Nausea, Vomiting, Diarrhea, Con stipation, Hematochezia Genitourinary: Denies: Dysuria, Hematuria, 15, Flank pain Musculoskeletal:: Denies: Back pain, Myalgia, Arthralgia Skin: Denies: Rash, Skin Changes, Wounds Neurological:: Denies: Headache, Dizziness, Visual changes, Tinnitus, Hearing loss Vital Signs Temperature 98.7 F 01/10/20 14:57 Temperature Source Oral 01/10/20 14:57 Pulse Rate 84 01/10/20 15:00 Respiratory Rate 14 01/10/20 14:57 Respiratory Effort Non-Labored 01/10/20 15:00 Respiratory Depth Normal 01/10/20 15:00 Respiratory Pattern Normal 01/10/20 15:00 Blood Pressure 110/70 01/10/20 14:57 Blood Pressure Mean 83 01/10/20 14:57 Blood Pressure Source Monitor 01/10/20 14:57 Blood Pressure Position Semi-Fowlers 01/10/20 08:35 Blood Pressure Location Left Arm 01/10/20 08:35 Baseline BP 110/76 01/10/20 08:35 Pulse Ox 95 01/10/20 14:57 Oxygen Delivery Method Room Air 01/10/20 15:00 - Physical Exam General: Alert, Oriented x3, No apparent distress HEENT: Atraumatic, PERRLA, EOMI, Normocephalic Oropharynx:: Dry mucosa Neck:: Supple, Trachea midline. Negative for: JVD, bilateral Cardiac:: Regular rate, Regular rhythm, Normal S1, Normal S2, - - sternal scar.. Negative for: Murmur Lungs: Clear to auscultation, Excusion symmetrical. Negative for: Rhonchi, Wheezes Abdomen:: Bowel sounds x 4, Soft, Non-tender, Non-distended. Negative for: Hepatosplenomegaly Extremities:: Negative for: Cyanosis, Edema Neurological: Neuro grossly intact Skin:: Negative for: Lesions, Rash, Petechiae, Ecchymosis Psychiatric:: Appropriate affect, Euthymic Lymphatics:: Negative for: Cervical lymphadenopathy, Supraclavicular lymphadenopathy, Axillary lymphadenopathy Laboratory Data: Microbiology 01/09/20 12:05 Stool Occult Blood (MAYTE) - Final Stool Occult Blood Positive Laboratory Tests 01/10/20 01/10/20 01/10/20 Range/Units 12:07 11:36 06:05 WBC (4.4-11.0) K/mm3 RBC (4.6-6.2) M/mm3 Hgb 7.9 L (13.0-16.5) g/dL Hct 27.0 L (40-54) % MCV (80-94) fL MCH (27.0-32.0) pg MCHC (32-36) g/dL RDW Std Deviation (35.1-43.9) fl RDW Coeff of Nicholas (11.6-14.6) % Plt Count (150-450) K/mm3 MPV (6.2-12.0) fl Immature Gran % (Auto) (0.0-0.9) % Neut % (Auto) (47-70) % Lymph % (Auto) (19-41) % [place] % (Auto) (0-10) % Eos % (Auto) (0-5) % Baso % (Auto) (0-1) % Absolute Neuts (auto) (2.0-7.7) X10^3/uL Absolute Lymphs (auto) (0.83-4.51) X10^3/uL Nucleated RBC % (0-5) % Differential Comment Diff Path Review Hypochromasia Microcytosis Ovalocytes PT (11.7-14.9) SECONDS INR APTT (24.1-36.2) Seconds Sodium (136-145) mmol/L Potassium (3.5-5.1) mmol/L Chloride (98-107) mmol/L Carbon Dioxide (21.0-32.0) mmol/L Anion Gap (5-15) BUN (7-18) mg/dL Creatinine (0.70-1.30) mg/dL Estim Creat Clear Calc ml/min Est GFR (MDRD) Af Amer (>60) mL/min Est GFR (MDRD) Non-Af (>60) mL/min BUN/Creatinine Ratio (10-20) RATIO Glucose (74-106) mg/dL Hemoglobin A1c (3.8-5.6) % Calcium (8.5-10.1) mg/dL Iron (65-175) ug/dL TIBC (250-450) ug/dL Iron Saturation (15.0-55.0) % Total Bilirubin (0.20-1.00) mg/dL AST (15-37) U/L ALT (16-61) U/L Alkaline Phosphatase (45-117) U/L Troponin I (<0.045) ng/mL Total Protein (6.4-8.2) g/dL Albumin (3.2-5.0) g/dL Globulin (2.2-4.2) g/dL Albumin/Globulin Ratio (0.9-2.4) RATIO Triglycerides ( - 199) mg/dL Cholesterol (200) mg/dL LDL Cholesterol (0-130) mg/dL VLDL Cholesterol (5-40) mg/dL HDL Cholesterol (40 - ) mg/dL POC Glucose 186 H 126 H (70-110) mg/dL Crossmatch 01/10/20 01/10/20 01/10/20 Range/Units 05:50 05:50 05:50 WBC (4.4-11.0) K/mm3 RBC (4.6-6.2) M/mm3 Hgb (13.0-16.5) g/dL Hct (40-54) % MCV (80-94) fL MCH (27.0-32.0) pg MCHC (32-36) g/dL RDW Std Deviation (35.1-43.9) fl RDW Coeff of Nicholas (11.6-14.6) % Plt Count (150-450) K/mm3 MPV (6.2-12.0) fl Immature Gran % (Auto) (0.0-0.9) % Neut % (Auto) (47-70) % Lymph % (Auto) (19-41) % [place] % (Auto) (0-10) % Eos % (Auto) (0-5) % Baso % (Auto) (0-1) % Absolute Neuts (auto) (2.0-7.7) X10^3/uL Absolute Lymphs (auto) (0.83-4.51) X10^3/uL Nucleated RBC % (0-5) % Differential Comment Diff Path Review Hypochromasia Microcytosis Ovalocytes PT 13.6 (11.7-14.9) SECONDS INR 1.1 APTT 26.9 (24.1-36.2) Seconds Sodium (136-145) mmol/L Potassium (3.5-5.1) mmol/L Chloride (98-107) mmol/L Carbon Dioxide (21.0-32.0) mmol/L Anion Gap (5-15) BUN (7-18) mg/dL Creatinine (0.70-1.30) mg/dL Estim Creat Clear Calc ml/min Est GFR (MDRD) Af Amer (>60) mL/min Est GFR (MDRD) Non-Af (>60) mL/min BUN/Creatinine Ratio (10-20) RATIO Glucose (74-106) mg/dL Hemoglobin A1c 6.2 H (3.8-5.6) % Calcium (8.5-10.1) mg/dL Iron 30 L (65-175) ug/dL TIBC 441 (250-450) ug/dL Iron Saturation 6.8 L (15.0-55.0) % Total Bilirubin (0.20-1.00) mg/dL AST (15-37) U/L ALT (16-61) U/L Alkaline Phosphatase (45-117) U/L Troponin I (<0.045) ng/mL Total Protein (6.4-8.2) g/dL Albumin (3.2-5.0) g/dL Globulin (2.2-4.2) g/dL Albumin/Globulin Ratio (0.9-2.4) RATIO Triglycerides ( - 199) mg/dL Cholesterol (200) mg/dL LDL Cholesterol (0-130) mg/dL VLDL Cholesterol (5-40) mg/dL HDL Cholesterol (40 - ) mg/dL POC Glucose (70-110) mg/dL Crossmatch 01/10/20 01/10/20 01/09/20 Range/Units 05:50 05:50 23:24 WBC 8.5 (4.4-11.0) K/mm3 RBC 3.64 L (4.6-6.2) M/mm3 Hgb 8.4 L (13.0-16.5) g/dL Hct 27.4 L (40-54) % MCV 75.3 L D (80-94) fL MCH 23.1 L (27.0-32.0) pg MCHC 30.7 L D (32-36) g/dL RDW Std Deviation 56.1 H (35.1-43.9) fl RDW Coeff of Nicholas 20.9 H (11.6-14.6) % Plt Count 602 H (150-450) K/mm3 MPV 9.0 (6.2-12.0) fl Immature Gran % (Auto) 0.500 (0.0-0.9) % Neut % (Auto) 61.5 (47-70) % Lymph % (Auto) 22.2 (19-41) % [place] % (Auto) 12.0 H (0-10) % Eos % (Auto) 2.9 (0-5) % Baso % (Auto) 0.9 (0-1) % Absolute Neuts (auto) 5.2 (2.0-7.7) X10^3/uL Absolute Lymphs (auto) 1.89 (0.83-4.51) X10^3/uL Nucleated RBC % 0.2 (0-5) % Differential Comment SCANNED Diff Path Review Hypochromasia 1+ Microcytosis RARE Ovalocytes 1+ PT (11.7-14.9) SECONDS INR APTT (24.1-36.2) Seconds Sodium 136 (136-145) mmol/L Potassium 3.8 (3.5-5.1) mmol/L Chloride 103 (98-107) mmol/L Carbon Dioxide 26.0 (21.0-32.0) mmol/L Anion Gap 7 (5-15) BUN 20 H (7-18) mg/dL Creatinine 0.73 (0.70-1.30) mg/dL Estim Creat Clear Calc 109.72 ml/min Est GFR (MDRD) Af Amer 141 (>60) mL/min Est GFR (MDRD) Non-Af 117 (>60) mL/min BUN/Creatinine Ratio 27.5 H (10-20) RATIO Glucose 115 H (74-106) mg/dL Hemoglobin A1c (3.8-5.6) % Calcium 8.2 L (8.5-10.1) mg/dL Iron (65-175) ug/dL TIBC (250-450) ug/dL Iron Saturation (15.0-55.0) % Total Bilirubin 1.30 H (0.20-1.00) mg/dL AST 11 L (15-37) U/L ALT 11 L (16-61) U/L Alkaline Phosphatase 63 (45-117) U/L Troponin I (<0.045) ng/mL Total Protein 7.0 (6.4-8.2) g/dL Albumin 3.0 L (3.2-5.0) g/dL Globulin 4.0 (2.2-4.2) g/dL Albumin/Globulin Ratio 0.8 L (0.9-2.4) RATIO Triglycerides 121 ( - 199) mg/dL Cholesterol 90 (200) mg/dL LDL Cholesterol 36 (0-130) mg/dL VLDL Cholesterol 24 (5-40) mg/dL HDL Cholesterol 30 L (40 - ) mg/dL POC Glucose 126 H (70-110) mg/dL Crossmatch 01/09/20 01/09/20 01/09/20 Range/Units 22:16 18:29 18:15 WBC (4.4-11.0) K/mm3 RBC (4.6-6.2) M/mm3 Hgb 6.0 L* (13.0-16.5) g/dL Hct 21.2 L (40-54) % MCV (80-94) fL MCH (27.0-32.0) pg MCHC (32-36) g/dL RDW Std Deviation (35.1-43.9) fl RDW Coeff of Nicholas (11.6-14.6) % Plt Count (150-450) K/mm3 MPV (6.2-12.0) fl Immature Gran % (Auto) (0.0-0.9) % Neut % (Auto) (47-70) % Lymph % (Auto) (19-41) % [place] % (Auto) (0-10) % Eos % (Auto) (0-5) % Baso % (Auto) (0-1) % Absolute Neuts (auto) (2.0-7.7) X10^3/uL Absolute Lymphs (auto) (0.83-4.51) X10^3/uL Nucleated RBC % (0-5) % Differential Comment Diff Path Review Hypochromasia Microcytosis Ovalocytes PT (11.7-14.9) SECONDS INR APTT (24.1-36.2) Seconds Sodium (136-145) mmol/L Potassium (3.5-5.1) mmol/L Chloride (98-107) mmol/L Carbon Dioxide (21.0-32.0) mmol/L Anion Gap (5-15) BUN (7-18) mg/dL Creatinine (0.70-1.30) mg/dL Estim Creat Clear Calc ml/min Est GFR (MDRD) Af Amer (>60) mL/min Est GFR (MDRD) Non-Af (>60) mL/min BUN/Creatinine Ratio (10-20) RATIO Glucose (74-106) mg/dL Hemoglobin A1c (3.8-5.6) % Calcium (8.5-10.1) mg/dL Iron (65-175) ug/dL TIBC (250-450) ug/dL Iron Saturation (15.0-55.0) % Total Bilirubin (0.20-1.00) mg/dL AST (15-37) U/L ALT (16-61) U/L Alkaline Phosphatase (45-117) U/L Troponin I 1.850 H* (<0.045) ng/mL Total Protein (6.4-8.2) g/dL Albumin (3.2-5.0) g/dL Globulin (2.2-4.2) g/dL Albumin/Globulin Ratio (0.9-2.4) RATIO Triglycerides ( - 199) mg/dL Cholesterol (200) mg/dL LDL Cholesterol (0-130) mg/dL VLDL Cholesterol (5-40) mg/dL HDL Cholesterol (40 - ) mg/dL POC Glucose 121 H (70-110) mg/dL Crossmatch 01/09/20 01/09/20 01/09/20 Range/Units 17:18 15:33 12:05 WBC (4.4-11.0) K/mm3 RBC (4.6-6.2) M/mm3 Hgb 5.1 L* (13.0-16.5) g/dL Hct 19.3 L (40-54) % MCV (80-94) fL MCH (27.0-32.0) pg MCHC (32-36) g/dL RDW Std Deviation (35.1-43.9) fl RDW Coeff of Nicholas (11.6-14.6) % Plt Count (150-450) K/mm3 MPV (6.2-12.0) fl Immature Gran % (Auto) (0.0-0.9) % Neut % (Auto) (47-70) % Lymph % (Auto) (19-41) % [place] % (Auto) (0-10) % Eos % (Auto) (0-5) % Baso % (Auto) (0-1) % Absolute Neuts (auto) (2.0-7.7) X10^3/uL Absolute Lymphs (auto) (0.83-4.51) X10^3/uL Nucleated RBC % (0-5) % Differential Comment Diff Path Review Hypochromasia Microcytosis Ovalocytes PT (11.7-14.9) SECONDS INR APTT (24.1-36.2) Seconds Sodium (136-145) mmol/L Potassium (3.5-5.1) mmol/L Chloride (98-107) mmol/L Carbon Dioxide (21.0-32.0) mmol/L Anion Gap (5-15) BUN (7-18) mg/dL Creatinine (0.70-1.30) mg/dL Estim Creat Clear Calc ml/min Est GFR (MDRD) Af Amer (>60) mL/min Est GFR (MDRD) Non-Af (>60) mL/min BUN/Creatinine Ratio (10-20) RATIO Glucose (74-106) mg/dL Hemoglobin A1c (3.8-5.6) % Calcium (8.5-10.1) mg/dL Iron (65-175) ug/dL TIBC (250-450) ug/dL Iron Saturation (15.0-55.0) % Total Bilirubin (0.20-1.00) mg/dL AST (15-37) U/L ALT (16-61) U/L Alkaline Phosphatase (45-117) U/L Troponin I 1.730 H* (<0.045) ng/mL Total Protein (6.4-8.2) g/dL Albumin (3.2-5.0) g/dL Globulin (2.2-4.2) g/dL Albumin/Globulin Ratio (0.9-2.4) RATIO Triglycerides ( - 199) mg/dL Cholesterol (200) mg/dL LDL Cholesterol (0-130) mg/dL VLDL Cholesterol (5-40) mg/dL HDL Cholesterol (40 - ) mg/dL POC Glucose (70-110) mg/dL Crossmatch See Detail 01/09/20 Range/Units 12:05 WBC (4.4-11.0) K/mm3 RBC (4.6-6.2) M/mm3 Hgb (13.0-16.5) g/dL Hct (40-54) % MCV (80-94) fL MCH (27.0-32.0) pg MCHC (32-36) g/dL RDW Std Deviation (35.1-43.9) fl RDW Coeff of Nicholas (11.6-14.6) % Plt Count (150-450) K/mm3 MPV (6.2-12.0) fl Immature Gran % (Auto) (0.0-0.9) % Neut % (Auto) (47-70) % Lymph % (Auto) (19-41) % [place] % (Auto) (0-10) % Eos % (Auto) (0-5) % Baso % (Auto) (0-1) % Absolute Neuts (auto) (2.0-7.7) X10^3/uL Absolute Lymphs (auto) (0.83-4.51) X10^3/uL Nucleated RBC % (0-5) % Differential Comment Diff Path Review Reviewed Hypochromasia Microcytosis Ovalocytes PT (11.7-14.9) SECONDS INR APTT (24.1-36.2) Seconds Sodium (136-145) mmol/L Potassium (3.5-5.1) mmol/L Chloride (98-107) mmol/L Carbon Dioxide (21.0-32.0) mmol/L Anion Gap (5-15) BUN (7-18) mg/dL Creatinine (0.70-1.30) mg/dL Estim Creat Clear Calc ml/min Est GFR (MDRD) Af Amer (>60) mL/min Est GFR (MDRD) Non-Af (>60) mL/min BUN/Creatinine Ratio (10-20) RATIO Glucose (74-106) mg/dL Hemoglobin A1c (3.8-5.6) % Calcium (8.5-10.1) mg/dL Iron (65-175) ug/dL TIBC (250-450) ug/dL Iron Saturation (15.0-55.0) % Total Bilirubin (0.20-1.00) mg/dL AST (15-37) U/L ALT (16-61) U/L Alkaline Phosphatase (45-117) U/L Troponin I (<0.045) ng/mL Total Protein (6.4-8.2) g/dL Albumin (3.2-5.0) g/dL Globulin (2.2-4.2) g/dL Albumin/Globulin Ratio (0.9-2.4) RATIO Triglycerides ( - 199) mg/dL Cholesterol (200) mg/dL LDL Cholesterol (0-130) mg/dL VLDL Cholesterol (5-40) mg/dL HDL Cholesterol (40 - ) mg/dL POC Glucose (70-110) mg/dL Crossmatch Diagnostic Data: Diagnostic Data Chest X-Ray 01/09/20 12:09 IMPRESSION: No acute abnormality is seen. Electronically Signed: Jonatan De Leon, at 13:02 EDT , Service support , Assessment and Plan Lower Esophageal mass with upper GI bleeding, biopsy pending. Discussed finding with Pt. Needs staging work up with CT c/a. Suggestion is to obtain CT chest/abdomen for initial staging. Supportive care for UGI bleeding. If stable and discharged, should follow up in [facility] for further evaluation and management. Thanks. Medications: Prescriptions This Visit Medication Instructions Recorded Furosemide 40 mg PO DAILY 01/09/20 Ibuprofen 200 mg PO DAILY PRN PRN 01/09/20 Potassium Chloride [K-Tab ER] 20 meq PO DAILY 01/09/20 Medications Added to Medication List This Visit Category Date Time Status Iron Polysaccharide Complex [Ferrex 150] Med 01/11/20 08:00 Active 150 mg PO DAILYCM Sodium Ferric Gluconat/Sucrose [Ferrlecit (GEQ)] 250 mg Med 01/10/20 11:00 Active 0.9% Normal Saline 250 ml IV DAILY Primary Care Provider: Dr. Shane Mckinney MD Referring Provider: - Problem List (1) Mass of esophagus determined by endoscopy Status: Acute Office Visits / Consults: [id number] IP Consult L4
[2020-01-10] MEDS: Insulin Lispro 100 UNIT/ML INSULN.PEN SC (18:13)
[2020-01-10 18:21] LABS: Bedside Glucose 217 mg/dL (70-110)
[2020-01-10 18:37] LABS: Hematocrit 25.1 % (40-54); Hemoglobin 7.4 g/dL (13.0-16.5)
[2020-01-10] MEDS: Atorvastatin Calcium 40 MG Tablet PO (21:08)
[2020-01-11] VITALS (13 sets, daily range): BP systolic 117–141; BP diastolic 68–73; PULSE 71–89; RESP 16–18; TEMP 36.7–37.3; O2SAT 94–98
[2020-01-11 00:43] LABS: Hematocrit 25.8 % (40-54); Hemoglobin 7.6 g/dL (13.0-16.5)
[2020-01-11 00:51] LABS: Bedside Glucose 149 mg/dL (70-110)
--- NOTE | 2020-01-11 06:14 | PCM.PN.BLA ---
Progress Note 59-year-old gentleman. 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 Bleeding was aggravated by clopidogrel and aspirin therapy. CT imaging of the chest and abdomen did not demonstrate overt metastatic disease. There is thickening of the distal wall of the esophagus. Because of the friable mass I do not perceive a simple means of resolving the ongoing blood loss. Certainly being off of his anticoagulants will assist but this will place him at increased cardiac risk. I recommend coordination of medical and hematology care at this time with definitive treatment plan outlined and initiated. As part of his ongoing work-up and evaluation I do have him scheduled on Thursday for an outpatient colonoscopy. This would assist with his overall work-up and possible surgical treatment plans. This certainly can be adjusted if he can initiate oncology treatment sooner. David Issa M.D., F.A.C.S. STROKE Vital Signs/Narrative: Vital Signs Temp Pulse Resp BP Pulse Ox 01/11/20 03:09 98.6 F 75 18 117/73 94 01/11/20 03:00 75
[2020-01-11 06:28] LABS: Absolute Lymphocyte Count 1.69 X10^3/uL (0.83-4.51); Absolute Neutrophil Count 4.8 X10^3/uL (2.0-7.7); Basophil# 0.07 X10^3/uL; Basophil% 0.9 % (0-1); Eosinophil# 0.28 X10^3/uL; Eosinophils% 3.6 % (0-5); Hematocrit 26.7 % (40-54); Hemoglobin 7.7 g/dL (13.0-16.5); Lymphocyte # 1.69 X10^3/ul (4.0); Mean Corp Hgb Conc 28.8 g/dL (32-36); Mean Corpuscular Hgb 21.8 pg (27.0-32.0); Mean Corpuscular Volume 75.4 fL (80-94); Mean Platelet Vol. 9.2 fl (6.2-12.0); Monocyte# 0.85 X10^3/uL; Monocyte% 11.1 % (0-10); NRBC Flagged by Analyzer 0.3 % (0-5); Neutrophil # 4.78 X10^3/uL (2.7-7.7); Neutrophil % 62.1 % (47-70); POSITIVE MORPHOLOGY YES; Platelet Count 557 K/mm3 (150-450); RBC Distribution Width CV 21.1 % (11.6-14.6); RBC Distribution Width SD 56.9 fl (35.1-43.9); Red Blood Count 3.54 M/mm3 (4.6-6.2); White Blood Count 7.7 K/mm3 (4.4-11.0)
[2020-01-11 06:34] LABS: Differential Indicated SCAN CRITERIA MET
[2020-01-11 06:53] LABS: Differential Comment SCANNED; Hypochromasia 1+; Ovalocyte 1+; Polychromasia RARE
[2020-01-11 06:56] LABS: ALB/GLOB Ratio 0.7 RATIO (0.9-2.4); AST(SGOT) 8 U/L (15-37); Alanine Aminotransfer ALT/SGPT 11 U/L (16-61); Albumin, Serum 2.8 g/dL (3.2-5.0); Alkaline Phosphatase 64 U/L (45-117); Anion Gap 7 (5-15); BUN 9 mg/dL (7-18); BUN/Creat Ratio 13.8 RATIO (10-20); Chloride 105 mmol/L (98-107); Creatinine, Serum 0.65 mg/dL (0.70-1.30); EST Glomerular Filtration Rate 132 mL/min (>60); Est Glom Filt Rate - Afr Amer 160 mL/min (>60); Estimated Creatinine Clearance 123.23 ml/min; Globulin 3.8 g/dL (2.2-4.2); Glucose 123 mg/dL (74-106); Potassium 3.8 mmol/L (3.5-5.1); Protein, Total 6.6 g/dL (6.4-8.2); Sodium Level 138 mmol/L (136-145)
[2020-01-11 07:00] LABS: Bedside Glucose 149 mg/dL (70-110)
[2020-01-11] MEDS: Iron Polysaccharide Complex 150 MG CAPSULE PO (08:58)
[2020-01-11] MEDS: Metoprolol Tartrate 25 MG Tablet PO ×2 (08:58→21:04)
--- NOTE | 2020-01-11 09:18 | PN.CARD_ITS ---
Subjectve: The patient is awake and alert. He denies any ongoing chest discomfort or difficulty breathing. Objective: Vital Signs Temp Pulse Resp BP Pulse Ox 98.5 F 78 18 137/72 H 98 01/11/20 08:50 01/11/20 08:58 01/11/20 08:50 01/11/20 08:50 01/11/20 08:50 Oxygen Delivery Method Room Air Weight: 178 lb Body Mass Index (BMI) 25.4 Intake and Output for Last 24 Hours 01/09/20 01/10/20 01/11/20 23:59 23:59 23:59 Intake Total 1149.58 / 1149.58 2499.58 / 2499.58 Output Total 580 / 580 1240 / 1240 0 / 0 Balance 569.58 / 569.58 1259.58 / 1259.58 General: Awake, Alert, Oriented x 3, Cooperative, No Acute Distress HEENT: Atraumatic, Normocephalic, PERRL, EOMI, Sclera Non Icteric Oral: Moist Mucosa Neck: Supple, Good ROM, No JVD Lungs: Clear to auscultation Cardiovascular: Regular Rhythm, Normal S1, Normal S2 Abdomen: Bowel Sounds Present, Soft Extremities: No edema Neurological: No Focal Motor or Sensory Deficit Psych/Mental Status: Appropriate 01/10/20 05:50: Iron 30 L, TIBC 441, Iron Saturation 6.8 L 01/10/20 12:07: Hgb 7.9 L, Hct 27.0 L 01/10/20 17:58: Hgb 7.4 L, Hct 25.1 L 01/11/20 00:33: Hgb 7.6 L, Hct 25.8 L 01/11/20 05:15: WBC 7.7, RBC 3.54 L, Hgb 7.7 L, Hct 26.7 L, MCV 75.4 L, MCH 21.8 L, MCHC 28.8 L D, Plt Count 557 H, MPV 9.2, Immature Gran % (Auto) 0.300, Neut % (Auto) 62.1, Lymph % (Auto) 22.0, [place] % (Auto) 11.1 H, Eos % (Auto) 3.6, Baso % (Auto) 0.9, Absolute Neuts (auto) 4.8, Nucleated RBC % 0.3 01/11/20 05:15: Sodium 138, Potassium 3.8, Chloride 105, Carbon Dioxide 26.0, Anion Gap 7, BUN 9, Creatinine 0.65 L, Est GFR (MDRD) Af Amer 160, Est GFR (MDRD) Non-Af 132, BUN/Creatinine Ratio 13.8, Glucose 123 H, Calcium 8.0 L, Total Bilirubin 0.70 Rhythm: Sinus rhythm Medical Necessity - Tobacco Use Smoking Status: Never smoker Tobacco Use: Non-smoker Assessment/Plan 1. Abnormal cardiac enzymes He does have abnormal cardiac enzymes/troponin I levels. The present time he has no acute symptoms with respect to ongoing chest discomfort. He has no acute ECG changes. At the moment but concerned that his abnormal cardiac enzymes are related to a type II event related to supply demand mismatch related to his marked anemia. From a cardiac standpoint he will continue to be monitored. He will continue medical therapy as able based upon his other medical conditions. His recent echocardiogram has been reviewed. It was not felt he required additional cardiac diagnostic studies/intervention at this time. 2. CAD status post CABG followed by post CABG PCI At the moment he is without any acute symptoms of ongoing angina pectoris. Again his cardiac enzymes would appear to be compatible with a type II event secondary to his marked anemia. He will continue to be monitored and continue medical therapy as he is able. He remains without his ASA and clopidogrel / plavix at this time. His medications are an indefinite hold secondary to his ongoing gastrointestinal bleeding related issues. Hopefully if that issue comes under better control then perhaps he can resume 1 or both of these medications in the future. 3. Syncope He appears to have had a syncopal event approximately a week ago. Based upon the situation he describes this appears to be a situational event most likely vasovagal mediated brought out by his marked anemia. He will continue to be monitored for any obvious cardiac dysrhythmias or conduction system events that require further evaluation and care. Otherwise he will continue his general cardiology evaluation and is noncardiac evaluation of his marked anemia. 4. Hyperlipidemia He will continue medical management. 5. Hypertension His medications will be adjusted based upon his blood pressure recordings. 6. Diabetes mellitus We will continue evaluation care per internal medicine. 7. Anemia thought secondary to gastrointestinal bleeding He is markedly anemic. The concern is this may be related to GI bleeding secondary to his concerns of intermittent melena. His EGD noted an esophageal mass. He has now undergone oncology evaluation. He is being monitored. He has received PRBCs. His H&H improved and then declined. He will need to be monitored with respect to his H&H. If it declines he may need additional PRBCs. 8. Thrombocytosis He does have marked elevation of his platelet counts. It is unclear whether this is an acute phase reactant. He has been evaluated by hematology/oncology. Comment: The patient's case has been discussed and reviewed with Dr. Ferguson. This note was generated using a voice recognition system and there may be incorrect words, spelling or punctuation that were not noted when reviewing the office note prior to saving.
[2020-01-11] MEDS: Sodium Ferric Gluconat 250 MG in 0.9% Normal Saline 250 ML 135 MG IV (10:21)
--- NOTE | 2020-01-11 11:28 | PCM.PN.HOSP ---
Patient Problems: Active and Suspected Problems (Last Updated 12/05/19 @ 16:23 by Roselyn Siddiqui) GI bleed (Acute) Anemia requiring transfusions (Acute) Thrombocytosis (Acute) Acute blood loss anemia (Acute) Abnormal cardiac enzyme level (Acute) Syncope (Acute) Mass of esophagus determined by endoscopy (Acute) Reason for Visit: Acute GI bleed Subjective: Patient 59-year-old male admitted with GI bleed Objective: GENERAL: cooperative HEENT: Atraumatic; EYES; Anicteric, Normal Conjunctiva NECK; supple, normal thyroid, RESPIRATORY: Diminished to auscultation CARDIOVASCULAR: Regular S1 S2, GI: soft, normoactive bowel sounds, : No Renal angle tenderness; EXTREMITIES: No edema, no clubbing, MUSCULOSKELETAL: no muscle waisting NEURO: Awake; no lateralizing signs. SKIN: No Rash PSYCH; Flat affect Vitals/I&O's: Vital Signs Temp Pulse Resp BP Pulse Ox 98.5 F 78 18 137/72 H 98 01/11/20 08:50 01/11/20 08:58 01/11/20 08:50 01/11/20 08:50 01/11/20 08:50 Oxygen Delivery Method Room Air Weight: 80.739 kg Body Mass Index (BMI) 25.4 Intake and Output for Last 24 Hours 01/09/20 01/10/20 01/11/20 23:59 23:59 23:59 Intake Total 1149.58 / 1149.58 2499.58 / 2499.58 140 / 140 Output Total 580 / 580 1240 / 1240 0 / 0 Balance 569.58 / 569.58 1259.58 / 1259.58 140 / 140 Microbiology Past 72 Hours 01/09/20 12:05 Stool Stool Occult Blood (MAYTE) - Final Occult Blood Positive Laboratory Results 01/09/20 12:05: Diff Path Review Reviewed 01/10/20 11:36: POC Glucose 186 H 01/10/20 12:05: Crossmatch See Detail 01/10/20 12:07: Hgb 7.9 L, Hct 27.0 L 01/10/20 17:58: Hgb 7.4 L, Hct 25.1 L 01/10/20 18:06: POC Glucose 217 H 01/11/20 00:32: POC Glucose 149 H 01/11/20 00:33: Hgb 7.6 L, Hct 25.8 L 01/11/20 05:15: WBC 7.7, RBC 3.54 L, Hgb 7.7 L, Hct 26.7 L, MCV 75.4 L, MCH 21.8 L, MCHC 28.8 L D, RDW Std Deviation 56.9 H, RDW Coeff of [place] 21.1 H, Plt Count 557 H, MPV 9.2, Immature Gran % (Auto) 0.300, Neut % (Auto) 62.1, Lymph % (Auto) 22.0, [place] % (Auto) 11.1 H, Eos % (Auto) 3.6, Baso % (Auto) 0.9, Absolute Neuts (auto) 4.8, Absolute Lymphs (auto) 1.69, Nucleated RBC % 0.3, Differential Comment SCANNED, Polychromasia RARE, Hypochromasia 1+, Ovalocytes 1+ 01/11/20 05:15: Sodium 138, Potassium 3.8, Chloride 105, Carbon Dioxide 26.0, Anion Gap 7, BUN 9, Creatinine 0.65 L, Estim Creat Clear Calc 123.23, Est GFR (MDRD) Af Amer 160, Est GFR (MDRD) Non-Af 132, BUN/Creatinine Ratio 13.8, Glucose 123 H, Calcium 8.0 L, Total Bilirubin 0.70, AST 8 L, ALT 11 L, Alkaline Phosphatase 64, Total Protein 6.6, Albumin 2.8 L, Globulin 3.8, Albumin/Globulin Ratio 0.7 L 01/11/20 05:40: POC Glucose 149 H Current Medications Acetaminophen (Acetaminophen 325 Mg Tablet) 650 mg PO Q6H PRN PRN PRN Reason: Pain Score 1-10/Temp > 100.7 F Last Admin: 01/09/20 23:21 Dose: 650 mg Documented by: Albuterol Sulfate (Albuterol 2.5 Mg/3 Ml Vial.Neb.) 2.5 mg INHALATION Q2H PRN PRN PRN Reason: Dyspnea, wheezing Atorvastatin Calcium (Atorvastatin Calcium 40 Mg Tablet) 40 mg PO QHS [facility] Last Admin: 01/10/20 21:08 Dose: 40 mg Documented by: Guaifenesin (Guaifenesin 10 Ml Udc (200mg/10ml)) 20 ml PO Q4H PRN PRN PRN Reason: COUGH Pantoprazole Sodium 40 mg/ (Sodium Chloride) 110 mls @ 330 mls/hr IV Q12 [facility] Last Infusion: 01/11/20 09:34 Dose: Infused Documented by: Ferric Sodium Gluconate Complex 250 mg/ Sodium Chloride 270 mls @ 135 mls/hr IV DAILY [facility] Stop: 01/12/20 11:59 Last Admin: 01/11/20 10:21 Dose: 135 mls/hr Documented by: Insulin Human Lispro (Insulin Lispro 100 Unit/Ml Insuln.Pen) 0 unit SC Q6 [facility]; Protocol Last Admin: 01/11/20 05:42 Dose: Not Given Documented by: Melatonin (Melatonin 3 Mg Tablet) 3 mg PO QHS PRN PRN PRN Reason: INSOMNIA Metoprolol Tartrate (Metoprolol Tartrate 25 Mg Tablet) 25 mg PO BID [facility] Last Admin: 01/11/20 08:58 Dose: 25 mg Documented by: Morphine Sulfate (Morphine 2 Mg/Ml Syringe) 2 mg IV Q3H PRN PRN PRN Reason: Pain Score 6-10 Nitroglycerin (Nitroglycerin (Inpatient Use) 0.4 Mg Tab.Subl) 0.4 mg SUBLINGUAL Q5M PRN PRN Reason: CARDIAC/CHEST PAIN Ondansetron HCl (Ondansetron 4 Mg/2 Ml Vial) 4 mg IV Q8H PRN PRN PRN Reason: NAUSEA/VOMITING Oxycodone HCl (Oxycodone 5 Mg Tablet) 5 mg PO Q4H PRN PRN PRN Reason: Pain Score 4-5 Polysaccharide Iron Complex (Iron Polysaccharide Complex 150 Mg Capsule) 150 mg PO DAILYCM [facility] Last Admin: 01/11/20 08:58 Dose: 150 mg Documented by: Prochlorperazine Edisylate (Prochlorperazine 10 Mg/2 Ml Vial) 5 mg IV Q4H PRN PRN PRN Reason: Breakthrough Nausea/Vomiting Sodium Chloride (0.9% Saline Lock 10 Ml Syringe) 10 - 40 ml IV UD PRN PRN Reason: SALINE FLUSH Last Admin: 01/10/20 21:07 Dose: 10 ml Documented by: Throat Lozenges (Benzocaine/Menthol 1 Lozenge) 1 lozenge MUCOUS MEM Q2H PRN PRN PRN Reason: SORE THROAT STROKE Vital Signs/Narrative: Vital Signs Temp Pulse Resp BP Pulse Ox 01/11/20 08:58 78 01/11/20 08:50 98.5 F 78 18 137/72 H 98 01/11/20 07:49 87 01/11/20 07:30 98 Medical Necessity - Tobacco Use Smoking Status: Never smoker Tobacco Use: Non-smoker Assessment/Plan All Active Problems (Last Updated 12/05/19 @ 16:23 by Roselyn Siddiqui) GI bleed (Acute) Anemia requiring transfusions (Acute) Thrombocytosis (Acute) Acute blood loss anemia (Acute) Abnormal cardiac enzyme level (Acute) Syncope (Acute) Mass of esophagus determined by endoscopy (Acute) Severe sepsis (Acute) Pneumonia (Acute) Suspected COVID-19 virus infection (Acute) Respiratory distress (Acute) Pneumonia (Acute) Suspected 2019 novel coronavirus infection (Acute) Acute respiratory failure with hypoxia (Acute) Lung nodule (Acute) Patient 59-year-old male admitted with GI bleed 1. Acute upper GI bleed ?Patient underwent endoscopic evaluation by Dr. Issa on 01/10/2020 which demonstrated - Esophageal mucosal changes consistent with long-segment Licona's esophagus. Biopsied. 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 Biopsied. - Large hiatal hernia. - Erythematous mucosa in the antrum. Biopsied. - Normal examined duodenum. Biopsied. Patient remains on PPI with plans for patient to undergo outpatient colonoscopy to complete his work-up 2. Anemia secondary to acute on chronic blood loss anemia ?From patient upper GI bleed as a result of his malignant esophageal tumor. Monitoring H&H with plans to transfuse if patient becomes symptomatic or hemoglobin falls below 7 3. Coronary artery disease ?Status post CABG with subsequent stent placement. Patient is on dual antiplatelet therapy with aspirin and Plavix currently on hold in view of above. Patient has had 5 months of his dual antiplatelet therapy. Cardiology on case case discussed with Dr. Gama barriga 4. History Of melanoma - s/p Excision 5. Hypertension - Blood pressure controlled, home medications continued with dose adjustment as needed 6. Diabetes mellitus type II - Controlled -patient's oral hypoglycemics held. -Placed on long acting insulin, Accu-Cheks a.c. and at bedtime and covered with sliding scale insulin 7. Dyslipidemia -Patient is on statin therapy, continued at home dose 8. Elevated troponin ?Secondary to demand ischemia from patient's anemia 9. Chronic congestive heart failure with preserved ejection fraction ?Currently compensated 10. DVT prophylaxis ?Chemoprophylaxis contraindicated in view of patient presentation
[2020-01-11] MEDS: Insulin Lispro 100 UNIT/ML INSULN.PEN SC ×2 (11:55→17:54)
[2020-01-11 12:00] LABS: Bedside Glucose 211 mg/dL (70-110)
[2020-01-11 12:52] LABS: Hematocrit 25.9 % (40-54); Hemoglobin 7.5 g/dL (13.0-16.5)
--- NOTE | 2020-01-11 13:36 | CASEMGMT ---
PAT checked in with patient as he expressed interest in Healthcare Power of Manager Story and Healthcare Living Will. Patient said he has a copy of the documents. His daughter is coming in later today and she is bringing in his glasses. He cannot do paperwork or reading without his glasses. PAT told him he can ask for Social Work if they would like help. PAT also let him know that he does not have to have a notary he can also have 2 non family witnesses to watch him sign documents. He thanked PAT. Alyce PLSAENCIA MSW
[2020-01-11 18:01] LABS: Bedside Glucose 221 mg/dL (70-110)
[2020-01-11 18:06] LABS: Hematocrit 26.8 % (40-54); Hemoglobin 7.7 g/dL (13.0-16.5)
[2020-01-11] MEDS: Acetaminophen 325 MG Tablet 650 MG PO (20:55)
[2020-01-11] MEDS: Atorvastatin Calcium 40 MG Tablet PO (21:04)
[2020-01-12] VITALS (8 sets, daily range): BP systolic 119–124; BP diastolic 65–72; PULSE 64–88; RESP 16; TEMP 36.4–37; O2SAT 96–99
[2020-01-12] MEDS: Insulin Lispro 100 UNIT/ML INSULN.PEN SC ×3 (00:20→11:29)
[2020-01-12 00:35] LABS: Bedside Glucose 170 mg/dL (70-110)
[2020-01-12 00:51] LABS: Hematocrit 25.9 % (40-54); Hemoglobin 7.4 g/dL (13.0-16.5)
[2020-01-12 06:45] LABS: Bedside Glucose 170 mg/dL (70-110)
--- NOTE | 2020-01-12 07:55 | PN_ITS ---
Patient Problems: Active and Suspected Problems (Last Updated 12/05/19 @ 16:23 by Roselyn Siddiqui) GI bleed (Acute) Anemia requiring transfusions (Acute) Thrombocytosis (Acute) Acute blood loss anemia (Acute) Abnormal cardiac enzyme level (Acute) Syncope (Acute) Mass of esophagus determined by endoscopy (Acute) Objective: GENERAL: cooperative HEENT: Atraumatic; EYES; Anicteric, Normal Conjunctiva NECK; supple, normal thyroid, RESPIRATORY: Diminished to auscultation CARDIOVASCULAR: Regular S1 S2, GI: soft, normoactive bowel sounds, : No Renal angle tenderness; EXTREMITIES: No edema, no clubbing, MUSCULOSKELETAL: no muscle waisting NEURO: Awake; no lateralizing signs. SKIN: No Rash PSYCH; Flat affect Vitals/I&O's: Vital Signs Temp Pulse Resp BP Pulse Ox 98.4 F 74 16 124/71 H 97 01/12/20 06:30 01/12/20 06:30 01/12/20 06:30 01/12/20 06:30 01/12/20 07:30 Oxygen Delivery Method Room Air Weight: 80.739 kg Body Mass Index (BMI) 25.4 Intake and Output for Last 24 Hours 01/10/20 01/11/20 01/12/20 23:59 23:59 23:59 Intake Total 2499.58 / 2499.58 1120 / 1120 Output Total 1240 / 1240 0 / 0 Balance 1259.58 / 1259.58 1120 / 1120 Microbiology Past 72 Hours 01/09/20 12:05 Stool Stool Occult Blood (MAYTE) - Final Occult Blood Positive Laboratory Results 01/11/20 11:52: POC Glucose 211 H 01/11/20 12:20: Hgb 7.5 L, Hct 25.9 L 01/11/20 16:00: COVID-19 (YANCY) Pending 01/11/20 17:51: POC Glucose 221 H 01/11/20 17:57: Hgb 7.7 L, Hct 26.8 L 01/12/20 00:13: Hgb 7.4 L, Hct 25.9 L 01/12/20 00:16: POC Glucose 170 H 01/12/20 06:35: POC Glucose 170 H Current Medications Acetaminophen (Acetaminophen 325 Mg Tablet) 650 mg PO Q6H PRN PRN PRN Reason: Pain Score 1-Temp > 100.7 F Last Admin: 01/11/20 20:55 Dose: 650 mg Documented by: Albuterol Sulfate (Albuterol 2.5 Mg/3 Ml Vial.Neb.) 2.5 mg INHALATION Q2H PRN PRN PRN Reason: Dyspnea, wheezing Atorvastatin Calcium (Atorvastatin Calcium 40 Mg Tablet) 40 mg PO QHS [facility] Last Admin: 01/11/20 21:04 Dose: 40 mg Documented by: Guaifenesin (Guaifenesin 10 Ml Udc (200mg/10ml)) 20 ml PO Q4H PRN PRN PRN Reason: COUGH Pantoprazole Sodium 40 mg/ (Sodium Chloride) 110 mls @ 330 mls/hr IV Q12 [facility] Last Infusion: 01/11/20 22:30 Dose: Infused Documented by: Ferric Sodium Gluconate Complex 250 mg/ Sodium Chloride 270 mls @ 135 mls/hr IV DAILY [facility] Stop: 01/12/20 11:59 Last Infusion: 01/11/20 12:25 Dose: Infused Documented by: Insulin Human Lispro (Insulin Lispro 100 Unit/Ml Insuln.Pen) 0 unit SC Q6 [facility]; Protocol Last Admin: 01/12/20 06:38 Dose: 1 units Documented by: Melatonin (Melatonin 3 Mg Tablet) 3 mg PO QHS PRN PRN PRN Reason: INSOMNIA Metoprolol Tartrate (Metoprolol Tartrate 25 Mg Tablet) 25 mg PO BID [facility] Last Admin: 01/11/20 21:04 Dose: 25 mg Documented by: Morphine Sulfate (Morphine 2 Mg/Ml Syringe) 2 mg IV Q3H PRN PRN PRN Reason: Pain Score 6-10 Nitroglycerin (Nitroglycerin (Inpatient Use) 0.4 Mg Tab.Subl) 0.4 mg SUBLINGUAL Q5M PRN PRN Reason: CARDIAC/CHEST PAIN Ondansetron HCl (Ondansetron 4 Mg/2 Ml Vial) 4 mg IV Q8H PRN PRN PRN Reason: NAUSEA/VOMITING Oxycodone HCl (Oxycodone 5 Mg Tablet) 5 mg PO Q4H PRN PRN PRN Reason: Pain Score 4-5 Polysaccharide Iron Complex (Iron Polysaccharide [facility] 150 [facility]ule) [facility] Last Admin: 01/11/20 08:58 Dose: 150 mg Documented by: Prochlorperazine Edisylate (Prochlorperazine 10 Mg/2 Ml Vial) 5 mg IV Q4H PRN PRN PRN Reason: Breakthrough Nausea/Vomiting Sodium Chloride (0.9% Saline Lock 10 Ml Syringe) 10 - 40 ml IV UD PRN PRN Reason: SALINE FLUSH Last Admin: 01/10/20 21:07 Dose: 10 ml Documented by: Throat Lozenges (Benzocaine/Menthol 1 Lozenge) 1 lozenge MUCOUS MEM Q2H PRN PRN PRN Reason: SORE THROAT STROKE Vital Signs/Narrative: Vital Signs Temp Pulse Resp BP Pulse Ox 01/12/20 07:30 97 01/12/20 06:30 98.4 F 74 16 124/71 H 96 01/12/20 05:00 64 Medical Necessity - Tobacco Use Smoking Status: Never smoker Tobacco Use: Non-smoker Assessment/Plan All Active Problems (Last Updated 12/05/19 @ 16:23 by Roselyn Siddiqui) GI bleed (Acute) Anemia requiring transfusions (Acute) Thrombocytosis (Acute) Acute blood loss anemia (Acute) Abnormal cardiac enzyme level (Acute) Syncope (Acute) Mass of esophagus determined by endoscopy (Acute) Severe sepsis (Acute) Pneumonia (Acute) Suspected COVID-19 virus infection (Acute) Respiratory distress (Acute) Pneumonia (Acute) Suspected 2019 novel coronavirus infection (Acute) Acute respiratory failure with hypoxia (Acute) Lung nodule (Acute) Patient 59-year-old male admitted with GI bleed 1. Acute upper GI bleed ?Patient underwent endoscopic evaluation by Dr. Issa on 01/10/2020 which demonstrated - Esophageal mucosal changes consistent with long-segment Licona's esophagus. Biopsied. 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 Biopsied. - Large hiatal hernia. - Erythematous mucosa in the antrum. Biopsied. - Normal examined duodenum. Biopsied. Patient remains on PPI with plans for patient to undergo outpatient colonoscopy to complete his work-up 2. Anemia secondary to acute on chronic blood loss anemia ?From patient upper GI bleed as a result of his malignant esophageal tumor. Monitoring H&H with plans to transfuse if patient becomes symptomatic or hemoglobin falls below 7 3. Coronary artery disease ?Status post CABG with subsequent stent placement. Patient is on dual antiplatelet therapy with aspirin and Plavix currently on hold in view of above. Patient has had 5 months of his dual antiplatelet therapy. Cardiology on case case discussed with Dr. Gama barriga 4. History Of melanoma - s/p Excision 5. Hypertension - Blood pressure controlled, home medications continued with dose adjustment as needed 6. Diabetes mellitus type II - Controlled -patient's oral hypoglycemics held. -Placed on long acting insulin, Accu-Cheks a.c. and at bedtime and covered with sliding scale insulin 7. Dyslipidemia -Patient is on statin therapy, continued at home dose 8. Elevated troponin ?Secondary to demand ischemia from patient's anemia 9. Chronic congestive heart failure with preserved ejection fraction ?Currently compensated 10. DVT prophylaxis ?Chemoprophylaxis contraindicated in view of patient presentation
[2020-01-12 08:22] LABS: Hematocrit 28.4 % (40-54); Hemoglobin 8.2 g/dL (13.0-16.5); Mean Corp Hgb Conc 28.9 g/dL (32-36); Mean Corpuscular Hgb 22.6 pg (27.0-32.0); Mean Corpuscular Volume 78.2 fL (80-94); Mean Platelet Vol. 8.8 fl (6.2-12.0); POSITIVE MORPHOLOGY YES; Platelet Count 579 K/mm3 (150-450); RBC Distribution Width CV 22.5 % (11.6-14.6); RBC Distribution Width SD 60.8 fl (35.1-43.9); Red Blood Count 3.63 M/mm3 (4.6-6.2)
[2020-01-12 08:29] LABS: Scan Indicated on CBC? Y/N YES- FLAGS NOTED
[2020-01-12] MEDS: Iron Polysaccharide Complex 150 MG CAPSULE PO (08:31)
[2020-01-12 08:36] LABS: Anion Gap 4 (5-15); BUN 10 mg/dL (7-18); BUN/Creat Ratio 14.7 RATIO (10-20); Calcium,Total 8.1 mg/dL (8.5-10.1); Chloride 104 mmol/L (98-107); Creatinine, Serum 0.68 mg/dL (0.70-1.30); EST Glomerular Filtration Rate 126 mL/min (>60); Est Glom Filt Rate - Afr Amer 152 mL/min (>60); Estimated Creatinine Clearance 117.79 ml/min; Glucose 161 mg/dL (74-106); Potassium 3.8 mmol/L (3.5-5.1); Sodium Level 137 mmol/L (136-145)
[2020-01-12 09:00] LABS: Differential Comment SCANNED
[2020-01-12] MEDS: Sodium Ferric Gluconat 250 MG in 0.9% Normal Saline 250 ML 135 MG IV (09:39)
[2020-01-12] MEDS: Metoprolol Tartrate 25 MG Tablet PO (09:41)
--- NOTE | 2020-01-12 09:44 | PN.CARD_ITS ---
Subjectve: The patient is awake and alert. He denies any acute cardiovascular complaints. He has been up and ambulating in his room without any chest discomfort or difficulty breathing. Objective: Vital Signs Temp Pulse Resp BP Pulse Ox 98.4 F 88 16 124/71 H 97 01/12/20 06:30 01/12/20 09:41 01/12/20 06:30 01/12/20 06:30 01/12/20 07:30 Oxygen Delivery Method Room Air Weight: 180 lb Body Mass Index (BMI) 25.4 Intake and Output for Last 24 Hours 01/10/20 01/11/20 01/12/20 23:59 23:59 23:59 Intake Total 2499.58 / 2499.58 1120 / 1120 Output Total 1240 / 1240 0 / 0 Balance 1259.58 / 1259.58 1120 / 1120 General: Awake, Alert, Oriented x 3, Cooperative, No Acute Distress HEENT: Atraumatic, Normocephalic, PERRL, EOMI, Sclera Non Icteric Neck: Supple, Good ROM, No JVD Lungs: Clear to auscultation Cardiovascular: Regular Rhythm, Normal S1, Normal S2 Vascular: No Carotid Bruits Abdomen: Bowel Sounds Present, Soft Extremities: No edema Neurological: No Focal Motor or Sensory Deficit Psych/Mental Status: Appropriate 01/11/20 12:20: Hgb 7.5 L, Hct 25.9 L 01/11/20 17:57: Hgb 7.7 L, Hct 26.8 L 01/12/20 00:13: Hgb 7.4 L, Hct 25.9 L 01/12/20 08:08: WBC 9.0, RBC 3.63 L, Hgb 8.2 L, Hct 28.4 L, MCV 78.2 L, MCH 22.6 L, MCHC 28.9 L, Plt Count 579 H, MPV 8.8 01/12/20 08:08: Sodium 137, Potassium 3.8, Chloride 104, Carbon Dioxide 29.0, Anion Gap 4 L, BUN 10, Creatinine 0.68 L, Est GFR (MDRD) Af Amer 152, Est GFR (MDRD) Non-Af 126, BUN/Creatinine Ratio 14.7, Glucose 161 H, Calcium 8.1 L Rhythm: Sinus rhythm Medical Necessity - Tobacco Use Smoking Status: Never smoker Tobacco Use: Non-smoker Assessment/Plan 1. Abnormal cardiac enzymes He does have abnormal cardiac enzymes/troponin I levels. The present time he has no acute symptoms with respect to ongoing chest discomfort. He has no acute ECG changes. At the moment but concerned that his abnormal cardiac enzymes are related to a type II event related to supply demand mismatch related to his marked anemia. From a cardiac standpoint he will continue to be monitored. He will continue medical therapy as able based upon his other medical conditions. His recent echocardiogram has been reviewed. It was not felt he required additional cardiac diagnostic studies/intervention at this time. 2. CAD status post CABG followed by post CABG PCI At the moment he is without any acute symptoms of ongoing angina pectoris. Again his cardiac enzymes would appear to be compatible with a type II event secondary to his marked anemia. He will continue to be monitored and continue medical therapy as he is able. He remains without his ASA and clopidogrel / plavix at this time. His medications are an indefinite hold secondary to his ongoing gastrointestinal bleeding related issues. Hopefully if that issue comes under better control then perhaps he can resume 1 or both of these medications in the future. 3. Syncope He appears to have had a syncopal event approximately a week ago. Based upon the situation he describes this appears to be a situational event most likely vasovagal mediated brought out by his marked anemia. He will continue to be monitored for any obvious cardiac dysrhythmias or conduction system events that require further evaluation and care. Otherwise he will continue his general cardiology evaluation and is noncardiac evaluation of his marked anemia. 4. Hyperlipidemia He will continue medical management. 5. Hypertension His medications will be adjusted based upon his blood pressure recordings. 6. Diabetes mellitus We will continue evaluation care per internal medicine. 7. Anemia thought secondary to gastrointestinal bleeding He is markedly anemic. The concern is this may be related to GI bleeding second anna to his concerns of intermittent melena. His EGD noted an esophageal mass. He has now undergone oncology evaluation. He is being monitored. He has received PRBCs. His repeat H&H came back with a hemoglobin of 8.2. Hopefully this indicates his hemorrhagic issue is stabilizing. He will need to be monitored with respect to his H&H for time. If it declines he may need additional PRBCs. Interim need input from his other physicians would be most appreciated with respect to if and when he may be able to restart his aspirin therapy and/or antiplatelet therapy with clopidogrel/Plavix. 8. Thrombocytosis He does have marked elevation of his platelet counts. It is unclear whether this is an acute phase reactant. He has been evaluated by hematology/oncology. Otherwise, he will continue to be followed as an outpatient. Comment: The patient's case has been discussed and reviewed with Dr. Ferguson. This note was generated using a voice recognition system and there may be incorrect words, spelling or punctuation that were not noted when reviewing the office note prior to saving.
--- NOTE | 2020-01-12 10:45 | WMO.OV_ITS ---
Subjective - Date of Service Date of Service:: 01/12/20 - Chief Complaint Lower esophageal mass. - History of Present Illness 59-year-old man with history of coronary artery disease presented with sudden drop in hematocrit. He had upper GI endoscopy done this morning by Dr. Issa. He was found to have bleeding and a mass in the lower esophagus. CT c/a/p showed no evidence of metastatic disease on 01/10/2020. - Past Medical/Social History Social History Smoking Status Never smoker Review of Systems Constitutional:: Denies: Fever, Sweats, Weight loss, Appetite change, Chills Cardiovascular:: Denies: Chest pain, Palpitations, Dyspnea on exertion, Orthopnea, PND, Shortness of breath Respiratory: Denies: Cough, Hemoptysis, Shortness of Breath, Wheezing Gastrointestinal:: Denies: Abdominal pain, Nausea, Vomiting, Diarrhea, Constipation, Hematochezia Genitourinary: Denies: Dysuria, Hematuria, 15, Flank pain Musculoskeletal:: Denies: Back pain, Myalgia, Arthralgia Skin: Denies: Rash, Skin Changes, Wounds Neurological:: Denies: Headache, Dizziness, Visual changes, Tinnitus, Hearing loss Psychiatric: Denies: Anxiety, Depression, Homicidal Ideations, Suicidal Ideations Vital Signs Temperature 97.6 F L 01/12/20 09:45 Temperature Source Temporal 01/12/20 09:45 Pulse Rate 88 01/12/20 09:45 Respiratory Rate 16 01/12/20 09:45 Respiratory Effort 01/12/20 09:46 Respiratory Depth Normal 01/12/20 09:46 Respiratory Pattern Normal 01/12/20 09:46 Blood Pressure 119/72 01/12/20 09:45 Blood Pressure Mean 87 01/12/20 09:45 Blood Pressure Source Monitor 01/12/20 09:45 Blood Pressure Position Semi-Fowlers 01/12/20 09:45 Blood Pressure Location Right Arm 01/12/20 09:45 Baseline BP 110/76 01/10/20 08:35 Pulse Ox 98 01/12/20 09:45 Oxygen Delivery Method Room Air 01/12/20 09:46 - Physical Exam General: Alert, Oriented x3, No apparent distress Laboratory Data: Microbiology 01/09/20 12:05 Stool Occult Blood (MAYTE) - Final Stool Occult Blood Positive Laboratory Tests 01/12/20 01/12/20 01/12/20 Range/Units 08:08 08:08 06:35 WBC 9.0 (4.4-11.0) K/mm3 RBC 3.63 L (4.6-6.2) M/mm3 Hgb 8.2 L (13.0-16.5) g/dL Hct 28.4 L (40-54) % MCV 78.2 L (80-94) fL MCH 22.6 L (27.0-32.0) pg MCHC 28.9 L (32-36) g/dL RDW Std Deviation 60.8 H (35.1-43.9) fl RDW Coeff of Nicholas 22.5 H (11.6-14.6) % Plt Count 579 H (150-450) K/mm3 MPV 8.8 (6.2-12.0) fl Differential Comment SCANNED Sodium 137 (136-145) mmol/L Potassium 3.8 (3.5-5.1) mmol/L Chloride 104 (98-107) mmol/L Carbon Dioxide 29.0 (21.0-32.0) mmol/L Anion Gap 4 L (5-15) BUN 10 (7-18) mg/dL Creatinine 0.68 L (0.70-1.30) mg/dL Estim Creat Clear Calc 117.79 ml/min Est GFR (MDRD) Af Amer 152 (>60) mL/min Est GFR (MDRD) Non-Af 126 (>60) mL/min BUN/Creatinine Ratio 14.7 (10-20) RATIO Glucose 161 H (74-106) mg/dL Calcium 8.1 L (8.5-10.1) mg/dL POC Glucose 170 H (70-110) mg/dL 01/12/20 01/12/20 01/11/20 Range/Units 00:16 00:13 17:57 WBC (4.4-11.0) K/mm3 RBC (4.6-6.2) M/mm3 Hgb 7.4 L 7.7 L (13.0-16.5) g/dL Hct 25.9 L 26.8 L (40-54) % MCV (80-94) fL MCH (27.0-32.0) pg MCHC (32-36) g/dL RDW Std Deviation (35.1-43.9) fl RDW Coeff of Nicholas (11.6-14.6) % Plt Count (150-450) K/mm3 MPV (6.2-12.0) fl Differential Comment Sodium (136-145) mmol/L Potassium (3.5-5.1) mmol/L Chloride (98-107) mmol/L Carbon Dioxide (21.0-32.0) mmol/L Anion Gap (5-15) BUN (7-18) mg/dL Creatinine (0.70-1.30) mg/dL Estim Creat Clear Calc ml/min Est GFR (MDRD) Af Amer (>60) mL/min Est GFR (MDRD) Non-Af (>60) mL/min BUN/Creatinine Ratio (10-20) RATIO Glucose (74-106) mg/dL Calcium (8.5-10.1) mg/dL POC Glucose 170 H (70-110) mg/dL 01/11/20 01/11/20 01/11/20 Range/Units 17:51 12:20 11:52 WBC (4.4-11.0) K/mm3 RBC (4.6-6.2) M/mm3 Hgb 7.5 L (13.0-16.5) g/dL Hct 25.9 L (40-54) % MCV (80-94) fL MCH (27.0-32.0) pg MCHC (32-36) g/dL RDW Std Deviation (35.1-43.9) fl RDW Coeff of Nicholas (11.6-14.6) % Plt Count (150-450) K/mm3 MPV (6.2-12.0) fl Differential Comment Sodium (136-145) mmol/L Potassium (3.5-5.1) mmol/L Chloride (98-107) mmol/L Carbon Dioxide (21.0-32.0) mmol/L Anion Gap (5-15) BUN (7-18) mg/dL Creatinine (0.70-1.30) mg/dL Estim Creat Clear Calc ml/min Est GFR (MDRD) Af Amer (>60) mL/min Est GFR (MDRD) Non-Af (>60) mL/min BUN/Creatinine Ratio (-20) RATIO Glucose (74-106) mg/dL Calcium (8.5-10.1) mg/dL POC Glucose 221 H 211 H (70-110) mg/dL Diagnostic Data: Diagnostic Data Chest X-Ray 01/09/20 12:09 IMPRESSION: No acute abnormality is seen. Electronically Signed: Jonatan Haley, at 13:02 EDT , Service support , Abdomen/Pelvis CT 01/10/20 12:48 IMPRESSION: Colonic diverticulosis. No obstruction or abscess. Right renal stone. No hydronephrosis. Wall thickening consistent with mass of the distal esophagus. Electronically Signed: Papi Sarah MD at 16:24 EDT , Service support , Chest CT 01/10/20 12:48 IMPRESSION: 1. No acute pulmonary disease. 2. Thick-walled distal esophagus with increased diameter. This would be consistent with the esophageal mass seen during endoscopy earlier today. 3. Evidence of prior CABG procedure. 4. Degenerative changes of the shoulders and thoracic spine. Electronically Signed: Fortino Robledo DO at 16:17 EDT Tel [phone], Service support , Pathology Data: 01/10/2020 Lower esophageal mass biopsy reviewed. MICROSCOPIC DIAGNOSIS A. Gastric antrum, biopsy: Mild chronic gastritis. See comment. B. 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 See comment. C. Distal esophagus, biopsy: Junctional mucosa with focal intestinal metaplasia. Acute and chronic inflammation. No evidence of dysplasia. See comment. Assessment and Plan Lower esophageal adenocarcinoma GI bleeding. No evidence of metastatic disease on CT c/a. Discussed further management which includes PET/CT, Esophageal endoscopic U/S to assess depth of tumor and local staging. Pt wants to discuss where he should go for Surgical evaluation. Suggestion is to continue Supportive care for UGI bleeding. If stable and discharged, [facility] up [facility] for further evaluation and management. PET/CT will be done as outpatient. Thanks. Medications: Prescriptions This Visit Medication Instructions Recorded Furosemide 40 mg PO DAILY 01/09/20 Ibuprofen 200 mg PO DAILY PRN PRN 01/09/20 Potassium Chloride [K-Tab ER] 20 meq PO DAILY 01/09/20 Primary Care Provider: Dr. Shane Mckinney MD Referring Provider: - Problem List (1) Mass of esophagus determined by endoscopy Status: Acute Inpatient E&M: 99366 Subs Hosp L2
--- NOTE | 2020-01-12 11:28 | DCINST_ITS ---
- Discharge Diagnoses Current Active Problems: Current Active and Chronic Problems (Last Updated 12/05/19 @ 16:23 by Roselyn Siddiqui) GI bleed (Acute) Anemia requiring transfusions (Acute) Thrombocytosis (Acute) Acute blood loss anemia (Acute) Diastolic CHF (Chronic) Abnormal cardiac enzyme level (Acute) S/P PTCA (percutaneous transluminal coronary angioplasty) (Chronic) S/P CABG (coronary artery bypass graft) (Chronic) Syncope (Acute) Mass of esophagus determined by endoscopy (Acute) Melanoma (Chronic) CAD (coronary artery disease) (Chronic) History of coronary artery bypass surgery (Chronic ~06/02/19) CABG x4- FLORES-LAD, SHARYN -OM1; Radial - OM3, SVG -PDA 06/02/19 @ [facility] Atherosclerotic heart disease of [place] coronary artery without angina pectoris (Chronic) Essential hypertension (Chronic) Type 2 diabetes mellitus (Chronic) HLD (hyperlipidemia) (Chronic) NSTEMI (non-ST elevated myocardial infarction) (Chronic) You will use the following diet at home:: Calorie/Carbohydrate Controlled (specify 1200, 1400, etc) - 1800 Your food should be the consistency of: Mechanical soft (ground) Discharge Activity: Return to Normal Activity, May not drive while taking narcotic pain medications. Allergies/Adverse Reactions: Allergies rosuvastatin [From Crestor] Adverse Reaction (Severe, Verified 01/09/20 11:37) Aches simvastatin Adverse Reaction (Severe, Verified 01/09/20 11:37) Stiff Joints Medications to take at Discharge acetaminophen 500 mg tablet 1,000 mg PO Q6H PRN tab 07/20/19 glimepiride 4 mg tablet 4 mg PO DAILY 07/20/19 metformin 1,000 mg tablet 1,000 mg PO BID 07/20/19 metoprolol tartrate 50 mg tablet 50 mg PO BID 07/20/19 sitagliptin 100 mg tablet 100 mg PO DAILY 07/20/19 lisinopril 10 mg tablet 10 mg PO DAILY tab 09/02/19 atorvastatin 80 mg tablet 40 mg PO QHS tab 12/05/19 Furosemide 40 mg PO DAILY 01/09/20 Potassium Chloride [K-Tab ER] 20 meq PO DAILY 01/09/20 Iron Polysaccharide Complex [Ferrex 150] 150 mg PO DAILYCM #60 cap 01/12/20 Pantoprazole Sodium [Protonix] 40 mg PO DAILY #120 tab 01/12/20 The following prescriptions were given: Iron Polysaccharide Complex [Ferrex 150] 150 mg PO DAILYCM #60 cap Transmission Status: Pending to [facility] Pantoprazole Sodium [Protonix] 40 mg PO DAILY #120 tab Transmission Status: Pending to [facility] Orders to be completed after discharge: CORONAVIRUS 19, YANCY SENDOUT Time Frame: 01/11/20, Facility: [facility], Location: Laboratory Primary Care Physician: Shane Mckinney MD [Primary Care Provider] - Please follow up with your Primary Care Physician in: in 1 -2 week Test Results: Test results from this visit will be discussed in further detail at your follow- up appointment, if applicable. Please Follow Up With: Shane Mckinney MD Please Follow Up With: Mayank Allan MD When: as scheduled Please Follow Up With: Bjorn Lang MD When: as scheduled Please Follow Up With: David Issa MD When: as scheduled Proposed Discharge Date: 01/12/20
--- NOTE | 2020-01-12 11:32 | DS.PCM_ITS ---
Discharge Date and Diagnosis - Problem List Patient Problems: Active and Suspected Problems (Last Updated 12/05/19 @ 16:23 by Roselyn Siddiqui) GI bleed (Acute) Anemia requiring transfusions (Acute) Thrombocytosis (Acute) Acute blood loss anemia (Acute) Abnormal cardiac enzyme level (Acute) Syncope (Acute) Mass of esophagus determined by endoscopy (Acute) Date of Admission: 01/09/20 Date of Discharge: 01/12/20 - Primary Discharge Diagnosis Acute Problems: Active Problems (Last Updated 12/05/19 @ 16:23 by Roselyn Siddiqui) GI bleed (Acute) Anemia requiring transfusions (Acute) Thrombocytosis (Acute) Acute blood loss anemia (Acute) Abnormal cardiac enzyme level (Acute) Syncope (Acute) Mass of esophagus determined by endoscopy (Acute) - Secondary Discharge Diagnosis Chronic Problems: Chronic Problems (Last Updated 12/05/19 @ 16:23 by Roselyn Siddiqui) Diastolic CHF (Chronic) S/P PTCA (percutaneous transluminal coronary angioplasty) (Chronic) S/P CABG (coronary artery bypass graft) (Chronic) Melanoma (Chronic) CAD (coronary artery disease) (Chronic) History of coronary artery bypass surgery (Chronic ~06/02/19) CABG x4- FLORES-LAD, SHARYN -OM1; Radial - OM3, SVG -PDA 06/02/19 @ [facility] Atherosclerotic heart disease of [place] coronary artery without angina pectoris (Chronic) Essential hypertension (Chronic) Type 2 diabetes mellitus (Chronic) HLD (hyperlipidemia) (Chronic) NSTEMI (non-ST elevated myocardial infarction) (Chronic) Hospital Course and Treatment Operations: None Summary of Care Provided: Patient 59-year-old male admitted with GI bleed 1. Acute upper GI bleed secondary to invasive moderately to poorly differentiated adenocarcinoma involving the distal esophagus ?Patient underwent endoscopic evaluation by Dr. Issa on 01/10/2020 which demonstrated - Esophageal mucosal changes consistent with long-segment Licona's esophagus. Biopsied. 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 Biopsied. - Large hiatal hernia. - Erythematous mucosa in the antrum. Biopsied. - Normal examined duodenum. Biopsied. Patient remains on PPI with plans for patient to undergo outpatient colonoscopy to complete his work-up -?01/12/2020. Patient biopsy revealed invasive moderately to poorly differentiated adenocarcinoma involving the distal esophagus. The have a discussion with oncology. Plan is for patient to follow-up as outpatient for definitive plans. This was also discussed with the patient. 2. Anemia secondary to acute on chronic blood loss anemia ?From patient upper GI bleed as a result of his malignant esophageal tumor. Monitoring H&H with plans to transfuse if patient becomes symptomatic or hemoglobin falls below 7 -01/12/2020; hemoglobin on the day of discharge was 8.2. Patient was prescribed supplemental iron on discharge 3. Coronary artery disease ?Status post CABG with subsequent stent placement. Patient is on dual antiplatelet therapy with aspirin and Plavix currently on hold in view of above. Patient has had 5 months of his dual antiplatelet therapy. Cardiology on case case discussed with Dr. Allan -1986; patient was dual antiplatelet therapy discontinued on discharge 4. History Of melanoma - s/p Excision 5. Hypertension - Blood pressure controlled, home medications continued with dose adjustment as needed 6. Diabetes mellitus type II - Controlled -patient's oral hypoglycemics held. -Placed on long acting insulin, Accu-Cheks a.c. and at bedtime and covered with sliding scale insulin 7. Dyslipidemia -Patient is on statin therapy, continued at home dose 8. Elevated troponin ?Secondary to demand ischemia from patient's anemia 9. Chronic congestive heart failure with preserved ejection fraction ?Currently compensated 10. DVT prophylaxis ?Chemoprophylaxis contraindicated in view of patient presentation Patient Problems: Active and Suspected Problems (Last Updated 12/05/19 @ 16:23 by Roselyn Siddiqui) GI bleed (Acute) Anemia requiring transfusions (Acute) Thrombocytosis (Acute) Acute blood loss anemia (Acute) Abnormal cardiac enzyme level (Acute) Syncope (Acute) Mass of esophagus determined by endoscopy (Acute) Objective: GENERAL: cooperative HEENT: Atraumatic; EYES; Anicteric, Normal Conjunctiva NECK; supple, normal thyroid, RESPIRATORY: Diminished to auscultation CARDIOVASCULAR: Regular S1 S2, GI: soft, normoactive bowel sounds, : No Renal angle tenderness; EXTREMITIES: No edema, no clubbing, MUSCULOSKELETAL: no muscle waisting NEURO: Awake; no lateralizing signs. SKIN: No Rash PSYCH; Flat affect - Physical Exam Vitals/I&O's: Vital Signs Temp Pulse Resp BP Pulse Ox 97.6 F L 88 16 119/72 98 01/12/20 09:45 01/12/20 09:45 01/12/20 09:45 01/12/20 09:45 01/12/20 09:45 Oxygen Delivery Method Room Air Weight: 81.647 kg Body Mass Index (BMI) 25.4 Intake and Output for Last 24 Hours 01/10/20 01/11/20 01/12/20 23:59 23:59 23:59 Intake Total 2499.58 / 2499.58 1120 / 1120 610 / 610 Output Total 1240 / 1240 0 / 0 Balance 1259.58 / 1259.58 1120 / 1120 610 / 610 Microbiology Past 72 Hours 01/09/20 12:05 Stool Stool Occult Blood (MAYTE) - Final Occult Blood Positive Laboratory Results 01/11/20 11:52: POC Glucose 211 H 01/11/20 12:20: Hgb 7.5 L, Hct 25.9 L 01/11/20 16:00: COVID-19 (YANCY) Pending 01/11/20 17:51: POC Glucose 221 H 01/11/20 17:57: Hgb 7.7 L, Hct 26.8 L 01/12/20 00:13: Hgb 7.4 L, Hct 25.9 L 01/12/20 00:16: POC Glucose 170 H 01/12/20 06:35: POC Glucose 170 H 01/12/20 08:08: WBC 9.0, RBC 3.63 L, Hgb 8.2 L, Hct 28.4 L, MCV 78.2 L, MCH 22.6 L, MCHC 28.9 L, RDW Std Deviation 60.8 H, RDW Coeff of Nicholas 22.5 H, Plt Count 579 H, MPV 8.8, Differential Comment SCANNED 01/12/20 08:08: Sodium 137, Potassium 3.8, Chloride 104, Carbon Dioxide 29.0, Anion Gap 4 L, BUN 10, Creatinine 0.68 L, Estim Creat Clear Calc 117.79, Est GFR (MDRD) Af Amer 152, Est GFR (MDRD) Non-Af 126, BUN/Creatinine Ratio 14.7, Glucose 161 H, Calcium 8.1 L Current Medications Acetaminophen (Acetaminophen 325 Mg Tablet) 650 mg PO Q6H PRN PRN PRN Reason: Pain Score 1-10/Temp > 100.7 F Last Admin: 01/11/20 20:55 Dose: 650 mg Documented by: Albuterol Sulfate (Albuterol 2.5 Mg/3 Ml Vial.Neb.) 2.5 mg INHALATION Q2H PRN PRN PRN Reason: Dyspnea, wheezing Atorvastatin Calcium (Atorvastatin Calcium 40 Mg Tablet) 40 mg PO QHS [facility] Last Admin: 01/11/20 21:04 Dose: 40 mg Documented by: Guaifenesin (Guaifenesin 10 Ml Udc (200mg/10ml)) 20 ml PO Q4H PRN PRN PRN Reason: COUGH Pantoprazole Sodium 40 mg/ (Sodium Chloride) 110 mls @ 330 mls/hr IV Q12 [facility] Last Infusion: 01/12/20 10:18 Dose: Infused Documented by: Ferric Sodium Gluconate Complex 250 mg/ Sodium Chloride 270 mls @ 135 mls/hr IV DAILY [facility] Stop: 01/12/20 11:59 Last Admin: 01/12/20 09:39 Dose: 135 mls/hr Documented by: Insulin Human Lispro (Insulin Lispro 100 Unit/Ml Insuln.Pen) 0 unit SC Q6 [facility]; Protocol Last Admin: 01/12/20 11:29 Dose: 3 units Documented by: Melatonin (Melatonin 3 Mg Tablet) 3 mg PO QHS PRN PRN PRN Reason: INSOMNIA Metoprolol Tartrate (Metoprolol Tartrate 25 Mg Tablet) 25 mg PO BID [facility] Last Admin: 01/12/20 09:41 Dose: 25 mg Documented by: Morphine Sulfate (Morphine 2 Mg/Ml Syringe) 2 mg IV Q3H PRN PRN PRN Reason: Pain Score 6-10 Nitroglycerin (Nitroglycerin (Inpatient Use) 0.4 Mg Tab.Subl) 0.4 mg SUBLINGUAL Q5M PRN PRN Reason: CARDIAC/CHEST PAIN Ondansetron HCl (Ondansetron 4 Mg/2 Ml Vial) 4 mg IV Q8H PRN PRN PRN Reason: NAUSEA/VOMITING Oxycodone HCl (Oxycodone 5 Mg Tablet) 5 mg PO Q4H PRN PRN PRN Reason: Pain Score 4-5 Polysaccharide Iron Complex ([facility] Polysaccharide [facility] 150 Mg [facility]apsule) [facility] Last Admin: 01/12/20 08:31 Dose: 150 mg Documented by: Prochlorperazine Edisylate (Prochlorperazine 10 Mg/2 Ml Vial) 5 mg IV Q4H PRN PRN PRN Reason: Breakthrough Nausea/Vomiting Sodium Chloride (0.9% Saline Lock 10 Ml Syringe) 10 - 40 ml IV UD PRN PRN Reason: SALINE FLUSH Last Admin: 01/10/20 21:07 Dose: 10 ml Documented by: Throat Lozenges (Benzocaine/Menthol 1 Lozenge) 1 lozenge MUCOUS MEM Q2H PRN PRN PRN Reason: SORE THROAT Discharge Diet: Soft diet Discharge Activity: Return to Normal Activity, May not drive while taking narcotic pain medications. Home Medications: Medications to take at Discharge acetaminophen 500 mg tablet 1,000 mg PO Q6H PRN tab 07/20/19 glimepiride 4 mg tablet 4 mg PO DAILY 07/20/19 metformin 1,000 mg tablet 1,000 mg PO BID 07/20/19 metoprolol tartrate 50 mg tablet 50 mg PO BID 07/20/19 sitagliptin 100 mg tablet 100 mg PO DAILY 07/20/19 lisinopril 10 mg tablet 10 mg PO DAILY tab 09/02/19 atorvastatin 80 mg tablet 40 mg PO QHS tab 12/05/19 Furosemide 40 mg PO DAILY 01/09/20 Potassium Chloride [K-Tab ER] 20 meq PO DAILY 01/09/20 Iron Polysaccharide Complex [Ferrex 150] 150 mg PO DAILYCM #60 cap 01/12/20 Pantoprazole Sodium [Protonix] 40 mg PO DAILY #120 tab 01/12/20 Following Prescriptions Were Given to Patient: Iron Polysaccharide Complex [Ferrex 150] 150 mg PO DAILYCM #60 cap Transmission Status: Pending to [facility] Pantoprazole Sodium [Protonix] 40 mg PO DAILY #120 tab Transmission Status: Pending to [facility] Other Amb Orders: CORONAVIRUS 19, YANCY SENDOUT Time Frame: 01/11/20, Facility: [facility], Location: Laboratory Primary Care Physician: Shane Mckinney MD [Primary Care Provider] - Please follow up with your Primary Care Physician in: in 1 -2 week Please Follow Up With: Shane Mckinney MD Please Follow Up With: Mayank Allan MD When: as scheduled Please Follow Up With: Bjorn Lang MD When: as scheduled Please Follow Up With: David Issa MD When: as scheduled Disposition: Home Minutes spent on discharge:: 45 Patient Condition:: Stable Medical Necessity - Tobacco Use Smoking Status: Never smoker Tobacco Use: Non-smoker Meaningful Use Info Meaningful Use Diagnoses (Choose all that apply): None applicable Inpatient E&M: 61958 Disch Hosp
[2020-01-12 11:36] LABS: Bedside Glucose 239 mg/dL (70-110)
--- NOTE | 2020-01-12 11:48 | CASEMGMT ---
This RN CM to room to discuss discharge plan with pt at this time. Pt states no concerns with going home today and states no further resources needed at this time. Pt's daughter to drive him home and pt voices no further questions/concerns/needs at this time. SStaten LYNNE CM
--- NOTE | 2020-01-13 14:09 | CASEMGMT ---
LYNNE KEANE Discharge Follow-Up Phone Call. Lace:??12???Strata: 3 Discharge Date: 01/12/20 Adm Dx:?? GIB, Acute blood loss anemia, NSTEMI Call to pt to inquire about how?he has been doing since being discharged from the hospital.? Pt states, Pretty good. He states he got the prescriptions for Iron and Protonix and denies having any questions about the medications or discharge instructions. He states I've pretty much got it all mapped out. I've got all the medications figured out and they've called me and everything is all set up. Pt states he has a Colonoscopy scheduled for Thursday. He denies having any questions/concerns/needs. LYNNE KEANE thanked pt for choosing [facility]. Roula CHACON RN, CM
== END 2020-01-12 13:28 | disposition home or self-care (01) | DRG 375 ==
LOC: ED 14:14 → PCU 01-10 07:21
PROVIDERS: Anesthesiology; Physician Assistant; Surgery; Admitting Provider Family Medicine; Emergency Provider Emergency Medicine; PCP Family Medicine; Visit Provider Internal Medicine
PROC: 0DJ08ZZ Inspection of Upper Intestinal Tract, Via Natural or Artificial Opening Endoscopic (ICD-10-PCS; CPT 43235; principal; 2020-01-10 10:10)
DX: C15.5 Malignant neoplasm of lower third of esophagus (principal); D62 Acute posthemorrhagic anemia; E11.52 Type 2 diabetes mellitus with diabetic peripheral angiopathy with gangrene; I50.32 Chronic diastolic (congestive) heart failure; K92.2 Gastrointestinal hemorrhage, unspecified; E78.5 Hyperlipidemia, unspecified; I11.0 Hypertensive heart disease with heart failure; I25.10 Atherosclerotic heart disease of native coronary artery without angina pectoris; K22.8 Other specified diseases of esophagus; K31.89 Other diseases of stomach and duodenum; K44.9 Diaphragmatic hernia without obstruction or gangrene; I25.2 Old myocardial infarction; Z79.02 Long term (current) use of antithrombotics/antiplatelets; Z79.82 Long term (current) use of aspirin; Z85.820 Personal history of malignant melanoma of skin; Z95.1 Presence of aortocoronary bypass graft; Z98.61 Coronary angioplasty status; Z79.899 Other long term (current) drug therapy; Z79.84 Long term (current) use of oral hypoglycemic drugs
CPT/HCPCS: 36415; 71045; 71260; 74177; 80048; 80053; 80061; 82274; 82962; 83036; 83540; 83550; 83735; 84484; 85014; 85018; 85025; 85027; 85610; 85730; 86850; 86900; 86901; 86920; 87635; 88305; 88313; 88341; 88342; 93005; 99251; 99285; J7030; J7040; J7050; P9016; Q9967; A4216; G0463; J1940; J2916; U0003

== ENCOUNTER 2020-01-17 05:24 | Day surgery (SDC) | payer OTHER, SELFPAY ==
[2019-08-03 11:10] VITALS: BMI 26.5
[2020-01-10 07:14] VITALS: BMI 25.4
[2020-01-16 14:34] VITALS: BMI 25.8
--- NOTE | 2020-01-17 05:40 | HP.PCM_ITS ---
Problem List (1) Adenocarcinoma of esophagus Status: Acute (2) GI bleed Status: Acute Qualifiers: History of Present Illness Date of Admission: 01/17/20 The patient is a 60 year old M who was admitted to the [facility] January 08 through January 12, 2020. He had had documentation of progressive blood loss over multiple months. He presented with a severe acute anemia. I performed a upper endoscopy demonstrating a adenocarcinoma of the distal esophagus with an area of Licona's esophagus and hiatal hernia. He presents now for continuation of his evaluation for colonoscopy. He had CT i maging which demonstrated thickening the esophagus but no obvious distant spread. There were no acute abnormalities with the colon at that time. Past Medical History Past Medical History (Chronic Problems): Chronic Problems (Last Reviewed 01/16/20 @ 14:34 by Sarah Mcclure RN) Diastolic CHF (Chronic) S/P PTCA (percutaneous transluminal coronary angioplasty) (Chronic) S/P CABG (coronary artery bypass graft) (Chronic) Melanoma (Chronic) CAD (coronary artery disease) (Chronic) History of coronary artery bypass surgery (Chronic ~06/02/19) CABG x4- FLORES-LAD, SHARYN -OM1; Radial - OM3, SVG -PDA 06/02/19 @ [facility] Atherosclerotic heart disease of [place] coronary artery without angina pectoris (Chronic) Essential hypertension (Chronic) Type 2 diabetes mellitus (Chronic) HLD (hyperlipidemia) (Chronic) NSTEMI (non-ST elevated myocardial infarction) (Chronic) Medical History: Medical History (Last Reviewed 01/16/20 @ 14:34 by Sarah Mcclure RN) Melanoma (Chronic) C43.9 Lung nodule (Acute) R91.1 Atherosclerotic heart disease of [place] coronary artery without angina pectoris (Chronic) I25.10 Essential hypertension (Chronic) I10 Type 2 diabetes mellitus (Chronic) E11.9 HLD (hyperlipidemia) (Chronic) E78.5 NSTEMI (non-ST elevated myocardial infarction) (Chronic) I21.4 HTN (hypertension) (Inactive) I10 Allergies rosuvastatin [From Crestor] Adverse Reaction (Severe, Verified 01/16/20 14:32) Aches simvastatin Adverse Reaction (Severe, Verified 01/16/20 14:32) Stiff Joints Home Medications: Ambulatory Orders Medication Instructions Recorded acetaminophen 500 mg tablet 1,000 mg PO Q6H PRN tab 07/20/19 glimepiride 4 mg tablet 4 mg PO DAILY 07/20/19 metformin 1,000 mg tablet 1,000 mg PO BID 07/20/19 metoprolol tartrate 50 mg tablet 50 mg PO BID 07/20/19 sitagliptin 100 mg tablet 100 mg PO DAILY 07/20/19 lisinopril 10 mg tablet 10 mg PO DAILY tab 09/02/19 atorvastatin 80 mg tablet 40 mg PO QHS tab 12/05/19 Furosemide 40 mg PO DAILY 01/09/20 Potassium Chloride [K-Tab ER] 20 meq PO DAILY 01/09/20 Iron Polysaccharide Complex 150 mg PO DAILYCM #60 cap 01/12/20 [Ferrex 150] Pantoprazole Sodium [Protonix] 40 mg PO DAILY #120 tab 01/12/20 Surgical History: Surgical History (Last Reviewed 01/16/20 @ 14:34 by Sarah Mcclure RN) History of coronary artery bypass surgery (Chronic) Onset Date: ~06/02/19 Z95.1 CABG x4- FLORES-LAD, SHARYN -OM1; Radial - OM3, SVG -PDA 06/02/19 @ [facility] History of left heart catheterization (LHC) Onset Date: ~05/25/19 Z98.890 [place] Multivessel CAD: FLORES to LAD: patent, SHARYN to OM1: occluded; Radial artery graft to OM3: proximal 85% stenosis (small caliber vessel); SVG to RPDA: patent; RECOMMENDATIONS: Transfer to tertiary care center for consideration for high risk PCI per cath 08/09/19; LEFT MAIN: mid to distal: 75 % Stenosis; LEFT ANTERIOR DESCENDING ARTERY:OSTIAL LAD: 75 % Stenosis, PROX LAD: Mild calcification, diffuse: 25 % Stenosis, MID LAD: 50 % Stenosis, DISTAL LAD: diffuse: 25 % Stenosis;CIRCUMFLEX ARTERY: Mild luminal irregularities, MID CIRC: 50 % Stenosis, DISTAL CIRC: 85 % Stenosis; OM 1: Proximal - Mild luminal irregularities, OM 2: Proximal - 25 - 50 % Stenosis; RIGHT CORONARY ARTERY: Mild luminal irregularities; MID RCA: diffuse: 50 % Stenosis ; Surgery consult for coronary revascularization per Cath 05/25/19 Surgical History: coronary bypass surgery - Recent CABG x4, - - Left eye surgery, CABG x4, PCI x2, recent left chest melanoma resection with flap and lymph node dissection. Psychiatric History: No pertinent psych hx Smoking Status: Never smoker Tobacco Use: Non-smoker - *Family History Maternal Family History: Family History (Last Reviewed 01/16/20 @ 14:34 by Sarah Mcclure RN) Mother CAD (coronary artery disease) Father CAD (coronary artery disease) History of coronary artery bypass surgery History Items: Heart Disease Paternal Family History: Family History (Last Reviewed 01/16/20 @ 14:34 by Sarah Mcclure RN) Mother CAD (coronary artery disease) Father CAD (coronary artery disease) History of coronary artery bypass surgery History Items: Heart Disease Review of Systems Constitutional: Denies: Fever Cardiovascular: Denies: Chest Pain, Chest Pressure Respiratory: Denies: Cough, Shortness of Breath Gastrointestinal: Denies: Abdominal Pain, Hematochezia VTE Information - Inpt Only VTE Present on Admission: No Patient Problems: Active and Suspected Problems (Last Reviewed 01/16/20 @ 14:34 by Sarah Mcclure RN) Adenocarcinoma of esophagus (Acute) GI bleed (Acute) - Physical Exam Vitals/I&O's: Body Mass Index (BMI) 25.8 General: Alert, Oriented x3, Cooperative, No apparent distress HEENT: Atraumatic Lungs: Clear to auscultation, Normal air movement Cardiovascular: Regular rate, Regular Rhythm Abdomen: Bowel Sounds Present, Soft, Non Tender Extremities: No Calf Tenderness Psych/Mental Status: Normal Affect Assessment/Plan All Active Problems (Last Reviewed 01/16/20 @ 14:34 by Sarah Mcclure RN) Adenocarcinoma of esophagus (Acute) GI bleed (Acute) Anemia requiring transfusions (Acute) Thrombocytosis (Acute) Acute blood loss anemia (Acute) Abnormal cardiac enzyme level (Acute) Syncope (Acute) Mass of esophagus determined by endoscopy (Acute) Severe sepsis (Acute) Pneumonia (Acute) Suspected COVID-19 virus infection (Acute) Respiratory distress (Acute) Pneumonia (Acute) Suspected 2019 novel coronavirus infection (Acute) Acute respiratory failure with hypoxia (Acute) Lung nodule (Acute) I plan to proceed with a screening colonoscopy with possible biopsy or polypectomy is indicated. He is aware of the technique, benefit, risk, alternatives. He has had an opportunity to ask and have questions answered. We will proceed as noted. David Issa M.D., F.A.C.S. Procedure Criteria Procedure Type: Elective COVID Risk Discussion: The surgeon/proceduralist and patient have discussed in detail the risk of exposure to and/or potential harm posed by the COVID-19 virus with having a surgery/procedure at this time versus the risk of delaying the surgery/procedure. It is not possible to know either the risk of delaying the surgery or procedure or chance of getting an infection with perfect accuracy, but a joint decision was made between the patient and the surgeon/proceduralist to proceed at this time with the scheduled surgery/procedure as indicated on the consent form.
[2020-01-17] MEDS: Lactated Ringers 1,000 ML 100 ML IV (06:03)
[2020-01-17 06:10] LABS: Bedside Glucose 105 mg/dL (70-110)
[2020-01-17 06:50] VITALS: BP 115/73; BP 97/58; PULSE 64; RESP 16; TEMP 36.6; O2SAT 100
--- NOTE | 2020-01-17 06:53 | OP.CCLET_ITS ---
01/17/2020 Shane Mckinney Md Re : Colonoscopy procedure for Papi Cordova Dear Hank This procedure was performed on Friday, January 17, 2020. My impressions and recommendations are as follows: Impressions : - Non-thrombosed external hemorrhoids, non-thrombosed internal hemorrhoids and internal hemorrhoids that prolapse with straining, but spontaneously regress to the resting position (Grade II) found on perianal exam. - Diverticulosis in the entire examined colon. - The examination was otherwise normal. - No specimens collected. Recommendations : - Discharge patient to home. - Resume previous diet. - Continue present medications. - Repeat colonoscopy in 10 years for screening purposes. My findings are described in the full procedure note, which is enclosed. If I can be of further assistance, please feel free to contact me at Doctor phone number(s): Work: . Sincerely, David Issa MD 01/17/2020 6:51:55 AM This report has been signed electronically.
--- NOTE | 2020-01-17 06:53 | OP.COLON_ITS ---
Patient Name: Papi Cordova Procedure Date: 01/17/2020 6:06 AM Date of : 1960 Age: 60 Procedure: Colonoscopy Indications: Screening for colorectal malignant neoplasm Providers: David Issa MD Referring MD: Shane Mckinney Md Medicines: See the Anesthesia note for documentation of the administered medications Patient Profile: Last Colonoscopy: none. The patient's first colonoscopy is today. Complications: No immediate complications. Procedure: Pre-Anesthesia Assessment: - Prior to the procedure, a History and Physical was performed, and patient medications and allergies were reviewed. The patient's tolerance of previous anesthesia was also reviewed. The risks and benefits of the procedure and the sedation options and risks were discussed with the patient. All questions were answered, and informed consent was obtained. Prior Anticoagulants: The patient has taken no previous anticoagulant or antiplatelet agents. ASA Grade Assessment: III - A patient with severe systemic disease. After reviewing the risks and benefits, the patient was deemed in satisfactory condition to undergo the procedure. After I obtained informed consent, the scope was passed under direct vision. Throughout the procedure, the patient's blood pressure, pulse, and oxygen saturations were monitored continuously. The colonoscope was introduced through the anus and advanced to the cecum, identified by appendiceal orifice and ileocecal valve. The colonoscopy was performed without difficulty. The patient tolerated the procedure well. The quality of the bowel preparation was good. The ileocecal valve and the appendiceal orifice were photographed. Scope In: 6:31:26 AM Scope Withdrawal Time 0 hours 7 minutes 50 seconds Scope Out: 6:45:48 AM Total Procedure Duration Time 0 hours 14 minutes 22 seconds Findings: The perianal exam findings include non-thrombosed external hemorrhoids, non-thrombosed internal hemorrhoids and internal hemorrhoids that prolapse with straining, but spontaneously regress to the resting position (Grade II). Multiple diverticula were found in the entire colon. The exam was otherwise without abnormality. Impression: - Non-thrombosed external hemorrhoids, non-thrombosed internal hemorrhoids and internal hemorrhoids that prolapse with straining, but spontaneously regress to the resting position (Grade II) found on perianal exam. - Diverticulosis in the entire examined colon. - The examination was otherwise normal. - No specimens collected. Recommendation: - Discharge patient to home. - Resume previous diet. - Continue present medications. - Repeat colonoscopy in 10 years for screening purposes. Procedure Code(s): --- Professional --- 28638, Colonoscopy, flexible; diagnostic, including collection of specimen(s) by brushing or washing, when performed (separate procedure) Diagnosis Code(s): --- Professional --- Z12.11, Encounter for screening for malignant neoplasm of colon K64.1, Second degree hemorrhoids K64.4, Residual hemorrhoidal skin tags K57.30, Diverticulosis of large intestine without perforation or abscess without bleeding CPT copyright 2017 [employer]. All rights reserved. The codes documented in this report are preliminary and upon assembly line inspector review may be revised to meet current compliance requirements. David Isas MD 01/17/2020 6:51:55 AM This report has been signed electronically. Number of Addenda: 0 Note Initiated On: 01/17/2020 6:06 AM
[2020-01-17 06:55] VITALS: BP 115/73; BP 95/54; PULSE 61; RESP 18; O2SAT 100
[2020-01-17 06:59] VITALS: BP 101/62; BP 115/73; PULSE 59; RESP 16; O2SAT 100
[2020-01-17 07:05] VITALS: BP 114/72; BP 115/73; PULSE 62; RESP 18; TEMP 36.4; O2SAT 98
[2020-01-17 07:12] VITALS: BP 115/73
== END 2020-01-17 07:34 | disposition home or self-care (01) ==
LOC: EN 05:25 → AC 05:26
PROVIDERS: PCP Family Medicine; Referring Provider Family Medicine; Visit Provider Surgery
PROC: 0DJD8ZZ Inspection of Lower Intestinal Tract, Via Natural or Artificial Opening Endoscopic (ICD-10-PCS; CPT 45378; principal; 2020-01-17 06:25)
DX: Z12.11 Encounter for screening for malignant neoplasm of colon (principal); K64.1 Second degree hemorrhoids; K64.4 Residual hemorrhoidal skin tags; K57.30 Diverticulosis of large intestine without perforation or abscess without bleeding; C15.5 Malignant neoplasm of lower third of esophagus; D64.9 Anemia, unspecified; I11.0 Hypertensive heart disease with heart failure; I50.32 Chronic diastolic (congestive) heart failure; I25.10 Atherosclerotic heart disease of native coronary artery without angina pectoris; E78.00 Pure hypercholesterolemia, unspecified; K21.9 Gastro-esophageal reflux disease without esophagitis; E11.9 Type 2 diabetes mellitus without complications; I25.2 Old myocardial infarction; E78.5 Hyperlipidemia, unspecified; Z87.19 Personal history of other diseases of the digestive system; Z87.01 Personal history of pneumonia (recurrent); Z86.19 Personal history of other infectious and parasitic diseases; Z85.820 Personal history of malignant melanoma of skin; Z95.1 Presence of aortocoronary bypass graft; Z79.84 Long term (current) use of oral hypoglycemic drugs; Z79.899 Other long term (current) drug therapy
CPT/HCPCS: 45378; 82962; J7120; J2405

== ENCOUNTER 2020-02-24 09:12 | Day surgery (SDC) | payer OTHER, SELFPAY ==
[2020-02-09 14:02] VITALS: BMI 26.1
[2020-02-21 10:00] VITALS: BMI 26.3
[2020-02-24 09:35] LABS: Hematocrit 41.2 % (40-54); Hemoglobin 12.7 g/dL (13.0-16.5); Mean Corp Hgb Conc 30.8 g/dL (32-36); Mean Corpuscular Volume 81.3 fL (80-94); Mean Platelet Vol. 9.2 fl (6.2-12.0); POSITIVE MORPHOLOGY YES; Platelet Count 422 K/mm3 (150-450); RBC Distribution Width CV 20.8 % (11.6-14.6); RBC Distribution Width SD 61.2 fl (35.1-43.9); Red Blood Count 5.07 M/mm3 (4.6-6.2); Scan Indicated on CBC? Y/N YES- FLAGS NOTED; White Blood Count 7.3 K/mm3 (4.4-11.0)
[2020-02-24 09:36] VITALS: BP 144/82; PULSE 74; RESP 16; TEMP 36.5; O2SAT 97; BMI 25.7
[2020-02-24 09:47] LABS: Anion Gap 4 (5-15); BUN 13 mg/dL (7-18); BUN/Creat Ratio 19.1 RATIO (10-20); Calcium,Total 8.9 mg/dL (8.5-10.1); Chloride 105 mmol/L (98-107); Creatinine, Serum 0.68 mg/dL (0.70-1.30); EST Glomerular Filtration Rate 125 mL/min (>60); Est Glom Filt Rate - Afr Amer 151 mL/min (>60); Glucose 188 mg/dL (74-106); Potassium 4.1 mmol/L (3.5-5.1); Sodium Level 138 mmol/L (136-145)
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
--- NOTE | 2020-02-24 09:55 | DCINST_ITS ---
Discharge Diet: No Restrictions - Pain medication may cause nausea. You should typically eat light foods as you take your pain medication. Discharge Activity: Return to Normal Activity, May Shower Additional Activity Instructions:: No lifting more than 10 pounds until the discomfort medic placement resolves. You may shower tomorrow. You can perform light activity as long as it does not strain the right chest area. Additional Dressing/Incision Instructions:: Leave the bandage on for 2-3 days. When you remove the bandage, leave the steri-strips intact until they fall off. Allergies/Adverse Reactions: Allergies rosuvastatin [From Crestor] Adverse Reaction (Severe, Verified 02/22/20 14:36) Aches simvastatin Adverse Reaction (Severe, Verified 02/22/20 14:36) Stiff Joints Medications to take at Discharge glimepiride 4 mg tablet 4 mg PO DAILY 07/20/19 metformin 1,000 mg tablet 1,000 mg PO BID 07/20/19 metoprolol tartrate 50 mg tablet 50 mg PO BID 07/20/19 sitagliptin 100 mg tablet 100 mg PO DAILY 07/20/19 lisinopril 10 mg tablet 10 mg PO DAILY tab 09/02/19 atorvastatin 80 mg tablet 40 mg PO QHS tab 12/05/19 Furosemide 40 mg PO DAILY 01/09/20 Potassium Chloride [K-Tab ER] 20 meq PO DAILY 01/09/20 Iron Polysaccharide Complex [Ferrex 150] 150 mg PO DAILYCM #60 cap 01/12/20 Pantoprazole Sodium [Protonix] 40 mg PO DAILY #120 tab 01/12/20 Lidocaine/Prilocaine [Lidocaine-Prilocaine Cream] 1 applicatio TP DAILY PRN PRN 30 Days #1 tube 02/21/20 Ondansetron [Ondansetron Odt] 8 mg PO Q8H PRN PRN 10 Days #30 tab.rapdis 02/21/20 Primary Care Physician: Shane Mckinney MD [Primary Care Provider] - Test Results: Test results from this visit will be discussed in further detail at your follow- up appointment, if applicable. Please Follow Up With: David Issa MD - [phone] When: Call if you have any concerns regarding your port
[2020-02-24] MEDS: Lactated Ringers 1,000 ML 15 ML IV (09:58)
[2020-02-24 10:05] LABS: Bedside Glucose 182 mg/dL (70-110)
[2020-02-24] MEDS: Cefazolin 2 GM in 0.9% Normal Saline 100 ML IV (10:23)
[2020-02-24] MEDS: Bupivacaine Mpf 0.5% 30 ML VIAL (10:40)
[2020-02-24] MEDS: Lidocaine 1% (30 ml sdv) 30 ML Vial (10:40)
--- NOTE | 2020-02-24 10:58 | PCM.OPRPT ---
Problem List (1) Adenocarcinoma of esophagus Status: Acute Report of Operation Date of Procedure: 02/24/20 Pre-Operative Diagnosis: Distal esophageal cancer Post-Operative Diagnosis: Distal esophageal adenocarcinoma Surgery/Procedure Performed:: Right internal jugular 6 [place] PowerPort placement. Reference #[id number]. Lot number [id number]. Expiry date 02/19/2021 Description of Surgical Findings:: Timeout and informed consent was obtained. 60-year-old gent was taken to the operating placement table underwent monitored anesthesia care. Ancef 2 g were given intravenously preoperatively. The right neck and chest were sterilely prepped and draped. 1% lidocaine mixed 50-50 with 0.5% Marcaine was used as a local anesthetic. Total 20 cc was used. Under ultrasound guidance local was instilled. Then a micropuncture needle was inserted in the right internal jugular vein followed by microwire advancement. Local was instilled down upon the chest wall. Transverse incision was made midclavicular line second intercostal space and electrocautery was used to make a subcutaneous pocket. The tubing was tunneled from the neck site to the chest site. Sheath dilator was placed over the micropuncture wire the dilator wire removed and 035 J-wire was inserted fluoroscopy demonstrated good positioning. Sheath dilator was placed over the wire and the dilator wire removed the catheter advanced through the sheath the sheath was split using fluoroscopy the cath was positioned at the SVC atrial junction. It was amputated to length. It was attached to the port secured with a port attachment device. The port was placed in the pocket and secured there with interrupted 2-0 silk. Skin edges approximated with two 3-0 Vicryl subdermal stitch. The neck was closed with interrupted 5-0 Vicryl subdermal stitch. Steri-Strips Telfa OpSite dressings applied. The port was accessed and aspirated easily was flushed with saline and then 2 and half cc of heparinized saline. Sponge and instrument and needle counts were reported to the surgeon to be correct. Specimens none. Drains none. Blood loss minimal. The patient was taken to recovery area in satisfactory vision without apparent complication stat portable chest x-ray is pending. David Issa M.D., F.A.C.S. Type of Anesthesia:: Local MAC Anesthesiologist: Giovani Mcdonald
[2020-02-24 11:06] VITALS: BP 136/76; BP 144/82; PULSE 78; RESP 16; TEMP 36.8; O2SAT 97
[2020-02-24 11:11] VITALS: BP 133/78; BP 144/82; PULSE 76; RESP 16; O2SAT 97
--- NOTE | 2020-02-24 11:15 | RAD_ITS ---
STUDY: X-RAY CHEST REASON FOR EXAM: Male, 60 years old. Post op port placement TECHNIQUE: Single AP portable view of the chest. COMPARISON: Comparison is made with prior examination dated 01/09/2020. FINDINGS: A right-sided portacatheter is in place. The tip is at the junction of the superior vena cava and right atrium. Surgical clips are seen in the left axillary region. The lungs are clear. There is no demonstrated pleural abnormality. Sternal cerclage wires and vascular clips are present from a prior sternotomy and coronary artery bypass graft procedure (CABG). Normal mediastinum and marybeth. Normal visualized pulmonary arteries. Normal visualized aortic arch and descending thoracic aorta. Normal visualized thoracic spine. Normal visualized ribs, clavicles, and shoulders. There is no demonstrated abnormality of the visualized soft tissue structures of the upper abdomen. RAD/Chest 1 View (Portable) IMPRESSION: The tip of the right chalo catheter is at the junction of the superior vena cava and right atrium. Electronically Signed: Jonatan De Leon, at 12:06 EST , Service support ,
[2020-02-24 11:16] VITALS: BP 142/80; BP 144/82; PULSE 73; RESP 16; O2SAT 95
[2020-02-24 11:21] VITALS: BP 135/77; BP 144/82; PULSE 74; RESP 16; TEMP 36.9; O2SAT 95
--- NOTE | 2020-02-24 11:35 | SUR.PHASEII ---
DR. JOHNS CALLED STATING CXR IS NORMAL AND PT. MAY EAT.
[2020-02-24] MEDS: Acetaminophen 325 MG Tablet 650 MG PO (12:10)
[2020-02-24 12:15] VITALS: BP 130/74; BP 144/82; PULSE 76; RESP 16; TEMP 36.4; O2SAT 97
== END 2020-02-24 12:23 | disposition home or self-care (01) ==
LOC: SDC 09:13 → AC 09:14
PROVIDERS: PCP Family Medicine; Referring Provider Surgery; Visit Provider Surgery
PROC: (CPT 36561; principal; 2020-02-24 10:00)
DX: Z45.2 Encounter for adjustment and management of vascular access device (principal); C15.5 Malignant neoplasm of lower third of esophagus; Z20.828 Contact with and (suspected) exposure to other viral communicable diseases; I50.32 Chronic diastolic (congestive) heart failure; I11.0 Hypertensive heart disease with heart failure; I25.10 Atherosclerotic heart disease of native coronary artery without angina pectoris; E11.9 Type 2 diabetes mellitus without complications; E78.5 Hyperlipidemia, unspecified; I25.2 Old myocardial infarction; Z87.01 Personal history of pneumonia (recurrent); Z87.19 Personal history of other diseases of the digestive system; Z86.19 Personal history of other infectious and parasitic diseases; Z85.820 Personal history of malignant melanoma of skin; Z95.1 Presence of aortocoronary bypass graft; Z79.84 Long term (current) use of oral hypoglycemic drugs; Z79.899 Other long term (current) drug therapy
CPT/HCPCS: 00532; 36561; 71045; 77001; 80048; 82962; 85027; 87426; C9803; J7120

== ENCOUNTER → 2020-05-09 07:19 | Outpatient (CLI) | payer OTHER, SELFPAY ==
[2020-02-09 14:02] VITALS: BMI 26.1
[2020-04-30 13:57] VITALS: BMI 24.5
--- NOTE | 2020-05-08 15:00 | PET_ITS ---
EXAMINATION: FDG PET/CT INDICATIONS: A 60-year-old male with history of primary esophageal carcinoma and previous history of malignant melanoma presenting for restaging examination. COMPARISON EXAMINATION: None available INDEX LESION SIZE SUV INTERPRETATION Distal esophagus 19.6-mm (frame 165) 2.0 Does not fulfill quantitative criteria for viable neoplasm Left lower lung-left lower lobe 1.0 Quantitative criteria for viable neoplasm are not fulfilled, sequential radiologic investigation recommended TECHNIQUE: Following the intravenous administration of 14.0 mCi of F-18 deoxyglucose via the left wrist, multiplanar image acquisitions of the neck, chest, abdomen and pelvis to level of mid thigh, obtained at one hour post radiopharmaceutical administration contemporaneously interpreted with the current CT of the neck, chest, abdomen and pelvis to level of mid thigh, dated 05/09/20 via coregistration reveal: SERUM GLUCOSE LEVEL: 146 mg/dl. HEIGHT: 70 inches. WEIGHT: 171 lbs. FINDINGS: 1. There is mild increased radiopharmaceutical concentration defined at the level of the distal esophagus generating a calculated maximal standard uptake value of 2.0. The maximal axial diameter of the corresponding metabolic abnormality on review of CT of the chest dated 05/09/20 is 19.6-mm (transverse). 2. Normal physiologic distribution of the radiopharmaceutical is apparent in the hepatic (2.9) and splenic parenchyma, both renal units, bladder and visualized intestinal tract. The visualized portion of the cerebral cortex demonstrate symmetric and preserved glucose metabolism. Diffuse radiopharmaceutical concentration is noted in all four quadrants of the abdomen and pelvis. Prominent uptake is defined in the proximal sternum associated with visualized postsurgical change-median sternotomy. Barely perceptible increased tracer uptake is noted in the left mid-lower posterior lung-left lower lobe generating a calculated maximal standard uptake value of 1.0. Pertinent CT findings are as follows: CHEST: Yvette-cath placement is noted. There is atherosclerotic calcification defined in the thoracic aorta without evidence of dilatation-aneurysm formation. Coronary arterial calcification is observed. There is evidence of prior median sternotomy previously described. A hiatal hernia is noted. Thickening of the distal esophagus is demonstrated with mild increased tracer concentration previously described. There are no parenchymal densities-nodules defined in the right and left hemithorax with discernible increased FDG distribution. A non-calcified pleural-based density manifest in the left mid posterior lung field demonstrates no evidence of quantitatively significant increased FDG uptake. The subcentimeter parenchymal density noted in the left lower posterior lung-left lower lobe demonstrates minimal increased tracer uptake previously described. ABDOMEN AND PELVIS: There is atherosclerotic calcification defined in the abdominal aorta without evidence of dilatation-aneurysm formation. Pelvic arterial calcification is observed. Subcentimeter bilateral inguinal soft tissue densities are non-glucose avid. Dystrophic calcification is manifest within the prostate gland without evidence of increased tracer uptake. Dense calcification is observed in the left renal unit. SKELETAL: Degenerative changes are noted in the cervical, thoracic and lumbar spine without evidence of increased radiopharmaceutical concentration. PET/PET/CT Tumor Base -Thigh Subs IMPRESSION: 1. NEGATIVE EXAMINATION. There is no definitive quantitative scintigraphic evidence of recurrent-metastatic/viable neoplasm. 2. Increased glucose concentration noted at the level of the distal esophagus does not fulfill quantitative criteria for malignant transformation with single point technique. 3. Barely perceptible increased fluorine labeled glucose uptake noted in the left mid posterior lung-left lower lobe does not fulfill quantitative criteria for viable neoplasm. (Gonzalez et al, Annals of Internal Medicine, 138:724, 2003). 4. Metabolic and/or anatomic stability may be ensured in the left mid posterior lung-left lower lobe abnormality with repeat FDG PET study and/or CT of the thorax in 9-12 weeks. (Xiu, Journal of Nuclear Medicine 45:88, P2004 Darci, Seminars in Thoracic and Cardiovascular Surgery 14:292, 2002). Electronic Signature Nabeel Mcclellan D.O. Accurate Quantification of SUVs for this report are calculated using the exclusive [employer]? Technology.??Exclusive [place]. Patent [employer]uquan? Technology (U.S. Patent No. [id number] [id number]). Electronically Signed: Nabeel Mcclellan DO at 22:05 EST Tel , Service support ,
== END ==
PROVIDERS: PCP Family Medicine; Referring Provider Surgery Surgical Oncology; Visit Provider Surgery Surgical Oncology
DX: C15.5 Malignant neoplasm of lower third of esophagus (principal)
CPT/HCPCS: 78815; A9552

== ENCOUNTER → 2020-08-28 13:08 | Outpatient (CLI) | payer OTHER, SELFPAY ==
[2020-02-09 14:02] VITALS: BMI 26.1
[2020-06-11 13:03] VITALS: BMI 23.9
[2020-07-19 15:03] VITALS: BMI 23.9
--- NOTE | 2020-08-28 13:11 | CT_ITS ---
STUDY: CT ABDOMEN WITH CONTRAST REASON FOR EXAM: Male, 60 years old. MONITOR ESOPHAGEAL CANCER RADIATION DOSAGE (If Supplied By Facility): CTDIvol = ( 12.94 ) mGy, DLP = ( 895.48 ) mGycm TECHNIQUE: Transaxial images were obtained post I.V. administration of IV 100mL Isovue-300, and with oral contrast. Sagittal and coronal images were reconstructed. Individualized dose optimization techniques were used for this CT. COMPARISON: Comparison is made with prior study dated 01/10/2020. FINDINGS: The visualized lung bases are unremarkable. Coronary artery calcification. Normal liver. Normal gallbladder and extrahepatic biliary system. Normal spleen. Normal pancreas. Normal bilateral adrenal glands. There is a 2.3 cm cyst in the upper medial pole of the right kidney. There is a dense 1.2 cm calculus in the mid aspect of the right kidney. This is unchanged. 1 cm cyst is seen in the upper pole of the left kidney. The patient is status post esophagectomy and gastric pull-through procedure. Normal small intestine. Normal colon. The appendix is visualized and appears normal. There is diffuse atherosclerotic calcification of the abdominal aorta, without a demonstrated aneurysm. Normal inferior vena cava. Normal retroperitoneum. Normal abdominal wall. There are mild degenerative changes of the visualized lumbar spine. CT/Abdomen WITH IV Contrast IMPRESSION: Status post esophagectomy with gastric pull-through examination. Stable bilateral renal cysts. Stable right renal calculus. Electronically Signed: Jonatan De Leon MD at 14:11 EDT , Service support ,
--- NOTE | 2020-08-28 13:11 | CT_ITS ---
STUDY: CT CHEST WITH CONTRAST REASON FOR EXAM: Male, 60 years old. MONITOR ESOPHAGEAL CANCER RADIATION DOSAGE (If Supplied By Facility): CTDIvol = ( 12.94 ) mGy, DLP = ( 895.48 ) mGycm TECHNIQUE: Transaxial imaging was performed following intravenous administration of IV 100mL Isovue-300. Multiplanar coronal and sagittal images were reformatted. Individualized dose optimization techniques were used for this CT. COMPARISON: Comparison is made with prior study 01/10/2020. FINDINGS: A right-sided portacatheter is seen with the tip in the superior vena cava. The patient is status post esophagectomy with gastric pull though procedure. This is new as compared to prior examination. The lungs are normal. There is no demonstrated pleural abnormality. There are calcifications of the coronary arteries. Normal mediastinum. Normal hilar regions. Normal enhanced pulmonary arteries. There is atherosclerotic calcification of the aortic arch . There are degenerative changes of the thoracic spine. Stable 5.2 mm cystic density in the lower dorsal vertebrae. Stable right renal cyst. CT/Chest WITH Contrast IMPRESSION: Status post esophagectomy with gastric pull-through examination. Electronically Signed: Jonatan De Leon MD at 14:08 EDT , Service support ,
[2020-08-28 13:21] LABS: CREATININE FINGERSTICK 0.8 mg/dL (0.70-1.30); EGFR FINGERSTICK > 60.0000 mL/min (>60)
[2020-08-28] MEDS: 0.9% Saline Lock 10 ML Syringe IV (13:25)
== END ==
PROVIDERS: PCP Family Medicine; Referring Provider Internal Medicine Medical Oncology; Visit Provider Internal Medicine Medical Oncology
DX: C15.5 Malignant neoplasm of lower third of esophagus (principal)
CPT/HCPCS: 71260; 74160; Q9967; A4216

== ENCOUNTER → 2021-01-14 16:30 | Outpatient (CLI) | payer OTHER, SELFPAY ==
[2020-02-09 14:02] VITALS: BMI 26.1
--- NOTE | 2021-01-14 16:34 | RAD_ITS ---
STUDY: X-RAY CHEST REASON FOR EXAM: Male, 61 years old. Fever and cough TECHNIQUE: PA and lateral views of the chest. COMPARISON: 02/24/2020 FINDINGS: Stable appearance of a right subclavian port The lungs are clear and expanded. There is no demonstrated pleural abnormality. Sternal cerclage wires and vascular clips are present from a prior sternotomy and coronary artery bypass graft procedure (CABG). Normal mediastinum and marybeth. Normal visualized pulmonary arteries. Normal visualized aortic arch and descending thoracic aorta. There are diffuse degenerative changes of the visualized thoracic spine. Normal visualized ribs, clavicles, and shoulders. There is no demonstrated abnormality of the visualized soft tissue structures of the upper abdomen. RAD/Chest PA and Lateral IMPRESSION: No acute pulmonary process Electronically Signed: Chin Camarillo MD at 17:18 EDT , Service support ,
== END ==
PROVIDERS: PCP Family Medicine; Visit Provider Internal Medicine Cardiovascular Disease
DX: R05.9 Cough, unspecified (principal); Z95.5 Presence of coronary angioplasty implant and graft; Z95.1 Presence of aortocoronary bypass graft; I25.10 Atherosclerotic heart disease of native coronary artery without angina pectoris; I11.0 Hypertensive heart disease with heart failure; I50.32 Chronic diastolic (congestive) heart failure; E78.5 Hyperlipidemia, unspecified
CPT/HCPCS: 71046

== ENCOUNTER → 2021-01-15 09:41 | Outpatient (CLI) | payer OTHER, SELFPAY ==
[2020-02-09 14:02] VITALS: BMI 26.1
== END ==
PROVIDERS: PCP Family Medicine; Referring Provider Internal Medicine Cardiovascular Disease; Visit Provider Internal Medicine Cardiovascular Disease
DX: R05.9 Cough, unspecified (principal); Z95.5 Presence of coronary angioplasty implant and graft; I11.0 Hypertensive heart disease with heart failure; I50.32 Chronic diastolic (congestive) heart failure; Z95.1 Presence of aortocoronary bypass graft; I25.10 Atherosclerotic heart disease of native coronary artery without angina pectoris; E78.5 Hyperlipidemia, unspecified
CPT/HCPCS: 87426; C9803

== ENCOUNTER → 2021-01-22 08:11 | Outpatient (CLI) | payer OTHER, SELFPAY ==
[2020-02-09 14:02] VITALS: BMI 26.1
[2021-01-22 09:15] LABS: Cholesterol 94 mg/dL (200); High Density Lipoprotein 36 mg/dL; PSA,Total - Annual Screen 0.97 ng/mL (0.00-4.00); Triglycerides 75 mg/dL; Very Low Density Lipoprotein 15 mg/dL (5-40)
[2021-01-22 09:17] LABS: AST(SGOT) 14 U/L (15-37); Alanine Aminotransfer ALT/SGPT 14 U/L (16-61); Albumin, Serum 3.5 g/dL (3.2-5.0); Alkaline Phosphatase 93 U/L (45-117); Bilirubin, Direct 0.21 mg/dL (0.00-0.30); Globulin 4.5 g/dL (2.2-4.2)
[2021-01-22 09:18] LABS: Hemoglobin A1c 6.3 % (3.8-5.6)
== END ==
PROVIDERS: PCP Family Medicine; Referring Provider Internal Medicine Cardiovascular Disease; Visit Provider Internal Medicine Cardiovascular Disease
DX: E11.9 Type 2 diabetes mellitus without complications (principal); Z12.5 Encounter for screening for malignant neoplasm of prostate; E78.00 Pure hypercholesterolemia, unspecified
CPT/HCPCS: 36415; 80061; 80076; 83036; 84153; G0103

== ENCOUNTER → 2021-02-19 08:08 | Outpatient (CLI) | payer OTHER, SELFPAY ==
[2020-02-09 14:02] VITALS: BMI 26.1
--- NOTE | 2021-02-19 08:35 | CT_ITS ---
STUDY: CT CHEST T ABDOMEN WITH CONTRAST REASON FOR EXAM: Male, 61 years old. MONITORING ESOPHAGEAL CA RADIATION DOSAGE (If Supplied By Facility): CTDIvol = ( 14.95 ) mGy, DLP = ( 1238.74 ) mGycm TECHNIQUE: Transaxial imaging was performed following intravenous administration of Oral and IV Read i-CAT and 100mL Isovue-370. Multiplanar coronal and sagittal images were reformatted. Individualized dose optimization techniques were used for this CT. COMPARISON: 08/28/2020 FINDINGS: CHEST Stable appearance of a right subclavian Port-A-Cath. Tip is in the right atrium. Patient is again noted to be status post esophagectomy with gastric pull-through procedure. This has remained stable and unchanged since the previous study. The lung windows show the lungs to be normally expanded. There is no organized infiltrate, groundglass opacifications, or suspicious noncalcified mass or nodule. There is stable compressive atelectasis in the medial right lower lobe due to the gastric pull-through. Sternal cerclage wires and vascular clips are present from a prior sternotomy and coronary artery bypass graft procedure (CABG). Normal mediastinum. Normal hilar regions. Normal unenhanced pulmonary arteries. Normal aorta arch and descending thoracic aorta. There are multi-level degenerative changes of the thoracic spine. ABDOMEN Normal liver. Normal gallbladder and extrahepatic biliary system. Normal spleen. Normal pancreas. Normal bilateral adrenal glands. No obstructive uropathy, stable bilateral renal cysts. Stable appearance of the gastric pull-through. Nondistended fluid-filled small bowel loops are noted consistent with ileus. Retained stool noted throughout the majority of the colon. There are a few scattered sigmoid diverticula without CT evidence of acute diverticulitis. The appendix is visualized and appears normal. Appendix seen on coronal recon image 58 There is diffuse atherosclerotic calcification of the abdominal aorta, without a demonstrated aneurysm. Normal inferior vena cava. Normal retroperitoneum. Normal abdominal wall. There are diffuse degenerative changes of the visualized lumbar spine. CT/CT Chest AND Abd W/ Contrast IMPRESSION: Stable appearance of a gastric pull-through after esophagectomy. No acute findings or significant change in its appearance since the previous study. No CT evidence of suspicious adenopathy, or suspicious noncalcified mass or nodule in either lung field Stable compressive atelectasis in the medial aspect of the right lower lobe due to the gastric pull-through No suspicious solid organ abnormality Small bowel ileus likely due to retained stool throughout the majority of the colon Normal appendix visualized No free intraperitoneal fluid, air, or suspicious adenopathy Electronically Signed: Chin Camarillo MD at 11:35 EST , Service support ,
[2021-02-19 08:46] LABS: CREATININE FINGERSTICK < 0.6 mg/dL (0.70-1.30); EGFR FINGERSTICK > 60.0000 mL/min (>60)
[2021-02-19] MEDS: 0.9% Saline Lock 10 ML Syringe IV (09:00)
--- NOTE | 2021-02-19 09:08 | NURSING ---
PORT ACCESSED BY SN BORIS, UNDER DIRECT SUPERVISION OF THIS RN USING STERILE TECHNIQUE. ATTEMPTS X3, 3RD SUCCESSFUL POSITIONING, PT TOLERATED WELL.
== END ==
PROVIDERS: PCP Family Medicine; Referring Provider Internal Medicine Medical Oncology; Visit Provider Internal Medicine Medical Oncology
DX: C15.9 Malignant neoplasm of esophagus, unspecified (principal)
CPT/HCPCS: 71260; 74160; Q9967; A4216

== ENCOUNTER → 2021-08-13 | Outpatient (CLI) | payer OTHER, SELFPAY ==
[2020-02-09 14:02] VITALS: BMI 26.1
--- NOTE | 2021-08-13 08:13 | CT_ITS ---
INDICATION: MONITORING- HX OF ESOPHAGEAL CA EXAMINATION: CT CHEST AND ABDOMEN WITH CONTRAST - CT Chest And Abdomen W/ Contrast Injection TECHNIQUE: Helically acquired images were obtained of the chest and abdomen. A radiation dose optimization technique was used for this scan. IV Contrast dosage and agent: 75 mL of ISOVUE-370. Oral contrast: There is enteric contrast. Total dose length product of 1371.59 mGy centimeters. COMPARISON: CT chest, abdomen and pelvis 02/19/2021. FINDINGS: ----Chest: LUNGS, PLEURA AND LARGE AIRWAYS: No masses, consolidation, or edema. No pleural effusion or thickening. No pneumothorax. There is partial volume loss and thin linear opacities consistent with atelectasis right lower lobe secondary to mass effect from gastric pull-through procedure. THYROID: No thyroid lesions. HEART AND PERICARDIUM: Heart size is normal. No pericardial effusion. Patient is status post prior thoracotomy and there are coronary artery calcifications and/or stents. VESSELS: Thoracic aorta is not dilated. Mild aortic arch calcifications. MEDIASTINUM AND WAQAS: No mediastinal or hilar adenopathy. Patient is status post prior esophageal resection with gastric pull-through procedure. BONES: No suspicious lytic or blastic abnormality. T9 roughly 1 cm lucency with thin surrounding sclerotic or M is benign and unchanged. ----Abdomen (without Pelvis): LIVER: Homogeneous. No focal mass. GALLBLADDER AND BILIARY TREE: No calcified gallstones. No gallbladder distension or wall edema. No intra- or extrahepatic biliary ductal dilation. PANCREAS: No focal cystic or solid mass. SPLEEN: Normal size without focal cystic or solid mass. Splenule noted. ADRENAL GLANDS: No nodules. KIDNEYS AND URETERS: Normal renal size and position. No hydronephrosis. No suspicious solid or cystic mass lesion with several right and left peripheral and/or exophytic renal fluid densities unchanged compared to prior exams and highly suggestive of cysts. Right renal 9 mm calcification with adjacent mild cortical thinning suggesting prior infection. No hydronephrosis or other evidence of genitourinary stone. PERITONEUM: No ascites or free air. No other fluid collection. BOWEL: Normal appendix identified. Patient is status post gastric pull-through. Visualized portions of the small bowel show intraluminal contrast and no fold thickening. Visualized portions of the left colon show scattered diverticuli. No evidence of diverticulitis. LYMPH NODES: No enlarged mesenteric or retroperitoneal lymph nodes. VESSELS: Aorta is non-dilated. Scattered intimal calcifications, especially the origin of the renal and mesenteric arteries without evidence of significant stenosis. ABDOMINAL WALL: No discrete abdominal wall hernia. BONES: No lytic or blastic abnormality. Moderate facet arthropathy lower lumbar spine, most notably at L4-5 and L5-S1 on the right. Note that the [id number] does not extend into the pelvis. CT/CT Chest AND Abd W/ Contrast IMPRESSION: Stable exam compared to CT chest, abdomen and pelvis 02/19/2021 showing gastric pull-through status post esophagectomy with no evidence of recurrent disease. Unchanged and chronic findings to include bilateral renal cysts, right nonobstructing renal calcification, splenule, diverticulosis, and prior thoracotomy. Electronically Signed: Maged Grider DO at 20:31 EDT ,
[2021-08-13 08:26] LABS: CREATININE FINGERSTICK < 0.9 mg/dL (0.70-1.30); EGFR FINGERSTICK > 60.0000 mL/min (>60)
[2021-08-13] MEDS: 0.9% Saline Lock 10 ML Syringe IV (08:35)
== END | disposition home or self-care (01) ==
LOC: CT 08:12
PROVIDERS: PCP Family Medicine; Referring Provider Internal Medicine Medical Oncology; Visit Provider Internal Medicine Medical Oncology
DX: C15.5 Malignant neoplasm of lower third of esophagus (principal)
CPT/HCPCS: 71260; 74160; Q9967; A4216

== ENCOUNTER 2022-02-11 08:13 | Outpatient (CLI) | payer OTHER, SELFPAY ==
[2020-02-09 14:02] VITALS: BMI 26.1
--- NOTE | 2022-02-11 08:19 | CT_ITS ---
EXAM: CT CHEST AND ABDOMEN WITH INTRAVENOUS CONTRAST CLINICAL INDICATION: MONITOR GIST ESOPHAGEAL CA/ IV ONLY TECHNIQUE: Helically acquired images were obtained of the chest and abdomen with intravenous contrast. This CT exam was performed using one or more of the following dose reduction techniques: automated exposure control, adjustment of the mA and/or kV according to patient size, and/or use of iterative reconstruction technique. This report was created using [employer] report generation technology. CONTRAST: IV 100mL Isovue-300 COMPARISON: CT Chest Abdomen dated 08/13/2021 FINDINGS: CHEST: LUNGS AND PLEURAL SPACES: Linear scarring noted within the right lower lobe. No mass. No pleural effusion or thickening. No pneumothorax. HEART: Coronary artery stent and calcifications seen. MEDIASTINUM: See below. THYROID: Normal. No thyroid lesions. ABDOMEN: LIVER: Normal. Homogeneous. No focal mass. GALLBLADDER AND BILE DUCTS: Tiny stones or sludge noted within the gallbladder. No gallbladder distention or wall edema. No intra- or extrahepatic biliary ductal dilation. PANCREAS: Normal. No focal cystic or solid mass. SPLEEN: Normal. Normal size without focal cystic or solid mass. ADRENALS: Normal. No nodules. KIDNEYS AND URETERS: Small bilateral renal cysts. 11 mm calcification within the interpolar region of the right kidney again noted. Normal renal size and position. No hydronephrosis. STOMACH AND BOWEL: Surgical changes of gastric pull-through again seen. No evidence of residual or recurrent neoplasm of the stomach or esophagus. Diverticulosis of the colon noted without evidence of acute diverticulitis. No evidence of bowel obstruction or significant ileus. APPENDIX: Appendix is visualized and normal in appearance. INTRAPERITONEAL SPACE: Normal. No ascites or other fluid collection. No free air. CHEST and ABDOMEN: BONES/JOINTS: Normal. No suspicious lytic or blastic abnormality. SOFT TISSUES: Normal. No discrete abdominal wall hernia. VASCULATURE: Normal. Aorta is non-dilated. No aortic dissection. No obvious central pulmonary embolism although this study was not performed with the pulmonary embolism protocol. LYMPH NODES: Normal. No enlarged lymph nodes. TUBES, LINES AND DEVICES: Right IJ infusion catheter tip extends to the right atrium. CT/CT Chest AND Abd W/ Contrast IMPRESSION: 1. No evidence of residual or recurrent neoplasm. 2. Small gallstones versus sludge. 3. 11 mm right renal calcification. 4. Diverticulosis coli. 5. No interval change. Electronically Signed: Joseph Snider MD at 13:36 EST ,
[2022-02-11] MEDS: 0.9% Saline Lock 10 ML Syringe IV (08:50)
[2022-02-11 09:01] LABS: CREATININE FINGERSTICK < 0.9 mg/dL (0.70-1.30); EGFR FINGERSTICK > 60.0000 mL/min (>60)
== END 2022-02-11 23:59 | disposition home or self-care (01) ==
LOC: CT 08:17
PROVIDERS: PCP Family Medicine; Referring Provider Internal Medicine Medical Oncology; Visit Provider Internal Medicine Medical Oncology
DX: C15.5 Malignant neoplasm of lower third of esophagus (principal); C49.A2 Gastrointestinal stromal tumor of stomach; K80.20 Calculus of gallbladder without cholecystitis without obstruction; N28.89 Other specified disorders of kidney and ureter; K57.90 Diverticulosis of intestine, part unspecified, without perforation or abscess without bleeding
CPT/HCPCS: 71260; 74160; Q9967; A4216

== ENCOUNTER → 2022-07-08 | Outpatient (CLI) | payer OTHER, SELFPAY ==
[2020-02-09 14:02] VITALS: BMI 26.1
[2022-07-09 12:09] LABS: C-Peptide 2.5 ng/mL (1.1-4.4)
== END | disposition home or self-care (01) ==
PROVIDERS: PCP Family Medicine; Referring Provider Family Medicine; Visit Provider Family Medicine
DX: E11.9 Type 2 diabetes mellitus without complications (principal)
CPT/HCPCS: 36415; 84681

== ENCOUNTER → 2023-01-13 | Outpatient (CLI) | payer OTHER, SELFPAY ==
[2020-02-09 14:02] VITALS: BMI 26.1
--- NOTE | 2023-01-13 08:03 | CT_ITS ---
EXAM: CT CHEST AND ABDOMEN WITH INTRAVENOUS CONTRAST CLINICAL INDICATION: IV ONLY-ESPHAGEAL CA-MONITOR TECHNIQUE: Helically acquired images were obtained of the chest and abdomen with intravenous contrast. This CT exam was performed using one or more of the following dose reduction techniques: automated exposure control, adjustment of the mA and/or kV according to patient size, and/or use of iterative reconstruction technique. RADIATION DOSE: CTDIvol = 16.90 mGy, DLP = 1346.61 mGy-cmContrast: IV 100mL Isovue-300 COMPARISON: February 11, 2022. FINDINGS: CHEST: LUNGS AND PLEURAL SPACES: Mild bands of atelectasis or scarring in the right lung base. No mass. No pleural effusion or thickening. No pneumothorax. HEART: Advanced calcifications and/or stents in the coronary arteries are again noted. Normal heart size. No pericardial effusion. MEDIASTINUM: Similar appearance of resection of mid to distal esophagus with gastric pull-through and moderate distention of the intrathoracic stomach with fluid. No hiatal hernia. No mediastinal or hilar adenopathy. THYROID: Unremarkable. No thyroid lesions. ABDOMEN: LIVER: Unremarkable. Homogeneous. No focal mass. GALLBLADDER AND BILE DUCTS: Slightly dense dependent material in the gallbladder sludge balls or stones, no evidence of acute cholecystitis. No intra- or extrahepatic biliary ductal dilation. PANCREAS: Unremarkable. No focal cystic or solid mass. SPLEEN: Unremarkable. Normal size without focal cystic or solid mass. ADRENALS: Unremarkable. No nodules. KIDNEYS AND URETERS: Similar appearance of multiple and bilateral predominantly exophytic renal cysts and large coarse calcification in the right kidney. Normal renal size and position. STOMACH AND BOWEL: Moderate stool in much of the colon. Scattered diverticulosis, no evidence of acute diverticulitis. APPENDIX: Part of normal appendix is seen. INTRAPERITONEAL SPACE: Unremarkable. No ascites or other fluid collection. No free air. CHEST and ABDOMEN: BONES/JOINTS: Median sternotomy wires again noted. Small well-corticated lucent focus in the T9 body is stable, no complex features. No suspicious lytic or blastic abnormality. SOFT TISSUES: Unremarkable. No discrete abdominal wall hernia. VASCULATURE: Similar aortoiliac atherosclerotic calcification, no aneurysm or dissection. LYMPH NODES: Unremarkable. No enlarged lymph nodes. CT/CT Chest AND Abd W/ Contrast IMPRESSION: 1. Stable exam. Postoperative changes. No evidence of recurrent or metastatic disease. 2. Slight complex material in the gallbladder. Diverticulosis. Electronically Signed: Aniyah Wade MD at 8:15 EDT ,
[2023-01-13 08:33] LABS: CREATININE FINGERSTICK < 0.9 mg/dL (0.70-1.30); EGFR FINGERSTICK > 60.0000 mL/min (>60)
== END | disposition home or self-care (01) ==
PROVIDERS: PCP Family Medicine; Referring Provider Internal Medicine Medical Oncology; Visit Provider Internal Medicine Medical Oncology
DX: C15.5 Malignant neoplasm of lower third of esophagus (principal)
CPT/HCPCS: 71260; 74160; Q9967

== ENCOUNTER → 2023-10-05 | Outpatient (CLI) | payer MEDICARE, OTHER, SELFPAY ==
[2020-02-09 14:02] VITALS: BMI 26.1
[2023-10-05 15:30] LABS: Absolute Lymphocyte Count 1.81 X10^3/uL (0.83-4.51); Absolute Neutrophil Count 5.1 X10^3/uL (2.0-7.7); Basophil# 0.06 X10^3/uL; Basophil% 0.7 % (0-1); Eosinophil# 0.35 X10^3/uL; Eosinophils% 4.3 % (0-5); Hematocrit 47.1 % (40-54); Hemoglobin 15.6 g/dL (13.0-16.5); Lymphocyte # 1.81 X10^3/ul (0.83-4.51); Lymphocyte % 22.3 % (19-41); Mean Corp Hgb Conc 33.1 g/dL (32-36); Mean Corpuscular Hgb 30.6 pg (27.0-32.0); Mean Corpuscular Volume 92.5 fL (80-94); Mean Platelet Vol. 10.2 fl (6.2-12.0); Monocyte# 0.76 X10^3/uL; Monocyte% 9.4 % (0-10); NRBC Flagged by Analyzer 0 % (0-5); Neutrophil # 5.11 X10^3/uL (2.7-7.7); Neutrophil % 62.9 % (47-70); Platelet Count 336 K/mm3 (150-450); RBC Distribution Width CV 12.2 % (11.6-14.6); RBC Distribution Width SD 41.5 fl (35.1-43.9); Red Blood Count 5.09 M/mm3 (4.6-6.2); White Blood Count 8.1 K/mm3 (4.4-11.0)
[2023-10-05 15:38] LABS: Anion Gap 8 (5-15); BUN 21 mg/dL (7-18); BUN/Creat Ratio 22.7 RATIO (10-20); Calcium,Total 10.2 mg/dL (8.5-10.1); Chloride 96 mmol/L (98-107); Creatinine, Serum 0.93 mg/dL (0.70-1.30); EST Glomerular Filtration Rate 87 mL/min (>60); Est Glom Filt Rate - Afr Amer 105 mL/min (>60); Glucose 264 mg/dL (74-106); Potassium 4.8 mmol/L (3.5-5.1); Sodium Level 131 mmol/L (136-145)
== END | disposition home or self-care (01) ==
LOC: MFPLAB 12:01
PROVIDERS: PCP Family Medicine; Visit Provider Family Medicine
DX: R22.1 Localized swelling, mass and lump, neck (principal)
CPT/HCPCS: 36415; 80048; 85025

== ENCOUNTER → 2023-10-13 | Outpatient (CLI) | payer MEDICARE, OTHER, SELFPAY ==
[2020-02-09 14:02] VITALS: BMI 26.1
--- NOTE | 2023-10-13 11:07 | US_ITS ---
STUDY: SUPERFICIAL ULTRASOUND - LEFT CERVICAL REGION. REASON FOR EXAM: Male, 63 years old. L NECK MASS . History of esophageal carcinoma. TECHNIQUE: A superficial ultrasound was performed with real-time and static alexander-scale imaging. COMPARISON: None. FINDINGS: The palpable lump corresponds to a 3.9 cm x 3.2 cm x 3.5 cm heterogeneous mass with the calcifications and with posterior shadowing. There is evidence of increased vascularity. Biopsy recommended. There is evidence of a 1.3 cm x 0.7 cm x 0.5 cm benign-appearing lymph node. There is a 1.4 cm x 0.9 cm x 0.6 cm hypoechoic lymph node with calcifications. This is suspicious. US/Head/Neck Soft Tissue IMPRESSION: The palpable lump corresponds to a 3.9 cm x 3.2 cm x 3.5 cm heterogeneous mass with calcifications and posterior shadowing. Increased vascularity. Biopsy recommended. Adjacent suspicious 1.4 cm x 0.9 cm x 0.6 cm lymph node. Electronically Signed: Jonatan De Leon MD at 10:43 EDT ,
== END | disposition home or self-care (01) ==
PROVIDERS: PCP Family Medicine; Referring Provider Family Medicine; Visit Provider Family Medicine
DX: R22.1 Localized swelling, mass and lump, neck (principal)
CPT/HCPCS: 76536

== ENCOUNTER → 2023-10-21 | Outpatient (CLI) | payer MEDICARE, OTHER, SELFPAY ==
[2020-02-09 14:02] VITALS: BMI 26.1
--- NOTE | 2023-10-21 12:51 | CT_ITS ---
STUDY: CT SOFT TISSUE NECK WITH CONTRAST REASON FOR EXAM: Male, 63 years old. NECK MASS RADIATION DOSAGE (If Supplied By Facility): CTDIvol = ( 16.31 ) mGy, DLP = ( 533.79 ) mGycm TECHNIQUE: The patient was scanned in a multi-detector CT scanner. High resolution transaxial imaging was performed following intravenous administration of IV 75mL Isovue-370. Sagittal and coronal images were reconstructed. Individualized dose optimization techniques were used for this CT. COMPARISON: None. FINDINGS: There is a 4.5 cmx 3.8 cm x 6.2 cm soft tissue mass in the lower left-sided neck extending into the supraclavicular region. This surrounds the left subclavian artery and venous branches. This mass is complex with a decreased density suggestive possible necrotic change. A neoplastic process should be ruled out. Normal bilateral parotid glands. Normal bilateral dining room helper spaces. Normal bilateral parapharyngeal spaces. Normal bilateral carotid spaces. Normal bilateral sublingual and submandibular glands and spaces. Normal visualized nasopharynx. Normal retropharyngeal space. Normal perivertebral space. Normal visualized bilateral faucial tonsils. The visualized tongue, tongue base and oropharynx are normal. Normal epiglottis, bilateral vallecula and hypopharynx. The pre-epiglottic and paraglottic adipose spaces are normal. Normal visualized bilateral piriform sinuses, aryepiglottic folds, vocal cords, and arytenoid-cricoid articulations. Normal subglottic trachea. Normal bilateral lobes of the thyroid gland. Normal visualized pulmonary apices. Normal visualized paranasal sinuses. There is multilevel degenerative changes of the cervical spine. CT/Soft Tissue Neck WITH Contrast IMPRESSION: Large heterogeneous mass arising in the inferior aspect of the left cervical region and extending caudal to the supraclavicular region measuring 4.5 cm x 3.7 x 6.2 cm. A neoplastic process should be ruled out. This surrounds the proximal portion of the left common carotid artery. Biopsy recommended. Electronically Signed: Jonatan De Leon MD at 14:14 EDT ,
== END | disposition home or self-care (01) ==
LOC: CT 12:48
PROVIDERS: PCP Family Medicine; Referring Provider Otolaryngology; Visit Provider Otolaryngology
DX: R22.1 Localized swelling, mass and lump, neck (principal)
CPT/HCPCS: 70491; Q9967

== ENCOUNTER → 2023-10-23 | Outpatient (CLI) | payer MEDICARE, OTHER, SELFPAY ==
[2020-02-09 14:02] VITALS: BMI 26.1
--- NOTE | 2023-10-23 | IMM_PTH ---
PATIENT: KATHRIN WISE LOC: LAB U#:[id number] AGE/SX: 63/M ROOM: RE10/23/[address]: Dr. Jean Bush MD : 1960 BED: DIS: 10/23/2023 SPEC #: [id number] RECD: 10/26/23 11:52 STATUS: DEBBY REQ #: [id number] JATINDER: 10/23/23 00:[address]: Jena Bush DEPT: IMMUNOHISTOCHEMISTRY RECD BY: Edgar Andrade ENTERED: 10/26/23 11:53 SP TYPE: IMMUNO OTHR DR: Natalee Dewey MD Tissues: Neck, NOS Procedures: NAPSIN A (add) CK5-6 (add) TTF1 (add) Pankeratin (initial) MELAN-A (add) P40 (add) S-100 (add) PHYSICIAN & INSTITUTION [place] [address] SPECIMEN INFORMATION: Tissue Source: Left upper neck mass Clinical Info: Left neck mass Specimen Number: [id number] CPT code: 10116,44004c93 METHODOLOGY: Deparaffinized sections of prefer/formalin-fixed tissue or PAP/DQ stained slides are incubated with monoclonal/polyclonal antibodies/oligonucleotide probes. Localization is made via biotin free immunoperoxidase method. Appropriate controls are performed and reacted as expected. Results on target cell population are indicated in the following table: RESULTS: ANTIBODY / CLONE RESULT AE1-3 (AE1/AE3/PCK26) positive S-100 (4C4.9) negative Melan A (A103) negative TTF-1 (8G7G3/1) negative Napsin A (Rabbit Polyclonal) negative P40 (BC28) negative CK5-6 (D5 & 1684) negative MLH-1 (M1) positive, dim MSH2 (25D12) negative MSH6 (44) positive, faint PMS2 (DUU5802) positive These tests were developed and their performance characteristics determined by [facility]. They may not have been cleared or approved by the U.S. Food and Drug Administration. The FDA has determined that such clearance or approval is not necessary. The above immunohistochemical/dualISH markers are ordered and reviewed by the Pathologist. INTERPRETATION: Fine needle aspiration, left neck mass, biopsy: Metastatic non-small cell carcinoma. COMMENT: The IHC profile does not favor, squamous cell carcinoma, melanoma or lung primary. Clinical correlation is necessary. Case has been reviewed in consultation with Dr. Gonzalez who concurs with the above diagnosis. IDC:TODD AM/mr 10/28/2023 ADDENDUM ADDENDUM ADDENDUM ADDENDUM ADDENDUM ADDENDUM ADDENDUM ADDENDUM 11/25/2023 13:57 ADDENDUM 11/25/2023 13:57 ADDENDUM 11/25/2023 13:57 ADDENDUM 11/25/2023 13:57 ADDENDUM 11/25/2023 13:57 MSI POSITIVE. There is a total loss of 1 of 4 markers (total loss of MSH2). NOTE: Sample is very limited. Clinical correlation is necessary. SENIA/ 11/25/2023
--- NOTE | 2023-10-23 | ASPOS_PTH ---
PATIENT: KATHRIN WISE LOC: [facility] U#:[id number] AGE/SX: 63/M ROOM: RE10/23/[address]: Dr. Jean Bush MD : 1960 BED: DIS: 10/23/2023 SPEC #: [id number] RECD: 10/23/23 10:00 STATUS: DEBBY FRENCH #: [id number] JATINDER: 10/23/23 00:[address]: Jean Bush DEPT: CYTOLOGY RECD BY: Yari Cardoza ENTERED: 10/23/23 11:21 SP TYPE: ASP HERE OTHR DR: Natalee Dewey MD Tissues: Neck, NOS Procedures: Surgery Specimen Level IV Cytology Other Fine Needle Asp on Site HEADER OPERATION: Fine needle aspiration left upper neck mass PRE-OP DIAGNOSIS: Left neck mass TISSUE SUBMITTED: Smears and fluid for cytology DIAGNOSIS CYTOLOGY Fine needle aspiration, left neck mass (smears and cellblock): Metastatic non-small cell carcinoma. See comment. / 10/28/2023 COMMENT A fine needle aspiration was performed and the specimen is evaluated at the time of FNA by Dr. Jones. Immediate Evaluation = Positive for malignant cells. Favor non-small cell carcinoma. Immunohistochemistry ([id number]) does not favor primary arising in squamous cell carcinoma, melanoma or lung. Clinical correlation is suggested. Case has been reviewed in consultation with Dr. Gonzalez who concurs with the above diagnosis. IDC:SJ CYTOLOGY STUDY Slides are reviewed. CYTOLOGY GROSS Received is 0.1 ml of reddish fluid labeled with the patient's name, and designated Left neck mass. 4 imprints and 2 paps are made from the submitted fluid and the rest is added to CytoLyt for cell block preparation. Submitted for cytology study. / 10/23/2023 TC:0 CPT:98299,38001,07223,44007 ADDENDUM ADDENDUM ADDENDUM ADDENDUM ADDENDUM ADDENDUM ADDENDUM ADDENDUM ADDENDUM ADDENDUM ADDENDUM ADDENDUM ADDENDUM ADDENDUM ADDENDUM 11/30/2023 09:09 ADDENDUM 11/30/2023 09:09 ADDENDUM 11/30/2023 09:09 ADDENDUM 11/30/2023 09:09 ADDENDUM 11/30/2023 09:09 PD-L1 (KEYTRUDA) IMMUNOHISTOCHEMICAL ANALYSIS FOR GASTROESOPHAGEAL JUNCTION ADENOCARCINOMA FROM [email or web address] RESULTS: Combined positive score: <1 (CPS <1/ no PD-L1 expression). MISMATCH REPAIR (MMR) BY IHC WITH INTERPRETATION: INTERPRETATION: Test cancelled on block ([id number]) due to there is no expression in all 4 MMR proteins. Recommended testing MMR on different block or specimen. Please see complete report in e-chart or EMR
== END | disposition home or self-care (01) ==
PROVIDERS: PCP Family Medicine; Referring Provider Otolaryngology; Visit Provider Otolaryngology
DX: R22.1 Localized swelling, mass and lump, neck (principal)
CPT/HCPCS: 10021; 88161; 88305; 88341; 88342

== ENCOUNTER → 2023-10-27 | Outpatient (CLI) | payer MEDICARE, OTHER, SELFPAY ==
[2020-02-09 14:02] VITALS: BMI 26.1
[2023-10-29 08:12] LABS: C-Peptide 2.7 ng/mL (1.1-4.4); Insulin Level 10.3 uIU/mL (2.6-24.9)
== END | disposition home or self-care (01) ==
PROVIDERS: PCP Family Medicine; Visit Provider Family Medicine
DX: E11.9 Type 2 diabetes mellitus without complications (principal)
CPT/HCPCS: 36415; 83525; 84681

== ENCOUNTER → 2023-11-10 | Outpatient (CLI) | payer MEDICARE, OTHER, SELFPAY ==
[2020-02-09 14:02] VITALS: BMI 26.1
== END | disposition home or self-care (01) ==
PROVIDERS: PCP Family Medicine; Referring Provider Otolaryngology; Visit Provider Otolaryngology
DX: C76.0 Malignant neoplasm of head, face and neck (principal); R22.1 Localized swelling, mass and lump, neck

== ENCOUNTER → 2023-11-17 | Outpatient (CLI) | payer MEDICARE, SELFPAY ==
[2020-02-09 14:02] VITALS: BMI 26.1
--- NOTE | 2023-11-17 08:00 | PET_ITS ---
EXAMINATION: FDG PET-CT INDICATIONS: A 63-year-old male with a history of head and neck carcinoma presenting for restaging examination. COMPARISON EXAMINATION: None available. INDEX LESION SIZE SUV INTERPRETATION NEW: Left anterior neck level IV 56.5 mm 2.5 Fulfills quantitative criteria for viable neoplasm. TECHNIQUE: Following the intravenous administration of 13.89 mCi of F-18 deoxyglucose via the right wrist, multiplanar image acquisitions of the head, neck, chest, abdomen and pelvis to level of mid-thigh, lower extremities obtained at one hour post radiopharmaceutical administration contemporaneously interpreted with the current CT of the head, neck, chest, abdomen and pelvis to level of mid-thigh, lower extremities dated 11/17/23 via coregistration reveal: SERUM GLUCOSE LEVEL: 119 mg/dl. HEIGHT: 70 inches. WEIGHT: 175 lbs. FINDINGS: Head/Neck: Increased tracer uptake is noted in the left anterior neck involving level IV. The calculated maximum standard uptake value is 2.5. The maximum axial diameter of the metabolic, morphologic abnormality is 56.5 mm. The visualized portion of the cerebral cortical-subcortical structures demonstrate symmetric and preserved glucose metabolism. CHEST: There is no quantitative scintigraphic evidence of abnormal increased glucose metabolism within the context of the bilateral hemithorax pulmonary parenchyma, right and left hemithoracic pleural interface, mediastinal structures and thoracic perihilum.? Pertinent chest CT findings are as follows. There is evidence of prior esophagectomy with gastric pull through procedure. There is evidence of prior median sternotomy. There is atherosclerotic calcification defined in the thoracic aorta without evidence of dilatation-aneurysm formation. Coronary arterial calcification is observed. Abdomen/Pelvis: Normal physiologic distribution of the radiopharmaceutical is apparent in the hepatic (3.1) and splenic parenchyma, both renal units, bladder and visualized intestinal tract. Diffuse radiopharmaceutical concentration is noted in all four quadrants of the abdomen and pelvis. Abdomen and pelvis CT findings are as follows. There is atherosclerotic calcification defined in the abdominal aorta without evidence of dilatation-aneurysm formation. Abdominal-pelvic arterial calcification is demonstrated. There is evidence of cholelithiasis. Cyst formation is noted in the right renal unit. Calcification is demonstrated. The prostate gland is prominent in size with dystrophic calcifications noted in the right base. Skeletal: Degenerative changes are noted in the cervical, thoracic and lumbar spine. PET/PET/CT Tumor Base -Thigh Subs IMPRESSION: 1. ABNORMAL EXAMINATION INDICATIVE OF MALIGNANT-VIABLE NEOPLASM. 2. Increased FDG concentration manifest in the left anterior neck fulfills quantitative criteria for malignant transformation. 3. Overall, compared to the prior FDG PET CT study dated 05/09/20, there is current apparent evidence of defined viable neoplastic disease within the left anterior neck. Electronic Signature Nabeel Mcclellan D.O. Accurate Quantification of SUVs for this report are calculated using the exclusive [employer], (U.S. Patent No. [phone] [place] patent [phone] ). Standardization and correction of the FDG SUV metric exclusively available with [employer] intellectual property, allow for vendor non-specific objective quantitative sequential FDG PET-CT comparison and otherwise unobtainable optimization of the sensitivity and specificity of the examination. [email or web address] Electronically Signed: Nabeel Mcclellan DO at 7:56 EDT ,
== END | disposition home or self-care (01) ==
PROVIDERS: PCP Family Medicine; Referring Provider Otolaryngology; Visit Provider Otolaryngology
DX: C76.0 Malignant neoplasm of head, face and neck (principal); R22.1 Localized swelling, mass and lump, neck
CPT/HCPCS: 78815; A9552

== ENCOUNTER 2023-12-04 07:55 | Outpatient (CLI) | payer MEDICARE, SELFPAY ==
[2020-02-09 14:02] VITALS: BMI 26.1
[2023-12-04] VITALS (10 sets, daily range): BP systolic 104–138; BP diastolic 71–89; PULSE 90–102; RESP 12–20; TEMP 36.3; O2SAT 95–99; BMI 25.1
--- NOTE | 2023-12-04 | IMM_PTH ---
PATIENT: KATHRIN WISE LOC: CT U#:[id number] AGE/SX: 63/M ROOM: RE12/04/[address]: Dr. Bjorn Lang MD : 1960 BED: DIS: 12/04/2023 SPEC #: [id number] RECD: 12/04/23 10:23 STATUS: DEBBY REQ #: [id number] JATINDER: 12/04/23 00:[address]: Bjorn Lang DEPT: IMMUNOHISTOCHEMISTRY RECD BY: Edgar Andrade ENTERED: 12/04/23 10:25 SP TYPE: IMMUNO OTHR DR: Natalee Dewey MD Tissues: Neck, NOS Procedures: RCC (add) MSH2 (add) MLH-1 (add) MSH6 (add) Anti-PMS2 (add) NAPSIN A (add) CK20 (add) CK5-6 (add) CK7 (add) CK8 (add) HEP PAR (add) KI-67 (add) P53 (add) TTF1 (add) Vimentin (add) Pankeratin (add) MELAN-A (add) P40 (add) PSAP (add) HER-2-EVERETT (initial) S-100 (add) PHYSICIAN & INSTITUTION [place] [address] SPECIMEN INFORMATION: Tissue Source: Left neck mass Clinical Info: Left neck mass Specimen Number: [id number] CPT code: 34609,[id number] METHODOLOGY: Deparaffinized sections of prefer/formalin-fixed tissue or PAP/DQ stained slides are incubated with monoclonal/polyclonal antibodies/oligonucleotide probes. Localization is made via biotin free immunoperoxidase method. Appropriate controls are performed and reacted as expected. Results on target cell population are indicated in the following table: RESULTS: ANTIBODY / CLONE RESULT AE1-3 (AE1/AE3/PCK26) positive CK7 (OV-TL12/30) positive CK8 (05jkonJ79) positive CK20 (KS20.8) negative Vimentin (V9) negative Melan A (A103) negative S-100 (4C4.9) negative TTF-1 (8G7G3/1) negative Napsin A (Rabbit Polyclonal) negative, focal HepPar (OCh1E5) positive RCC (PN-15) negative PSAP (PASE/4LJ) negative CK5-6 (D5 & 1684) negative P40 (BC28) negative Her-2neu (CB11) positive (3+) MLH-1 (M1) positive MSH2 (25D12) positive MSH6 (44) positive PMS2 (OMS0398) positive Ki-67 (30-9) positive, high P53 (DO-7) positive, focal (wild type pattern) Testing for Her2 by IHC if equivocal, recommend testing for Her2 by FISH(remove/not needed These tests were developed and their performance characteristics determined by Laboratory. They may not have been cleared or approved by the U.S. Food and Drug Administration. The FDA has determined that such clearance or approval is not necessary. The above immunohistochemical/dualISH markers are ordered and reviewed by the Pathologist. INTERPRETATION: Left neck mass, CT guided core biopsy: Lymph node tissue with metastatic adenocarcinoma. See comment. Results of Microsatellite instability study: Negative (no loss of mismatch protein; no microsatellite instability detected). COMMENT: IHC profile is compatible with clinical impression of metastatic esophageal carcinoma. Case has been reviewed in consultation with Dr. Jones who concurs with the above diagnosis. IDC:SENIA [email or web address] 12/08/2023
--- NOTE | 2023-12-04 | ASPIGT_PTH ---
PATIENT: KATHRIN WISE LOC: CT U#:[id number] AGE/SX: 63/M ROOM: RE12/04/[address]: Dr. Bjorn Lang MD : 1960 BED: DIS: 12/04/2023 SPEC #: [id number] RECD: 12/04/23 11:08 STATUS: DEBBY MANOLO #: [id number] JATINDER: 12/04/23 00:[address]: Bjorn Lang DEPT: SURGICAL PATHOLOGY RECD BY: Deya Bean ENTERED: 12/04/23 11:09 SP TYPE: ASP RAD OT DR: Natalee Dewey MD Tissues: Neck, NOS Procedures: FNA Specimen Adequacy Special Stain Group II Surgery Specimen Level IV Imprint (control) HEADER OPERATION: CT guided neck mass biopsy PRE-OP DIAGNOSIS: Left lower neck mass TISSUE SUBMITTED: 20guage x 5 cores MICROSCOPIC DIAGNOSIS Left lower neck mass, CT guided core biopsy: Lymph node tissue with metastatic carcinoma. See note. NOTE: Immunohistochemistry ([id number]) supports the above diagnosis compatible with clinical impression of metastatic esophageal adenocarcinoma. See comment. 12/07/2023 COMMENT The specimen is evaluated at the time of biopsy by Dr. Gonzalez. Immediate Evaluation = Lymph node tissue with malignant cells present derived from metastatic non-small cell carcinoma. Immunohistochemistry ([id number]) for microsatellite instability (MSI) is being performed and results will be reported separately. Molecular studies on the tumor can be performed, if clinically indicated, please notify the laboratory if they needed. Please also make reference to previous specimen [id number] fine needle aspiration, left neck mass with diagnosis of metastatic non-small cell carcinoma and [id number], Distal esophagus mass with diagnosis of invasive moderately to poorly differentiated adenocarcinoma. Case has been reviewed in consultation with Dr. Jones who concurs with the above diagnosis. IDC:AM MICROSCOPIC DESCRIPTION Slides are reviewed. GROSS DESCRIPTION Received in fixative is one container labeled with the patient's name and designated Left neck mass. The specimen consists of multiple elongated fragments of barragan soft tissue measuring in aggregate 2.0 x 0.2 x 0.1cm. The entire specimen is submitted in one cassette. Two touch imprints are prepared at the time of core biopsy. 12/04/2023 TC:0 CPT:09760,43994
[2023-12-04 08:26] LABS: Absolute Lymphocyte Count 1.94 X10^3/uL (0.83-4.51); Absolute Neutrophil Count 5.1 X10^3/uL (2.0-7.7); Basophil# 0.05 X10^3/uL; Basophil% 0.6 % (0-1); Eosinophil# 0.54 X10^3/uL; Eosinophils% 6.5 % (0-5); Hematocrit 44.5 % (40-54); Hemoglobin 14.7 g/dL (13.0-16.5); Lymphocyte # 1.94 X10^3/ul (0.83-4.51); Lymphocyte % 23.3 % (19-41); Mean Corpuscular Hgb 29.7 pg (27.0-32.0); Mean Corpuscular Volume 89.9 fL (80-94); Mean Platelet Vol. 8.9 fl (6.2-12.0); Monocyte# 0.62 X10^3/uL; Monocyte% 7.5 % (0-10); NRBC Flagged by Analyzer 0 % (0-5); Neutrophil # 5.12 X10^3/uL (2.7-7.7); Neutrophil % 61.6 % (47-70); Platelet Count 382 K/mm3 (150-450); RBC Distribution Width CV 11.9 % (11.6-14.6); RBC Distribution Width SD 39.1 fl (35.1-43.9); Red Blood Count 4.95 M/mm3 (4.6-6.2); White Blood Count 8.3 K/mm3 (4.4-11.0)
[2023-12-04 08:38] LABS: Partial Thromboplast Time 28.1 Seconds (24.1-36.2)
[2023-12-04 08:42] LABS: International Normalized Ratio 1.1
[2023-12-04] MEDS: 0.9% Normal Saline (250mL Bag) 250 ML 15 ML IV (09:25)
[2023-12-04] MEDS: Midazolam 2 MG/2 ML Syringe IV (09:26)
[2023-12-04] MEDS: fentaNYL 100 MCG/2 ML Ampul IV (09:28)
[2023-12-04] MEDS: Lidocaine 2% (20 ml mdv) 20 ML Vial INFILT (09:40)
--- NOTE | 2023-12-04 11:50 | PRO.PCM_ITS ---
Procedure Report Date of Procedure: 12/04/23 Assessment & Plan Assessment/Plan (1) Mass of left side of neck: PLAN: PROCEDURE: CT DIRECTED CORE LEFT NECK MASS BIOPSY ORDERING PROVIDER: Dr. Lang INDICATION: Male, 63 years old. Left neck mass. PROVIDER: REECE Giang CONSENT: Written informed consent was obtained having explained the risks, benefits and alternatives in detail with the patient who accepted the risks and agreed to pro ceed. Laboratory review and clinical assessment was performed. PRE-PROCEDURE SEDATION ASSESSMENT: Current history and physical dictated by referring provider and reviewed. No clinical changes since date of exam. Patient has an ASA Class of 3. PROCEDURAL SEDATION PROTOCOL: The Drugs used were: 2 mg Versed, IV, and 50 mcg Fentanyl, IV. The sedation time was: 22 minutes, starting at 9:26 AM and terminated at 9:48 AM. The procedural sedation protocol was independently monitored by the department nurse. RADIATION DOSAGE (If Supplied By Facility): CTDIvol = 15.83 mGy, DLP = 263.68 mGycm Individualized dose optimization techniques were used for this CT. TECHNIQUE The patient was placed in a supine position. Using CT image guidance with image documentation, a suitable location in the lateral aspect of the left neck mass was identified. The skin surface was prepped with chlorhexidine and draped in a sterile fashion. 2% lidocaine was used for local anesthesia. Using an anterior approach, puncture of the liver was uneventful with an 18-gauge core needle system. 5, 20-gauge core samples were obtained, and submitted in formalin to the pathologist for further assessment. The needle was removed. An occlusive sterile dressing was applied. Patient tolerated the procedure well, and returned to the holding bay for nursing monitoring. IMPRESSION: CT directed core needle biopsy of the left neck mass, using CT image guidance with image documentation as described. Procedural Sedation protocol utilized with independent monitoring.
== END 2023-12-04 23:59 | disposition home or self-care (01) ==
LOC: CT 07:56
PROVIDERS: Radiology Diagnostic Radiology; PCP Family Medicine; Referring Provider Internal Medicine Medical Oncology; Visit Provider Internal Medicine Medical Oncology
DX: Z01.818 Encounter for other preprocedural examination (principal); C15.9 Malignant neoplasm of esophagus, unspecified; E11.9 Type 2 diabetes mellitus without complications; Z79.4 Long term (current) use of insulin; R22.1 Localized swelling, mass and lump, neck; I25.10 Atherosclerotic heart disease of native coronary artery without angina pectoris; Z95.5 Presence of coronary angioplasty implant and graft; I25.2 Old myocardial infarction; E78.5 Hyperlipidemia, unspecified; I10 Essential (primary) hypertension; Z79.84 Long term (current) use of oral hypoglycemic drugs; Z79.899 Other long term (current) drug therapy; Z79.85 Long-term (current) use of injectable non-insulin antidiabetic drugs; Z79.82 Long term (current) use of aspirin; G89.3 Neoplasm related pain (acute) (chronic)
CPT/HCPCS: 20206; 36415; 77012; 85025; 85610; 85730; 88172; 88305; 88313; 88341; 88342; 99156; J7050; A4216

== ENCOUNTER → 2024-06-03 | Outpatient (CLI) | payer MEDICARE, OTHER, SELFPAY ==
[2020-02-09 14:02] VITALS: BMI 26.1
[2024-06-03 09:56] LABS: Cholesterol 85 mg/dL (<=200); High Density Lipoprotein 37 mg/dL; Low Density Lipoprotein Calc. 32 mg/dL; Triglycerides 83 mg/dL; Very Low Density Lipoprotein 17 mg/dL (5-40); cholesterol:hdl ratio screen 2.33
[2024-06-03 09:58] LABS: AST(SGOT) 19 U/L (<=37); Alanine Aminotransfer ALT/SGPT 12 U/L (<=46); Albumin, Serum 4.1 g/dL (3.4-4.8); Alkaline Phosphatase 88 U/L (40-129); Bilirubin, Direct 0.17 mg/dL (0.00-0.30); Globulin 3.7 g/dL (2.2-4.2); Protein, Total 7.7 g/dL (5.9-8.4)
== END | disposition home or self-care (01) ==
LOC: LAB 08:25
PROVIDERS: PCP Family Medicine; Referring Provider Internal Medicine Cardiovascular Disease; Visit Provider Internal Medicine Cardiovascular Disease
DX: E78.5 Hyperlipidemia, unspecified (principal)
CPT/HCPCS: 36415; 80061; 80076

== ENCOUNTER → 2024-09-06 | Outpatient (CLI) | payer MEDICARE, OTHER, SELFPAY ==
[2020-02-09 14:02] VITALS: BMI 26.1
== END | disposition home or self-care (01) ==
LOC: MFPLAB 10:33
PROVIDERS: PCP Family Medicine; Referring Provider Family Medicine; Visit Provider Family Medicine
DX: Z12.5 Encounter for screening for malignant neoplasm of prostate (principal)
CPT/HCPCS: 36415; 84153; G0103

== ENCOUNTER → 2024-09-26 | Outpatient (CLI) | payer MEDICARE, OTHER, SELFPAY ==
[2020-02-09 14:02] VITALS: BMI 26.1
[2024-09-26 13:51] LABS: CREATININE FINGERSTICK < 1.0 mg/dL (0.70-1.30); EGFR FINGERSTICK > 60.0000 mL/min (>60)
== END | disposition home or self-care (01) ==
PROVIDERS: PCP Family Medicine; Referring Provider Internal Medicine Medical Oncology; Visit Provider Internal Medicine Medical Oncology
DX: C15.5 Malignant neoplasm of lower third of esophagus (principal); C49.A2 Gastrointestinal stromal tumor of stomach
CPT/HCPCS: 70491; 71260; 74160; Q9967